=== PATIENT | female | born 1970 | race Caucasian/White ===

== ENCOUNTER 2020-08-12 15:33 | Outpatient (CLI) | payer MEDICARE, MEDICAID, SELFPAY ==
--- NOTE | ~2020-08-12 | XR_ITS ---
XR shoulder RT min 2V 08/12/2020 16:00 Indication: Right shoulder pain Procedure: 4 views right shoulder Comparison: No prior studies for comparison. Findings: There is mild osteoarthritis of the acromioclavicular joint. No fracture or traumatic malal ignment. Osteopenia. No significant soft tissue abnormality. No foreign bodies. Impression: 1: Mild osteoarthritis of the right acromioclavicular joint. Reviewed, dictated and finalized at location A. Impression: 1: Mild osteoarthritis of the right acromioclavicular joint.
[2020-08-12 15:51] LABS: Hematocrit 35.1 % (35.0-49.0); Hemoglobin 11.1 g/dL (12.0-15.0); Immature Platelet Fraction Pct 0.9 % (1.0-7.0); Mean Corpuscular HGB Conc 31.6 g/dL (32.0-36.0); Mean Corpuscular Hemoglobin 25.9 pg (27.0-31.0); Mean Platelet Volume 9.2 fl (9.2-11.8); Platelet Count Result 547 K/mm3 (150-420); Red Blood Count 4.28 M/mm3 (4.20-5.40); Red Cell Distribution Width 15.3 % (11.6-14.4); White Blood Count 9.1 K/mm3 (4.8-10.8)
[2020-08-12 16:57] LABS: Alanine Aminotransferase 17 U/L (14-59); Albumin Level 3.4 g/dL (3.4-5.0); Alkaline Phosphatase 118 U/L (46-116); Anion Gap 8 mmol/L (8-16); Aspartate Amino Transferase < 10 U/L (15-37); Bilirubin,Total 0.2 mg/dL (0.00-1.00); Blood Urea Nitrogen 11 mg/dL (7-18); Calcium 9.3 mg/dL (8.5-10.1); Carbon Dioxide 31 mmol/L (21-32); Chloride 102 mmol/L (98-108); Cholesterol 219 mg/dL (0-200); Estimated Glomerular Filt Rate > 60; Free T4 Free Thyroxine 0.86 ng/dL (0.76-1.46); Glucose 80 mg/dL (70-99); HDL Direct 27 mg/dL (40-60); LDL Cholesterol Calculated 137 mg/dL (<130); Osmolality Calculated 290 mOsm/kg (285-295); Potassium 4.2 mmol/L (3.5-5.1); Sodium 141 mmol/L (136-145); Total Protein 7.6 g/dL (6.4-8.2); Triglycerides 277 mg/dL (0-150)
== END 2020-08-12 15:34 | disposition home or self-care (01) ==
PROVIDERS: PCP Physician Assistant; Visit Provider Physician Assistant
DX: M25.511 Pain in right shoulder (principal); I10 Essential (primary) hypertension
CPT/HCPCS: 36415; 73030; 80053; 80061; 84439; 84443; 85027; 85055

== ENCOUNTER 2021-04-08 08:19 | Outpatient (CLI) | payer OTHER, SELFPAY ==
--- NOTE | ~2021-04-08 | MR_ITS ---
EXAMINATION: MR cervical spine wo con EXAM DATE: 04/08/2021 09:11 INDICATION: Cervical Radiculopathy neck pain, lt hand numbness x 2 years. TECHNIQUE: Multi-sequential, multiplanar MR images of the cervical spine were obtained without contra st. Axial T2, axial T2 MERGE sequence. Sagittal T1, T2, T2 fat saturation images also obtained. Th ere is no prior study for comparison. FINDINGS: There is moderate disc disease C5-6 and 6-7, mild to moderate at the 2 levels above. The s alf cord signal intensity and intrinsic morphology is normal. Cervicomedullary junction is normal i n appearance. There is moderate reversal of normal cervical lordosis which could be due degenerative, positional or spasm. The vertebral bodies are aligned in the AP dimension. There are no suspicious m arrow signal abnormalities. Paraspinal soft tissue is unremarkable. Level by level evaluation: C2-C3: Disc does not extend beyond the endplate margin. Uncovertebral joint arthropathy: None. Facet joint arthropathy: Mild to moderate bilateral. Neural foraminal stenosis: No stenosis. Central canal stenosis: No stenosis. C3-C4: There is a mild diffuse disc bulge. Uncovertebral joint arthropathy: Mild bilateral. Facet joint arthropathy: Mild to moderate bilateral. Neural foraminal stenosis: Mild right. Central canal stenosis: Mild. C4-C5: There is a mild to moderate diffuse disc bulge. Uncovertebral joint arthropathy: Mild to moderate bilateral. Facet joint arthropathy: Mild to moderate bilateral. Neural foraminal stenosis: Mild to moderate bilateral. Central canal stenosis: Mild to moderate, cervical cord being mildly flattened anteriorly but no cord signal change, no edema. Central canal measures 6-7 mm in mid sagittal AP diameter. C5-C6: There is a mild to moderate diffuse disc bulge. Uncovertebral joint arthropathy: Moderate bilateral. Facet joint arthropathy: Mild to moderate bilateral. Neural foraminal stenosis: Moderate bilateral. Central canal stenosis: Mild to moderate, cervical cord being mildly flattened anteriorly but no cord signal change, no edema. Central canal measures 6-7 mm in mid sagittal AP diameter. . C6-C7: There is a mild diffuse disc bulge. Uncovertebral joint arthropathy: Moderate to severe bilateral. Facet joint arthropathy: Mild to moderate bilateral. Neural foraminal stenosis: Moderate to severe bilateral. Central canal stenosis: Mild. C7-T1: Disc does not extend beyond the endplate margin. Uncovertebral joint arthropathy: None. Facet joint arthropathy: Mild to moderate bilateral. Neural foraminal stenosis: No stenosis. Central canal stenosis: No stenosis. IMPRESSION: 1. C6-7 moderate to severe bilateral neural foraminal stenosis. 2. Otherwise overall moderate cervical spondylosis. Reviewed, dictated and finalized at location B. 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
== END 2021-04-08 08:20 | disposition home or self-care (01) ==
LOC: CHSIMG 08:21
PROVIDERS: PCP Physician Assistant; Visit Provider Physician Assistant
DX: M54.12 Radiculopathy, cervical region (principal)
CPT/HCPCS: 72141

== ENCOUNTER 2022-07-10 17:02 | Emergency (ER) | payer MEDICARE, MEDICAID, SELFPAY ==
--- NOTE | ~2022-07-10 | XR_ITS ---
Portable chest x-ray Comparison: 12/11/2016 Clinical History: Chest pain Findings: Lungs are clear, without focal consolidation or pleural effusion. Cardiomediastinal silho uette is stable. Bones and soft tissues are unremarkable. Impression: Normal chest. Reviewed, dictated and finalized at [facility]. Impression: Normal chest.
--- NOTE | 2022-07-10 17:17 | ECG_ITS ---
Measurements Intervals [place] Rate: 97 P: 66 GA: 124 QRS: 15 QRSD: 110 T: 48 QT: 337 QTc: 429 Interpretive Statements SINUS RHYTHM INCOMPLETE RIGHT BUNDLE BRANCH BLOCK [90+ ms QRS DURATION, TERMINAL R IN V1/V2, 40+ ms S IN I/aVL/V4/V5/V6] BORDERLINE ECG NO PREVIOUS ECG AVAILABLE FOR COMPARISON Electronically Signed On 07-11-2022 7:47:16 CDT by Prem Jones M.D.
--- NOTE | 2022-07-10 17:17 | ED.GENADULT ---
HPI - General Adult General Chief complaint: Neck Pain/Injury Stated complaint: neck into arm pain Time Seen by Provider: 07/10/22 17:07 History of Present Illness HPI narrative: the patient is a 52-year-old woman with a history of 3 prior back surgeries, who has chronic neck pain. She had a spinal MRI done last year and she is scheduled to have surgery on the cervical spine in the next few months. She does take Tylenol with codeine 4., Flexeril, and naproxen and has taken his medications today due to pain in the left arm as well as the left lateral chest. No previous similar history of arm and chest pain laterally. Does usually have neck pain that is localized to the neck. No trauma or falls. See MRI report below. No tingling sensations in the left hand. Able to move her left arm board with some difficulty secondary to pain. The pain is described as burning and throbbing. She has taken TC#4, Naproxen and Flexeril without relief. Related Data Home Medications Medication Instructions Recorded Confirmed acetaminophen 300 mg-codeine 60 mg 1 tablet PO Q6-8H 07/10/22 07/10/22 tablet cyclobenzaprine 10 mg tablet 10 mg PO TID 07/10/22 07/10/22 fluoxetine 20 mg capsule 20 mg PO DAILY 07/10/22 07/10/22 lisinopril 5 mg tablet 5 mg PO DAILY 07/10/22 07/10/22 Allergies Allergy/AdvReac Type Severity Reaction Status Date / Time No Known Drug Allergies Allergy Mild Unverified 10/24/17 13:05 Review of Systems Review of Systems: All systems reviewed & are unremarkable except as noted in HPI and below Constitutional: Constitutional: Reports as per HPI, Reports no additional constitutional complaints, Denies chills, Denies excessive sweating, Denies fatigue, Denies fever(s), Denies headache(s) and Denies weakness Eyes: Eyes: Reports as per HPI, Reports no additional eye complaints, Denies change in vision and Denies photophobia ENT: Reports system reviewed and no additional complaints, except as documented, Reports as per HPI, Denies dysphagia, Denies vertigo, Denies dizziness, Denies headache(s), Denies lip swelling, Denies nasal congestion, Denies sore throat, Denies throat swelling and Denies tongue swelling Cardiovascular: Cardiovascular: Reports as per HPI, Reports no additional cardiovascular complaints, Reports chest pain (laterally at left chest), Denies syncope, Denies rapid heart rate and Denies dyspnea Respiratory: Respiratory: Reports as per HPI, Reports no additional respiratory complaints, Denies chest congestion, Denies cough, Denies dyspnea and Denies wheezing Gastrointestinal: Gastrointestinal: Reports as per HPI, Reports no additional gastrointestinal complaints, Denies abdominal pain, Denies constipation, Denies dysphagia, Denies diarrhea, Denies nausea and Denies vomiting Genitourinary: Genitourinary: Reports as per HPI, Denies hematuria, Denies urinary frequency, Denies dysuria, Denies urinary incontinence and Denies urinary urgency Musculoskeletal: Musculoskeletal: Reports no additional musculoskeletal complaints, Denies back pain, Denies myalgias, Denies arthralgias, Denies joint swelling and Denies numbness Integumentary/Breasts: Skin/Breast: Reports system reviewed and no additional complaints, except as docu, Denies pruritus, Denies erythema, Denies rash and Denies skin ulcer Neurologic: Reports system reviewed and no additional complaints, except as documented, Reports as per HPI, Denies confusion, Denies vertigo, Denies dizziness, Denies syncope, Denies headache(s), Denies focal weakness, Denies numbness and Denies weakness Psychiatric: Psychiatric: Reports as per HPI, Denies anxiety, Denies confusion, Denies depression, Denies homicidal ideation and Denies suicidal ideation Endocrine: Endocrine: Reports no additional endocrine complaints, Denies excessive sweating, Denies fatigue, Denies polydipsia and Denies polyuria Hematologic/Lymphatic: Hematologic/Lymphatic: Reports no additional hematologic/lymphatic compla
[2022-07-10 17:22] VITALS: BP 147/65; PULSE 99; RESP 17; TEMP 36.6; O2SAT 100
[2022-07-10] MEDS: HYDROcodone/acetaminophen (*CRX) 5-325 MG TABLET 1 TAB PO ×2 (17:32→18:25)
[2022-07-10 17:33] LABS: Basophils Absolute Auto 0.06 K/mm3 (0.00-0.10); Basophils Percent Auto 0.6 % (0.0-1.0); Eosinophils Absolute Auto 0.26 K/mm3 (0.02-0.50); Eosinophils Percent Auto 2.4 % (1.0-6.0); Hematocrit 38.1 % (35.0-49.0); Hemoglobin 11.8 g/dL (12.0-15.0); Immature Granulocyte Absolute 0.03 K/mm3 (0.00-0.00); Immature Granulocyte Percent A 0.3 % (0.0-0.0); Immature Platelet Fraction Pct 2.3 % (1.0-7.0); Lymphocytes Absolute Auto 3.64 K/mm3 (1.10-4.50); Lymphocytes Percent Auto 33.7 % (18.0-42.0); Mean Corpuscular Hemoglobin 26.2 pg (27.0-31.0); Mean Corpuscular Volume 84.5 fL (78.0-102.0); Mean Platelet Volume 9.7 fl (9.2-11.8); Monocytes Absolute Auto 0.96 K/mm3 (0.10-0.90); Monocytes Percent Auto 8.9 % (2.0-11.0); Neutrophils Absolute Auto 5.8 K/mm3 (1.7-7.2); Neutrophils Percent Auto 54.1 % (50.0-70.0); Platelet Count Result 588 K/mm3 (150-420); Red Blood Count 4.51 M/mm3 (4.20-5.40); Red Cell Distribution Width 15.6 % (11.6-14.4); White Blood Count 10.8 K/mm3 (4.8-10.8)
[2022-07-10] MEDS: ORPHENADRINE CITRATE 30 MG/ML 2 ML VIAL 60 MG IM (17:33)
[2022-07-10] MEDS: KETOROLAC (*BKC) 60 MG/2 ML VIAL IM (17:33)
[2022-07-10 17:48] LABS: Alanine Aminotransferase 27 U/L (14-59); Albumin Level 3.2 g/dL (3.4-5.0); Alkaline Phosphatase 125 U/L (46-116); Anion Gap 9 mmol/L (8-16); Aspartate Amino Transferase 15 U/L (15-37); Bilirubin,Total 0.2 mg/dL (0.00-1.00); Blood Urea Nitrogen 12 mg/dL (7-18); Calcium 9.4 mg/dL (8.5-10.1); Carbon Dioxide 30 mmol/L (21-32); Chloride 100 mmol/L (98-108); Estimated Glomerular Filt Rate > 60; Glucose 103 mg/dL (70-99); Osmolality Calculated 287 mOsm/kg (285-295); Sodium 139 mmol/L (136-145); Total Protein 8.5 g/dL (6.4-8.2); Troponin I 4.1 ng/L (0.00-60.4)
[2022-07-10 18:50] VITALS: BP 139/66; PULSE 80; RESP 20; O2SAT 98
[2022-07-10 19:14] VITALS: BP 138/80; PULSE 90; RESP 20; TEMP 36.6; O2SAT 96
== END 2022-07-10 19:15 | disposition home or self-care (01) ==
PROVIDERS: Emergency Provider Emergency Medicine; PCP Physician Assistant
DX: M54.12 Radiculopathy, cervical region (principal)
CPT/HCPCS: 36415; 71045; 80053; 84484; 85025; 85055; 93005; 96372; 99284; A9270; J1885; J2360

== ENCOUNTER 2022-07-15 09:58 | Emergency (ER) | payer MEDICARE, MEDICAID, SELFPAY ==
[2022-07-15 09:58] VITALS: BP 135/69; PULSE 100; RESP 18; TEMP 36.8; O2SAT 100
--- NOTE | 2022-07-15 10:09 | ED.EPISTAXIS ---
HPI - Epistaxis General Chief complaint: Epistaxis Stated complaint: nosebleeds; left arm and shoulder pain Time Seen by Provider: 07/15/22 10:07 Source: patient Mode of arrival: ambulatory Limitations: no limitations History of Present Illness HPI Narrative: 52-year-old female with a history of cervical spondylosis, C6/C7 bilateral neural foraminal stenosis with left arm pain presents to the ER with -- ongoing left arm pain. She had an MRI which revealed moderate cervical spondylosis with severe bilateral narrowing of the foraminal stenosis at C6/7. The patient is awaiting surgery. She is currently following up with Pain Management to prescribed gabapentin. -- epistaxis- She had multiple episodes of right nostril bleeding. At one point while she was sleeping, the blood had accumulated in her throat and she was gurgling.The patient does not have any prior episodes of nosebleeds. The patient is not on any anticoagulation. no sinus complaints. MD complaint: epistaxis Location: right nostril Onset (ago): day(s) ( Started yesterday) Duration: intermittent Related Data Home Medications Medication Instructions Recorded Confirmed acetaminophen 300 mg-codeine 60 mg 1 tablet PO Q6-8H 07/10/22 07/15/22 tablet cyclobenzaprine 10 mg tablet 10 mg PO TID 07/10/22 07/15/22 fluoxetine 20 mg capsule 20 mg PO DAILY 07/10/22 07/15/22 lisinopril 5 mg tablet 5 mg PO DAILY 07/10/22 07/15/22 gabapentin 300 mg capsule 300 mg PO QID 07/15/22 07/15/22 Allergies Allergy/AdvReac Type Severity Reaction Status Date / Time No Known Drug Allergies Allergy Mild Hives Verified 07/15/22 10:09 Review of Systems Review of Systems: All systems reviewed & are unremarkable except as noted in HPI and below Constitutional: Constitutional: Reports as per HPI and Reports no additional constitutional complaints Eyes: Eyes: Reports as per HPI and Reports no additional eye complaints ENT: Reports system reviewed and no additional complaints, except as documented and Reports epistaxis Cardiovascular: Cardiovascular: Reports as per HPI and Reports no additional cardiovascular complaints Respiratory: Respiratory: Reports as per HPI and Reports no additional respiratory complaints Gastrointestinal: Gastrointestinal: Reports as per HPI and Reports no additional gastrointestinal complaints Genitourinary: Genitourinary: Reports no additional female genitourinary complaints and Reports as per HPI Musculoskeletal: Musculoskeletal: Reports no additional musculoskeletal complaints and Reports as per HPI Comments: left arm pain extending from the shoulder to the left elbow. Integumentary/Breasts: Skin/Breast: Reports system reviewed and no additional complaints, except as docu and Reports as per HPI Neurologic: Reports system reviewed and no additional complaints, except as documented and Reports as per HPI Psychiatric: Psychiatric: Reports no additional psychiatric complaints and Reports as per HPI Endocrine: Endocrine: Reports no additional endocrine complaints and Reports as per HPI Hematologic/Lymphatic: Hematologic/Lymphatic: Reports no additional hematologic/lymphatic complaints and Reports as per HPI Allergic/Immunologic: Allergic/Immunologic: Reports no additional allergic/immunologic complaints and Reports as per HPI PMFSH Past Medical History Medical History (Updated 07/15/22 @ 11:04 by Tyrone Malin MD) Epistaxis Hypertension Social History Social History (Updated 07/15/22 @ 10:34 by Tyrone Malin MD) Social History: smoker Exam Const: General: healthy appearing and no acute distress Nutritional Appearance: well nourished Orientation/consciousness: patient oriented x3 Limitations: no limitations HENMT: Head: normal to inspection Ears: external ears normal Face/Nose/Sinus: Normal external nose present and Epistaxis present ( Dried blood in the right nostril.) on the right Face and sinus: normal facial exam Mo
[2022-07-15 10:45] LABS: Basophils Absolute Auto 0.07 K/mm3 (0.00-0.10); Basophils Percent Auto 0.7 % (0.0-1.0); Eosinophils Absolute Auto 0.23 K/mm3 (0.02-0.50); Eosinophils Percent Auto 2.4 % (1.0-6.0); Hematocrit 36.6 % (35.0-49.0); Hemoglobin 11.4 g/dL (12.0-15.0); Immature Granulocyte Absolute 0.03 K/mm3 (0.00-0.00); Immature Granulocyte Percent A 0.3 % (0.0-0.0); Immature Platelet Fraction Pct 2.1 % (1.0-7.0); Lymphocytes Absolute Auto 2.84 K/mm3 (1.10-4.50); Lymphocytes Percent Auto 29.4 % (18.0-42.0); Mean Corpuscular HGB Conc 31.1 g/dL (32.0-36.0); Mean Corpuscular Hemoglobin 26.4 pg (27.0-31.0); Mean Corpuscular Volume 84.7 fL (78.0-102.0); Mean Platelet Volume 9.7 fl (9.2-11.8); Monocytes Percent Auto 8.3 % (2.0-11.0); Neutrophils Absolute Auto 5.7 K/mm3 (1.7-7.2); Neutrophils Percent Auto 58.9 % (50.0-70.0); Platelet Count Result 591 K/mm3 (150-420); Red Blood Count 4.32 M/mm3 (4.20-5.40); Red Cell Distribution Width 15.4 % (11.6-14.4); White Blood Count 9.7 K/mm3 (4.8-10.8)
[2022-07-15 10:57] LABS: Alanine Aminotransferase 22 U/L (14-59); Alkaline Phosphatase 116 U/L (46-116); Anion Gap 7 mmol/L (8-16); Aspartate Amino Transferase 13 U/L (15-37); Bilirubin,Total 0.2 mg/dL (0.00-1.00); Blood Urea Nitrogen 13 mg/dL (7-18); Calcium 9.1 mg/dL (8.5-10.1); Carbon Dioxide 29 mmol/L (21-32); Chloride 102 mmol/L (98-108); Estimated Glomerular Filt Rate > 60; Glucose 122 mg/dL (70-99); Osmolality Calculated 287 mOsm/kg (285-295); Partial Thromboplastin Time 33.2 SEC (23.90-30.70); Potassium 4.2 mmol/L (3.5-5.1); Prothrombin Time 11.4 Seconds (9.50-12.10); Sodium 138 mmol/L (136-145); Total Protein 8.1 g/dL (6.4-8.2)
[2022-07-15 11:09] VITALS: BP 132/87; PULSE 97; RESP 18; TEMP 36.2; O2SAT 99
== END 2022-07-15 11:14 | disposition home or self-care (01) ==
PROVIDERS: Emergency Provider Internal Medicine Critical Care Medicine; PCP Physician Assistant
DX: R04.0 Epistaxis (principal); M54.12 Radiculopathy, cervical region; I10 Essential (primary) hypertension
CPT/HCPCS: 36415; 80053; 85025; 85055; 85610; 85730; 99283

== ENCOUNTER 2023-11-19 15:41 | Outpatient (CLI) | payer MEDICARE, MEDICAID, SELFPAY ==
[2023-11-19 16:07] LABS: Basophils Absolute Auto 0.06 K/mm3 (0.00-0.10); Basophils Percent Auto 0.6 % (0.0-1.0); Eosinophils Absolute Auto 0.17 K/mm3 (0.02-0.50); Eosinophils Percent Auto 1.7 % (1.0-6.0); Hematocrit 42.9 % (35.0-49.0); Immature Granulocyte Absolute 0.05 K/mm3 (0.00-0.00); Immature Granulocyte Percent A 0.5 % (0.0-0.0); Immature Platelet Fraction Pct 2.6 % (1.0-7.0); Lymphocytes Absolute Auto 3.28 K/mm3 (1.10-4.50); Lymphocytes Percent Auto 32.2 % (18.0-42.0); Mean Corpuscular HGB Conc 32.6 g/dL (32-36); Mean Corpuscular Hemoglobin 27.4 pg (27.0-31.0); Monocytes Absolute Auto 0.51 K/mm3 (0.10-0.90); Neutrophils Absolute Auto 6.12 K/mm3 (1.70-7.20); Platelet Count Result 543 K/mm3 (150-420); Red Blood Count 5.11 M/mm3 (4.20-5.40); Red Cell Distribution Width 20.1 % (11.6-14.4); White Blood Count 10.2 K/mm3 (4.8-10.8)
[2023-11-19 16:32] LABS: Alanine Aminotransferase 82 U/L (14-59); Albumin Level 3.9 g/dL (3.4-5.0); Alkaline Phosphatase 141 U/L (46-116); Anion Gap 11 mmol/L (4-12); Aspartate Amino Transferase 38 U/L (15-37); Bilirubin,Total 0.4 mg/dL (0.00-1.00); Blood Urea Nitrogen 15 mg/dL (7-18); CRP 2.8 mg/dL (0.0-0.9); Calcium 9.7 mg/dL (8.5-10.1); Carbon Dioxide 29 mmol/L (21-32); Chloride 98 mmol/L (98-108); Estimated Glomerular Filt Rate > 60; Glucose 102 mg/dL (70-99); Osmolality Calculated 286 mOsm/kg (285-295); Potassium 4.6 mmol/L (3.5-5.1); Sodium 138 mmol/L (136-145)
== END 2023-11-19 15:42 | disposition home or self-care (01) ==
DX: M05.79 Rheumatoid arthritis with rheumatoid factor of multiple sites without organ or systems involvement (principal); G47.00 Insomnia, unspecified
CPT/HCPCS: 36415; 80053; 85025; 85055; 86140

== ENCOUNTER 2023-12-14 16:05 | Outpatient (CLI) | payer MEDICARE, SELFPAY ==
[2023-12-24 16:23] LABS: TPMT Activity 18
== END 2023-12-14 16:06 | disposition home or self-care (01) ==
LOC: CHSLAB 16:09
PROVIDERS: PCP Physician Assistant
DX: L40.50 Arthropathic psoriasis, unspecified (principal); M45.0 Ankylosing spondylitis of multiple sites in spine; M05.79 Rheumatoid arthritis with rheumatoid factor of multiple sites without organ or systems involvement
CPT/HCPCS: 36415; 82657

== ENCOUNTER 2024-03-23 16:26 | Outpatient (CLI) | payer MEDICARE, SELFPAY ==
[2024-03-23 17:29] LABS: Alanine Aminotransferase 39 U/L (14-59); Albumin Level 4.2 g/dL (3.4-5.0); Alkaline Phosphatase 84 U/L (46-116); Anion Gap 8 mmol/L (4-12); Aspartate Amino Transferase 17 U/L (15-37); Bilirubin,Total 0.4 mg/dL (0.00-1.00); Blood Urea Nitrogen 18 mg/dL (7-18); Calcium 9.9 mg/dL (8.5-10.1); Carbon Dioxide 30 mmol/L (21-32); Chloride 100 mmol/L (98-108); Estimated Glomerular Filt Rate > 60; Glucose 91 mg/dL (70-99); Osmolality Calculated 287 mOsm/kg (285-295); Potassium 5.2 mmol/L (3.5-5.1); Sodium 138 mmol/L (136-145); Total Protein 7.4 g/dL (6.4-8.2)
== END 2024-03-23 16:27 | disposition home or self-care (01) ==
PROVIDERS: PCP Physician Assistant; Visit Provider Physician Assistant
DX: M32.9 Systemic lupus erythematosus, unspecified (principal); M05.79 Rheumatoid arthritis with rheumatoid factor of multiple sites without organ or systems involvement
CPT/HCPCS: 36415; 80053

== ENCOUNTER 2024-04-20 09:38 | Emergency (ER) | payer MEDICARE, MEDICAID, SELFPAY ==
[2024-04-20] VITALS (22 sets, daily range): BP systolic 115–145; BP diastolic 47–74; PULSE 66–80; RESP 16–20; TEMP 36.9–37; O2SAT 91–98
--- NOTE | ~2024-04-20 | XR_ITS ---
EXAMINATION: XR chest 1V portable DATE: 04/20/2024 09:54 INDICATION: Shortness of breath. Burning sensation at the left chest. TECHNIQUE: frontal view of the chest was obtained. COMPARISON: Chest radiograph dated 07/10/2022 FINDINGS: The lungs remain clear with no focal airspace opacities, pulmonary edema, pleural effusion or pneumot horax. The cardiomediastinal silhouette is normal. Visualized bones and soft tissues are unremarkable . IMPRESSION: 1. No acute cardiopulmonary disease. Reviewed, dictated and finalized at location B. R [employer]
[2024-04-20 10:01] LABS: Basophils Absolute Auto 0.09 K/mm3 (0.00-0.10); Eosinophils Percent Auto 2.3 % (1.0-6.0); Hematocrit 39.1 % (35.0-49.0); Hemoglobin 12.4 g/dL (12.0-15.0); Immature Granulocyte Absolute 0.01 K/mm3 (0.00-0.00); Immature Granulocyte Percent A 0.1 % (0.0-0.0); Lymphocytes Absolute Auto 4.61 K/mm3 (1.10-4.50); Lymphocytes Percent Auto 52.8 % (18.0-42.0); Mean Corpuscular HGB Conc 31.7 g/dL (32-36); Mean Corpuscular Hemoglobin 29.2 pg (27.0-31.0); Mean Corpuscular Volume 92.2 fL (78.0-102.0); Mean Platelet Volume 10.2 fl (9.2-11.8); Monocytes Absolute Auto 0.67 K/mm3 (0.10-0.90); Monocytes Percent Auto 7.7 % (2.0-11.0); Neutrophils Absolute Auto 3.15 K/mm3 (1.70-7.20); Neutrophils Percent Auto 36.1 % (50.0-70.0); Platelet Count Result 376 K/mm3 (150-420); Red Blood Count 4.24 M/mm3 (4.20-5.40); Red Cell Distribution Width 15.2 % (11.6-14.4); White Blood Count 8.7 K/mm3 (4.8-10.8)
--- OUTSIDE RECORDS SUMMARY | 2024-04-20 10:10 | XMS_ITS | CONTINUITY OF CARE DOCUMENT ---
Author Name brandie diego Address Unknown Organization [facility] Address [address] [place] [address] Phone [phone] Care Team Providers Care Mergers And Acquisitions Associate Name Role Phone brandie diego Unavailable Unavailable
--- OUTSIDE RECORDS SUMMARY | 2024-04-20 10:10 | XMS_ITS | Clinical Summary ---
Author Organization [facility] Administrative Offices Address [address] [place] [id number] Care Team Providers Care Accreditation Coordinator Name Role Phone Unavailable Primary Care Provider Unavailabl e Family History Medical History Relation Name Comments Blood Clots Father High Cholesterol Father Hypertension Father Aneurysm Maternal Aunt Hypertension Maternal Aunt Hypertension Maternal Grandfather Cancer Maternal Grandmother Diabetes Maternal Grandmother Heart Disease Maternal Grandmother Hypertension Maternal Grandmother Hypertension Maternal Uncle High Cholesterol Mother Hypertension Mother Cancer Paternal Grandmother Heart Disease Paternal Grandmother Hypertension Paternal Grandmother Relation Name Status Comments Father Maternal Aunt Alive Maternal Grandfather Maternal Grandmother Maternal Uncle Alive Mother Paternal Grandmother Social History Tobacco Use Types Packs/Day Years Used Date Smoking Tobacco: Former Cigarettes Alcohol Use Standard Drinks/Week Comments Never 0 (1 standard drink = 0.6 oz pur e alcohol) Comments Unknown Sex and Gender Information Value Date Recorded Sex Assigned at Not on file Legal Sex Female 9:37 PM CDT Gender Identity Not on file Sexual Orientation Not on file Occupation Industry Job Start Date Job End Date disabled Not on file Not on file Not on file Plan of Treatment Health Maintenance Due Date Last Done Comments DTAP/TDAP/TD VACCINES (1 - Tdap) 1988 HEPATITIS B VACCINES (1 of 3 - 19+ 3-dose series) 05/21 CERVICAL CANCER SCREENING 06/17/1999 BREAST CANCER SCREENING 2009 COLORECTAL SCREENING 2014 Colorectal Cancer Screening 2014 FIT-DNA Q 3 years 2014 FIT/FOBT Q 1 year 2014 Flex Sig/CT Colonography Q 5 years 2014 ZOSTER VACCINE (1 of 2) 06/17/2019 INFLUENZA VACCINE (#1) 2023 Insurance MEDICARE PART A AND B [place]ICAID [place]
--- OUTSIDE RECORDS SUMMARY | 2024-04-20 10:10 | XMS_ITS | Clinical Summary ---
Author Organization [facility] Address [address] [place] [address] Care Team Providers Care Negative Stripper Name Role Phone Jose Brayn Primary Care Provider [phone] Ciaran Mcallister MD Unavailable [phone] Allergies Active Allergy Reactions Criticality Noted Date Comments Morphine Agitation Low Medications gabapentin (NEURONTIN) 300 mg capsule Take 4 capsules (1,200 mg total) by mouth nightly Active cyclobenzaprin e (FLEXERIL) 10 mg tablet Take 1 tablet (10 mg total) by mouth nightly 05/12/19 20 Active lisinopriL (PRINIVIL,ZEST RIL) 5 mg tablet Take 1 tablet (5 mg total) by mouth daily 10/10/19 20 Active FLUoxetine (PROzac) 20 mg capsule Take 2 capsules (40 mg total) by mouth daily Active tamsulosin (FLOMAX) 0.4 mg extended release capsule Take 1 capsule (0.4 mg total) by mouth daily Active folic acid (FOLVITE) 1 mg tablet Take 1 tablet (1 mg total) by mouth daily Active pantoprazole DR (PROTONIX) 40 mg EC tablet Take 1 tablet (40 mg total) by mouth daily Active docusate sodium (COLACE) 250 mg capsuleIndicat ions:constipat ion Take 1 capsule (250 mg total) by mouth 2 (two) times a day 60 capsule 01/21/20 24 Active Additional Information Patient not taking.Reported on 04/03/2024 nicotine (NICODERM CQ) [address] 1 patch on the skin daily 10 patch 01/22/20 Active Additional Information Patient not taking.Reported on 04/03/2024 oxyCODONE-acet aminophen (PERCOCET) 5-325 mg per tabletIndicati ons:Pain Take 1 tablet by mouth every 4 (four) hours as needed for pain 12 tablet 01/21/20 24 Active Additional Information Patient not taking.Reported on 04/03/2024 GEETA Noonan, Pen 40 mg/0.4 mL pen injector kit Inject 0.4 mL (40 mg total) under the skin every 14 (fourteen) days 01/19/20 24 Active traMADoL (ULTRAM) 50 mg tablet Take 1 tablet (50 mg total) by mouth 3 (three) times a day as needed 03/21/20 24 Active diazePAM (VALIUM) 2 mg tablet Take 1 tablet (2 mg total) by mouth 3 (three) times a day as needed Active busPIRone (BUSPAR) 15 mg tablet Take 1 tablet (15 mg total) by mouth 3 (three) times a day 02/16/20 24 Active meloxicam (MOBIC) 7.5 mg tablet take 1 tablet (7.5 mg) by oral route once daily for 30 days 04/06/19 25 Active sulfaSALAzine EN (AZULFIDINE EN) 500 mg EC tablet Take 1 tablet (500 mg total) by mouth 2 (two) times a day 04/05/19 25 Active naloxone (NARCAN) 4 mg/actuation spray,non-aero dexter Administer 1 spray (4 mg total) into affected nostril(s) as needed 07/06/19 24 Active predniSONE (DELTASONE) 5 mg tablet TAKE BETWEEN 1 TO 3 TABLET BY MOUTH ONCE DAILY FOR IMMEDIATE ARTHRITIS CONROL. USE LOWEST DOSE NEEDED AND STOP WHEN BETTER 03/13/20 24 Active methotrexate 2.5 mg tablet Take 1 tablet (2.5 mg total) by mouth every 7 days 025 Discontinued Active Problems Patient Care Coordination No te Formatting of this note migh t be different from the original. Referring provider: Dr. Ciaran Mcallister Ms. Thuy Cooper is a 53-year-old with esophageal diverticulum. Patient presented with a 1 year history of worsening dysphagia followed by vomiting. On 02/24/2024 the patient underwent an EGD which showed the GE junction was located at 40 cm with no evidence of reflux esophagitis or hiatal hernia or stenosis at the GE junction. While proceeding down the esophagus, on the left, a large mid esophageal diverticulum was observed at 30 cm. There was antral gastritis. This was biopsied. Final pathology showed gastric mucosa with mild chronic inflammation. On 03/30/2024 the patient underwent an esophagram that showed Diverticulum arising off the left lateral aspect of the mid to distal esophagus measuring up to 2.1 cm. No definite evidence of esophageal stricture or mass. Scattered tertiary contractions noted, which is most significant involving the mid to distal esophagus, which raises the concern for esophageal spasm versus mild early presbyesophagus. Xsnj-dh-equsbfby spontaneous gastroesophageal reflux. Small sliding-type hiatal hernia. She has a history of rheumatoid arthritis, psoriatic arthritis and ankylosing spondylitis. She is on methotrexate and Humira. She also reports taking 5 mg of prednisone every other day for pain. Her prior abdominal surgeries include a hysterectomy. She is a former smoker. Patient presents today for further surgical evaluation. Problem Noted Date Diagnosed Date Chronic cough 04/03/2024 Chronic depression 04/03/2024 Hyperglycemia 04/03/2024 Mixed hyperlipidemia 04/03/2024 Pneumonia 04/03/2024 Strain of trapezius muscle 04/03/2024 Esophageal diverticulum 04/03/2024 Other acute pancreatitis, unspecified complicati on status 01/18/2024 Rheumatoid arthritis involvi ng both ankles with positive rheumatoid factor 08/04/2023 UTI (urinary tract infection) 08/01/2023 Syncope 07/30/2023 Joint stiffness 07/20/2023 Cervical radiculopathy 08/03/2022 Cervical spinal stenosis 08/03/2022 Lymphadenopathy 07/24/2021 Gait difficulty 05/16/2019 Low back pain, non-specific 02/21/2019 Essential hypertension 04/15/2015 Overview (06/26/2016): Hypertension Bipolar affective disorder 01/16/2015 Overview (06/26/2016): Bipolar disorder Encounters Date Type Department Care Team Description 04/11/2024 Telephone [facility] [address] [place] [address] [address] Jaqueline Jorgensen RN 04/04/2024 Orders Only [facility] Surgery [facility] Floor [address] [place] [id number] Raghav Pugh NP Esophageal diverticulum (Primary Dx) 04/03/2024 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 [facility] Surgery [address] [facility] [place] [address] David Miller MD Esophageal diverticulum 03/30/2024 8:00 AM [employer] - 03/30/2024 11:59 PM SUPERVISOR [employer] Hospital Encounter [facility] [address] [place] [address] Rad, Amh Fluoro Esophageal diverticulum Discharge Disposition: Discharge to home or self care 03/27/2024 Orders Only [facility] Surgery [address] [place] [address] [address] [place] [id number] Yumiko Donaldson NP Esophageal diverticulum (Primary Dx) 01/25/2024 Telephone [facility] at [facility] [id number] [place] [address] [address] [id number] Ronald Bonilla MD 01/18/2024 6:14 AM CDT - 01/21/2024 1:16 PM CDT Hospital Encounter [address] [address] Harmeet Merritt MD Onaghise, Jude, MD Perez Porcel, Jose Daniel, MD Other acute pancreatitis, unspecified complication status [K85.80] (Primary Dx); Rheumatoid arthritis involving hand, unspecified laterality, unspecified whether rheumatoid factor present (HCC) Discharge Disposition: Discharge to home or self care from Last 3 Months Immunizations Name Administration Dates Next Due Influenza, Quadrivalent, Split, Intramuscular Influenza, Unspecified 12/20/2018 Tdap 03/31/2013 Surgical History Surgery Date Site/Laterality Comments TONSILLECTOMY HYSTERECTOMY LYMPH NODE BIOPSY Left LATERAL FUSION LUMBAR SPINE 3 surgeries Medical History Medical History Date Comments Hx Other Medical Back Surgery; C omments: TDB 01/16/2015 - Asthma Asthma; Comments : TDB 01/16/2015 - Hypertension Hypertension Chronic obstructive pulmonar y disease (HCC) COPD Hx Other Medical Bipolar; Commen ts: TDB 01/16/2015 - Hx Other Medical dengenarated di sk disease; Comments: TDB 01/16/2015 - Hx Other Medical Xanax abuse; Co mments: CSA 01/16/2015 - Hx Other Medical Sucidal attempt s; Comments: CSA 01/16/2015 - Anxiety Chest pain Cervical disc disease Depression Diverticulum of esophagus, acquired Family History Medical History Relation Name Comments Coronary artery disease Father Angélica nary artery disease; Diabetes Father Diabetes mellit us; Hypertension Father Hypertension; Schizophrenia Father Schizophrenia; Cancer Maternal Grandmother Diabetes Maternal Grandmother Heart disease Maternal Grandmother Hypertension Maternal Grandmother Stroke Maternal Grandmother Asthma Mother Asthma; COPD Mother COPD; Hypertension Mother Hypertension; Diabetes Paternal Grandfather Relation Name Status Comments Father Maternal Grandmother Mother Paternal Grandfather Social History Tobacco Use Types Packs/Day Years Used Date Smoking Tobacco: Former Cigarettes 1 39.3 1 985 - 06/28/2023 Smokeless Tobacco: Never Tobacco Cessation:Counseling Given: Not Answered Alcohol Use Standard Drinks/Week Comments Not Currently 0 (1 standard drink = 0.6 oz pur e alcohol) [facility] [employer] Answer Date Recorded In the past 12 months has [employer] electric, gas, oil, or water [email or web address] threatened to shut off services in your home? No 01/18/2024 Social Connection and Isolat ion Panel [NHANES] Answer Date Recorded In a typical week, how many times do you talk on the phone with family, friends, or neighbors? More than three times a week 01/18/2024 How often do you get togethe r with friends or relatives? More than three times a week 01/18/2024 How often do you attend chur ch or baptist services? Never 01/18/2024 Do you belong to any clubs o r organizations such as restorationist groups, unions, fraternal or athletic groups, or school groups? No 01/18/2024 How often do you attend meet ings of the clubs or organizations you belong to? Never 01/18/2024 Are you , , di vorced, , never , or living with a partner? 01/18/2024 AUDIT-C Answer Date Recorded Q1: How often do you have a drink containing alc ohol? Monthly or less 04/03/2024 Average Number of Drinks Not on file 025 Frequency of Binge Drinking Not on file 03/22 Overall Financial Resource Strain (CARDIA) Answe r Date Recorded How hard is it for you to pa y for the very basics like food, housing, medical care, and heating? Not hard at all 01/18/2024 Hunger Vital Sign Answer Date Recorded Within the past 12 months, y ou worried that your food would run out before you got the money to buy more. Never true 01/18/20 24 Within the past 12 months, t he food you bought just didn't last and you didn't have money to get more. Never true 01/18/2024 PRAPARE - Transportation Answer Date Re corded In the past 12 months, has l ack of transportation kept you from medical appointments or from getting medications? No 12/21 In the past 12 months, has l ack of transportation kept you from meetings, work, or from getting things needed for daily living? No 01/18/2024 Housing Stability Vital Sign Answer Tyrell e Recorded In the last 12 months, was t here a time when you were not able to pay the mortgage or rent on time? No 01/18/2024 In the past 12 months, how m any times have you moved where you were living? 1 01/18/2024 At any time in the past 12 m [facility], were you homeless or living in a jail (including now)? No 01/18/2024 Personal Safety Answer Date Recorded Have you ever been in or are you currently in a harmful physical or emotional relationship or is someone making you feel afraid or unsafe? 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[employer] Gender Identity Not on file Sexual Orientation Not on file Occupation Industry Job Start Date Job End Date disability Not on file Not on file Not on file Obstetrics History Last Filed Vital Signs Vital Sign Reading Time Taken Comments Blood Pressure 151/85 04/03/2024 8:40 AM [employer] Pulse 84 04/03/2024 8:40 AM [employer] Temperature 36.4 ??C (97.6 ??F) 04/03/2024 8:40 AM CS T Respiratory Rate 16 04/03/2024 8:40 AM [employer] Oxygen Saturation 96% 04/03/2024 8:40 AM [employer] Inhaled Oxygen Concentration - - Weight 87.2 kg (192 lb 3.2 oz) 04/03/2024 8:40 A M [employer] Height 163.1 cm (5' 4.21 ) 04/03/2024 8:40 AM CS T Body Mass Index 32.77 04/03/2024 8:40 AM [employer] Plan of Treatment Health Maintenance Due Date Last Done Comments Colon Cancer Screening-Colonoscopy 1969 Depression Screening 1969 Hepatitis B Screening 06/17/1987 Regular Well Visit/Exam 18-64 06/17/1987 Lung Cancer Screening 06/17/2019 Zoster Vaccine (1 of 2) 06/17/2019 DTaP/Tdap/Td Vaccine (2 - Td or Tdap) 03/31/2023 03/31/2013 Influenza Vaccine (#1) 2023 12/20/2018, 2015 Breast Cancer Screening-Mammogram 02/14/2025 02/15/2024, 02/15/2024, 07/26/2023, Additional history exists Hepatitis C Screening Completed 01/20/2024 Pneumococcal vaccine <65 Aged Out No longer eligible based on patient's age to complete this topic Procedures Procedure Name Priority Date/Time Associated Diagnosis Comments FL ESOPHAGRAM, DOUBLE CONTRAST Schedule Routine, Read Routine (OP Routine) 03/30/2024 8:30 AM SUPER[employer] Esophageal diverticulum HEPATIC FUNCTION PANEL Routine 01/21/2024 2:18 AM CDT HEPATITIS PANEL, ACUTE Routine 01/20/2024 12:16 PM CDT US RUQ ED Urgent/IP Urgent 01/20/2024 10:42 AM CDT EGFR Routine 01/20/2024 2:03 AM CDT PHOSPHORUS Routine 01/20/2024 2:03 AM CDT BILIRUBIN, DIRECT Routine 01/20/2024 2:0 3 AM CDT COMPREHENSIVE METABOLIC PANEL Routine 01/20/2024 2:03 AM CDT CBC WITHOUT DIFFERENTIAL Routine 01/20/2024 2:03 AM CDT LIPASE Routine 01/20/2024 2:03 AM CDT LIPASE Routine 01/19/2024 11:29 AM CDT from Last 3 Months Results * FL Esophagram, Double Contrast (03/30/2024 8:30 AM [employer]) Anatomical Region Laterality Modality Body N/A Radio Fluoroscop y 03/30/2024 10:1 2 AM [employer] Narrative 03/30/2024 10:26 AM SUPER[employer] EXAM DESCRIPTION: ?? FL ESOPHAGRAM BARIUM SWALLOW TO STOMACH, DOUBLE CONTRAST REASON FOR STUDY: ?? Esophageal diverticulum ?? Esophageal diverticulum ? Egd 1 month at [facility] ??Perforation?1.4 min ft ??276.5 mgy ?? RADIATION DOSE: Dose: ??5157.33 ?? uGym2 Dose Area Product (DAP) TECHNIQUE: Under fluoroscopic guidance, patient ingested effervescent granules followed by thick and thin barium. COMPARISON: None FINDINGS: ESOPHAGEAL MOTILITY: ?? There are scattered tertiary contractions noted, which is most significant involving the mid to distal esophagus, and findings raise the concern for esophageal spasm versus mild early presbyesophagus. ESOPHAGEAL MUCOSA: ?? There is a diverticulum noted arising off the left aspect of the mid to distal esophagus measuring 2.1 by 1.5 cm with the mouth measuring 1.4 cm. GASTRO-ESOPHAGEAL JUNCTION: ?? There is small sliding-type hiatal hernia. ?? There is pgfa-hm-jmcjomfv spontaneous gastroesophageal reflux observed during the study. NON-GI TRACT STRUCTURES: ?? No significant finding. OTHER: ?? No other significant finding. IMPRESSION: ?? 1. ?? Diverticulum arising off the left lateral aspect of the mid to distal esophagus measuring up to 2.1 cm. 2. ?? No definite evidence of esophageal stricture or mass. 3. ?? Scattered tertiary contractions noted, which is most significant involving the mid to distal esophagus, which raises the concern for esophageal spasm versus mild early presbyesophagus. 4. ?? Gbab-ao-kggzgiui spontaneous gastroesophageal reflux. 5. ?? Small sliding-type hiatal hernia. THIS IS AN ELECTRONICALLY VERIFIED FINAL REPORT 03/30/2024 10:26 AM - Electronically signed by ??Zunilda De Los Santos D.O. PS: PS D: ??03/30/2024 10:26 AM T: ??03/30/2024 10:26 AM Report ID: [id number] Reading Location: ??[id number] Procedure Note Zunilda De Los Santos, DO - 03/30/2024 EXAM DESCRIPTION: FL ESOPHAGRAM BARIUM SWALLOW TO STOMACH, DOUBLECONTRAST REASON FOR STUDY: Esophageal diverticulum Esophageal diverticulum Egd 1 month at [facility] Perforation?1.4min ft 276.5 mgy RADIATION DOSE: Dose: 5157.33 uGym2 Dose Area Product (DAP) TECHNIQUE: Under fluoroscopic guidance, patient ingested effervescentgranules followed by thick and thin barium. COMPARISON: None FINDINGS: ESOPHAGEAL MOTILITY: There are scattered tertiary contractions noted,which is most significant involving the mid to distal esophagus, and findingsraise the concern for esophageal spasm versus mild early presbyesophagus. ESOPHAGEAL MUCOSA: There is a diverticulum noted arising off the leftaspect of the mid to distal esophagus measuring 2.1 by 1.5 cm with the mouth measuring 1.4 cm. GASTRO-ESOPHAGEAL JUNCTION: There is small sliding-type hiatal hernia. There is memh-aa-mgrtubue spontaneous gastroesophageal reflux observedduring the study. NON-GI TRACT STRUCTURES: No significant finding. OTHER: No other significant finding. IMPRESSION: 1. Diverticulum arising off the left lateral aspect of the mid to distal esophagus measuring up to 2.1 cm. 2. No definite evidence of esophageal stricture or mass. 3. Scattered tertiary contractions noted, which is most significant involving the mid to distal esophagus, which raises the concern foresophageal spasm versus mild early presbyesophagus. 4. Xqzl-oc-ihalbclj spontaneous gastroesophageal reflux. 5. Small sliding-type hiatal hernia. THIS IS AN ELECTRONICALLY VERIFIED FINAL REPORT 03/30/2024 10:26 AM - Electronically signed by Zunilda De Los Santos D.O. 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 R esults may be affected. Protein, pl 6.4(L) 6.5 - 8.5 g/dL [facility] Albumin 3.3(L) 3.5 - 5.0 g/dL [facility] Alk phos 182(H) 40 - 130 Units/L [facility] ALT 123(H) 7 - 45 Units/L [facility] AST 130(H) 10 - 45 Units/L [facility] Blood 01/21/2024 2:18 AM CDT 01/21/2024 2:32 AM CDT Marko Luo MD LAB BLOOD ORDERABLES Final Resu lt [facility] [address] Department [place] [address] * Hepatitis panel, acute Blood (01/20/2024 12:16 PM CDT) Pathologist [facility] Hep A IgM Nonreactive Nonreactive Comment: Interpretive Data: If Hep A IgM Ab is reported as Equivocal, a new sample should be drawn in two weeks for testing. Current interpretive data was last revised on 19. Hep B core IgM Nonreactive Nonreactive [facility] Comment: Interpretive Data If HepB Core IgM Ab is reported as Equivocal, a new sample should be drawn in two weeks for testing. Current interpretive data was last revised on 19. Hep C Ab Nonreactive Nonreactive [facility] Comment: Interpretive Data Nonreactive: Antibodies to HCV not detected. Does NOT exclude the possibility of recent exposure to HCV. Equivocal: Equivocal for HCV antibodies. Supplemental molecular testing will be automatically performed to determine infection status in accordance with current CDC screening recommendations. ?? Reactive: Positive for HCV antibodies. ??This may represent current or past HCV infection. Supplemental molecular testing will be automatically performed to determine ??current infection status in accordance with current CDC screening recommendations. Interpretive data was last revised on 2019. HepBsAg Nonreactive Nonreactive [facility] Blood 01/20/2024 12:1 6 PM CDT 01/20/2024 12:23 PM CDT us Joanna DOTSON LAB MICROBIOLOGY - GENERA L ORDERABLES Final Result [facility] [address] Department [place] [address] * US RUQ (01/20/2024 10:42 AM CDT) Anatomical Region Laterality Modality Abdomen N/A Ultrasound 01/20/2024 3:58 PM CDT Impressions 01/20/2024 3:58 PM CDT Increased echogenicity of the liver parenchyma, most consistent with hepatic steatosis. Electronically signed by: Viv Winston M.D. Narrative 01/20/2024 3:58 PM CDT EXAMINATION: US RUQ HISTORY: The patient is a 53-year-old female who presents with upper abdominal pain. TECHNIQUE: Transverse and sagittal images were obtained with grayscale imaging, color Doppler imaging and spectral waveform analysis. FINDINGS: The gallbladder is normal in appearance with no calculi within it. No gallbladder wall thickening seen nor is any pericholecystic fluid noted. ??Biliary tree is not dilated with the common duct measuring 4 mm in diameter. The liver measures 14.9 cm in sagittal length. ??Echotexture is diffusely increased. ??No focal liver lesion is seen. ??Portal vein patent with normal hepatopedal flow within it. Pancreas normal in size and echotexture. ??The right kidney measures 11.6 x 4.8 cm in size and has a normal sonographic appearance. The abdominal aorta and inferior vena cava are normal in appearance. No ascites seen. Procedure Note Viv Winston MD - 01/20/2024 EXAMINATION: US RUQ HISTORY: The patient is a 53-year-old female who presents with upper abdominal pain. TECHNIQUE: Transverse and sagittal images were obtained with grayscale imaging, color Doppler imaging and spectral waveform analysis. FINDINGS: The gallbladder is normal in appearance with no calculi within it. No gallbladder wall thickening seen nor is any pericholecystic fluid noted. Biliary tree is not dilated with the common duct measuring 4 mm in diameter. The liver measures 14.9 cm in sagittal length. Echotexture is diffusely increased. No focal liver lesion is seen. Portal vein patent with normal hepatopedal flow within it. Pancreas normal in size and echotexture. The right kidney measures 11.6 x 4.8 cm in size and has a normal sonographic appearance. The abdominal aorta and inferior vena cava are normal in appearance. No ascites seen. IMPRESSION: Increased echogenicity of the liver parenchyma, most consistent with hepatic steatosis. Electronically signed by: Viv Winston M.D. Marko Luo MD IMG US PROCEDURES Final Result * eGFR (01/20/2024 2:03 AM CDT) eGFR >90 >=60 mL/min/1. 73 m2 Comment: Interpretive Data Reference Interval Normal ?>/= 90 mL/min/1.73m2 Mildly decreased* ? 60 - 89 mL/min/1.73m2 Mildly to moderately decreased ?45 - 59 mL/min/1.73m2 Moderately to severely decreased ??30 - 44 mL/min/1.73m2 Severely decreased ?15 - 29 mL/min/1.73m2 Kidney Failure ?< 15 ??mL/min/1.73m2 *Relative to young adult level Estimated glomerular filtration rate is determined by the 2020 CKD-EPI equation recommended by the National Kid[employer] Foundation (A Unifying Approach to GFR Estimation: Recommendations of the NKF-ASK Task Force on Reassessing the Inclusion of Race in Diagnosing Kidney Disease, JASN 2020). The CKD-EPI equation should not be used for patients with unstable renal function and has not been validated in children and those over 70. Current interpretive data was last reviewed 2021. Blood 01/20/2024 2:03 AM CDT 01/20/2024 2:50 AM CDT us Marko Luo MD LAB BLOOD ORDERABLES Final Resu lt [facility] [address] Department [place] [address] * (ABNORMAL) CBC without differential (01/20/2024 2:03 AM CDT) WBC 8.7 3.8 - 9.9 K/cumm Hgb 9.8(L) 11.9 - 15.5 g/dL [facility] Hct 31.5(L) 35.6 - 45.5 % [facility] Plt 307 150 - 400 K/cumm [facility] MPV 11.0 9.1 - 12.3 fL [facility] RBC 3.37(L) 3.90 - 5.20 M/cumm [facility] MCV 93.5 81.3 - 96.4 fL [facility] MCH 29.1 27.1 - 33.3 pg [facility] MCHC 31.1(L) 32.3 - 35.7 g/dL [facility] RDW CV 16.6(H) 11.1 - 14.9 % [facility] RDW SD 56.6(H) 35.7 - 48.1 fL [facility] NRBC abs 0.00 0.00 - 0.01 K/cumm [facility] Blood 01/20/2024 2:03 AM CDT 01/20/2024 2:49 AM CDT us Marko Luo MD LAB BLOOD ORDERABLES Final Resu lt [facility] [address] Department [place] [address] * Phosphorus (01/20/2024 2:03 AM CDT) Phosphorus, pl 3.2 2.3 - 4.5 mg/dL Blood 01/20/2024 2:03 AM CDT 01/20/2024 2:50 AM CDT us Marko Luo MD LAB BLOOD ORDERABLES Final Resu lt Performing Organization Address [facility] de Phone Number [facility] [address] Department [place] [address] * (ABNORMAL) Lipase (01/20/2024 2:03 AM CDT) Lipase 233(H) 10 - 99 Units/L Blood 01/20/2024 2:03 AM CDT 01/20/2024 2:50 AM CDT us Marko Luo MD LAB BLOOD ORDERABLES Final Resu lt Performing Organization Address [facility] [facility] Co de Phone Number [facility] [address] Department [place] [address] * (ABNORMAL) Bilirubin, direct (01/20/2024 2:03 AM CDT) Bilirubin, direct 0.5(H) 0.1 - 0.3 mg/dL Blood 01/20/2024 2:03 AM CDT 01/20/2024 2:50 AM CDT us Marko Luo MD LAB BLOOD ORDERABLES Final Resu lt Performing Organization Address [facility] Co de Phone Number [facility] [address] Department [place] [address] * (ABNORMAL) Comprehensive metabolic panel (01/20/2024 2:03 AM CDT) Sodium 139 135 - 145 mmol/L Potassium, pl 3.5 3.3 - 4.9 mmol/L [facility] Chloride 105 97 - 110 mmol/L [facility] CO2 24 22 - 32 mmol/L [facility] Anion gap 10 2 - 15 mmol/L [facility] BUN 4(L) 6 - 25 mg/dL [facility] Creatinine 0.55(L) 0.60 - 1.10 mg/dL [facility] Glucose 89 70 - 199 mg/dL [facility] Comment: Interpretive Data Fasting glucose >/= 126 mg/dl is diagnostic for diabetes. ?? Fasting is defined as no caloric intake for at least 8 hours. Fasting glucose between 100 mg/dl to 125 mg/dl is diagnostic of prediabetes. In a patient with classic symptoms of hyperglycemia or hyperglycemic crisis, a random glucose >/= 200 mg/dl is diagnostic for diabetes. In the absence of unequivocal hyperglycemia, results should be confirmed by repeat testing. The classification and Diagnosis of Diabetes Diabetes Care 2021; 46: S19-S40. Current interpretive data was last revised 2022. Calcium 8.9 8.5 - 10.3 mg/dL [facility] Bilirubin, total 1.0 0.1 - 1.2 mg/dL [facility] Protein, pl 6.2(L) 6.5 - 8.5 g/dL [facility] Albumin 3.5 3.5 - 5.0 g/dL [facility] Alk phos 117 40 - 130 Units/L [facility] ALT 55(H) 7 - 45 Units/L [facility] AST 31 10 - 45 Units/L [facility] Blood 01/20/2024 2:03 AM CDT 01/20/2024 2:50 AM CDT us Marko Luo MD LAB BLOOD ORDERABLES Final Resu lt [facility] [address] Department [place] [address] * (ABNORMAL) Lipase (01/19/2024 11:29 AM CDT) Lipase 445(H) 10 - 99 Units/L Blood 01/19/2024 11:2 9 AM CDT 01/19/2024 12:12 PM CDT Marko Luo MD LAB [place]LOOD [place] [address] [address] Department [place] [address] from Last 3 [place] [address] [facility] MEDICARE IDPA MEDICARE [facility] Advance Directives For more information, please contact: [phone] * Full Code (Latest Code Status on File) Date Activated Date Inactivated Comments 01/18/2024 1:42 PM 01/21/2024 5:17 PM Care Teams Negative Stripper Relationship Specialty Start Date End Date Jose Bryan PA [address] [place] [address] PCP - General Family Practice 10/13/18 Ciaran Mcallister MD [address] [place] [address] General Surgery 04/03/24
--- OUTSIDE RECORDS SUMMARY | 2024-04-20 10:10 | XMS_ITS | Referral Summary ---
Author Organization [facility] Address [address] [place] [address] Care Team Providers Care Cut Plug Packer Name Role Phone Unavailable Primary Care Provider Unavailabl e Source Comments [facility],non-owned Affiliates and Associated Physician Practices is amultiple site organization consisting of ambulatory clinics and hospital sitesin [place], [place], [place] and [place]. This disclosure is being madepursuant to the Care Everywhere program and may not contain all information available regarding this patient. Last updated 17.[facility] Active Problems Problem Noted Date Diagnosed Date Syncope, unspecified syncope type 07/30/2023 Social History Tobacco Use Types Packs/Day Years Used Date Smoking Tobacco: Never Assessed Sex and Gender Information Value Date Recorded Sex Assigned at Not on file Gender Identity Not on file Sexual Orientation Not on file Plan of Treatment Not on file
--- OUTSIDE RECORDS SUMMARY | 2024-04-20 10:10 | XMS_ITS | Clinical Summary ---
Author Organization [facility] Address [address] [place] [address] [place] [address] Care Team Providers Care Document Imaging Manager Name Role Phone Jose Bryan Primary Care Provider [phone] Allergies Active Allergy Reactions Criticality Noted Date Comments Morphine Anxiety,Other (see comment) Low 07/09/19 22 AMPS HER UP Medications cyclobenzaprine 10 MG tablet Take 1 tablet (10 mg total) by mouth nightly. 0 11/07/2018 Active FLUoxetine (PROZAC) 40 MG capsule Take 1 capsule (40 mg total) by mouth daily. 07/26/2023 Active lisinopril (PRINIVIL) 5 MG tablet Take 1 tablet (5 mg total) by mouth daily. 07/14/2023 Active gabapentin (NEURONTIN) 600 MG tablet Take 1 tablet (600 mg total) by mouth 3 (three) times daily. 07/13/2023 Active diclofenac EC (VOLTAREN) 75 MG tablet Take 1 tablet (75 mg total) by mouth 2 (two) times daily. 09/09/2023 Active pantoprazole EC (PROTONIX) 40 MG tablet Take 1 tablet (40 mg total) by mouth daily. 09/09/2023 Active nitrofurantoin (MACRODANTIN) 100 MG capsule Take 1 capsule (100 mg total) by mouth nightly at bedtime. 09/07/2023 Active folic acid (FOLVITE) 1 MG tablet Take 1 tablet (1 mg total) by mouth daily. 09/09/2023 Active traMADol (ULTRAM) 50 MG tablet TAKE 1 TABLET BY MOUTH THREE TIMES A DAY FOR PAIN CONTROL 09/09/2023 Active azaTHIOprine (IMURAN) 50 MG tablet Take 1 tablet (50 mg total) by mouth 2 (two) times daily. Active Active Problems Problem Noted Date Diagnosed Date UTI (urinary tract infection) 08/01/2023 Back pain 07/30/2023 Immunizations Name Administration Dates Next Due Influenza (Generic) 12/20/2018 Influenza Adult (Generic) 02/27/2016 Tdap (Generic) 03/31/2013 Social History Tobacco Use Types Packs/Day Years Used Date Smoking Tobacco: Former Cigarettes Smokeless Tobacco: Never Tobacco Cessation:Counseling Given: Not Answered Alcohol Use Standard Drinks/Week Comments No 0 (1 standard drink = 0.6 oz pur e alcohol) [facility] Utilities Answer Date Recorded In the past 12 months has e [employer], gas, oil, or water [employer] threatened to shut off services in your home? No 07/30/2023 Humiliation, Afraid, Rape, and Kick questionnair e Answer Date Recorded Within the last year, have y ou been afraid of your partner or ex-partner? No 07/30/2023 Within the last year, have y ou been humiliated or emotionally abused in other ways by your partner or ex-partner? No Within the last year, have y ou been kicked, hit, slapped, or otherwise physically hurt by your partner or ex-partner? No 07/30/2023 Within the last year, have y ou been raped or forced to have any kind of sexual activity by your partner or ex-partner? No 07/30/2023 AUDIT-C Answer Date Recorded Frequency of Alcohol Consumption Never 11/22/2018 Average Number of Drinks Not on file 019 Frequency of Binge Drinking Not on file 05/2018 Overall Financial Resource Strain (CARDIA) Answe r Date Recorded How hard is it for you to pa y for the very basics like food, housing, medical care, and heating? Not very hard 07/30/2023 Hunger Vital Sign Answer Date Recorded Within the past 12 months, y ou worried that your food would run out before you got the money to buy more. Never true 07/30/19 24 Within the past 12 months, t he food you bought just didn't last and you didn't have money to get more. Never true 07/30/2023 PRAPARE - Transportation Answer Date Re corded In the past 12 months, has l ack of transportation kept you from medical appointments or from getting medications? No 07/20 In the past 12 months, has l ack of transportation kept you from meetings, work, or from getting things needed for daily living? No 07/30/2023 Housing Stability Vital Sign Answer Tyrell e Recorded In the last 12 months, was t here a time when you were not able to pay the mortgage or rent on time? No 07/30/2023 In the past 12 months, how m any times have you moved where you were living? 1 07/30/2023 At any time in the past 12 m [facility], were you homeless or living in a chcf (including now)? No 07/30/2023 Comments No Sex and Gender Information Value Date Recorded Sex Assigned at Not on file Legal Sex Female 4:49 PM CDT Gender Identity Not on file Sexual Orientation Not on file Last Filed Vital Signs Vital Sign Reading Time Taken Comments Blood Pressure 128/57 01/18/2024 4:59 AM CDT Pulse 101 01/18/2024 4:59 AM CDT Temperature 36.8 ??C (98.3 ??F) 01/18/2024 4:59 AM CD T Respiratory Rate 16 01/18/2024 4:59 AM CDT Oxygen Saturation 97% 01/18/2024 4:59 AM CDT Inhaled Oxygen Concentration - - Weight 86.2 kg (190 lb) 01/18/2024 12:41 AM CDT Height 162.6 cm (5' 4 ) 01/18/2024 12:41 AM CDT Body Mass Index 32.61 01/18/2024 12:41 AM CDT Plan of Treatment Health Maintenance Due Date Last Done Comments Colorectal Cancer Screening Colonoscopy (10 Years) 1969 Annual Physical 1972 COVID-19 Vaccine (#1) 1974 Pneumococcal Vaccine: Pediatrics (0 to 5 Years) and At-Risk Patients (6 to 64 Years) (1 of 2 - PCV) 06/17/1975 Hepatitis C 06/17/1987 Hepatitis B Vaccines (1 of 3 - 19+ 3-dose series) 1988 Zoster Vaccines (1 of 2) 1988 DTaP, Tdap and Td Vaccines ( 2 - Td or Tdap) 03/31/2023 03/31/2013 Influenza Adult (#1) 2023 12/20/2018, 02/27/2016 Mammogram Screening 07/25/2025 07/26/2023, 07/26/2023 Meningococcal B Vaccine Aged Out No l onger eligible based on patient's age to complete this topic Meningococcal Vaccine Aged Out No sabrina ron eligible based on patient's age to complete this topic RSV Immunizations Under 20 Months Aged Out No longer eligible b ased on patient's age to complete this topic Insurance MEDICARE MEDICAID Advance Directives * Full Code (Latest Code Status on File) Date Activated Date Inactivated Comments 07/30/2023 6:07 PM 08/02/2023 3:11 PM Care Teams Document Imaging Manager Relationship Specialty Start Date End Date Jose Bryan PA [address] [place] [address] PCP - General PHYSICIAN TRAIN MASTER 11/22/18
--- OUTSIDE RECORDS SUMMARY | 2024-04-20 10:10 | XMS_ITS | Continuity of Care Document ---
Author Organization [facility] Address [address] [place] [address] Phone Care Team Providers Care Pharmacy Clinical Specialist Name Role Phone Slim Grier MD Unavailable Unavailable Allergies, Adverse Reactions, Alerts Substance Reaction Status Criticality No Known Allergies Active No Inform ation Medications Medication Instructions Dosage Effective Dates (start - stop) Status Comments Flovent HFA 110 mcg/actuation aerosol inhaler inhale 2 puff (220MCG) by inhalation route 2 times every day 220 MCG - Active ProAir HFA 90 mcg/actuation Aerosol Inhaler inhale 2 puff by inhalation route every 4 - 6 hours as needed - Active losartan 100 mg tablet take 1 tablet (100MG) by oral route every day 100 MG - Active Lipitor 20 mg tablet take 1 Tablet (20MG) by oral route every day 20 MG - Active Celexa 40 mg tablet take 1 tablet (40MG) by oral route every day 40 MG - Active Valium 10 mg tablet take 1 tablet (10MG) by oral route 2 times every day 10 MG - Active avoid driving or operate machines Procedures Procedure Date OFFICE/OUTPATIENT VISIT, EST OFFICE/OUTPATIENT VISIT, EST OFFICE/OUTPATIENT VISIT, EST OFFICE/OUTPATIENT VISIT, EST OFFICE/OUTPATIENT VISIT, EST OFFICE/OUTPATIENT VISIT, NEW Advance Directives Directive Yes / No Effective Date File Name No Information Encounters Encounter Description Practice Location Reason(s) For Visit Diagnoses Date Provider Providers Copied on Encounter [facility], [address], [place], [id number], tel:[phone] [facility] No Information 4 Marvel Soler [address], [address], [place], [place], [address] , [place]. tel:[phone] Referring Provider: Mateo Desai [address], [place], [place], [id number]. tel:[phone] OFFICE/OUTPA TIENT VISIT, [facility], [address], [place], [place], [id number], [place] tel:[phone] [facility] HTN (chief complaint) HLP (chief complaint) COPD (chief complaint) Dietary surveillance and counselingHypertens ion, UnspecifiedHypothyr oidismOther and unspecified hyperlipidemiaCOPD 4 Marvel Soler [address], [address], [place], [place], [id number] , [place]. tel:[phone] Referring Provider: Mateo Desai [address], [place], [place], [id number]. tel:[phone] OFFICE/OUTPA TIENT VISIT, [facility], [address], [place], [place], [id number], [place] tel:[phone] [facility] COPD (chief complaint) anxiety (chief complaint) HLP (chief complaint) Dietary surveillance and counselingLEUKOCYTO SIS NOSCOPDOther and unspecified hyperlipidemiaHypot hyroidism 4 Marvel Gal[address], [place], [place], [address] , [place]. tel:[phone] Referring Provider: Mateo Desai [address], [place], [place], [id number]. tel:[phone] OFFICE/OUTPA TIENT VISIT, [facility], [address], [place], [place], [address], [place] tel:[phone] [facility] anxiety (chief complaint) back pain (chief complaint) COPD (chief complaint) Dietary surveillance and counselingOther and unspecified hyperlipidemiaCOPDL umbago 4 Grier Slim. [address], [address], [place], [place], [address] , [place]. tel:[phone] Referring Provider: Mateo Desai [address], [place], [place], [id number]. tel:[phone] OFFICE/OUTPA TIENT VISIT, [facility], [address], [place], [place], [address], [place] tel:[phone] [facility] HLP (chief complaint) metabolic (chief complaint) leukocytos is (chief complaint) hypothyroi dism (chief complaint) anxiety (chief complaint) bronchitis (chief complaint) Dietary surveillance and counselingOther and unspecified hyperlipidemiaMetab olic SyndromeLEUKOCYTOSI S NOSHypothyroidism Apr-2 4 4 aMrvel Smalls. [address], [address], [place], [place], [address] , [place]. tel:[phone] Referring Provider: Mateo Desai [address], [place], [place], [id number]. tel:[phone] OFFICE/OUTPA TIENT VISIT, [facility], [address], [place], [place], [address], [place] tel:[phone] [facility] HTN (chief complaint) anxiety (chief complaint) back pain (chief complaint) cough (chief complaint) Dietary surveillance and counselingHypertens ion, UnspecifiedLumbagoB ronchitis, Acute Apr-0 3201 4 Marvel Smalls. [address], [address], [place], [place], [address] , [place]. tel:[phone] Referring Provider: Mateo Desai [address], [place], [place], [address]. tel:[phone] OFFICE/OUTPA TIENT VISIT, [facility], [address], [place], [place], [address], [place] tel:[phone] [facility] Dietary surveillance and counselingLumbagoHy pertension, UnspecifiedHypergly cemia Mar-0 6201 4 Marvel Smalls. [address], [address], [place], [place], [address] , . tel:[phone] Family History Family Member Type Diagnosis Age At Onset Father Problem (finding) Coronary artery disease Mother Problem (finding) Hypertension Mother Problem (finding) Diabetes mellitus Mother Problem (finding) Asthma Mother Problem (finding) Anxiety Mother Problem (finding) Depression Father Problem (finding) schizophrenia Father Problem (finding) Anxiety Payers Payer name Insurance type Covered alliance party ID Authoriza tion(s) No Information Social History Type Description Quantity Date Captured Comments Sex Female Smoking Status No Information Chief Complaint And Reason For Visit No Information Plan Of Treatment Date Type Action Status Goal Mammogram. Due on 4 due Goal Tobacco cessation counseling completed Goal Tobacco cessation counseling completed Goal Tobacco cessation counseling completed Goal Tobacco cessation counseling completed Goal Tobacco cessation counseling completed Goal Tobacco cessation counseling completed Referral Ordered: Pulmonary Diseases ordered Referral Ordered: Otolaryngology ordered Referral Ordered: Referral: Pulmonary Diseases. ordered Referral Ordered: Referral: Otolaryngology. ordered Referral Ordered: CHEST X-RAY PA/LAT TWO-VIEWS ordered Referral Ordered: Pain Management (related to Lumbago) ordered Referral Ordered: Referral: Pain Management. Evaluate and treat. ordered Referral Ordered: MAMMOGRAM, SCREENING ordered History Of Present Illness Encounter Date Complaint History Of Prese nt Illness No Information Instructions Date Instruction Additional Infor latesha Decrease caloric intake Related to Dietary surveillance counseling Dietary counseling Related to Di etary surveillance counseling Decrease caloric intake Related to Dietary surveillance counseling Dietary counseling Related to Di etary surveillance counseling Dietary counseling Related to Di etary surveillance counseling Decrease caloric intake Related to Dietary surveillance counseling Dietary counseling Related to Di etary surveillance counseling Decrease caloric intake Related to Dietary surveillance counseling Dietary counseling Related to Di etary surveillance counseling Decrease caloric intake Related to Dietary surveillance counseling Decrease caloric intake Related to Dietary surveillance counseling Dietary counseling Related to Di etary surveillance counseling Assessments Type Assessment Date No Information
--- OUTSIDE RECORDS SUMMARY | 2024-04-20 10:10 | XMS_ITS | Patient Health Summary ---
Author Organization [facility] Address [address] [place] [address] Care Team Providers Care Fruit Grader Name Role Phone Unavailable Primary Care Provider Unavailabl e Note from [facility],non-owned Affiliates and Associated Physician Practices is amultiple site organization consisting of ambulatory clinics and hospital sitesin [place], [place], [place] and [place]. This disclosure is being madepursuant to the Care Everywhere program and may not contain all information available regarding this patient. Last updated 17.[facility] Active Problems Problem Noted Date Diagnosed Date Syncope, unspecified syncope type 07/30/2023 Social History Tobacco Use Types Packs/Day Years Used Date Smoking Tobacco: Never Assessed Sex and Gender Information Value Date Recorded Sex Assigned at Not on file Gender Identity Not on file Sexual Orientation Not on file
--- OUTSIDE RECORDS SUMMARY | 2024-04-20 10:10 | XMS_ITS | Referral Summary ---
Author Organization [facility] al Address [address] [place] [address] Care Team Providers Care Cadmium Burner Name Role Phone Jose Bryan Primary Care Provider [phone] Ciaran Mcallister MD Unavailable [phone] Encounters Date Type Department Care Team Description 04/11/2024 Telephone [facility] [address] [address] Jaqueline Jorgensen RN 04/04/2024 Orders Only [facility] Surgery [address] [place] [phone] Raghav Pugh NP Esophageal diverticulum (Primary Dx) 04/03/2024 8:30 AM ER MANAGER Office Visit [facility] [address] [place] [phone] David Miller MD Esophageal diverticulum 03/30/2024 8:00 AM ER MANAGER - 03/30/2024 11:59 PM ER MANAGER Hospital Encounter [facility] [address] [place] [address] Jensen Kong Fluoro Esophageal diverticulum Discharge Disposition: Discharge to home or self care 03/27/2024 Orders Only [facility] Surgery [address] [place] [address] Floor [address] [place] [address] Yumiko Donaldson NP Esophageal diverticulum (Primary Dx) 01/25/2024 Telephone [facility] [place] [facility] [id number] [place] [address] [address] [place] [phone] Ronald Bonilla MD 01/18/2024 6:14 AM CDT - 01/21/2024 1:16 PM CDT Hospital Encounter [facility] [id number] [place] [address] Harmeet Merritt MD Onaghise, Jude, MD Perez Porcel, Jose Daniel, MD Other acute pancreatitis, unspecified complication status [K85.80] (Primary Dx); Rheumatoid arthritis involving hand, unspecified laterality, unspecified whether rheumatoid factor present (HCC) Discharge Disposition: Discharge to home or self care from Last 3 Months Allergies Active Allergy Reactions Criticality Noted Date Comments Morphine Agitation Low Medications gabapentin (NEURONTIN) 300 mg capsule Take 4 capsules (1,200 mg total) by mouth nightly Active cyclobenzaprin e (FLEXERIL) 10 mg tablet Take 1 tablet (10 mg total) by mouth nightly 05/12/19 Active lisinopriL (PRINIVIL,ZEST RIL) 5 mg tablet Take 1 tablet (5 mg total) by mouth daily 10/10/19 Active FLUoxetine (PROzac) 20 mg capsule Take [...] (two) times a day 60 capsule 01/21/20 Active Additional Information Patient not taking.Reported on [...] for esophageal spasm versus mild early presbyesophagus. Mquw-bu-dbmotsqy spontaneous gastroesophageal reflux. Small sliding-type hiatal hernia. [...] affective disorder 01/16/2015 Overview (06/26/2016): Bipolar disorder Immunizations Name Administration Dates Next Due Influenza, Quadrivalent, Split, Intramuscular Influenza, Unspecified 12/20/2018 Tdap 03/31/2013 Social History Tobacco Use Types Packs/Day Years Used Date Smoking Tobacco: Former Cigarettes 1 39.3 1 985 - 06/28/2023 Smokeless Tobacco: Never Tobacco Cessation:Counseling Given: Not Answered Alcohol Use Standard Drinks/Week Comments Not Currently 0 (1 standard drink = 0.6 oz pur e alcohol) [facility] Utilities Answer Date Recorded In the past 12 months has th e electric, gas, oil, or water company threatened to shut off services in your [...] often do you attend chur ch or temple services? Never 01/18/2024 Do you belong to any clubs o r organizations such as faith groups, unions, fraternal or athletic groups, or [...] time in the past 12 m [facility], were you homeless or living in a chcf (including now)? No 01/18/2024 Personal Safety Answer Date Recorded Have you ever been in or are you currently in a harmful physical or emotional relationship or is someone making you feel afraid or unsafe? Denies 01/18/2024 Comments No Sex and Gender Information Value Date Recorded Sex Assigned at Not on file Legal Sex Female 9:45 AM ER MANAGER Gender Identity Not on file Sexual Orientation Not on file Occupation Industry Job Start Date Job End Date disability Not on file Not on file Not on file Last Filed Vital Signs Vital Sign Reading Time Taken Comments Blood Pressure 151/85 04/03/2024 8:40 AM ER MANAGER Pulse 84 04/03/2024 8:40 AM ER MANAGER Temperature 36.4 ??C (97.6 ??F) 04/03/2024 8:40 AM CS T Respiratory Rate 16 04/03/2024 8:40 AM ER MANAGER Oxygen Saturation 96% 04/03/2024 8:40 AM ER MANAGER Inhaled Oxygen Concentration - - Weight 87.2 kg (192 lb 3.2 oz) 04/03/2024 8:40 A M ER MANAGER Height 163.1 cm (5' 4.21 ) 04/03/2024 8:40 AM CS T Body Mass Index 32.77 04/03/2024 8:40 AM ER MANAGER Plan of Treatment Not on file Procedures Procedure Name Priority Date/Time Associated Diagnosis Comments FL ESOPHAGRAM, DOUBLE CONTRAST Schedule Routine, Read Routine (OP Routine) 03/30/2024 8:30 AM ER MANAGER Esophageal diverticulum HEPATIC FUNCTION PANEL Routine 01/21/2024 [...] FL Esophagram, Double Contrast (03/30/2024 8:30 AM ER MANAGER) Anatomical Region Laterality Modality Body N/A Radio Fluoroscop y 03/30/2024 10:1 2 AM ER MANAGER Narrative 03/30/2024 10:26 AM ER MANAGER EXAM DESCRIPTION: ?? FL ESOPHAGRAM BARIUM SWALLOW TO STOMACH, DOUBLE CONTRAST REASON FOR STUDY: ?? Esophageal diverticulum ?? Esophageal diverticulum ? Egd 1 month at [facility] ??Perforation?1.4 min ft ??276.5 mgy ?? [...] small sliding-type hiatal hernia. ?? There is kjyc-zp-fdlfidgg spontaneous gastroesophageal reflux observed during the study. [...] spasm versus mild early presbyesophagus. 4. ?? Jjxj-oy-enzsqzjc spontaneous gastroesophageal reflux. 5. ?? Small sliding-type hiatal hernia. THIS IS AN ELECTRONICALLY VERIFIED FINAL REPORT 03/30/2024 10:26 AM - Electronically signed by ??Zunilda De Los Santos D.O. PS: PS D: ??03/30/2024 10:26 AM T: ??03/30/2024 10:26 AM Report ID: [id number] Reading Location: ??[id number] Procedure Note Zunilda De Los Santos, DO - 03/30/2024 EXAM DESCRIPTION: FL ESOPHAGRAM BARIUM SWALLOW TO STOMACH, DOUBLECONTRAST REASON FOR STUDY: Esophageal diverticulum Esophageal diverticulum Egd 1 month at [facility] Perforation?1.4min ft 276.5 mgy RADIATION DOSE: [...] is small sliding-type hiatal hernia. There is fead-iy-djkahbio spontaneous gastroesophageal reflux observedduring the study. NON-GI [...] foresophageal spasm versus mild early presbyesophagus. 4. Nalw-sq-rhoorqxh spontaneous gastroesophageal reflux. 5. Small sliding-type hiatal hernia. THIS IS AN ELECTRONICALLY VERIFIED FINAL REPORT 03/30/2024 10:26 AM - Electronically signed by Zunilda De Los Santos D.O. PS: PS Report ID: [id number] Reading Location: [place] [address] Yumiko Donaldson TAPER/FINISHER IMG FLUOROSCOPY PROCEDURES Sabra l Result * [...] LAB BLOOD ORDERABLES Final Resu lt [facility] [address] Department [place] [address] * Hepatitis panel, acute Blood (01/20/2024 12:16 PM CDT) Hep A IgM Nonreactive Nonreactive Comment: Interpretive Data: If Hep A IgM Ab is reported as Equivocal, a new sample should be drawn in two weeks for testing. Current interpretive data was last revised on 19. Hep B core IgM Nonreactive Nonreactive CERNER CH Comment: Interpretive Data If HepB Core IgM Ab is reported as Equivocal, a new sample should be drawn in two weeks for testing. Current interpretive data was last revised on 19. Hep C Ab Nonreactive Nonreactive POR[facility] Comment: Interpretive Data Nonreactive: Antibodies to HCV [...] revised on 2019. HepBsAg Nonreactive Nonreactive [facility] Blood 01/20/2024 12:1 6 PM CDT 01/20/2024 12:23 PM CDT us Joanna DOTSON [facility]CRO[facility]OLOGY [facility] L ORDERABLES Final Result [facility] [id number] [address] Department [place] [address] * US RUQ (01/20/2024 10:42 AM CDT) [...] steatosis. Electronically signed by: Viv Winston M.D. us Marko Luo MD IMG US PROCEDURES Final [...] of Race in Diagnosing Kidney Disease, JASN 202). The CKD-EPI equation should not be used for patients with unstable renal function and has not been validated in children and those over 70. Current interpretive data was last reviewed 2021. Blood 01/20/2024 2:03 AM CDT 01/20/2024 2:50 AM CDT us Marko Luo MD LAB BLOOD ORDERABLES Final Resu lt [facility] [address] [address] Department [place] [address] * (ABNORMAL) CBC without differential (01/20/2024 2:03 AM CDT) WBC 8.7 3.8 - 9.9 K/cumm Hgb 9.8(L) 11.9 - 15.5 g/dL CERNER Hct 31.5(L) 35.6 - 45.5 % [facility] Plt 307 150 - 400 K/cumm [facility] MPV 11.0 9.1 - 12.3 fL [facility] RBC 3.37(L) 3.90 - 5.20 M/cumm [facility] MCV 93.5 81.3 - 96.4 fL [facility] MCH 29.1 27.1 - 33.3 pg [facility]ER MCHC 31.1(L) 32.3 - 35.7 g/dL [facility] RDW CV 16.6(H) 11.1 - 14.9 % [facility] RDW SD 56.6(H) 35.7 - 48.1 fL [facility] NRBC abs 0.00 0.00 - 0.01 K/cumm C[facility]ER Blood 01/20/2024 2:03 AM CDT 01/20/2024 2:49 AM CDT us Marko Luo MD LAB BLOOD ORDERABLES Final Resu lt Performing Organization Address [facility] Co de Phone Number P[facility] [address] [address] Department [employer] [place] [address] * Phosphorus (01/20/2024 2:03 AM CDT) Phosphorus, pl 3.2 2.3 - 4.5 mg/dL Blood 01/20/2024 2:03 AM CDT 01/20/2024 2:50 AM CDT us Marko Luo MD LAB BLOOD ORDERABLES Final Resu lt Performing Organization Address [facility] de Phone Number P[facility] [address] [address] Department [employer] [place] [address] * (ABNORMAL) Lipase (01/20/2024 2:03 AM CDT) Lipase 233(H) 10 - 99 Units/L Blood 01/20/2024 2:03 AM CDT 01/20/2024 2:50 AM CDT us Marko Luo MD LAB BLOOD ORDERABLES Final Resu lt Performing Organization Address [facility] Co de Phone Number PORSHA [place] [address] [address] Department [place] [address] * (ABNORMAL) Bilirubin, direct (01/20/2024 2:03 AM CDT) Bilirubin, direct 0.5(H) 0.1 - 0.3 mg/dL Blood 01/20/2024 2:03 AM CDT 01/20/2024 2:50 AM CDT us Marko Luo MD LAB BLOOD ORDERABLES Final Resu lt Performing Organization Address [facility] Co de Phone Number [facility] [address] [address] Department [place] [address] * (ABNORMAL) Comprehensive metabolic panel (01/20/2024 2:03 [...] classification and Diagnosis of Diabetes Diabetes Care 202; 46: S19-S40. Current interpretive data was last [...] ORDERABLES Final Resu lt Performing Organization Address [facility]/ZIP Co de Phone Number POR[facility] [address] [address] Department [place] [address] * (ABNORMAL) Lipase (01/19/2024 11:29 AM CDT) Lipase 445(H) 10 - 99 Units/L Blood 01/19/2024 11:2 9 AM CDT 01/19/2024 12:12 PM CDT Marko Luo MD LAB [place]LOOD [place] [address] [address] Department [place] [address] from Last 3 Months Insurance MEDICARE [facility] MEDICARE IDPA MEDICARE IDPA Advance Directives For more information, please contact: [phone] * Full Code (Latest Code Status on File) Date Activated Date Inactivated Comments 01/18/2024 1:42 PM 01/21/2024 5:17 PM Care Teams Cadmium Burner Relationship Specialty Start Date End Date Jose Bryan PA [address] [place] [address] PCP - General Family Practice 10/13/18 Ciaran Mcallister MD [address] [place] [address] General Surgery 04/03/24
--- OUTSIDE RECORDS SUMMARY | 2024-04-20 10:10 | XMS_ITS | Encounter Summary ---
Author Organization [facility] Address Critical access hospital[address] [facility] [place] [address] [place] [address] Care Team Providers Care Commercial Drafter Name Role Phone Jose Bryan Primary Care Provider [phone] Encounter Details Date Type Department Care Team (Late st Contact Info) Description 08/27/2018 Abstract [facility] CONVERSION [address] [place] [address] , Generic Conversion, Social History Tobacco Use Types Packs/Day Years Used Date Smoking Tobacco: Never Assessed Comments Unknown Sex and Gender Information Value Date Recorded Sex Assigned at Not on file Legal Sex Female 4:49 PM CDT Gender Identity Not on file Sexual Orientation Not on file documented as of this encounter Plan of Treatment Not on file documented as of this encounter Visit Diagnoses Not on filedocumented in this encounter Care Teams Commercial Drafter Relationship Specialty Start Date End Date Jose Bryan PA [address] [place] [address] PCP - General PHYSICIAN WELT INSOLE CHANNELER 11/22/18 documented as of this encounter
--- OUTSIDE RECORDS SUMMARY | 2024-04-20 10:10 | XMS_ITS | Clinical Summary ---
Author Organization [facility] Address [address] [place] [address] Phone Care Team Providers Care Red Leader Name Role Phone Jose Bryan Primary Care Provider [phone] Ron Batista MD Unavailable Jomar Kiran MD Unavailable [phone] Macy Alarcon APRN, SOLAR PROJECT ENGINEER Unavailable Allergies Active Allergy Reactions Criticality Noted Date Comments Morphine Other (see Comments) 07/08/2021 AMPS HER UP Medications FLUoxetine (PROzac) 20 MG Capsule Take 40 mg by mouth daily. Active gabapentin (NEURONTIN) 300 MG Capsule Take 600 mg by mouth 3 times daily. Active cyclobenzaprine (FLEXERIL) 10 MG Tablet Take 10 mg by mouth 3 times daily as needed. Active LISINOPRIL PO Take 5 mg by mouth every morning. Active naloxone HCl (Narcan) 4 MG/0.1ML Liquid 1 [place] by Nasal route as needed for Opioid Reversal. Administer in one nostril for symptoms of overdose (severe sleepiness, breathing problems, not responsive). Call 911. May repeat 1 spray in alternate nostril in 2-3 minutes if needed. 2 Each Active Additional Information Patient not taking.Reported on 02/23/2024 HYDROcodone-minnie taminophen (NORCO) 5-325 MG TabletIndicatio ns:Lymphadenopa thy Take 1-2 Tablets by mouth every 4 hours as needed for Moderate or more severe pain. 20 Tablet 4 Active Additional Information Patient not taking.Reported on 08/04/2023 traZODone (DESYREL) 50 MG Tablet Take 50 mg by mouth 2 times daily. 4 Active amitriptyline (ELAVIL) 25 MG Tablet Take 25 mg by mouth daily. Active tamsulosin (FLOMAX) 0.4 MG Capsule Take 1 Capsule by mouth daily. 30 Capsule 5 4 Active Additional Information Patient not taking.Reported on 03/07/2024 predniSONE (DELTASONE) 5 MG Tablet Take 1 Tablet by mouth every other day. 30 Tablet 4 Active Humira, 2 Pen, 40 MG/0.4ML Auto-injector Kit 4 Active Benzonatate 200 MG Capsule take 1 capsule by mouth three times daily as needed 4 Active busPIRone (BUSPAR) 15 MG Tablet take one tablet by mouth three times a day as needed 4 Active diazePAM (VALIUM) 2 MG Tablet take 1 tablet by mouth three times daily as needed 4 Active diclofenac (VOLTAREN) 75 MG Tablet Delayed Response take 1 tablet (75 mg) by oral route 2 times per day Active Docusate Sodium (DSS) 250 MG Capsule Take 250 mg by mouth. 4 Active pantoprazole (PROTONIX) 40 MG Tablet Delayed Response Take 40 mg by mouth daily. 4 Active traMADol (ULTRAM) 50 MG Tablet TAKE 1 TABLET BY MOUTH THREE TIMES A DAY FOR PAIN CONTROL 4 Active methotrexate 2.5 MG Tablet 10 tablets once weekly 4 Active folic acid (FOLVITE) 1 MG Tablet Take 1 mg by mouth. 4 Active Active Problems Problem Noted Date Diagnosed Date Rheumatoid arthritis involvi ng both ankles with positive rheumatoid factor 08/04/2023 Joint stiffness 07/20/2023 Lymphadenopathy 07/24/2021 Encounters Date Type Department Care Team Description 04/05/2024 Telephone [facility] - Gastroenterology [facility] [address] [place] [address] Esvin, Ciaran Sher MD Appointment 03/07/2024 3:00 PM HEALTH AND SAFETY ADVISOR Office Visit [facility] - Cancer Center Oncology Services [address] [place] [address] Jomar Kiran MD Rheumatoid arthritis involving both ankles with positive rheumatoid factor (HCC) (Primary Dx) Discharge Disposition: Discharged to home or Selfcare 03/07/2024 Travel 03/02/2024 Telephone [facility] Gastroenterology [facility] [address] [place] [address] Ciaran Mcallister MD Referral 02/28/2024 Results Follow-Up [facility] Gastroenterology - [place] [address] [place] [address] Andreina Castano RN 02/25/2024 8:41 AM HEALTH AND SAFETY ADVISOR - 02/25/2024 11:59 PM HEALTH AND SAFETY ADVISOR Hospital Encounter [facility] [address] [place] [address] Jomar Kiran MD Discharge Disposition: Discharged to home or Selfcare 02/25/2024 Telephone [facility] Gastroenterology [facility] [address] [place] [address] Ciaran Mcallister MD 02/24/2024 8:42 AM HEALTH AND SAFETY ADVISOR Anesthesia Event [facility] Gi Lab Periop [address] [place] [address] Cornelio Zuleta APRN, RENTAL SALES ASSOCIATE 02/24/2024 8:30 AM HEALTH AND SAFETY ADVISOR - 02/24/2024 9:00 AM HEALTH AND SAFETY ADVISOR Surgery [facility] Gi Lab Periop [address] [place] [address] Ciaran Mcallister MD EGD- MID ESOPHAGEAL ZENKER'S AT 30 CM, ANTRAL BIOPSY RULE OUT H. PYLORI 02/24/2024 7:50 AM HEALTH AND SAFETY ADVISOR Ancillary Procedure [facility] Gi Lab Main [address] [place] [address] Ciaran Mcallister MD 02/24/2024 7:43 AM HEALTH AND SAFETY ADVISOR - 02/24/2024 10:07 AM HEALTH AND SAFETY ADVISOR Hospital En[facility] GI Lab Preop/Pacu II [address] [place] [address] Ciaran Mcallister MD Discharge Disposition: Discharged to home or Selfcare 02/23/2024 10:30 AM HEALTH AND SAFETY ADVISOR [facility] [address] [place] [address] Macy Alarcon APRN, ANABEL Dysphagia, unspecified type (Primary Dx); Constipation, unspecified constipation type; Gastroesophageal reflux disease, unspecified whether esophagitis present; History of pancreatitis; Elevated liver enzymes; Hepatic steatosis Discharge Disposition: Discharged to home or Selfcare 02/23/2024 Travel 02/15/2024 2:47 PM HEALTH AND SAFETY ADVISOR - 02/15/2024 11:59 PM HEALTH AND SAFETY ADVISOR Hospital Encounter [facility] Ultrasound [address] [place] [address] Jomar Kiran MD Discharge Disposition: Discharged to home or Selfcare 02/15/2024 1:41 PM HEALTH AND SAFETY ADVISOR - 02/15/2024 2:46 PM HEALTH AND SAFETY ADVISOR Hospital Encounter [facility] Mammography [address] [place] [address] Jomar Kiran MD Discharge Disposition: Discharged to home or Selfcare 02/15/2024 Travel from Last 3 Months Family History Medical History Relation Name Comments Anxiety disorder Daughter 1 Thyroid Disease Daughter 2 Heart Surgery Father Stents placed Schizophrenia Father Skin Cancer Half-Sister No Known Problems Maternal Grandfather Cancer Maternal Grandmother Thoat Heart Surgery Maternal Grandmother 14 Chronic Obstructive Pulmonary Disease Mother Congestive Heart Failure Mother Emphysema Mother Alzheimer's Disease Paternal Grandfather Alzheimer's Disease Paternal Grandmother Breast Cancer Paternal Grandmother Cancer Paternal Grandmother breast Asthma Son 1 [place] Heart Disease Son 2 Aniceto MVP No Known Problems Son 3 Relation Name Status Comments Daughter 1 Alive Daughter 2 Alive Father Alive Half-Sister Alive Maternal Grandfather Maternal Grandmother Mother Alive Paternal Grandfather Paternal Grandmother Son 1 [place] Alive Son 2 Aniceto Alive Son 3 Alive Social History Tobacco Use Types Packs/Day Years Used Date Smoking Tobacco: Former Cigarettes 0.3 41.1 S tarted: 1984 Smokeless Tobacco: Never Tobacco Cessation:Counseling Given: Not Answered Alcohol Use Standard Drinks/Week Comments Not Currently 0 (1 standard drink = 0.6 oz pur e alcohol) rarely Sexually Active Control Partners Comments Not Currently Male Comments No Sex and Gender Information Value Date Recorded Sex Assigned at Not on file Legal Sex Female 7:49 PM CDT Gender Identity Not on file Sexual Orientation Not on file Last Filed Vital Signs Vital Sign Reading Time Taken Comments Blood Pressure 143/81 03/07/2024 3:06 PM HEALTH AND SAFETY ADVISOR Pulse 80 03/07/2024 3:06 PM HEALTH AND SAFETY ADVISOR Temperature 36.6 ??C (97.9 ??F) 03/07/2024 3:06 PM CS T Respiratory Rate 18 03/07/2024 3:06 PM HEALTH AND SAFETY ADVISOR Oxygen Saturation 97% 03/07/2024 3:06 PM HEALTH AND SAFETY ADVISOR Inhaled Oxygen Concentration - - Weight 87.6 kg (193 lb 3.2 oz) 03/07/2024 3:06 P M HEALTH AND SAFETY ADVISOR Height 160 cm (5' 3 ) 03/07/2024 3:06 PM HEALTH AND SAFETY ADVISOR Body Mass Index 34.22 03/07/2024 3:06 PM HEALTH AND SAFETY ADVISOR Plan of Treatment Health Maintenance Due Date Last Done Comments Hepatitis C Virus (HCV) Screening 1969 SARS-COV-2 Immunization (#1) 1974 Hepatitis B Immunization (1 of 3 - 19+ 3-dose series) 1988 Zoster Immunization (1 of 2) 1988 Cologuard 06/17/2019 Immunochemical Fecal Occult Blood 06/17/2019 Influenza Immunization (#1) 2023 10/0 03/2018, 02/27/2016 Mammogram 02/14/2026 02/15/2024, 07/26/2023 Colonoscopy 07/31/2026 07/31/2021, 07/31/2021 Colorectal Cancer Screening 07/31/2026 Respiratory Syncytial Virus (RSV) Immunization (Adult) (1 - 1-dose 75+ series) 2044 07/31/2021 DTaP/Tdap/Td Immunization Discontinued 03/31/2013 TdaP Immunization Completed 03/31/2013 Pneumococcal Immunization (5 0+ years) Completed 02/16/2024 Pneumococcal Immunization Combined Discontinued 02/16/2024 Meningococcal Immunization (ACWY) Aged Out No longer eligible based on patient's age to complete this topic Rotavirus Immunization Aged Out No lo nger eligible based on patient's age to complete this topic Procedures Procedure Name Priority Date/Time Associated Diagnosis Comments CT CHEST ABDOMEN AND PELVIS W CONTRAST Routine 02/25/2024 9:05 AM HEALTH AND SAFETY ADVISOR Rheumatoid arthritis involving both ankles with positive rheumatoid factor (HCC) Lymphadenopathy POCT CREATININE Routine 02/25/2024 8:56 AM HEALTH AND SAFETY ADVISOR MANUAL DIFFERENTIAL Routine 02/24/2024 9 :52 AM HEALTH AND SAFETY ADVISOR Seropositive rheumatoid arthritis of multiple sites (HCC) Need for prophylactic chemotherapy Ankylosing spondylitis of multiple sites in spine (HCC) CBC WITH AUTO DIFFERENTIAL Today 02/24/2024 9:52 AM HEALTH AND SAFETY ADVISOR Seropositive rheumatoid arthritis of multiple sites (HCC) Need for prophylactic chemotherapy Ankylosing spondylitis of multiple sites in spine (HCC) [id number] DEHYDROGENASE ENZYME ACTIVITY, BLOOD, CADENA G6PD1 Today 02/24/2024 9:52 AM HEALTH AND SAFETY ADVISOR Seropositive rheumatoid arthritis of multiple sites (HCC) Need for prophylactic chemotherapy Ankylosing spondylitis of multiple sites in spine (HCC) COMPLETE BLOOD COUNT (CBC) WITH DIFF Today 02/24/2024 9:52 AM HEALTH AND SAFETY ADVISOR Seropositive rheumatoid arthritis of multiple sites (HCC) Need for prophylactic chemotherapy Ankylosing spondylitis of multiple sites in spine (HCC) C-REACTIVE PROTEIN (CRP) QUANT Today 02/24/2024 9:52 AM HEALTH AND SAFETY ADVISOR Seropositive rheumatoid arthritis of multiple sites (HCC) Need for prophylactic chemotherapy Ankylosing spondylitis of multiple sites in spine (HCC) CMP (COMPREHENSIVE METABOLIC PANEL) Today 02/24/2024 9:52 AM HEALTH AND SAFETY ADVISOR Seropositive rheumatoid arthritis of multiple sites (HCC) Need for prophylactic chemotherapy Ankylosing spondylitis of multiple sites in spine (HCC) PATHOLOGY SURGICAL Routine 02/24/2024 8: 52 AM HEALTH AND SAFETY ADVISOR EGD 02/24/2024 8:46 AM HEALTH AND SAFETY ADVISOR EGD- MID ESOPHAGEAL ZENKER'S AT 30 CM, ANTRAL BIOPSY RULE OUT H. PYLORI Special Needs Dx dysphagia 02/22 [facility] GI LAB IMAGING - EGD Routine 02/24/2024 7:46 AM HEALTH AND SAFETY ADVISOR [facility] US BREAST LIMITED [place]FIELD Routine 02/15/2024 3:16 PM HEALTH AND SAFETY ADVISOR Abnormal mammogram [facility] DIAG BILATERAL DIGITAL W CAD W SANDRA Routine 02/15/2024 2:53 PM HEALTH AND SAFETY ADVISOR Abnormal mammogram from Last 3 Months Results * CT CHEST ABDOMEN AND PELVIS W CONTRAST (02/25/2024 9:05 AM HEALTH AND SAFETY ADVISOR) Anatomical Region Laterality Modality Chest, Abdomen, Pelvis N/A Computed Tomography 02/28/2024 9:09 AM HEALTH AND SAFETY ADVISOR Impressions 02/28/2024 9:11 AM HEALTH AND SAFETY ADVISOR IMPRESSION: Interval decrease in size of lymph nodes within the chest, abdomen and pelvis as discussed. Subtle haziness of the fat about the tail of the pancreas. Correlate clinically and with laboratory values with regards to pancreatitis. ??Any further imaging at this time can be obtained as warranted based on clinical presentation and laboratory values. ??A follow-up CT abdomen and pelvis with contrast in 3 months is recommended. Hepatomegaly and hepatic steatosis. Additional findings as above. Narrative 02/28/2024 9:11 AM HEALTH AND SAFETY ADVISOR EXAM DESCRIPTION: CT CHEST ABDOMEN AND PELVIS W CONTRAST REASON FOR STUDY: F/u lymphadenopathy since 05/2021. Hx of HTN, 08/10 lymphnode biopsy. ?? TECHNIQUE: CT scan of the chest, abdomen, and pelvis performed with intravenous and ??without ??oral contrast using helical scanning technique with dynamic intravenous contrast injection. Reconstructed coronal and sagittal MPR images reviewed. All images stored on PACS. Automated exposure control was used as a dose optimization technique for this examination. CONTRAST TYPE/DOSE: 100mL of IOPAMIDOL 76 % IV SOLN ??injected via ?? Intravenous COMPARISON: 07/10/2023, 06/18/2021 and 05/05/2021 FINDINGS: CHEST LUNGS: ?? No pneumonic consolidation within either lung. ??There are a few scattered thin walled cysts demonstrated within both lungs, not significantly changed compared to the prior examination. ??Largest individual cyst measures approximately 1.7 cm in the left lower lobe on image 92. ??There are a few granulomatous calcifications. ??No suspicious pulmonary nodule within either lung. PLEURA: ?? No effusion. No pneumothorax. MEDIASTINUM/SANDRA: ?? The visualized thyroid gland is unremarkable. ?? There are a few scattered supraclavicular nodes, diminished in size compared to previous examination. ??For instance, on the right on image number 6 measuring 6 mm in short axis dimension, previously 1 cm. ??Node in the right paratracheal space on image 32 measures 7 mm in transverse dimension, previously 10 mm. ??Subcentimeter short axis hilar nodes are slightly decreased in size compared to the prior examination. ??Distal paraesophageal nodes are again noted. ??Node posterior to the esophagus on image 94 measures 6 mm short axis, grossly stable. HEART: ?? The heart is normal in size, without pericardial effusion. ?? Small pericardiophrenic node on image 82 is stable. VASCULATURE CHEST: ?? The thoracic aorta is atherosclerotic without aneurysm or dissection. ??Main pulmonary trunk normal in caliber. ?? Mild coronary artery calcifications. AXILLA: ?? There are scattered bilateral axillary lymph nodes which are decreased in size compared to the prior examination. ??For instance node in the left axilla laterally on image 19 measures 6 mm short axis, previously 12 mm. ??Node along the lateral margin of the pectoralis musculature on image 18 measures 9 mm short axis, previously 15 mm. ??Right axillary node on image number 20 measures 1 cm short axis, previously 1.7 cm CHEST WALL: ?? No masses. ??No subcutaneous air. HARDWARE/LINES/TUBES: ?? None. MUSCULOSKELETAL CHEST: ?? Cervical and thoracic spondylosis. ??No acute osseous abnormality. ABDOMEN/PELVIS LIVER: ?? The liver is mildly enlarged. ??There is diffuse hepatic steatosis. ??No suspicious hepatic mass. GALLBLADDER: ?? No stones identified. No wall thickening or inflammatory changes. BILE DUCTS: ?? No intrahepatic or extrahepatic ductal dilatation. SPLEEN: ?? Normal size. ??No focal lesions. PANCREAS: ?? There is very subtle haziness of the fat about the tail of the pancreas. ??Correlate clinically and with laboratory values with regards to pancreatitis. ??This finding is new compared to the prior examination. ??No appreciable pancreatic ductal dilatation or suspicious pancreatic mass. ADRENALS: ?? Stable, unremarkable. KIDNEYS/URINARY TRACT: ?? Kidneys enhance symmetrically. ??No suspicious cystic or solid mass. ??No hydronephrosis or hydroureter. ?The urinary bladder is unremarkable for the degree of decompression GI: ?? The stomach is decompressed. ??Bowel loops are normal in caliber. ??Hyperdense material within the lumen of the small bowel likely represents ingested food or medication. ??The appendix is normal. ??There is diverticulosis of the colon. ??Mild increased stool burden within the colon. ??No diverticulitis. PERITONEUM: ?? There is no free intraperitoneal air. ??There is no significant free fluid. ??No mesenteric lymphadenopathy. RETROPERITONEUM: ?? No retroperitoneal mass or adenopathy. ??Scattered nonenlarged retroperitoneal nodes are similar REPRODUCTIVE: ?? The uterus is surgically absent. ??The left ovary is grossly stable in appearance. ??Right ovary not well delineated on this examination. VASCULATURE ABDOMEN: ?? Abdominal aorta is atherosclerotic, with mild mural thrombus. ??No aneurysm. MUSCULOSKELETAL ABDOMEN PELVIS: ?? There is lumbar spondylosis. ?? Intervertebral body fusion hardware spanning L5-S1, stable. ?? Transitional anatomy at the lumbosacral junction. OTHER: ?? Interval decrease in size of inguinal lymphadenopathy node in the right inguinal region on image 261 measures 11 mm short axis, previously 20 mm. ??Lymph node on the left on image who 57 just medial to the vein measures 6 mm in short axis dimension, previously 14 mm THIS IS AN ELECTRONICALLY VERIFIED FINAL REPORT 02/28/2024 9:09 AM - Electronically signed by ??Jo Flannery M.D. TW: PABLO D: ??02/28/2024 9:09 AM T: ??02/28/2024 9:09 AM Report ID: [id number] Reading Location: ??[id number] Procedure Note Jo Flannery MD - 02/28/2024 EXAM DESCRIPTION: CT CHEST ABDOMEN AND PELVIS W CONTRAST REASON FOR STUDY: F/u lymphadenopathy since 05/2021. Hx of HTN, 08/10 lymphnode biopsy. TECHNIQUE: CT scan of the chest, abdomen, and pelvis performed with intravenous and without oral contrast using helical scanning technique with dynamic intravenous contrast injection. Reconstructed coronal and sagittal MPR images reviewed. All images stored on PACS. Automated exposure control was used as a dose optimization technique for this examination. CONTRAST TYPE/DOSE: 100mL of IOPAMIDOL 76 % IV SOLN injected via Intravenous COMPARISON: 07/10/2023, 06/18/2021 and 05/05/2021 FINDINGS: CHEST LUNGS: No pneumonic consolidation within either lung. There are a few scattered thin walled cysts demonstrated within both lungs, not significantly changed compared to the prior examination. Largest individual cyst measures approximately 1.7 cm in the left lower lobe on image 92. There are a few granulomatous calcifications. No suspicious pulmonary nodule within either lung. PLEURA: No effusion. No pneumothorax. MEDIASTINUM/SANDRA: The visualized thyroid gland is unremarkable. There are a few scattered supraclavicular nodes, diminished in size compared to previous examination. For instance, on the right on image number 6 measuring 6 mm in short axis dimension, previously 1 cm. Node in the right paratracheal space on image 32 measures 7 mm in transverse dimension, previously 10 mm. Subcentimeter short axis hilar nodes are slightly decreased in size compared to the prior examination. Distal paraesophageal nodes are again noted. Node posterior to the esophagus on image 94 measures 6 mm short axis, grossly stable. HEART: The heart is normal in size, without pericardial effusion. Small pericardiophrenic node on image 82 is stable. VASCULATURE CHEST: The thoracic aorta is atherosclerotic without aneurysm or dissection. Main pulmonary trunk normal in caliber. Mild coronary artery calcifications. AXILLA: There are scattered bilateral axillary lymph nodes which are decreased in size compared to the prior examination. For instance node in the left axilla laterally on image 19 measures 6 mm short axis, previously 12 mm. Node along the lateral margin of the pectoralis musculature on image 18 measures 9 mm short axis, previously 15 mm. Right axillary node on image number 20 measures 1 cm short axis, previously 1.7 cm CHEST WALL: No masses. No subcutaneous air. HARDWARE/LINES/TUBES: None. MUSCULOSKELETAL CHEST: Cervical and thoracic spondylosis. No acute osseous abnormality. ABDOMEN/PELVIS LIVER: The liver is mildly enlarged. There is diffuse hepatic steatosis. No suspicious hepatic mass. GALLBLADDER: No stones identified. No wall thickening or inflammatory changes. BILE DUCTS: No intrahepatic or extrahepatic ductal dilatation. SPLEEN: Normal size. No focal lesions. PANCREAS: There is very subtle haziness of the fat about the tail of the pancreas. Correlate clinically and with laboratory values with regards to pancreatitis. This finding is new compared to the prior examination. No appreciable pancreatic ductal dilatation or suspicious pancreatic mass. ADRENALS: Stable, unremarkable. KIDNEYS/URINARY TRACT: Kidneys enhance symmetrically. No suspicious cystic or solid mass. No hydronephrosis or hydroureter. The urinary bladder is unremarkable for the degree of decompression GI: The stomach is decompressed. Bowel loops are normal in caliber. Hyperdense material within the lumen of the small bowel likely represents ingested food or medication. The appendix is normal. There is diverticulosis of the colon. Mild increased stool burden within the colon. No diverticulitis. PERITONEUM: There is no free intraperitoneal air. There is no significant free fluid. No mesenteric lymphadenopathy. RETROPERITONEUM: No retroperitoneal mass or adenopathy. Scattered nonenlarged retroperitoneal nodes are similar REPRODUCTIVE: The uterus is surgically absent. The left ovary is grossly stable in appearance. Right ovary not well delineated on this examination. VASCULATURE ABDOMEN: Abdominal aorta is atherosclerotic, with mild mural thrombus. No aneurysm. MUSCULOSKELETAL ABDOMEN PELVIS: There is lumbar spondylosis. Intervertebral body fusion hardware spanning L5-S1, stable. Transitional anatomy at the lumbosacral junction. OTHER: Interval decrease in size of inguinal lymphadenopathy node in the right inguinal region on image 261 measures 11 mm short axis, previously 20 mm. Lymph node on the left on image who 57 just medial to the vein measures 6 mm in short axis dimension, previously 14 mm THIS IS AN ELECTRONICALLY VERIFIED FINAL REPORT 02/28/2024 9:09 AM - Electronically signed by Jo Flannery M.D. TW: PABLO Report ID: [id number] Reading Location: [id number] IMPRESSION: Interval decrease in size of lymph nodes within the chest, abdomen and pelvis as discussed. Subtle haziness of the fat about the tail of the pancreas. Correlate clinically and with laboratory values with regards to pancreatitis. Any further imaging at this time can be obtained as warranted based on clinical presentation and laboratory values. A follow-up CT abdomen and pelvis with contrast in 3 months is recommended. Hepatomegaly and hepatic steatosis. Additional findings as above. us Jomar Kiran MD IMG CT ORDERABLES Final Result * POCT Creatinine (02/25/2024 8:56 AM HEALTH AND SAFETY ADVISOR) CREATININE - POCT 0.7 0.6 - 1.3 mg/dL 02/25/2024 8:57 AM HEALTH AND SAFETY ADVISOR [facility] Blood 02/25/2024 8:56 AM HEALTH AND SAFETY ADVISOR 02/25/2024 8:57 AM HEALTH AND SAFETY ADVISOR None Provider POINT OF CARE TESTING Final Resu lt [facility] [address] [place] [address] * [id number] DEHYDROGENASE ENZYME ACTIVITY, BLOOD, [place] G6PD1 (02/24/2024 9:52 AM HEALTH AND SAFETY ADVISOR) Pathologist [facility] G6PD1 ENZYME ACTIVITY, B 11.8 8.0 - 11.9 U/g Hb 02/25/2024 12:22 PM HEALTH AND SAFETY ADVISOR [facility] [employer] Comment: The G6PD activity level is expected to be decreased in the setting of G6PD deficiency. However, G6PD enzyme activity levels can be increased in the setting of reticulocytosis or markedly elevated WBCs. Clinical correlation is required to establish if there is a possibility of a masked G6PD deficiency, particularly in the setting of , chronic, or episodic jaundice/anemia. In addition, enzyme testing is not reliable in the setting of recent red cell transfusion. If desired, genotyping is available G6PDZ/ G6PD Full Gene Sequencing, V. ADDITIONAL INFORMATION This test was developed and its performance characteristics determined by [facility] in a manner consistent with CLIA requirements. This test has not been cleared or approved by the U.S. Food and Drug Administration. Test Performed by: [facility] - [address] [address] [employer] Chief: Jodi Patricio Ph.D.; CLIA# [id number] Blood Venipuncture / Unknown 02/24/2024 9:52 AM HEALTH AND SAFETY ADVISOR 02/24/2024 10:20 AM HEALTH AND SAFETY ADVISOR us Mila Hassan PILLOW AGENT, SOLAR PROJECT ENGINEER LAB SEND OUTS Sabra l Result [facility] * (ABNORMAL) MANUAL DIFFERENTIAL (02/24/2024 9:52 AM HEALTH AND SAFETY ADVISOR) NEUTROPHILS % 27.0(L) 47.0 - 73.0 % 02/24/2024 11:03 AM [facility] LYMPHOCYTES % 63.0(H) 18.0 - 42.0 % 02/24/2024 11:03 AM [facility] MONOCYTES % 8.0 4.0 - 12.0 % 02/24/2024 11:03 AM [facility] EOSINOPHILS % 1.0 0.0 - 5.0 % 02/24/2024 11:03 AM [facility] BASOPHILS % 1.0 0.0 - 1.0 % 02/24/2024 11:03 AM [facility] NEUTROPHILS ABSOLUTE 3.12 1.60 - 7.70 10(3)/mcL 02/24/2024 11:03 AM [facility] LYMPHOCYTES ABSOLUTE 7.28(H) 1.30 - 3.20 10(3)/[facility] 02/24/2024 11:03 AM [facility] MONOCYTES ABSOLUTE 0.92 0.20 - 1.00 10(3)/[facility] 02/24/2024 11:03 AM [facility] EOSINOPHILS ABSOLUTE 0.12 0.00 - 0.40 10(3)/[facility] 02/24/2024 11:03 AM [facility] BASOPHILS ABSOLUTE 0.12(H) 0.00 - 0.10 10(3)/[facility] 02/24/2024 11:03 AM [facility] RBC MORPHOLOGY CONSISTENT WITH INDICES Yes 02/24/2024 11:03 AM [facility] REACTIVE LYMPHOCYTES 6 02/24/2024 11:03 AM [facility] WBC MORPH STATUS Normal 02/24/20 11:03 AM [facility] PLATELET STATUS Normal 11:03 AM [facility] Blood Venipuncture / Unknown 02/24/2024 9:52 AM HEALTH AND SAFETY ADVISOR 02/24/2024 10:20 AM HEALTH AND SAFETY ADVISOR us Mila Hassan PILLOW AGENT, SOLAR PROJECT ENGINEER HEMATOLOGY ORDERABLE S Final Result [facility] [address] [place] [address] * CBC WITH AUTO DIFFERENTIAL (02/24/2024 9:52 AM HEALTH AND SAFETY ADVISOR) WBC 11.56 4.00 - 12.00 10(3)/mcL 02/24/2024 11:03 AM [facility] RBC 4.63 3.80 - 5.30 10(6)/mcL 02/24/2024 11:03 AM [facility] HEMOGLOBIN (HGB) 13.6 12.0 - 15.8 g/dL 02/24/2024 11:03 AM [facility] HEMATOCRIT (HCT) 42.8 36.0 - 47.0 % 02/24/2024 11:03 AM [facility] MCV 92.4 82.0 - 96.0 fL 02/24/2024 11:03 AM [facility] MCH 29.4 26.0 - 34.0 pg 02/24/2024 11:03 AM [facility] MCHC 31.8 31.0 - 36.0 g/dL 02/24/2024 11:03 AM [facility] PLATELET COUNT 340 140 - 440 10(3)/mcL 02/24/2024 11:03 AM [facility] RDW 14.7 11.8 - 15.5 % 02/24/2024 11:03 AM [facility] MPV 11.0 9.7 - 12.4 fL 02/24/2024 11:03 AM [facility] NRBC PER 100 WBC 0 02/24/2024 11:03 AM [facility] RESULTS ARE CONSISTENT WITH PERIPHERAL SMEAR REVIEW Yes 02/24/2024 11:03 AM [facility] Blood Venipuncture / Unknown 02/24/2024 9:52 AM HEALTH AND SAFETY ADVISOR 02/24/2024 10:20 AM HEALTH AND SAFETY ADVISOR us Mila Hassan PILLOW AGENT, SOLAR PROJECT ENGINEER HEMATOLOGY ORDERABLE S Final Result [facility] [address] [place] [address] * (ABNORMAL) CMP (COMPREHENSIVE METABOLIC PANEL) (02/24/2024 9:52 AM HEALTH AND SAFETY ADVISOR) SODIUM 140 136 - 145 mmol/L 02/24/2024 10:47 AM [facility] POTASSIUM 4.3 3.5 - 5.1 mmol/L 02/24/2024 10:47 AM [facility] CHLORIDE 104 98 - 107 mmol/L 02/24/2024 10:47 AM [facility] CO2, VENOUS 26 22 - 30 mmol/L 02/24/2024 10:47 AM [facility] ANION GAP 14.3 <18.0 mmol/L 02/24/2024 10:47 AM [facility] GLUCOSE 119(H) 70 - 99 mg/dL 02/24/2024 10:47 AM [facility] BUN 16 10 - 20 mg/dL 02/24/2024 10:47 AM [facility] CREATININE, BLOOD 0.68 0.60 - 1.00 mg/dL 02/24/2024 10:47 AM [facility] BUN/CREATININE RATIO 24(H) 12 - 20 ratio 02/24/2024 10:47 AM [facility] TOTAL PROTEIN 7.2 6.3 - 8.2 g/dL 02/24/2024 10:47 AM [facility] ALBUMIN 4.4 3.5 - 5.0 g/dL 02/24/2024 10:47 AM [facility] A/G RATIO 1.6 1.0 - 2.2 02/24/2024 10:47 AM [facility] CALCIUM 9.5 8.7 - 10.5 mg/dL 02/24/2024 10:47 AM [facility] T BILI 0.6 0.2 - 1.2 mg/dL 02/24/2024 10:47 AM [facility] SGOT (AST) 49(H) 5 - 34 U/L 02/24/2024 10:47 AM [facility] SGPT (ALT) 97(H) 0 - 55 U/L 02/24/2024 10:47 AM [facility] ALKALINE PHOSPHATASE 91 40 - 150 U/L 02/24/2024 10:47 AM [facility] IS THE PATIENT REQUIRED TO BE FASTING? No 02/24/2024 10:47 AM [facility] GFR, ESTIMATED >60 >=60 02/24/2024 10:47 AM [facility] Comment: Creatinine Clearance is the preferred criteria for selecting drug dose adjustments in renally impaired patients. ??The GFR is provided as additional pertinent clinical information. GFR is reported in mL/min/1.73 sq m. Calculation based on the Chronic Kidney Disease Epidemiology Collaboration (CKD- EPI) equation refit without adjustment for race. GFR, EST. >60 >=60 024 10:47 AM [facility] GFR, EST. NONAFRICAN >60 >=60 02/24/2024 10:47 AM [facility] Blood Venipuncture / Unknown 02/24/2024 9:52 AM HEALTH AND SAFETY ADVISOR 02/24/2024 10:19 AM HEALTH AND SAFETY ADVISOR us Mila Hassan APRN, SOLAR PROJECT ENGINEER CHEMISTRY ORDERABLES Final Result Performing Organization Address City/[facility] Co de Phone Number [facility] [address] [place] [address] * C-REACTIVE PROTEIN (CRP) QUANT (02/24/2024 9:52 AM HEALTH AND SAFETY ADVISOR) C-REACTIVE PROTEIN 0.42 <0.50 mg/dL 02/24/2024 10:47 AM HEALTH AND SAFETY ADVISOR [facility] Blood Venipuncture / Unknown 02/24/2024 9:52 AM HEALTH AND SAFETY ADVISOR 02/24/2024 10:19 AM HEALTH AND SAFETY ADVISOR us Mila Hassan APRN, SOLAR PROJECT ENGINEER CHEMISTRY ORDERABLES Final Result Performing Organization Address [facility] de Phone Number [facility] [address] [place] [address] * Pathology Surgical (02/24/2024 8:52 AM HEALTH AND SAFETY ADVISOR) Case Report Surgical Pathology Report ? Case: [id number] ? Authorizing Provider: ??Ciaran Mcallister MD ?? Collected: ? 02/24/2024 08:52 AM ? Ordering Location: ? [facility] ? Received: ?02/24/2024 10:39 AM ? [facility] ? Lab Main ? Pathologist: ? Pedro Harris MD PhD ? Specimen: ?Stomach, ANTRAL BIOPSY RULE OUT H. PYLORI ? 02/25/2024 12:54 PM [facility] FINAL DIAGNOSIS Gastric antrum, biopsy: - Gastric mucosa with mild chronic inflammation - Negative for acute inflammation or H. pylori by IHC stain 02/25/2024 12:54 PM [facility] Pre-Operative Diagnosis DYSPHAGIA 02/25/2024 12:54 PM [facility] Gross Description A. ANTRAL BIOPSY RULE OUT H. PYLORI The specimen presents in a single formalin container for gross and microscopic exam. The container is labeled with the patient's name, Thuy Cooper, and designated antral biopsy to rule out H. Pylori . The specimen consists of a single light cortez strip of tissue measuring 0.4 cm in greatest dimension. All submitted in cassette A1. KS/dv Total Time of Fixation: 12 hours, 54 minutes. 02/25/2024 12:54 PM [facility] Tissue STOMACH STRUCTURE / Unknown 02/24/2024 8:52 AM HEALTH AND SAFETY ADVISOR 02/24/2024 10:39 AM HEALTH AND SAFETY ADVISOR Ciaran Mcallister MD PATHOLOGY/CYTOLOGY ORDERA BLES Final Result [facility] [address] [facility] [place] [address] * GI LAB IMAGING - EGD (02/24/2024 7:46 AM HEALTH AND SAFETY ADVISOR) Ciaran Mcallister MD IMG DIAGNOSTIC ORDERABLES Final Result * MARAH US BREAST LIMITED GARFIELD (02/15/2024 3:16 PM HEALTH AND SAFETY ADVISOR) Anatomical Region Laterality Modality breast Bilateral Ultrasound 02/15/2024 2:24 PM HEALTH AND SAFETY ADVISOR Narrative 02/15/2024 4:13 PM HEALTH AND SAFETY ADVISOR - MARAH DIAG BILATERAL DIGITAL W CAD W SANDRA - MARAH US BREAST LIMITED GARFIELD BILATERAL DIGITAL DIAGNOSTIC MAMMOGRAM 3D/2D WITH CAD WITH MEDIOLATERAL OBLIQUE CRANIOCAUDAL AND TARGETED BILATERAL ULTRASOUND: 02/15/2024 The study was acquired using digital technology and interpreted from soft copy. Current study was also evaluated with ICAD version 7.2. 2D digital mammographic views, as well as 3D digital tomosynthesis were performed in the CC and MLO projections. ?? CLINICAL: Patient returns for a 6 month follow-up both breasts. Patient has no new complaints. She states her bilateral axillary tenderness has improved since she is on medicine for rheumatoid and psoriatic arthritis. No personal history of cancer. Paternal grandmother had breast cancer. ?? COMPARISONS: Comparison is made to exams dated: ??[facility]2023 [facility] ?? BREAST TISSUE:There are scattered areas of fibroglandular density. ?? FINDINGS: Bilateral diagnostic mammogram Previously identified bilateral lesions are vaguely identifiable on MLO projections. ??No new significant masses or calcifications are seen in either breast on the mammogram. targeted bilateral breast ultrasound Targeted right breast ultrasound was performed in the region of interest. ??At the 1 o'clock position 3 cm from the nipple is an oval hypoechoic lesion measuring 8 mm x 4 mm x ?? 7mm. ??this is parallel with the skin. ??There is posterior acoustical enhancement. ??This likely represents a complicated cyst and is probably benign. ??It is not significantly changed from the previous study. Targeted left breast ultrasound was performed in the region of interest. at the 6 o'clock position 4 cm from the nipple there is an oval hypoechoic lesion measuring 6 mm x 4 mm x 8 mm. ??There is posterior acoustical enhancement. ??There is no evidence of color flow. ??This may represent a complex cyst. ??It is slightly larger than on the previous study and is probably benign. There is interval decrease in size of the cortex of bilateral axillary lymph nodes. ??This correlates with the history of treatment of collagen vascular disease. IMPRESSION: OVERALL STUDY BIRADS: CATEGORY 3: PROBABLY BENIGN Bilateral lesions are probably benign. ?? A follow-up mammogram and an ultrasound in 6 months is recommended to demonstrate stability. ?? The results and recommendations were discussed with the patient. Electronically signed by: Lindsey Dick M.D. ? ab/:02/15/2024 15:20:23 ?? Associate Professor Of Automation(s): Brandi ??RT Claudia(R)(M), [facility]; Coty ??Matilde [facility] letter sent: Birad 3 Followup ?? Reading location: [facility] OVERALL STUDY BIRADS: Category 3: Probably Benign Procedure Note Lindsey Dick MD - 02/15/2024 - MARAH DIAG BILATERAL DIGITAL W CAD W SANDRA - MARAH US BREAST LIMITED GARFIELD BILATERAL DIGITAL DIAGNOSTIC MAMMOGRAM 3D/2D WITH CAD WITH MEDIOLATERAL OBLIQUE CRANIOCAUDAL AND TARGETED BILATERAL ULTRASOUND: 02/15/2024 The study was acquired using digital technology and interpreted from soft copy. Current study was also evaluated with ICAD version 7.2. 2D digital mammographic views, as well as 3D digital tomosynthesis were performed in the CC and MLO projections. CLINICAL: Patient returns for a 6 month follow-up both breasts. Patient has no new complaints. She states her bilateral axillary tenderness has improved since she is on medicine for rheumatoid and psoriatic arthritis. No personal history of cancer. Paternal grandmother had breast cancer. COMPARISONS: Comparison is made to exams dated: 07/26/2023 and 07/26/2023 [facility]. BREAST TISSUE:There are scattered areas of fibroglandular density. FINDINGS: Bilateral diagnostic mammogram Previously identified bilateral lesions are vaguely identifiable on MLO projections. No new significant masses or calcifications are seen in either breast on the mammogram. targeted bilateral breast ultrasound Targeted right breast ultrasound was performed in the region of interest. At the 1 o'clock position 3 cm from the nipple is an oval hypoechoic lesion measuring 8 mm x 4 mm x 7mm. this is parallel with the skin. There is posterior acoustical enhancement. This likely represents a complicated cyst and is probably benign. It is not significantly changed from the previous study. Targeted left breast ultrasound was performed in the region of interest. at the 6 o'clock position 4 cm from the nipple there is an oval hypoechoic lesion measuring 6 mm x 4 mm x 8 mm. There is posterior acoustical enhancement. There is no evidence of color flow. This may represent a complex cyst. It is slightly larger than on the previous study and is probably benign. There is interval decrease in size of the cortex of bilateral axillary lymph nodes. This correlates with the history of treatment of collagen vascular disease. IMPRESSION: OVERALL STUDY BIRADS: CATEGORY 3: PROBABLY BENIGN Bilateral lesions are probably benign. A follow-up mammogram and an ultrasound in 6 months is recommended to demonstrate stability. The results and recommendations were discussed with the patient. Electronically signed by: Lindsey Dick M.D. ab/:02/15/2024 15:20:23 Associate Professor Of Automation(s): RT Judy(R)(M), [facility]; Coty Clayton, [facility] letter sent: Birad 3 Followup Reading location: [facility] STUDY BIRADS: Category 3: Probably Benign us Jomar Linda Kiran MD IMG MAMMO ORDERABLES Fin al Result * MARAH DIAG BILATERAL DIGITAL W CAD W SANDRA (02/15/2024 2:53 PM HEALTH AND SAFETY ADVISOR) Anatomical Region Laterality Modality breast Bilateral Mammography 02/15/2024 2:24 PM HEALTH AND SAFETY ADVISOR Narrative 02/15/2024 4:13 PM HEALTH AND SAFETY ADVISOR - MARAH DIAG BILATERAL DIGITAL W CAD W SANDRA - MARAH US BREAST LIMITED GARFIELD BILATERAL DIGITAL DIAGNOSTIC MAMMOGRAM 3D/2D WITH CAD WITH MEDIOLATERAL OBLIQUE CRANIOCAUDAL AND TARGETED BILATERAL ULTRASOUND: 02/15/2024 The study was acquired using digital technology and interpreted from soft copy. Current study was also evaluated with ICAD version 7.2. 2D digital mammographic views, as well as 3D digital tomosynthesis were performed in the CC and MLO projections. ?? CLINICAL: Patient returns for a 6 month follow-up both breasts. Patient has no new complaints. She states her bilateral axillary tenderness has improved since she is on medicine for rheumatoid and psoriatic arthritis. No personal history of cancer. Paternal grandmother had breast cancer. ?? COMPARISONS: Comparison is made to exams dated: ??07/26/2023 and 07/26/2023 [facility]. ?? BREAST TISSUE:There are scattered areas of fibroglandular density. ?? FINDINGS: Bilateral diagnostic mammogram Previously identified bilateral lesions are vaguely identifiable on MLO projections. ??No new significant masses or calcifications are seen in either breast on the mammogram. targeted bilateral breast ultrasound Targeted right breast ultrasound was performed in the region of interest. ??At the 1 o'clock position 3 cm from the nipple is an oval hypoechoic lesion measuring 8 mm x 4 mm x ?? 7mm. ??this is parallel with the skin. ??There is posterior acoustical enhancement. ??This likely represents a complicated cyst and is probably benign. ??It is not significantly changed from the previous study. Targeted left breast ultrasound was performed in the region of interest. at the 6 o'clock position 4 cm from the nipple there is an oval hypoechoic lesion measuring 6 mm x 4 mm x 8 mm. ??There is posterior acoustical enhancement. ??There is no evidence of color flow. ??This may represent a complex cyst. ??It is slightly larger than on the previous study and is probably benign. There is interval decrease in size of the cortex of bilateral axillary lymph nodes. ??This correlates with the history of treatment of collagen vascular disease. IMPRESSION: OVERALL STUDY BIRADS: CATEGORY 3: PROBABLY BENIGN Bilateral lesions are probably benign. ?? A follow-up mammogram and an ultrasound in 6 months is recommended to demonstrate stability. ?? The results and recommendations were discussed with the patient. Electronically signed by: Lindsey Dick M.D. ? ab/:02/15/2024 15:20:23 ?? Associate Professor Of Automation(s): Brandi ??RT Claudia(R)(M), [facility]; Coty ??Matilde, [facility] letter sent: Birad 3 Followup ?? Reading location: [facility] STUDY BIRADS: Category 3: Probably Benign Procedure Note Lindsey Dick MD - 02/15/2024 - MARAH DIAG BILATERAL DIGITAL W CAD W SANDRA - MARAH US BREAST LIMITED GARFIELD BILATERAL DIGITAL DIAGNOSTIC MAMMOGRAM 3D/2D WITH CAD WITH MEDIOLATERAL OBLIQUE CRANIOCAUDAL AND TARGETED BILATERAL ULTRASOUND: 02/15/2024 The study was acquired using digital technology and interpreted from soft copy. Current study was also evaluated with Vivaty version 7.2. 2D digital mammographic views, as well as 3D digital tomosynthesis were performed in the CC and MLO projections. CLINICAL: Patient returns for a 6 month follow-up both breasts. Patient has no new complaints. She states her bilateral axillary tenderness has improved since she is on medicine for rheumatoid and psoriatic arthritis. No personal history of cancer. Paternal grandmother had breast cancer. COMPARISONS: Comparison is made to exams dated: 07/26/2023 and 07/26/2023 [facility]. BREAST TISSUE:There are scattered areas of fibroglandular density. FINDINGS: Bilateral diagnostic mammogram Previously identified bilateral lesions are vaguely identifiable on MLO projections. No new significant masses or calcifications are seen in either breast on the mammogram. targeted bilateral breast ultrasound Targeted right breast ultrasound was performed in the region of interest. At the 1 o'clock position 3 cm from the nipple is an oval hypoechoic lesion measuring 8 mm x 4 mm x 7mm. this is parallel with the skin. There is posterior acoustical enhancement. This likely represents a complicated cyst and is probably benign. It is not significantly changed from the previous study. Targeted left breast ultrasound was performed in the region of interest. at the 6 o'clock position 4 cm from the nipple there is an oval hypoechoic lesion measuring 6 mm x 4 mm x 8 mm. There is posterior acoustical enhancement. There is no evidence of color flow. This may represent a complex cyst. It is slightly larger than on the previous study and is probably benign. There is interval decrease in size of the cortex of bilateral axillary lymph nodes. This correlates with the history of treatment of collagen vascular disease. IMPRESSION: OVERALL STUDY BIRADS: CATEGORY 3: PROBABLY BENIGN Bilateral lesions are probably benign. A follow-up mammogram and an ultrasound in 6 months is recommended to demonstrate stability. The results and recommendations were discussed with the patient. Electronically signed by: Lindsey Dick M.D. ab/:02/15/2024 15:20:23 Associate Professor Of Automation(s): Brandi Taylor, (R)(M), [facility]; Coty Clayton, [facility] letter sent: Jace 3 Followup Reading location: [facility] OVERALL STUDY BIRADS: Category 3: Probably Benign [facility] Linda Kiran MD IMG MAMMO ORDERABLES Fin al Result from Last [address] [place] [address] MEDICAID [place] MEDICARE Care Teams Red Leader Relationship Specialty Start Date End Date Jose Bryan, PAC [address] [place] [address] PCP - General Physician Sulfuric Acid Plant Operator 09/27/19 Ron Batista MD [address] [address] Consulting Physician Urology 08/19/23 Jomar Kiran MD [address] [place] [address] Consulting Physician Medical Oncology 07/20/23 Macy Alarcon APRN, SOLAR PROJECT ENGINEER [address] [place] [address] Nurse Practitioner Advanced Practice Nurse 02/23/24
--- OUTSIDE RECORDS SUMMARY | 2024-04-20 10:10 | XMS_ITS | Data Portability ---
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 Bilingual Name Role Phone LATOYA BRYAN Primary Care Provider Assessment Encounter Date Assessment Date Assessment LastModified by Organization Details LastModified Time 07/13/2023 07/13/2023 gait instability jnanney Not available 07/13/2023 14:09:50 Plan of Treatment Reminders Order Date Submit Date Provider Last Modified By Organization Details Last Modified Time Details Appointments ANY 15 2024 10:00A Galen Bryan PA-C Not available Not available Not available Lab urina lysis , dipst ick 2023 024 GRACE In-Office Order, Internal Use Only DO Not Attach Compendium DO Not Attach Compendium, Do Not Delete/merge, [id number] 07/13/2023 11:41:49 drug scree n, urine 2023 024 GRACE In-Office Order, Internal Use Only DO Not Attach Compendium DO Not Attach Compendium, Do Not Delete/merge, [id number] 02/16/2024 11:22:48 Referral urolo gist refer ral 2023 024 GRACE [facility], [address] [facility], [address], [place], [address], 08/19/2023 16:28:[address] refer ral [address] [facility], [address], [place], [address], 08/10/2023 09:54:38 urolo gist refer ral 2023 024 GRACE Correa MD, [address] [facility] , [address], [place], [address], 09/07/2023 10:00:39 gastr filiberto olveraneeraj ist refer [facility] 2023 024 GRACE [facility] [place], [address] [facility], [address], [place], [address], 02/23/2024 12:34:44 Procedures None recor ded. Surgeries None recor ded. Imaging None recor ded. Medication Orders trazo done 50 mg table t 2023 024 kclarkma [facility], [address], [place], [id number], 02/02/2024 10:05:33 amitr iptyl ine 25 mg table t 2023 024 [id number], [address], [place], [id number], 02/02/2024 10:05:04 fluox etine 40 mg capsu le 2023 024 [facility][id number], [address], [place], [id number], 07/26/2023 15:10:56 clind amyci n HCl 300 mg capsu le 2023 024 kclarkma [facility], [address] [facility], [place], [place], [id number], 02/02/2024 10:05:23 trazo done 100 mg table t 2023 024 kclarkma [facility], [address] [place], [place], [id number], 02/02/2024 10:05:16 buspi christen 10 mg table t [address]23 [facility], [address] [place] [address], [id number], 04/18/2024 16:16:12 benzo natat e 200 mg capsu le [address] [facility], [address] [place] [address], [id number], 02/16/2024 12:28:39 diaze joselo 2 mg table t [address]23 [facility], [address] [place] [address], [id number], 02/16/2024 12:28:39 buspi christen 15 mg table t [address] [facility] [address], [address], 02/16/2024 12:28:36 Patient TargetsNo targets recorded. Patient Instructions Encounter Date Encounter Id Patient Instructions Last Modified By Organization Details Last Modified Time 07/13/2023 [id number] bladder training : care instructions jnanney Not available 07/13/2023 11:21:36 kegel exercises: care instructions jnanney Not available 07/13/2023 11:21:36 Stress Incontinence: Care Instructions jnanney Not available 07/13/2023 11:21:36 07/26/2023 [id number] anxiety disorder : care instructions jnanney Not available 07/26/2023 15:10:35 Stress Incontinence: Care Instructions jnanney Not available 07/26/2023 15:10:35 08/24/2023 [id number] abscessed tooth: care instructions jnanney Not available 08/24/2023 10:40:01 A healthy lifestyle: care instructions jnanney Not available 08/24/2023 10:42:23 Stress Incontinence: Care Instructions jnanney Not available 08/24/2023 10:42:23 02/02/2024 [id number] A healthy lifestyle: care instructions jnanney Not available 02/02/2024 10:26:33 pancreatitis: care instructions jnanney Not available 02/02/2024 10:24:38 Rheumatoid Arthritis (RA): Care Instructions jnanney Not available 02/02/2024 10:24:38 02/16/2024 [id number] A healthy lifestyle: care instructions jnanney Not available 02/16/2024 11:11:25 Reason for Referral Referring Physician: Latoya borges [facility], Encounter Date: 07/13/2023 Urologist Referral for Femal e stress incontinence Referring Physician: Latoya Bryan [facility], Encounter Date: 07/13/2023 Urologist Referral for Urina ry incontinence Referring Physician: Latoya Bryan [facility], Encounter Date: 08/24/2023 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 pancreatitis Referring Physician: Latoya Bryan [facility], Encounter Date: 02/02/2024 Results Created Date Observation Date Name Description Value Unit Range Abnormal Flag Note LastModifiedBy Organization Detail LastModifiedTime 07/13/19 24 07/13/2023 urina lysis , dipst ick Leukocytes Negati ve Not Available In-Office Order Internal Use Only DO Not Attach Compendium DO Not Attach Compendium, Do Not Delete/merge, [id number] 07/13/2023 11:19:32 07/13/19 24 07/13/2023 urina lysis , dipst ick Nitrite negati ve Not Available In-Office Order Internal Use Only DO Not Attach Compendium DO Not Attach Compendium, Do Not Delete/merge, [id number] 07/13/2023 11:19:32 07/13/19 24 07/13/2023 urina lysis , dipst ick Urobilinogen .2 Not Available In-Of fice Order Internal Use Only DO Not Attach Compendium DO Not Attach Compendium, Do Not Delete/merge, [id number] 07/13/2023 11:19:32 07/13/19 24 07/13/2023 urina lysis , dipst ick Protein Negati ve Not Available In-Office Order Internal Use Only DO Not Attach Compendium DO Not Attach Compendium, Do Not Delete/merge, 07/13/2023 11:19:32 07/13/19 24 07/13/2023 urina lysis , dipst ick pH 6.0 Not Available In-Office Order Internal Use Only DO Not Attach Compendium DO Not Attach Compendium, Do Not Delete/merge, 07/13/2023 11:19:32 07/13/19 24 07/13/2023 urina lysis , dipst ick Blood Negati ve Not Available In-Office Order Internal Use Only DO Not Attach Compendium DO Not Attach Compendium, Do Not Delete/merge, 07/13/2023 11:19:32 07/13/19 24 07/13/2023 urina lysis , dipst ick Specific [place] 1.015 Not Available In-Off ice Order Internal Use Only DO Not Attach Compendium DO Not Attach Compendium, Do Not Delete/merge, 07/13/2023 11:19:32 07/13/19 24 07/13/2023 urina lysis , dipst ick Ketone Negati ve Not Available In-Office Order Internal Use Only DO Not Attach Compendium DO Not Attach Compendium, Do Not Delete/merge, 07/13/2023 11:19:32 07/13/19 24 07/13/2023 urina lysis , dipst ick Bilirubin Negati ve Not Available In-Office Order Internal Use Only DO Not Attach Compendium DO Not Attach Compendium, Do Not Delete/merge, 07/13/2023 11:19:32 07/13/19 24 07/13/2023 urina lysis , dipst ick Glucose Negati ve Not Available In-Office Order Internal Use Only DO Not Attach Compendium DO Not Attach Compendium, Do Not Delete/merge, 07/13/2023 11:19:32 07/13/19 24 07/13/2023 urina lysis , dipst ick Appearance Clear Not Available In-Offi ce Order Internal Use Only DO Not Attach Compendium DO Not Attach Compendium, Do Not Delete/merge, 07/13/2023 11:19:32 07/13/19 24 07/13/2023 urina lysis , dipst ick Color Yellow Not Available In-Office Order Internal Use Only DO Not Attach Compendium DO Not Attach Compendium, Do Not Delete/merge, [id number] 07/13/2023 11:19:32 02/16/20 24 02/16/2024 drug scree n, urine Methamphetam ine Negati ve Not Available In-Office Order Internal Use Only DO Not Attach Compendium DO Not Attach Compendium, Do Not Delete/merge, [id number] 02/16/2024 11:16:11 02/16/20 24 02/16/2024 drug scree n, urine THC Negati ve Not Available In-Office Order Internal Use Only DO Not Attach Compendium DO Not Attach Compendium, Do Not Delete/merge, [id number] 02/16/2024 11:16:11 02/16/20 24 02/16/2024 drug scree n, urine Cocaine (Min[place]) Negati ve Not Available In-Office Order Internal Use Only DO Not Attach Compendium DO Not Attach Compendium, Do Not Delete/merge, [id number] 02/16/2024 11:16:11 02/16/20 24 02/16/2024 drug scree n, urine Benzodiazepi ne (Bzo) Negati ve Not Available In-Office Order Internal Use Only DO Not Attach Compendium DO Not Attach Compendium, Do Not Delete/merge, [id number] 02/16/2024 11:16:11 02/16/20 24 02/16/2024 drug scree n, urine Methadone (Mtd) Negati ve Not Available In-Office Order Internal Use Only DO Not Attach Compendium DO Not Attach Compendium, Do Not Delete/merge, [id number] 02/16/2024 11:16:11 02/16/20 24 02/16/2024 drug scree n, urine Buprenorphin e (Bup) Negati ve Not Available In-Office Order Internal Use Only DO Not Attach Compendium DO Not Attach Compendium, Do Not Delete/merge, [id number] 02/16/2024 11:16:11 02/16/20 24 02/16/2024 drug scree n, urine Oxycodone (Oxy) Negati ve Not Available In-Office Order Internal Use Only DO Not Attach Compendium DO Not Attach Compendium, Do Not Delete/merge, [id number] 02/16/2024 11:16:11 02/16/20 24 02/16/2024 drug scree n, urine Barbiturates (Bar) Negati ve Not Available In-Office Order Internal Use Only DO Not Attach Compendium DO Not Attach Compendium, Do Not Delete/merge, 02/16/2024 11:16:11 02/16/20 24 02/16/2024 drug scree n, urine MDMA (Ecstacy) Negati ve Not Available In-Office Order Internal Use Only DO Not Attach Compendium DO Not Attach Compendium, Do Not Delete/merge, 02/16/2024 11:16:11 02/16/2002/16/2024 drug scree n, urine Amphetamines (Amp) Negati ve Not Available In-Office Order Internal Use Only DO Not Attach Compendium DO Not Attach Compendium, Do Not Delete/merge, 02/16/2024 11:16:11 02/16/20 24 02/16/2024 drug scree n, urine Opiates (opi) Negati ve Not Available In-Office Order Internal Use Only DO Not Attach Compendium DO Not Attach Compendium, Do Not Delete/merge, 02/16/2024 11:16:11 02/16/20 24 02/16/2024 drug scree n, urine Phencyclidin e (Pcp) Negati ve Not Available In-Office Order Internal Use Only DO Not Attach Compendium DO Not Attach Compendium, Do Not Delete/merge, 02/16/2024 11:16:11 02/16/2002/16/2024 drug scree n, urine Tricyclic Antidepressa nts Invali d Not Available In-Office Order Internal Use Only DO Not Attach Compendium DO Not Attach Compendium, Do Not Delete/merge, 02/16/2024 11:16:11 02/16/20 24 02/16/2024 drug scree n, urine Fentanyl Negati ve Not Available In-Office Order Internal Use Only DO Not Attach Compendium DO Not Attach Compendium, Do Not Delete/merge, [id number] 02/16/2024 11:16:11 07/13/19 24 07/10/2023 CT, angio gram, chest + abdom en + pelvi s, w/ contr ast No observ ation record ed. kclarkma Not Available 2023 11:55:42 04/20/19 25 04/20/2024 imagi ng/di agnos tic resul t No observ ation record ed. [facility] [address] [place], [address], 04/20/2024 11:08:00 Result Notes None recorded. Problems Name Problem SNOMED Code Status Onset Date Resolution Date Notes Provider Name and Address Organization Details Recorded Time Pneumonia 533023662 Active Not Available [facility] 2 07:33:31 Essential hypertension 94044803 Active Not Available [facility] 2 07:33:31 Hyperglycemia 42219397 Active Not Available [facility] 2 07:33:31 Mixed hyperlipidemi a 096010418 Active Not Available [facility] 2 07:33:31 Chronic depression 627537252 Active Not Available [facility] 2 07:33:31 Strain of trapezius muscle 470179122 Active Not Available [facility] 2 07:33:31 Chronic cough 42278595 Active Not Available [facility] 2 07:33:31 Problem Notes None recorded. Procedures Surgical History Date Name Laterality Status Provider Name and Address Organization Details Recorded Time 03/22/19 15 Date of Last Mammogram completed Lakeshia Ramirez [facility] 05/13/2020 15:46:28 03/22/19 15 Total hysterectomy completed ASPEN Wallis [facility] 05/13/2020 15:50:46 Tonsillectomy completed Lakeshia Ramirez [facility] 02/18/2021 18:36:00 Imaging Results Imaging Date Name Status [facility]Modified [facility] Details LastModified Time 07/10/2023 CT, angiogram, chest + abdomen + pelvis, w/ contrast completed [facility] Information not available 07/13/2023 11:55:42 04/20/2024 imaging/diagn ostic result active [facility] [address] [place], [address], 04/20/2024 11:08:00 Procedure Notes None recorded. Medical Equipment None Reported. Allergies No known drug allergies Medications Name Sig Start Date Stop Date Status Note LastModified by Organization Details LastModified Time fluoxetin e 40 mg capsule Take one capsule by mouth every day active Not Available Not Available No t Available cyclobenz aprine 10 mg tablet TAKE 1 TABLET BY MOUTH THREE TIMES A DAY active Not Available Not Available No t Available amoxicill in 500 mg capsule active Not Available Not Available Not Available fluconazo le 100 mg tablet 02/13 completed Not Available Not Available Not Available buspirone 5 mg tablet TAKE 1 TABLET BY MOUTH TWO TIMES A DAY 07/12 completed Not Available Not Available Not Available bupropion HCl SR 150 mg tablet,12 hr sustained -release TAKE 1 TABLET BY MOUTH TWICE A DAY 05/27 completed Never started Not Available Not Available Not Available nystatin 100,000 unit/mL oral suspensio n 02/13 completed Not Available Not Available Not Available gabapenti n 600 mg tablet TAKE ONE TABLET BY MOUTH THREE TIMES A DAY 02/28 completed Not Available Not Available Not Available clindamyc in HCl 300 mg capsule Take 1 capsule every 6 hours by oral route for 10 days. 02/01 completed Not Available Not Available Not Available trazodone 50 mg tablet TAKE ONE TABLET BY MOUTH TWICE A DAY NEEDED 02/01 completed Not Available Not Available Not Available azithromy mark 250 mg tablet 02/13 completed Not Available Not Available Not Available benzonata te 200 mg capsule Take 1 capsule 3 times a day by oral route as needed for 30 days. 2023 active Not Available Not Available Not Avai lable hydrocodo ne 5 mg-acetam inophen 325 mg tablet TAKE 1 TO 2 TABLETS BY MOUTH EVERY 4 HOURS NEEDED FOR MODERATE TO SEVERE PAIN 07/25 completed Not Available Not Available Not Available fluconazo le 200 mg tablet Take 1 tablet by oral route as directed . 07/09 completed Not Available Not Available Not Available ondansetr on HCl 4 mg tablet TAKE 1 TABLET BY MOUTH TWO TIMES A DAY NEEDED 03/10 completed Not Available Not Available Not Available prednison e 20 mg tablet active Not Available Not Available Not Available gabapenti n 400 mg capsule TAKE 1 CAPSULE( S) 4 TIMES A DAY BY ORAL ROUTE FOR 30 DAYS. 05/27 completed Not really taking right now Not Available Not Available Not Available prednison e 5 mg tablet TAKE BETWEEN 1 TO 3 TABLET BY MOUTH ONCE DAILY FOR IMMEDIAT E ARTHRITI S CONROL. USE LOWEST DOSE NEEDED AND STOP WHEN BETTER active Not Available Not Available No t Available sulfasala zine 500 mg tablet,de layed release TAKE 1 TABLET BY MOUTH TWO TIMES A DAY active Not Available Not Available No t Available leflunomi de 10 mg tablet TAKE 1 TABLET BY MOUTH DAILY 02/15 completed Not Available Not Available Not Available metronida zole 500 mg tablet 12/11 completed Not Available Not Available Not Available hydroxyzi ne HCl 50 mg tablet TAKE 1 TABLET(S ) BY ORAL ROUTE AT BEDTIME FOR 30 DAYS. 12/11 completed Not really taking right now Not Available Not Available Not Available azathiopr ine 50 mg tablet 02/01 completed Not Available Not Available Not Available acetamino phen 300 mg-codein e 30 mg tablet 02/13 completed Not Available Not Available Not Available sulfameth oxazole 800 mg-trimet hoprim 160 mg tablet Take 1 tablet every 12 hours by oral route for 10 days. 02/18 completed Not Available Not Available Not Available hydrocodo ne 10 mg-acetam inophen 325 mg tablet TAKE 1 tablet orally every 12 hours As Needed for severe pain (scale score 7-10) 10/22 completed Not Available Not Available Not Available tramadol 50 mg tablet take 1 tablet with Tylenol BY MOUTH THREE TIMES A DAY pain control (use only Tylenol for mild pain) active Not Available Not Available No t Available triamtere ne 37.5 mg-hydroc hlorothia zide 25 mg capsule 1 po qd 02/13 completed Not Available Not Available Not Available fenofibra te micronize d 134 mg capsule TAKE ONE CAPSULE BY MOUTH EVERY DAY 07/09 completed Not Available Not Available Not Available ketorolac 10 mg tablet 02/13 completed Not Available Not Available Not Available meloxicam 7.5 mg tablet take 1 tablet (7.5 mg) by oral route once daily for 30 days active Not Available Not Available No t Available oxycodone -acetamin ophen 5 mg-325 mg tablet 02/01 completed Not Available Not Available Not Available alprazola m 0.5 mg tablet TAKE ONE TABLET BY MOUTH THREE TIMES A DAY 02/13 completed Not Available Not Available Not Available Guaiatuss in AC 10 mg-100 mg/5 mL oral liquid Take 10 mL every 4 hours by oral route as needed for 10 days. 08/13 completed Not Available Not Available Not Available alprazola m 0.25 mg tablet 1 po TID 08/13 completed Not Available Not Available Not Available amitripty line 25 mg tablet TAKE 1 TABLET BY MOUTH DAILY 02/01 completed Not Available Not Available Not Available lorazepam 0.5 mg tablet 03/13 completed Not Available Not Available Not Available methotrex ate sodium 2.5 mg tablet TAKE 8 TABLETS BY MOUTH ONCE WEEKLY active Not Available Not Available No t Available tamsulosi n 0.4 mg capsule TAKE 1 CAPSULE BY MOUTH DAILY 02/01 completed Not Available Not Available Not Available trazodone 100 mg tablet Take 1 tablet twice a day by oral route as needed for 30 days. 02/01 completed Not Available Not Available Not Available dicyclomi ne 20 mg tablet 04/20 completed Not Available Not Available Not Available diazepam 2 mg tablet TAKE 1 TABLET BY MOUTH THREE TIMES DAILY NEEDED active Not Available Not Available No t Available baclofen 10 mg tablet active Not Available Not Available Not Available benzonata te 100 mg capsule TAKE 1 CAPSULE BY MOUTH THREE TIMES DAILY FOR UP TO 10 DAYS NEEDED FOR COUGH 07/25 completed Not Available Not Available Not Available pantopraz ole 40 mg tablet,de layed release take 1 tablet (40 mg) by oral route once daily to protect stomach lining active Not Available Not Available No t Available nitrofura ntoin macrocrys valeria 100 mg capsule TAKE 1 (one) capsule TWICE DAILY for 3 days then once nightly thereaft er] 02/01 completed Not Available Not Available Not Available buspirone 10 mg tablet Take 1 tablet twice a day by oral route for 30 days. active Not Available Not Available No t Available prednison e 50 mg tablet 05/13 completed Not Available Not Available Not Available lidocaine 5 % topical patch APPLY 1 PATCH BY TOPICAL ROUTE ONCE DAILY (MAY WEAR UP TO 12HOURS. ) 07/12 completed Not Available Not Available Not Available indometha mark 50 mg capsule TAKE 1 CAPSULE BY MOUTH THREE TIMES DAILY FOR UP TO 7 DAYS NEEDED FOR MODERATE TO SEVERE PAIN 07/12 completed Not Available Not Available Not Available diclofena c potassium 50 mg tablet 10/19 completed Not Available Not Available Not Available gabapenti n 300 mg capsule TAKE ONE CAPSULE BY MOUTH FOUR TIMES A DAY active Not Available Not Available No t Available triamtere ne 37.5 mg-hydroc hlorothia zide 25 mg tablet TAKE ONE TABLET BY MOUTH EVERY DAY*NARCISO ENT NEEDS APPOINTM ENT* 05/13 completed Not Available Not Available Not Available diclofena c sodium 75 mg tablet,de layed release take 1 tablet (75 mg) by oral route 2 times per day active Not Available Not Available No t Available folic acid 1 mg tablet take 1 tablet (1 mg) by oral route once daily active Not Available Not Available No t Available hydroxyzi ne HCl 25 mg tablet Take 1 tablet 3 times a day by oral route as needed for 30 days. 12/11 completed Not Available Not Available Not Available acetamino phen 300 mg-codein e 60 mg tablet TAKE 1 TABLET BY MOUTH EVERY SIX HOURS active Not Available Not Available No t Available lisinopri l 5 mg tablet TAKE 1 TABLET BY MOUTH DAILY active Not Available Not Available No t Available zolpidem 5 mg tablet TAKE ONE TABLET BY MOUTH NIGHTLY AT BEDTIME 07/09 completed Not Available Not Available Not Available furosemid e 20 mg tablet TAKE ONE TABLET BY MOUTH EVERY DAY*NARCISO ENT NEEDS APPOINTM ENT* 07/09 completed Not Available Not Available Not Available metoprolo l succinate ER 25 mg tablet,ex tended release 24 hr 07/09 completed Not Available Not Available Not Available levofloxa mark 500 mg tablet 12/11 completed Not Available Not Available Not Available levofloxa mark 750 mg tablet Take 1 tablet every day by oral route for 5 days. 07/09 completed Not Available Not Available Not Available methylpre dnisolone 4 mg tablets in a dose pack 07/25 completed Not Available Not Available Not Available losartan 50 mg-hydroc hlorothia zide 12.5 mg tablet active Not Available Not Available No t Available fluoxetin e 20 mg capsule TAKE 1 CAPSULE BY MOUTH EVERY DAY 01/02 completed Not Available Not Available Not Available fluticaso ne propionat e 50 mcg/actua tion nasal spray,maranda pension [place] 1 spray every day by intranas al route as directed for 30 days. 10/19 completed Not Available Not Available Not Available naproxen 500 mg tablet active Not Available Not Available Not Available diazepam 5 mg tablet 02/13 completed Not Available Not Available Not Available amoxicill in 875 mg-potass ium clavulana te 125 mg tablet TAKE 1 TABLET BY MOUTH TWICE DAILY FOR 10 DAYS 08/23 completed Not Available Not Available Not Available Ventolin HFA 90 mcg/actua tion aerosol inhaler active Not Available Not Available Not Available buspirone 15 mg tablet TAKE ONE TABLET BY MOUTH THREE TIMES A DAY NEEDED 2024 active Not Available Not Available Not Avai lable oxycodone 5 mg tablet TAKE 1 TABLET BY MOUTH EVERY 4 HOURS NEEDED FOR SEVERE PAIN. 12/11 completed Not Available Not Available Not Available azithromy mark 500 mg tablet Take 1 tablet every day by oral route for 3 days. 07/09 completed Not Available Not Available Not Available nitrofura ntoin monohydra te/macroc rystals 100 mg capsule 12/11 completed Not Available Not Available Not Available duloxetin e 30 mg capsule,d elayed release TAKE 1 CAPSULE BY MOUTH DAILY 07/12 completed Not Available Not Available Not Available zolpidem ER 6.25 mg tablet,ex tended release,m ultiphase take 1 tablet by mouth every night at bedtime 10/19 completed Not Available Not Available Not Available Symbicort 160 mcg-4.5 mcg/actua tion HFA aerosol inhaler 08/13 completed Not Available Not Available Not Available Nucynta ER 50 mg tablet,ex tended release Take 1 tablet every 12 hours by oral route for 30 days. 10/19 completed Not Available Not Available Not Available Linzess 145 mcg capsule TAKE 1 CAPSULE BY MOUTH EVERY DAY NEEDED FOR 30 DAYS 04/20 completed Not Available Not Available Not Available Anoro Ellipta 62.5 mcg-25 mcg/actua tion powder for inhalatio n 1 inhalati on daily 08/13 completed Not Available Not Available Not Available ProAir RespiClic k 90 mcg/actua tion breath activated 08/13 completed Not Available Not Available Not Available naloxone 4 mg/actuat ion nasal spray CALL 911. SPR CONTENTS OF ONE SPRAYER (0.1ML) INTO ONE NOSTRIL. REPEAT IN 2-3 MIN IF SYMPTOMS OF OPIOID EMERGENC Y PERSIST, ALTERNAT E NOSTRILS 08/23 completed Not Available Not Available Not Available Humira(CF ) Pen 40 mg/0.4 mL subcutane ous kit active Not Available Not Available Not Available Vitals Date Recorded Body height Provider Name an d Address Organization Details Last Updated DateTime 07/13/2023 162.56 cm Thania Leyva [facility] 07/13/19 10:51:30 Date Recorded Body mass index (BMI) Body weight Provider Name and Address Organization Details Last Updated DateTime 07/13/2023 34.5 kg/m2 07227.77 g Thania Leyva [facility] 07/13/2023 10:51:36 Date Recorded Heart rate Provider Name an d Address Organization Details Last Updated DateTime 07/13/2023 84 /min ASPEN Riley [facility] 07/13/19 10:56:23 Date Recorded Oxygen saturation Oxygen saturation in Arterial blood by Pulse oximetry Provider Name and Address Organization Details Last Updated DateTime 07/13/2023 99 % 99 % ASPEN Riley [facility] 07/13/2023 10:56:25 Date Recorded Body height Provider Name an d Address Organization Details Last Updated DateTime 07/26/2023 162.56 cm ASPEN Riley [facility] 07/26/19 14:49:01 Date Recorded Body mass index (BMI) Body weight Provider Name and Address Organization Details Last Updated DateTime 07/26/2023 33.1 kg/m2 37606.33 g Thania Leyva [place] Chiqui [facility] 07/26/2023 14:49:07 Date Recorded Oxygen saturation Oxygen saturation in Arterial blood by Pulse oximetry Provider Name and Address Organization Details Last Updated DateTime 07/26/2023 97 % 97 % ASPEN Riley [facility] 07/26/2023 14:52:14 Date Recorded Heart rate Provider Name an d Address Organization Details Last Updated DateTime 07/26/2023 89 /min Thania Leyva MA [facility] 07/26/19 14:52:16 Date Recorded Body height Provider Name an d Address Organization Details Last Updated DateTime 08/24/2023 162.56 cm Thania Leyva MA [facility] 08/24/19 10:20:46 Date Recorded Body mass index (BMI) Body weight Provider Name and Address Organization Details Last Updated DateTime 08/24/2023 33.5 kg/m2 14280.21 g Thania Leyva MA [facility] 08/24/2023 10:21:36 Date Recorded Heart rate Provider Name an d Address Organization Details Last Updated DateTime 08/24/2023 94 /min Thania Leyva MA [facility] 08/24/19 10:24:57 Date Recorded Oxygen saturation Oxygen saturation in Arterial blood by Pulse oximetry Provider Name and Address Organization Details Last Updated DateTime 08/24/2023 99 % 99 % Thania Leyva MA [facility] 08/24/2023 10:25:00 Date Recorded Body height Provider Name an d Address Organization Details Last Updated DateTime 02/02/2024 162.56 cm Thania Leyva MA [facility] 02/02/20 10:02:30 Date Recorded Body mass index (BMI) Body weight Provider Name and Address Organization Details Last Updated DateTime 02/02/2024 33.4 kg/m2 33322.72 g Thania Leyva MA [facility] 02/02/2024 10:02:36 Date Recorded Oxygen saturation Oxygen saturation in Arterial blood by Pulse oximetry Provider Name and Address Organization Details Last Updated DateTime 02/02/2024 98 % 98 % Thania Leyva MA [facility] 02/02/2024 10:06:41 Date Recorded Heart rate Provider Name an d Address Organization Details Last Updated DateTime 02/02/2024 83 /min Thania Leyva MA [facility] 02/02/20 10:06:44 Date Recorded Body height Provider Name an d Address Organization Details Last Updated DateTime 02/16/2024 162.56 cm Annalise Harrison [facility] 02/16/2024 10:33:44 Date Recorded Body mass index (BMI) Body weight Provider Name and Address Organization Details Last Updated DateTime 02/16/2024 32.2 kg/m2 61576.57 g Annalise Harrison [facility] 02/16/2024 10:33:55 Date Recorded Oxygen saturation Oxygen saturation in Arterial blood by Pulse oximetry Provider Name and Address Organization Details Last Updated DateTime 02/16/2024 96 % 96 % Annalise Harrison [facility] 02/16/2024 10:34:39 Date Recorded Heart rate Provider Name an d Address Organization Details Last Updated DateTime 02/16/2024 90 /min Annalise Harrison [facility] 02/16/2024 10:34:41 Date Recorded Systolic blood pressure Diastolic blood pressure Provider Name and Address Organization Details Last Updated DateTime 07/13/2023 134 mm[Hg] 86 mm[Hg] Thania Leyva MA [facility] 07/13/2023 10:56:28 Date Recorded Systolic blood pressure Diastolic blood pressure Provider Name and Address Organization Details Last Updated DateTime 07/26/2023 128 mm[Hg] 82 mm[Hg] Thania Leyva MA [facility] 07/26/2023 14:52:19 Date Recorded Systolic blood pressure Diastolic blood pressure Provider Name and Address Organization Details Last Updated DateTime 08/24/2023 110 mm[Hg] 60 mm[Hg] Thania Leyva MA [facility] 08/24/2023 10:26:01 Date Recorded Systolic blood pressure Diastolic blood pressure Provider Name and Address Organization Details Last Updated DateTime 02/02/2024 152 mm[Hg] 93 mm[Hg] Thania Leyva MA [facility] 02/02/2024 10:07:38 Date Recorded Systolic blood pressure Diastolic blood pressure Provider Name and Address Organization Details Last Updated DateTime 02/16/2024 148 mm[Hg] 90 mm[Hg] Annalise Harrison [facility] 02/16/2024 10:38:13 Social History Question Answer Notes LastModified by Organizat ion Details LastModified Time Tobacco Smoking Status Former Smoker Thania Leyva MA null [facility] 07/13/2023 10:54:09 What Is Your Level Of Alcohol Consumption? Occasional Information not available 02/14/2020 Are You Blind Or Do You Have Difficulty Seeing? No Information not available 07/23/2020 What Is Your Level Of Caffeine Consumption? Moderate Information not available 02/14/2020 How Much Tobacco Do You Chew? None Information not available 02/14/2020 In The 14 Days Before Symptom Onset, Have You Had Close Contact With A Laboratory-confi rmed COVID-19 While That Case Was Ill? No Information not available 05/13/2020 In The 14 Days Before Symptom Onset, Have You Had Close Contact With A Person Who Is Under Investigation For COVID-19 While That Person Was Ill? No Information not available 05/13/2020 Have You Been To An Area Known To Be High Risk For COVID-19? No Information not available 05/13/2020 Are You Deaf Or Do You Have Serious Difficulty Hearing? No Information not available 07/23/2020 What Type Of Diet Are You Following? REGULAR Information not available 02/14/2020 Do You Or Have You Ever Used E-cigarettes Or Vape? Never Used Electronic Cigarettes Information not available 02/14/2020 What Is Your Occupation? Disability Information not available 02/14/2020 Are There Any Guns Present In Your Home? No Information not available 07/23/2020 Marital Status Single Informati on not available 02/14/2020 What Was The Date Of Your Most Recent Tobacco Screening? 02/16/2024 Information not available 02/16/2024 What Is Your Relationship Status? Single Information not available 05/13/2020 Do You Use Your Seat Belt Or Car Seat Routinely? Yes Information not available 07/23/2020 Do You Have Smoke And Carbon Monoxide Detectors In Your Home? Yes Information not available 07/23/2020 Are You Passively Exposed To Smoke? Yes Information not available 07/23/2020 Do You Or Have You Ever Used Smokeless Tobacco? Never Used Smokeless Tobacco Information not available 02/14/2020 How Much Tobacco Do You Smoke? 0.5 PPD Information not available 05/06/2021 General Stress Level Low Information not available 02/14/2020 Do You Feel Stressed (tense, Restless, Nervous, Or Anxious, Or Unable To Sleep At Night)? [id number] Information not available 12/11/2021 Do You Use Any Illicit Or Recreational Drugs? Yes Dominik Gonzales Information not available 12/11/2021 Has Tobacco Cessation Counseling Been Provided? Yes [email or web address] Information not available 10/10/2018 On What Date Was Tobacco Cessation Counseling Provided? 02/16/2024 Information not available 02/16/2024 Do You Or Have You Ever Used Any Other Forms Of Tobacco Or Nicotine? No Information not available 05/13/2020 Sex: Unknown Functional Status Question Answer Note LastModified by Organization D etails LastModified Time Are you able to care for yourself? Yes Information n ot available 05/13/2020 Mental Status None recorded. Family History Nothing Reported. Medical History Condition Response Coronary Artery Disease N Other N Atrial Fibrillation N High Blood Pressure N Thyroid Problems N Kidney or Bladder Problems N GI Problems N Depression N COPD N Blood Clots N Eating Disorder N Skin Problems N Anemia N Heart Attack (TN) N Anxiety Disorder N Diabetes N Muscle, Joint, or Bone Problems N Seizures/Epilepsy N Acid Reflux (GERD) N Cancer N Stroke N Asthma N Allergies N ADHD N Substance Abuse N High Cholesterol N Hepatitis N Liver Disease N Schizophrenia N Headaches N Heart Failure N Osteoporosis N Gynecological History Statement/Question Response Date of Last Pap Smear Date of Last Mammogram 03/22/2014 Date of LMP Obstetrics History GPAL:G 0 P 0 0 0 0 Immunizations Vaccine Type Date Status Note Provider Nam e and Address Organization Details Recorded Time Tdap 4 completed Not Available [facility] 07/15/2022 12:15:59 Influenza, split virus, quadrivalent, preservative 6 completed Not Available [facility] 04/08/2019 02:48:36 Pneumococcal conjugate PCV20, polysaccharide EHO527 conjugate, adjuvant, PF 4 completed Thania Leyva MA null, [place] - [facility] 02/16/2024 11:23:37 Past Encounters Encounter ID Performer Location Encounter Start Date Encounter Closed Date Diagnosis/Indication Diagnosis SNOMED-CT Code Diagnosis ICD10 Code Diagnosis Note [id number] Latoya Bryan PA-C [facility] [address] [place] [address] 11/20/2015 11:53:46 11/20/2015 12:28:50 Pneumonia 838551094 J18.9 [id number] Latoya Bryan PA-C [facility] [address] [place] [address] 11/27/2015 11:33:52 11/27/2015 12:47:12 Essential hypertension 19068630 I10 Hyperglycemia 91427578 R 73.9 Mixed hyperlipidemia 267 601231 E78.2 Chronic depression 60939 0009 F34.1 [id number] Latoya Bryan PA-C [facility] [address] [place] [address] 12/09/2015 16:54:44 12/09/2015 17:38:48 Chronic depression 691381302 F34.1 Essential hypertension 32992214 I10 Strain of trapezius muscle 826677168 S46.812A Chronic cough 94336056 R 05 [id number] Latoya Bryan PA-C [facility] [address] [place] [address] 02/04/2016 11:23:43 02/04/2016 14:12:13 Community acquired pneumonia 509528026 J18.9 Lumbar radiculopathy 128 069685 M54.16 [id number] Latoya Bryan PA-C [facility] [address] [place] [address] 02/14/2016 10:54:36 02/14/2016 13:50:39 Upper respiratory infection 70142823 J06.9 Insomnia 186306896 G47.0 0 [id number] Latoya Bryan PA-C [facility] [address] [place] [address] 02/20/2016 10:26:16 02/20/2016 12:58:58 Community acquired pneumonia 187643470 J18.9 [id number] [facility] [address] [place] [address] 02/27/2016 10:35:04 02/27/2016 11:48:44 Administration of influenza vaccine 07755370 Z23 Pneumonitis 513216627 J1 8.9 [id number] Latoya Bryan PA-C [facility] [address] [place] [address] 03/13/2016 11:26:44 03/13/2016 12:22:10 Acute bronchitis 20550746 J20.0 Generalize d anxiety disorder 95951226 F41.1 Chronic depression 8 F34.1 [id number] Latoya Bryan PA-C [facility] [address] [place] [address] 08/13/2016 09:56:33 08/13/2016 11:27:51 Lumbosacral radiculopathy 8035115 M54.16 [id number] Latoya Bryan PA-C [facility] [address] [place] [address] 10/19/2016 17:31:02 10/19/2016 19:04:45 Lumbar radiculopathy 438137176 M54.16 Cervical radiculopathy 55305738 M54.12 [id number] Hortencia Macias MA [facility] [address] [place] [address] 10/10/2018 10:19:53 10/10/2018 11:28:45 Strain of trapezius muscle 318060362 S46.812A Essential hypertension 64008492 I10 Chronic depression 8 F34.1 Cervical radiculopathy 36039451 M54.12 [id number] Latoya Bryan PA-C [facility] [address] [place] [address] 10/18/2018 14:17:59 10/18/2018 16:10:47 Lumbar radiculopathy 161444760 M54.16 Chronic depression 8 F34.1 [id number] Latoya Bryan PA-C [facility] [address] [place] [address] 07/10/2019 12:00:32 07/12/2019 12:51:19 Lumbar radiculopathy 142023243 M54.16 Primary insomnia 6422588 F51.01 [id number] Latoya Bryan PA-C [facility] [address] [place] [address] 02/14/2020 09:38:35 02/14/2020 15:32:57 Primary insomnia 3142036 F51.01 Cervical radiculopathy 24472757 M54.12 [id number] Lakeshia Ramirez MA [facility] [address] [place] [address] 04/16/2020 11:04:06 04/16/2020 16:37:29 Long-term drug therapy 976019802 Z79.760 [id number] Latoya Bryan PA-C [facility] [address] [place] [address] 05/13/2020 12:06:35 05/17/2020 07:45:59 Cervical radiculopathy 95066232 M54.12 Lumbar radiculopathy 128 613054 M54.16 Essential hypertension 08273717 I10 [id number] Latoya Bryan PA-C [facility] [address] [place] [address] 07/23/2020 09:29:19 07/23/2020 17:59:45 Furuncle of neck 68950241 L02.12 [id number] Latoya Bryan PA-C [facility] [address] [place] [address] 08/01/2020 18:22:39 08/03/2020 11:58:36 Pain of right shoulder joint 0790243044 3773362 M25.511 Essential hypertension 66986099 I10 [id number] Latoya Bryan PA-C [facility] [address] [place] [address] 02/18/2021 18:29:17 02/18/2021 19:47:55 Long-term drug therapy 285193310 Z79.899 Chronic low back pain 27 7193272 M54.51 Cervical radiculopathy 69449054 M54.12 Essential hypertension 91377854 I10 Lumbar radiculopathy 128 626916 M54.16 Degenerati on of cervical intervertebral disc 33166586 M50.30 Tobacco de pendence syndrome 63216201 F17.349 [id number] Latoya Bryan PA-C [facility] [address] [place] [address] 05/06/2021 09:44:01 05/06/2021 17:20:55 Painless rectal bleeding 066252266 K62.5 History of colitis 00488 9006 Z87.19 Cervical radiculopathy 41785211 M54.12 [id number] Latoya Bryan PA-C [facility] [address] [place] [address] 05/09/2021 10:27:47 05/09/2021 11:41:32 Essential hypertension 26526999 I10 Mixed hyperlipidemia 267 205179 E78.2 Chronic id iopathic constipation 70519932 K59.04 [id number] Latoya Bryan PA-C [facility] [address] [place] [address] 05/27/2021 18:07:20 05/27/2021 19:05:58 Irritable bowel syndrome characterized by constipation 189676770 K58.1 Chronic depression 74604 0009 F34.1 Lumbar radiculopathy 128 338488 M54.16 Body mass index 25-29 - overweight 162776426 Z68.29 [id number] Latyoa Bryan PA-C [facility] [address] [place] [address] 06/24/2021 10:52:42 06/24/2021 11:58:07 Pelvic lymphadenopathy 290337013 R59.0 Lumbar radiculopathy 128 684974 M54.16 [id number] Latoya Bryan PA-C [facility] [address] [place] [address] 12/11/2021 16:27:58 12/11/2021 17:10:40 Overweight 271089048 E66.3 Chronic depression 00646 0009 F34.1 Screening mammography 24 447541 Z12.31 Cervical radiculopathy 43649795 M54.12 [id number] Latoya Bryan PA-C [facility] [address] [place] [address] 04/20/2022 16:50:55 04/22/2022 12:34:03 Cervical radiculopathy 05181348 M54.12 Overweight 724082946 E66 .3 [id number] [facility]OUT [facility] [address] [place] [address] 07/13/2022 15:34:14 07/16/2022 14:55:27 Cervical radiculopathy 01681009 M54.12 Overweight 601224874 E66 .3 [id number] Latoya Bryan PA-C [facility] [address] [place] [address] 10/22/2022 10:59:19 10/23/2022 12:30:17 Long-term drug therapy 034075548 Z79.899 Essential hypertension 88110158 I10 Cervical radiculopathy 65267325 M54.12 Overweight 181721707 E66 .3 [id number] Latoya Bryan PA-C [facility] [address] [place] [address] 11/20/2022 10:34:32 11/24/2022 10:30:47 Abdominal bloating 393777615 R14.0 Retroperit glez lymphadenopathy 138744919 R59.0 Cervical radiculopathy 67443301 M54.12 Overweight 191118685 E66 .3 [id number] Latoya Bryan PA-C [facility] [address] [place] [address] 03/10/2023 15:18:52 03/12/2023 14:43:10 Chronic depression 373397814 F34.1 Essential hypertension 76381911 I10 Mixed anxi ety and depressive disorder 928693047 F41.8 Overweight 666666761 E66 .3 [id number] Latoya Bryan PA-C [facility] [address] [place] [address] 03/12/2023 16:13:34 03/16/2023 12:20:44 Cervical radiculopathy 87839715 M54.12 [id number] Latoya Bryan PA-C [facility] [address] [place] [address] 07/13/2023 10:34:20 07/22/2023 10:31:34 Generalized enlarged lymph nodes 996533766 R59.1 Acute urin ankit tract infection 737127090 N10 Female str ess incontinence 85189947 N39.3 Mixed anxi ety and depressive disorder 895150657 F41.8 [id number] Latoya Bryan PA-C [facility] [address] [place] [address] 07/26/2023 14:44:30 07/28/2023 13:12:36 Axillary lymphadenopathy 837801269 R59.0 Urinary incontinence 165 072975 N39.41 Generalize d anxiety disorder 70810467 F41.1 Primary fi bromyalgia syndrome 37742283 M79.7 [id number] Latoya Bryan PA-C [facility] [address] [place] [address] 08/24/2023 10:16:48 08/25/2023 14:21:35 Dental abscess 513274603 K04.7 Urinary incontinence 165 037561 N39.41 Overweight 109049923 E66 .3 Mixed anxi ety and depressive disorder 040064735 F41.8 [id number] Latoya Bryan PA-C [facility] [address] [place] [address] 02/02/2024 09:49:26 02/11/2024 08:38:12 Acute pancreatitis 239984958 K85.80 Rheumatoid arthritis 698 28168 M05.09 Mixed anxi ety and depressive disorder 924412898 F41.8 Overweight 357663808 E66 .3 [id number] Thania Leyva MA [facility] [address] [place] [address] 02/16/2024 10:22:48 02/22/2024 13:56:48 Seropositive rheumatoid arthritis 422261799 M05.711 Mixed anxi ety and depressive disorder 389554618 F41.8 Overweight 454909869 E66 .3 Persistent cough 6746068 02 R05.3 Administra tion of pneumococcal vaccine 16572937 Z23 Long-term drug therapy 680763061 Z79.899 Health Concerns Section Related Observation LastModified by Organization Detai ls LastModified Time None Recorded Concern Status LastModified by Organization Details LastModified Time None Recorded Advance Directives Directive None Recorded Payers Encounter Date Sequence Insurance Name Policy Number Policy Mack Covered Member ID Mack Member ID Guarantor Name 07/13/2023 1 [place] Thuy A Cooper [id number] Thuy A Cooper 07/13/2023 2 [place] OR MEDIC[place] REPLACEMENT PRIMARY) Thuy A Cooper [id number] Thuy A Cooper 07/26/2023 1 [place] Thuy A Cooper [id number] Thuy A Cooper 07/26/2023 2 [place]PLACEMENT [place]) Thuy A Cooper [id number] Thuy A Cooper 08/24/2023 1 [place] Thuy A Cooper [id number] Thuy A Cooper 08/24/2023 2 [place]PLAC[place]) Thuy A Cooper [id number] Thuy A Cooper 02/02/2024 1 [place] Thuy A Cooper [id number] Thuy A Cooper 02/02/2024 2 [place]PLACEMENT [place]) Thuy A Cooper [id number] Thuy A Cooper 02/16/2024 1 [place] Thuy A Cooper [id number] Thuy A Cooper 02/16/2024 2 [place]PLACEMENT [place]) Thuy A Cooper [id number] Thuy A Cooper Notes Date Note Type Note Provider Name and Address Organization Details Recorded Time 07/13/2023 text/html has been sick an d immobile for a few weeks...went to ER..lymphadenopath y multiple sites...urine is abnormal...reports that her urine output has become almost none...notes a change in stool caliber... Latoya Bryan PA-C Attn: Accounting,[address] [facility], [place], [address], [place] - [facility] 07/13/2023 14:09:55 07/26/2023 text/html had panels by dr Sosa wilder has not had follow up yet...anxiety is up...quit cymbalta ...fibromyalgia... effexor no good...currently on prozac...describes incontinence...has urology on ... Latoya Bryan PA-C Attn: Accounting, [address] [facility], [place], [address], [facility] 07/26/2023 15:14:47 08/24/2023 text/html rt side of jaw i s swollen thinks it an abscess...urinary incontinence is a problem...has a uro..also lymph nodes are still painful...will be seeing rheum soon vs this and lymphadenopathy..r eports anxiety as well Latoya Bryan PA-C Attn: Accounting, [address] [facility], [place], [address], [facility] 08/24/2023 10:42:58 02/02/2024 text/html anxiety is bad..panic attacks uses the brown bag method...also needs referral for GI vs pancreatitis caused by azothioprine given by rheum... Latoya Bryan PA-C Attn: Accounting, [address] [facility], [place], [address], [facility] 02/02/2024 10:27:20 02/16/2024 text/html buspirone is not working for her...diazepam has worked for her and she is having issues with her rheum treatment and her anxiety is problematic ASPEN Riley, [facility] 02/16/2024 11:16:58 OBGyn Episode No OBEpisode recorded.
--- OUTSIDE RECORDS SUMMARY | 2024-04-20 10:10 | XMS_ITS | Clinical Summary ---
Author Organization [facility] Address [address] [place] [address] Care Team Providers Care Air Analyst Name Role Phone Unavailable Primary Care Provider Unavailabl e Source Comments [facility],non-owned Affiliates and Associated Physician Practices is amultiple site organization consisting of ambulatory clinics and hospital sitesin [place] and [place]. This disclosure is being madepursuant to the Care Everywhere program and may not contain all information available regarding this patient. Last updated 17.[facility] Active Problems Problem Noted Date Diagnosed Date Syncope, unspecified syncope type 07/30/2023 Social History Tobacco Use Types Packs/Day Years Used Date Smoking Tobacco: Never Assessed Sex and Gender Information Value Date Recorded Sex Assigned at Not on file Gender Identity Not on file Sexual Orientation Not on file Plan of Treatment Health Maintenance Due Date Last Done Comments COLOGUARD (AGES 45-75) - COL ON CA SCREENING 1969 COLON MONITORING 1969 COLONOSCOPY - COLON CA SCREENING 1969 CT COLONOGRAPHY - COLON CA SCREENING 1969 Colorectal Cancer Screening 1969 FIT - COLON CA SCREENING 1969 FLEX SIG - COLON CA SCREENING 1969 LIPID TESTING 1969 MAMMOGRAM 1969 MEDICARE AWV ? 12 MONTHS 1969 PAP SMEAR 1969 HIV SCREENING 1984 HEPATITIS C SCREENING 06/12/1987 DTAP/TDAP/TD VACCINES (1 - Tdap) 1988 HEPATITIS B VACCINE (1 of 3 - 19+ 3-dose series) 1988 PNEUMOCOCCAL VACCINE 50+ (1 of 1 - PCV) 06/17/2019 ZOSTER VACCINE (1 of 2) 06/17/2019 COVID-19 VACCINE ( - 2023-2 5 season) 2023 INFLUENZA VACCINE (#1) 2023 DEPRESSION SCREENING 03/22/2024 HIB VACCINE Aged Out No longer eligi ble based on patient's age to complete this topic HPV VACCINE Aged Out No longer eligi ble based on patient's age to complete this topic MENINGOCOCCAL (Group B) VACCINE Aged Out No longer eligible based on patient's age to complete this topic MENINGOCOCCAL VACCINE Aged Out No sabrina ron eligible based on patient's age to complete this topic PNEUMOCOCCAL VACCINE Aged Out No long er eligible based on patient's age to complete this topic
[2024-04-20] MEDS: KETOROLAC 30 MG/ML VIAL (*BKC) IV PUSH (10:11)
[2024-04-20] MEDS: SODIUM CHLORIDE 0.9% IV 1,000 ML 999 ML IV CONT (10:12)
[2024-04-20 10:17] LABS: Alanine Aminotransferase 26 U/L (14-59); Albumin Level 3.5 g/dL (3.4-5.0); Alkaline Phosphatase 72 U/L (46-116); Anion Gap 7 mmol/L (4-12); Aspartate Amino Transferase 10 U/L (15-37); Bilirubin,Total 0.2 mg/dL (0.00-1.00); Blood Urea Nitrogen 11 mg/dL (7-18); Calcium 8.7 mg/dL (8.5-10.1); Carbon Dioxide 28 mmol/L (21-32); Chloride 105 mmol/L (98-108); Estimated CRCL calculation 81 ml/min; Estimated Glomerular Filt Rate > 60; Glucose 94 mg/dL (70-99); Osmolality Calculated 289 mOsm/kg (285-295); Potassium 3.9 mmol/L (3.5-5.1); Sodium 140 mmol/L (136-145); Total Protein 6.4 g/dL (6.4-8.2)
[2024-04-20 10:38] LABS: SARS-CoV-2 RNA PCR Negative (Negative)
[2024-04-20 10:43] LABS: Influenza A QL RT-PCR Negative (Negative); Influenza B QL RT-PCR Negative (Negative); RSV RNA, RT-PCR Negative (Negative)
--- OUTSIDE RECORDS SUMMARY | 2024-04-20 11:00 | XMS_ITS | Patient Health Summary ---
Author Organization [facility] Address [address] [place] [address] Care Team Providers Care Automatic Drill Operator Name Role Phone Unavailable Primary Care Provider Unavailabl e Note from [facility],non-owned Affiliates and Associated Physician Practices is amultiple site organization consisting of ambulatory clinics and hospital sitesin [place], [place], [place] and [place]. This disclosure is being madepursuant to the Care Everywhere program and may not contain all information available regarding this patient. Last updated 17.[facility] Active Problems Problem Noted Date Diagnosed Date Syncope, unspecified syncope type 07/30/2023 Social History Tobacco Use Types Packs/Day Years Used Date Smoking Tobacco: Never Assessed Sex and Gender Information Value Date Recorded Sex Assigned at Not on file Gender Identity Not on file Sexual Orientation Not on file
--- OUTSIDE RECORDS SUMMARY | 2024-04-20 11:00 | XMS_ITS | Clinical Summary ---
Author Organization [facility] Address [address] [place] [address] Care Team Providers Care Lithographic Plate Maker Name Role Phone Unavailable Primary Care Provider Unavailabl e Source Comments [facility],non-owned Affiliates and Associated Physician Practices is amultiple site organization consisting of ambulatory clinics and hospital sitesin [place], [place], [place] and [place]. This disclosure is being madepursuant to the Care Everywhere program and may not contain all information available regarding this patient. Last updated 17.[facility] Valentin Uzhun Active Problems Problem Noted Date Diagnosed Date [...]
--- OUTSIDE RECORDS SUMMARY | 2024-04-20 11:00 | XMS_ITS | Referral Summary ---
Author Organization [facility] Address [address] [place] [address] Care Team Providers Care Lpn Name Role Phone Unavailable Primary Care Provider Unavailabl e Source Comments [facility],non-owned Affiliates and Associated Physician Practices is amultiple site organization consisting of ambulatory clinics and hospital sitesin [place], [place], [place] and [place]. This disclosure is being madepursuant to the Care Everywhere program and may not contain all information available regarding this patient. Last updated 17.[facility] Active Problems Problem Noted Date Diagnosed Date Syncope, unspecified syncope type 07/30/2023 Social History Tobacco Use Types Packs/Day Years Used Date Smoking Tobacco: Never Assessed Sex and Gender Information Value Date Recorded Sex Assigned at Not on file Gender Identity Not on file Sexual Orientation Not on file Plan of Treatment Not on file
--- OUTSIDE RECORDS SUMMARY | 2024-04-20 11:00 | XMS_ITS | Clinical Summary ---
Author Organization [facility] Address [address] [place] [address] [place] [address] Care Team Providers Care Resin Shaver Name Role Phone Jose Bryan Primary Care Provider [phone] Allergies Active Allergy Reactions Criticality Noted Date [...] = 0.6 oz pur e alcohol) [facility] Utilities Answer Date Recorded In the past 12 months has e [employer], gas, oil, or water [employer] threatened to shut off services in your [...] in the past 12 m [facility], were you homeless or living in a mcfp (including now)? No 07/30/2023 Comments No Sex [...] 6:07 PM 08/02/2023 3:11 PM Care Teams Resin Shaver Relationship Specialty Start Date End Date Jose Bryan PA [address] [place] [address] PCP - General PHYSICIAN AUTO BODY REPAIR TECHNICIAN 11/22/18
--- OUTSIDE RECORDS SUMMARY | 2024-04-20 11:00 | XMS_ITS | Encounter Summary ---
Author Organization [facility] Address [facility] [place] [address] [place] [address] Care Team Providers Care Planer Operator / Grader Name Role Phone Jose Bryan Primary Care Provider [phone] Encounter Details Date Type Department Care Team (Late st Contact Info) Description 08/27/2018 Abstract [facility] CONVERSION [address] [place] [address] , Generic Conversion, Social History Tobacco Use [...] on filedocumented in this encounter Care Teams Planer Operator / Grader Relationship Specialty Start Date End Date Jose Bryan PA [address] [place] [address] PCP - General PHYSICIAN RN TRAVEL 11/22/18 documented as of this encounter
--- OUTSIDE RECORDS SUMMARY | 2024-04-20 11:01 | XMS_ITS | Referral Summary ---
Author Organization [facility] Address [address] [place] [address] Care Team Providers Care Top Waddy Name Role Phone Jose Bryan Primary Care Provider [phone] Ciaran Mcallister MD Unavailable [phone] Encounters Date Type Department Care Team Description 04/11/2024 Telephone [facility] [address] [address] Jaqueline Jorgensen RN 04/04/[address] [facility] Surgery [address] [place] [phone] Raghav Pugh NP Esophageal diverticulum (Primary Dx) 04/03/2024 8:30 AM CITY PLANNER Office Visit [facility] Surgery [address] [place] [phone] David Miller MD Esophageal diverticulum 03/30/2024 8:00 AM CITY PLANNER - 03/30/2024 11:59 PM CITY PLANNER Hospital Encounter [facility] [address] [place] [address] Jensen Kong Fluoro Esophageal diverticulum Discharge Disposition: Discharge to home or self care 03/27/[address] [facility] Surgery [address] [place] [address] Floor [address] [place] [address] Yumiko Donaldson NP Esophageal diverticulum (Primary Dx) 01/25/2024 Telephone [facility] [address] [place] [address] [address] [place] [phone] Ronald Bonilla MD 01/18/2024 6:14 AM CDT - 01/21/2024 1:16 PM CDT Hospital Encounter [facility] [id number] [place] [address] Harmeet Merritt MD Onaghise, Jude, MD Perez [...] for esophageal spasm versus mild early presbyesophagus. Oged-gd-irmcsftj spontaneous gastroesophageal reflux. Small sliding-type hiatal hernia. [...] drink = 0.6 oz pur e alcohol) [facility] Utilities Answer Date Recorded In the past [...] often do you attend chur ch or evangelical services? Never 01/18/2024 Do you belong to any clubs o r organizations such as pentecostalism groups, unions, fraternal or athletic groups, or [...] any time in the past 12 m [facility], were you homeless or living in a custodial (including now)? No 01/18/2024 Personal Safety Answer Date Recorded Have you ever been in or are you currently in a harmful physical or emotional relationship or is someone making you feel afraid or unsafe? Denies 01/18/2024 Comments No Sex and Gender Information Value Date Recorded Sex Assigned at Not on file Legal Sex Female 9:45 AM CITY PLANNER Gender Identity Not on file Sexual Orientation Not on file Occupation Industry Job Start Date Job End Date disability Not on file Not on file Not on file Last Filed Vital Signs Vital Sign Reading Time Taken Comments Blood Pressure 151/85 04/03/2024 8:40 AM CITY PLANNER Pulse 84 04/03/2024 8:40 AM CITY PLANNER Temperature 36.4 ??C (97.6 ??F) 04/03/2024 8:40 AM CS T Respiratory Rate 16 04/03/2024 8:40 AM CITY PLANNER Oxygen Saturation 96% 04/03/2024 8:40 AM CITY PLANNER Inhaled Oxygen Concentration - - Weight 87.2 kg (192 lb 3.2 oz) 04/03/2024 8:40 A M CITY PLANNER Height 163.1 cm (5' 4.21 ) 04/03/2024 8:40 AM CS T Body Mass Index 32.77 04/03/2024 8:40 AM CITY PLANNER Plan of Treatment Not on file Procedures Procedure Name Priority Date/Time Associated Diagnosis Comments FL ESOPHAGRAM, DOUBLE CONTRAST Schedule Routine, Read Routine (OP Routine) 03/30/2024 8:30 AM CITY PLANNER Esophageal diverticulum HEPATIC FUNCTION PANEL Routine 01/21/2024 [...] FL Esophagram, Double Contrast (03/30/2024 8:30 AM CITY PLANNER) Anatomical Region Laterality Modality Body N/A Radio Fluoroscop y 03/30/2024 10:1 2 AM CITY PLANNER Narrative 03/30/2024 10:26 AM CITY PLANNER EXAM DESCRIPTION: ?? FL ESOPHAGRAM BARIUM SWALLOW TO STOMACH, DOUBLE CONTRAST REASON FOR STUDY: ?? Esophageal diverticulum ?? Esophageal diverticulum ? Egd [address] [facility] ??Perforation?1.4 min ft ??276.5 mgy ?? [...] small sliding-type hiatal hernia. ?? There is gjsg-zi-vtefdxav spontaneous gastroesophageal reflux observed during the study. [...] spasm versus mild early presbyesophagus. 4. ?? Rpfs-cm-kifttlqa spontaneous gastroesophageal reflux. 5. ?? Small sliding-type hiatal hernia. THIS IS AN ELECTRONICALLY VERIFIED FINAL REPORT 03/30/2024 10:26 AM - Electronically signed by ??Zunilda De Los Santos D.O. PS: PS D: ??03/30/2024 10:26 AM T: ??03/30/2024 10:26 AM Report ID: [id number] Reading Location: ??[id number] Procedure Note Zunilda De Los Santos, DO - 03/30/2024 EXAM DESCRIPTION: FL ESOPHAGRAM BARIUM SWALLOW TO STOMACH, DOUBLECONTRAST REASON FOR STUDY: Esophageal diverticulum Esophageal diverticulum Egd [address] [facility] Perforation?1.4min ft 276.5 mgy RADIATION DOSE: [...] is small sliding-type hiatal hernia. There is epsd-jm-qgaepqfi spontaneous gastroesophageal reflux observedduring the study. NON-GI [...] foresophageal spasm versus mild early presbyesophagus. 4. Pbtx-nx-qgdlkhqo spontaneous gastroesophageal reflux. 5. Small sliding-type hiatal hernia. THIS IS AN ELECTRONICALLY VERIFIED FINAL REPORT 03/30/2024 10:26 AM - Electronically signed by Zunilda De Los Santos D.O. PS: PS Report ID: [id number] Reading Location: [place] [address] Yumiko Donaldson PRESS SETTER IMG FLUOROSCOPY PROCEDURES Sabra l Result * [...] LAB BLOOD ORDERABLES Final Resu lt PORSHA [address] [address] Department [place] [address] * Hepatitis panel, acute Blood (01/20/2024 12:16 [...] CDT us Joanna DOTSON LAB MICROBIOLOGY - [facility] L ORDERABLES Final Result POR[facility] [address] [address] Department [place] [address] * US RUQ (01/20/2024 10:42 AM CDT) [...] MD LAB BLOOD ORDERABLES Final Resu lt [facility] [address] [address] Department [place] [address] * (ABNORMAL) CBC without differential (01/20/2024 2:03 AM CDT) WBC 8.7 3.8 - 9.9 K/cumm Hgb 9.8(L) 11.9 - 15.5 g/dL [facility] Hct 31.5(L) 35.6 - 45.5 % [facility] Plt 307 150 - 400 K/cumm [facility] MPV 11.0 9.1 - 12.3 fL [facility] RBC 3.37(L) 3.90 - 5.20 M/cumm [facility] MCV 93.5 81.3 - 96.4 fL [facility] MCH 29.1 27.1 - 33.3 pg [facility] MCHC 31.1(L) 32.3 - 35.7 g/dL [facility] RDW CV 16.6(H) 11.1 - 14.9 % [facility] RDW SD 56.6(H) 35.7 - 48.1 fL [facility] NRBC abs 0.00 0.00 - 0.01 K/cumm [facility] Blood 01/20/2024 2:03 AM CDT 01/20/2024 2:49 AM CDT us Marko Luo MD LAB BLOOD ORDERABLES Final Resu lt Performing Organization Address [facility] Co de Phone Number PORSHA GARSIA [address] [address]ra Department [employer] [place] [address] * Phosphorus (01/20/2024 2:03 AM CDT) Phosphorus, pl 3.2 2.3 - 4.5 mg/dL Blood 01/20/2024 2:03 AM CDT 01/20/2024 2:50 AM CDT us Marko Luo MD LAB BLOOD ORDERABLES Final Resu lt Performing Organization Address [facility] de Phone Number PORSHA GARSIA [address] Zohra Department [employer] [place] [address] * (ABNORMAL) Lipase (01/20/2024 2:03 AM CDT) Lipase 233(H) 10 - 99 Units/L Blood 01/20/2024 2:03 AM CDT 01/20/2024 2:50 AM CDT us Marko Luo MD LAB BLOOD ORDERABLES Final Resu lt Performing Organization Address [facility] Co de Phone Number PORSHA GARSIA [address] [address] Department of [employer] [place] [address] * (ABNORMAL) Bilirubin, direct (01/20/2024 2:03 AM CDT) Bilirubin, direct 0.5(H) 0.1 - 0.3 mg/dL Blood 01/20/2024 2:03 AM CDT 01/20/2024 2:50 AM CDT us Marko Luo MD LAB BLOOD ORDERABLES Final Resu lt Performing Organization Address [facility] Co de Phone Number PORSHA [address] [address] Department [place] [address] * (ABNORMAL) Comprehensive metabolic panel (01/20/2024 2:03 [...] ORDERABLES Final Resu lt Performing Organization Address [facility]/ZIP Co de Phone Number PORSHA [address] [address] Chairez Department [place] [address] * (ABNORMAL) Lipase (01/19/2024 11:29 AM CDT) Lipase 445(H) 10 - 99 Units/L Blood 01/19/2024 11:2 9 AM CDT 01/19/2024 12:12 PM CDT Marko Luo MD LAB [place]LOOD [place] [address] [address]airez Department [place] [address] from Last 3 Months Insurance MEDICARE [facility] MEDICARE IDPA MEDICARE IDPA Advance Directives For more information, please contact: [phone] * Full Code (Latest Code Status on File) Date Activated Date Inactivated Comments 01/18/2024 1:42 PM 01/21/2024 5:17 PM Care Teams Top Waddy Relationship Specialty Start Date End Date Jose Bryan PA [address] [place] [address] PCP - General Family Practice 10/13/18 Ciaran Mcallister MD [address] [place] [address] General Surgery 04/03/24
--- OUTSIDE RECORDS SUMMARY | 2024-04-20 11:01 | XMS_ITS | Continuity of Care Document ---
Author Organization [facility] Address [address] [place] [address] Phone Care Team Providers Care Exercise Scientist Name Role Phone Slim Grier MD Unavailable Unavailable Allergies, Adverse Reactions, Alerts Substance Reaction Status Criticality No Known Allergies Active No Inform ation Medications Medication Instructions Dosage Effective Dates (start - stop) Status Comments Valium 10 mg tablet take 1 tablet (10MG) by oral route 2 times every day 10 MG - Active avoid driving or operate machines Celexa 40 mg tablet take 1 tablet (40MG) by oral route every day 40 MG - Active Lipitor 20 mg tablet take 1 Tablet (20MG) by oral route every day 20 MG - Active losartan 100 mg tablet take 1 tablet (100MG) by oral route every day 100 MG - Active ProAir HFA 90 mcg/actuation Aerosol Inhaler inhale 2 puff by inhalation route every 4 - 6 hours as needed - Active Flovent HFA 110 mcg/actuation aerosol inhaler inhale 2 puff (220MCG) by inhalation route 2 times every day 220 MCG - Active Procedures Procedure Date OFFICE/OUTPATIENT VISIT, EST OFFICE/OUTPATIENT VISIT, EST OFFICE/OUTPATIENT VISIT, EST OFFICE/OUTPATIENT VISIT, EST OFFICE/OUTPATIENT VISIT, EST OFFICE/OUTPATIENT VISIT, NEW Advance Directives Directive Yes / No Effective Date File Name No Information Encounters Encounter Description Practice Location Reason(s) For Visit Diagnoses Date Provider Providers Copied on Encounter [facility], [address] [place], [place], [id number], tel:[phone] [facility] No Information 4 Marvel Soler [address], [address], [place], [place], [address] , [place]. tel:[phone] Referring Provider: Mateo Desai [address], [place], [place], [id number]. tel:[phone] OFFICE/OUTPA TIENT VISIT, [facility], [address], [place], [place], [address], [place] tel:[phone] [facility] HTN (chief complaint) HLP (chief complaint) COPD (chief complaint) Dietary surveillance and counselingHypertens ion, UnspecifiedHypothyr oidismOther and unspecified hyperlipidemiaCOPD 4 Marvel Soler [address], [address], [place], [place], [address] , [place]. tel:[phone] Referring Provider: Mateo Desai [address], [place], [place], [address]. tel:[phone] OFFICE/OUTPA TIENT VISIT, [facility], [address], [place], [place], [address], [place] tel:[phone] [facility] COPD (chief complaint) anxiety (chief complaint) HLP (chief complaint) Dietary surveillance and counselingLEUKOCYTO SIS NOSCOPDOther and unspecified hyperlipidemiaHypot hyroidism 4 Marvel Galindo [address], [place], [place], [address] , [place]. tel:[phone] Referring Provider: Mateo Desai [address], [place], [place], [address]. tel:[phone] OFFICE/OUTPA TIENT VISIT, [facility], [address], [place], [place], [address], [place] tel:[phone] [facility] anxiety (chief complaint) back pain (chief complaint) COPD (chief complaint) Dietary surveillance and counselingOther and unspecified hyperlipidemiaCOPDL umbago 4 Grier Slim. [address], [place], [place], [address] , [place]. tel:[phone] Referring Provider: Mateo Desai [address], [place], [place], [address]. tel:[phone] OFFICE/OUTPA TIENT VISIT, [facility], [address], [place], [place], [address], [place] tel:[phone] [facility] HLP (chief complaint) metabolic (chief complaint) leukocytos is (chief complaint) hypothyroi dism (chief complaint) anxiety (chief complaint) bronchitis (chief complaint) Dietary surveillance and counselingOther and unspecified hyperlipidemiaMetab olic SyndromeLEUKOCYTOSI S NOSHypothyroidism Apr-2 4 4 Marvel Smalls. [address], [place], [place], [address] , [place]. tel:[phone] Referring Provider: Mateo Desai [address], [place], [place], [address]. tel:[phone] OFFICE/OUTPA TIENT VISIT, [facility], [address], [place], [place], [address], [place] tel:[phone] [facility] HTN (chief complaint) anxiety (chief complaint) back pain (chief complaint) cough (chief complaint) Dietary surveillance and counselingHypertens ion, UnspecifiedLumbagoB ronchitis, Acute Apr-0 3201 4 Marvel Smalls. [address], [address], [place], [place], [address] , [place]. tel:[phone] Referring Provider: Mateo Desai [address], [place], [place], [address]. tel:[phone] OFFICE/OUTPA TIENT VISIT, [facility], [address], [place], [place], [address], [place] tel:[phone] [facility] Dietary surveillance and counselingLumbagoHy pertension, UnspecifiedHypergly cemia Mar-0 6201 4 Marvel Smalls. [address], [place], [place], [address] , . tel:[phone] Family History Family Member Type Diagnosis Age At Onset Father Problem (finding) Coronary artery disease Mother Problem (finding) Hypertension Mother Problem (finding) Diabetes mellitus Mother Problem (finding) Asthma Mother Problem (finding) Anxiety Mother Problem (finding) Depression Father Problem (finding) schizophrenia Father Problem (finding) Anxiety Payers Payer name Insurance type Covered constitution party ID Authoriza tion(s) No Information Social [...] Information Instructions Date Instruction Additional Infor latesha Dietary counseling Related to Di etary surveillance [...] caloric intake Related to Dietary surveillance counseling Assessments Type Assessment Date No Information
--- OUTSIDE RECORDS SUMMARY | 2024-04-20 11:01 | XMS_ITS | CONTINUITY OF CARE DOCUMENT ---
Author Name brandie diego Address Unknown Organization [facility] Address [address] [place] [address] Phone [phone] Care Team Providers Care Real Time Trader Name Role Phone brandie diego Unavailable Unavailable
--- OUTSIDE RECORDS SUMMARY | 2024-04-20 11:01 | XMS_ITS | Clinical Summary ---
Author Organization [facility] Address [address] [place] [address] Phone Care Team Providers Care Diet Counselor Name Role Phone Jose Bryan Primary Care Provider [phone] Ron Batista MD Unavailable Jomar Kiran MD Unavailable [phone] Macy Alarcon APRN, AUTOMATIC SPINNING LATHE OPERATOR Unavailable Allergies Active Allergy Reactions Criticality Noted [...] naloxone HCl (Narcan) 4 MG/0.1ML Liquid 1 [place] by Nasal route as needed for Opioid [...] Department Care Team Description 04/05/2024 Telephone [facility] G[facility]enterology [facility] [address] [place] [address] Esvin, Ciaran Sher MD Appointment 03/07/2024 3:00 PM AUTOMOTIVE MACHINIST APPRENTICE Office Visit [facility] Oncology Services [address] [place] [address] Jomar Kiran MD Rheumatoid arthritis involving both ankles with positive rheumatoid factor (HCC) (Primary Dx) Discharge Disposition: Discharged to home or Selfcare 03/07/2024 Travel 03/02/2024 Telephone [facility] Gastroenterology [facility] [address] [place] [address] Ciaran Mcallister MD Referral 02/28/2024 Results Follow-Up [facility]enterology - [place] [address] [place] [address] Andreina Castano RN 02/25/2024 8:41 AM AUTOMOTIVE MACHINIST APPRENTICE - 02/25/2024 11:59 PM AUTOMOTIVE MACHINIST APPRENTICE Hospital Encounter [facility] [address] [place] [address] Jomar Kiran MD Discharge Disposition: Discharged to home or Selfcare 02/25/2024 Telephone [facility] Gastroenterology [facility] [address] [place] [address] Ciaran Mcallister MD 02/24/2024 8:42 AM AUTOMOTIVE MACHINIST APPRENTICE Anesthesia Event [facility] Gi Lab Periop [address] [place] [address] Cornelio Zuleta APRN, FROG FARMER 02/24/2024 8:30 AM AUTOMOTIVE MACHINIST APPRENTICE - 02/24/2024 9:00 AM AUTOMOTIVE MACHINIST APPRENTICE Surgery [facility] Gi Lab Periop [address] [place] [address] Ciaran Mcallister MD EGD- MID ESOPHAGEAL ZENKER'S AT 30 CM, ANTRAL BIOPSY RULE OUT H. PYLORI 02/24/2024 7:50 AM AUTOMOTIVE MACHINIST APPRENTICE Ancillary Procedure [facility] Gi Lab Main [address] [place] [address] Ciaran Mcallister MD 02/24/2024 7:43 AM AUTOMOTIVE MACHINIST APPRENTICE - 02/24/2024 10:07 AM AUTOMOTIVE MACHINIST APPRENTICE [facility] Preop/Pacu II [address] [place] [address] Ciaran Mcallister MD Discharge Disposition: Discharged to home or Selfcare 02/23/2024 10:30 AM AUTOMOTIVE MACHINIST APPRENTICE Office Visit [facility] [address] [place] [address] Macy Alarcon APRN, ANABEL Dysphagia, unspecified type (Primary Dx); Constipation, unspecified constipation type; Gastroesophageal reflux disease, unspecified whether esophagitis present; History of pancreatitis; Elevated liver enzymes; Hepatic steatosis Discharge Disposition: Discharged to home or Selfcare 02/23/2024 Travel 02/15/2024 2:47 PM AUTOMOTIVE MACHINIST APPRENTICE - 02/15/2024 11:59 PM AUTOMOTIVE MACHINIST APPRENTICE Hospital [facility] Ultrasound [address] [place] [address] Jomar Kiran MD Discharge Disposition: Discharged to home or Selfcare 02/15/2024 1:41 PM AUTOMOTIVE MACHINIST APPRENTICE - 02/15/2024 2:46 PM AUTOMOTIVE MACHINIST APPRENTICE Hospital [facility] Mammography [address] [place] [address] Jomar Kiran MD Discharge Disposition: Discharged to [...] Comments Blood Pressure 143/81 03/07/2024 3:06 PM AUTOMOTIVE MACHINIST APPRENTICE Pulse 80 03/07/2024 3:06 PM AUTOMOTIVE MACHINIST APPRENTICE Temperature 36.6 ??C (97.9 ??F) 03/07/2024 3:06 PM CS T Respiratory Rate 18 03/07/2024 3:06 PM AUTOMOTIVE MACHINIST APPRENTICE Oxygen Saturation 97% 03/07/2024 3:06 PM AUTOMOTIVE MACHINIST APPRENTICE Inhaled Oxygen Concentration - - Weight 87.6 kg (193 lb 3.2 oz) 03/07/2024 3:06 P M AUTOMOTIVE MACHINIST APPRENTICE Height 160 cm (5' 3 ) 03/07/2024 3:06 PM AUTOMOTIVE MACHINIST APPRENTICE Body Mass Index 34.22 03/07/2024 3:06 PM AUTOMOTIVE MACHINIST APPRENTICE Plan of Treatment Health Maintenance Due Date [...] PELVIS W CONTRAST Routine 02/25/2024 9:05 AM AUTOMOTIVE MACHINIST APPRENTICE Rheumatoid arthritis involving both ankles with positive rheumatoid factor (HCC) Lymphadenopathy POCT CREATININE Routine 02/25/2024 8:56 AM AUTOMOTIVE MACHINIST APPRENTICE MANUAL DIFFERENTIAL Routine 02/24/2024 9 :52 AM AUTOMOTIVE MACHINIST APPRENTICE Seropositive rheumatoid arthritis of multiple sites (HCC) Need for prophylactic chemotherapy Ankylosing spondylitis of multiple sites in spine (HCC) CBC WITH AUTO DIFFERENTIAL Today 02/24/2024 9:52 AM AUTOMOTIVE MACHINIST APPRENTICE Seropositive rheumatoid arthritis of multiple sites (HCC) Need for prophylactic chemotherapy Ankylosing spondylitis of multiple sites in spine (HCC) [id number] DEHYDROGENASE ENZYME ACTIVITY, BLOOD, CADENA G6PD1 Today 02/24/2024 9:52 AM AUTOMOTIVE MACHINIST APPRENTICE Seropositive rheumatoid arthritis of multiple sites (HCC) Need for prophylactic chemotherapy Ankylosing spondylitis of multiple sites in spine (HCC) COMPLETE BLOOD COUNT (CBC) WITH DIFF Today 02/24/2024 9:52 AM AUTOMOTIVE MACHINIST APPRENTICE Seropositive rheumatoid arthritis of multiple sites (HCC) Need for prophylactic chemotherapy Ankylosing spondylitis of multiple sites in spine (HCC) C-REACTIVE PROTEIN (CRP) QUANT Today 02/24/2024 9:52 AM AUTOMOTIVE MACHINIST APPRENTICE Seropositive rheumatoid arthritis of multiple sites (HCC) Need for prophylactic chemotherapy Ankylosing spondylitis of multiple sites in spine (HCC) CMP (COMPREHENSIVE METABOLIC PANEL) Today 02/24/2024 9:52 AM AUTOMOTIVE MACHINIST APPRENTICE Seropositive rheumatoid arthritis of multiple sites (HCC) Need for prophylactic chemotherapy Ankylosing spondylitis of multiple sites in spine (HCC) PATHOLOGY SURGICAL Routine 02/24/2024 8: 52 AM AUTOMOTIVE MACHINIST APPRENTICE EGD 02/24/2024 8:46 AM AUTOMOTIVE MACHINIST APPRENTICE EGD- MID ESOPHAGEAL ZENKER'S AT 30 CM, ANTRAL BIOPSY RULE OUT H. PYLORI Special Needs Dx dysphagia 02/22 LM GI LAB IMAGING - EGD Routine 02/24/2024 7:46 AM AUTOMOTIVE MACHINIST APPRENTICE [facility] US BREAST LIMITED GARFIELD Routine 02/15/2024 3:16 PM AUTOMOTIVE MACHINIST APPRENTICE Abnormal mammogram [facility] DIAG BILATERAL DIGITAL W CAD W SANDRA Routine 02/15/2024 2:53 PM AUTOMOTIVE MACHINIST APPRENTICE Abnormal mammogram from Last 3 Months Results * CT CHEST ABDOMEN AND PELVIS W CONTRAST (02/25/2024 9:05 AM AUTOMOTIVE MACHINIST APPRENTICE) Anatomical Region Laterality Modality Chest, Abdomen, Pelvis N/A Computed Tomography 02/28/2024 9:09 AM AUTOMOTIVE MACHINIST APPRENTICE Impressions 02/28/2024 9:11 AM AUTOMOTIVE MACHINIST APPRENTICE IMPRESSION: Interval decrease in size of lymph [...] findings as above. Narrative 02/28/2024 9:11 AM AUTOMOTIVE MACHINIST APPRENTICE EXAM DESCRIPTION: CT CHEST ABDOMEN AND PELVIS [...] AM T: ??02/28/2024 9:09 AM Report ID: [id number] Reading Location: ??[id number] Procedure Note Jo Flannery MD - 02/28/2024 [...] Jo Flannery M.D. TW: PABLO Report ID: [id number] Reading Location: [id number] IMPRESSION: Interval decrease in size of lymph [...] Result * POCT Creatinine (02/25/2024 8:56 AM AUTOMOTIVE MACHINIST APPRENTICE) CREATININE - POCT 0.7 0.6 - 1.3 mg/dL 02/25/2024 8:57 AM AUTOMOTIVE MACHINIST APPRENTICE [facility] Blood 02/25/2024 8:56 AM AUTOMOTIVE MACHINIST APPRENTICE 02/25/2024 8:57 AM AUTOMOTIVE MACHINIST APPRENTICE None Provider POINT OF CARE TESTING Final Resu lt [facility] [address] [place] [address] * [id number] DEHYDROGENASE ENZYME ACTIVITY, BLOOD, YALE G6PD1 (02/24/2024 9:52 AM AUTOMOTIVE MACHINIST APPRENTICE) Pathologist [facility] G6PD1 ENZYME ACTIVITY, B 11.8 8.0 - 11.9 U/g Hb 02/25/2024 12:22 PM AUTOMOTIVE MACHINIST APPRENTICE [facility] [place] Comment: The G6PD activity level is expected [...] developed and its performance characteristics determined by [facility] in a manner consistent with CLIA requirements. This test has not been cleared or approved by the U.S. Food and Drug Administration. Test Performed by: [facility] - [address] [address] Business Liaison Manager: Jodi Patricio Ph.D.; CLIA# [id number] Blood Venipuncture / Unknown 02/24/2024 9:52 AM AUTOMOTIVE MACHINIST APPRENTICE 02/24/2024 10:20 AM AUTOMOTIVE MACHINIST APPRENTICE us Mila Hassan PORTAINER OPERATOR, AUTOMATIC SPINNING LATHE OPERATOR LAB SEND OUTS Sabra l Result [facility] US * (ABNORMAL) MANUAL DIFFERENTIAL (02/24/2024 9:52 AM AUTOMOTIVE MACHINIST APPRENTICE) NEUTROPHILS % 27.0(L) 47.0 - 73.0 % 02/24/2024 11:03 AM [facility] LYMPHOCYTES % 63.0(H) 18.0 - 42.0 % 02/24/2024 11:03 AM [facility] MONOCYTES % 8.0 4.0 - 12.0 % 02/24/2024 11:03 AM [facility] EOSINOPHILS % 1.0 0.0 - 5.0 % 02/24/2024 11:03 AM [facility] BASOPHILS % 1.0 0.0 - 1.0 % 02/24/2024 11:03 AM [facility] NEUTROPHILS ABSOLUTE 3.12 1.60 - 7.70 10(3)/mcL 02/24/2024 11:03 AM [facility] LYMPHOCYTES ABSOLUTE 7.28(H) 1.30 - 3.20 10(3)/[facility] 02/24/2024 11:03 AM [facility] MONOCYTES ABSOLUTE 0.92 0.20 - 1.00 10(3)/[facility] 02/24/2024 11:03 AM [facility] EOSINOPHILS ABSOLUTE 0.12 0.00 - 0.40 10(3)/[facility] 02/24/2024 11:03 AM [facility] BASOPHILS ABSOLUTE 0.12(H) 0.00 - 0.10 10(3)/[facility] 02/24/2024 11:03 AM [facility] RBC MORPHOLOGY CONSISTENT WITH INDICES Yes 02/24/2024 11:03 AM [facility] REACTIVE LYMPHOCYTES 6 02/24/2024 11:03 AM [facility] WBC MORPH STATUS Normal 02/24/20 11:03 AM [facility] PLATELET STATUS Normal 11:03 AM [facility] Blood Venipuncture / Unknown 02/24/2024 9:52 AM AUTOMOTIVE MACHINIST APPRENTICE 02/24/2024 10:20 AM AUTOMOTIVE MACHINIST APPRENTICE us Mila Hassan PORTAINER OPERATOR, AUTOMATIC SPINNING LATHE OPERATOR HEMATOLOGY ORDERABLE S Final Result [facility] [address] [place] [address] * CBC WITH AUTO DIFFERENTIAL (02/24/2024 9:52 AM AUTOMOTIVE MACHINIST APPRENTICE) WBC 11.56 4.00 - 12.00 10(3)/mcL 02/24/2024 11:03 AM [facility] RBC 4.63 3.80 - 5.30 10(6)/mcL 02/24/2024 11:03 AM [facility] HEMOGLOBIN (HGB) 13.6 12.0 - 15.8 g/dL 02/24/2024 11:03 AM [facility] HEMATOCRIT (HCT) 42.8 36.0 - 47.0 % 02/24/2024 11:03 AM [facility] MCV 92.4 82.0 - 96.0 fL 02/24/2024 11:03 AM [facility] MCH 29.4 26.0 - 34.0 pg 02/24/2024 11:03 AM [facility] MCHC 31.8 31.0 - 36.0 g/dL 02/24/2024 11:03 AM [facility] PLATELET COUNT 340 140 - 440 10(3)/mcL 02/24/2024 11:03 AM [facility] RDW 14.7 11.8 - 15.5 % 02/24/2024 11:03 AM [facility] MPV 11.0 9.7 - 12.4 fL 02/24/2024 11:03 AM [facility] NRBC PER 100 WBC 0 02/24/2024 11:03 AM [facility] RESULTS ARE CONSISTENT WITH PERIPHERAL SMEAR REVIEW Yes 02/24/2024 11:03 AM [facility] Blood Venipuncture / Unknown 02/24/2024 9:52 AM AUTOMOTIVE MACHINIST APPRENTICE 02/24/2024 10:20 AM AUTOMOTIVE MACHINIST APPRENTICE us Mila Hassan PORTAINER OPERATOR, AUTOMATIC SPINNING LATHE OPERATOR HEMATOLOGY ORDERABLE S Final Result [facility] [address] [place] [address] * (ABNORMAL) CMP (COMPREHENSIVE METABOLIC PANEL) (02/24/2024 9:52 AM AUTOMOTIVE MACHINIST APPRENTICE) SODIUM 140 136 - 145 mmol/L 02/24/2024 10:47 AM [facility] POTASSIUM 4.3 3.5 - 5.1 mmol/L 02/24/2024 10:47 AM [facility] CHLORIDE 104 98 - 107 mmol/L 02/24/2024 10:47 AM [facility] CO2, VENOUS 26 22 - 30 mmol/L 02/24/2024 10:47 AM [facility] ANION GAP 14.3 <18.0 mmol/L 02/24/2024 10:47 AM [facility] GLUCOSE 119(H) 70 - 99 mg/dL 02/24/2024 10:47 AM [facility] BUN 16 10 - 20 mg/dL 02/24/2024 10:47 AM [facility] CREATININE, BLOOD 0.68 0.60 - 1.00 mg/dL 02/24/2024 10:47 AM [facility] BUN/CREATININE RATIO 24(H) 12 - 20 ratio 02/24/2024 10:47 AM [facility] TOTAL PROTEIN 7.2 6.3 - 8.2 g/dL 02/24/2024 10:47 AM [facility] ALBUMIN 4.4 3.5 - 5.0 g/dL 02/24/2024 10:47 AM [facility] A/G RATIO 1.6 1.0 - 2.2 02/24/2024 10:47 AM [facility] CALCIUM 9.5 8.7 - 10.5 mg/dL 02/24/2024 10:47 AM [facility] T BILI 0.6 0.2 - 1.2 mg/dL 02/24/2024 10:47 AM [facility] SGOT (AST) 49(H) 5 - 34 U/L 02/24/2024 10:47 AM [facility] SGPT (ALT) 97(H) 0 - 55 U/L 02/24/2024 10:47 AM [facility] ALKALINE PHOSPHATASE 91 40 - 150 U/L 02/24/2024 10:47 AM [facility] IS THE PATIENT REQUIRED TO BE FASTING? No 02/24/2024 10:47 AM [facility] GFR, ESTIMATED >60 >=60 02/24/2024 10:47 AM [facility] Comment: Creatinine Clearance is the preferred criteria for selecting drug dose adjustments in renally impaired patients. ??The GFR is provided as additional pertinent clinical information. GFR is reported in mL/min/1.73 sq m. Calculation based on the Chronic Kidney Disease Epidemiology Collaboration (CKD- EPI) equation refit without adjustment for race. GFR, EST. >60 >=60 024 10:47 AM [facility] GFR, EST. NONAFRICAN >60 >=60 02/24/2024 10:47 AM [facility] Blood Venipuncture / Unknown 02/24/2024 9:52 AM AUTOMOTIVE MACHINIST APPRENTICE 02/24/2024 10:19 AM AUTOMOTIVE MACHINIST APPRENTICE us Mila Hassan APRN, AUTOMATIC SPINNING LATHE OPERATOR CHEMISTRY ORDERABLES Final Result Performing Organization Address City/[facility] Co de Phone Number [facility] [address] [place] [address] * C-REACTIVE PROTEIN (CRP) QUANT (02/24/2024 9:52 AM AUTOMOTIVE MACHINIST APPRENTICE) C-REACTIVE PROTEIN 0.42 <0.50 mg/dL 02/24/2024 10:47 AM AUTOMOTIVE MACHINIST APPRENTICE [facility] Blood Venipuncture / Unknown 02/24/2024 9:52 AM AUTOMOTIVE MACHINIST APPRENTICE 02/24/2024 10:19 AM AUTOMOTIVE MACHINIST APPRENTICE us Mila Hassan APRN, AUTOMATIC SPINNING LATHE OPERATOR CHEMISTRY ORDERABLES Final Result Performing Organization Address [facility] de Phone Number [facility] [address] [place] [address] * Pathology Surgical (02/24/2024 8:52 AM AUTOMOTIVE MACHINIST APPRENTICE) Case Report Surgical Pathology Report ? Case: [id number] ? Authorizing Provider: ??Ciaran Mcallister MD ?? Collected: ? 02/24/2024 08:52 AM ? Ordering Location: ? [facility] ? Received: ?02/24/2024 10:39 AM ? [facility] ? Lab Main ? Pathologist: ? Pedro Harris MD PhD ? Specimen: ?Stomach, ANTRAL BIOPSY RULE OUT H. PYLORI ? 02/25/2024 12:54 PM [facility] FINAL DIAGNOSIS Gastric antrum, biopsy: - Gastric mucosa with mild chronic inflammation - Negative for acute inflammation or H. pylori by IHC stain 02/25/2024 12:54 PM [facility] Pre-Operative Diagnosis DYSPHAGIA 02/25/2024 12:54 PM [facility] Gross Description A. ANTRAL BIOPSY RULE [...] 12 hours, 54 minutes. 02/25/2024 12:54 PM [facility] Tissue STOMACH STRUCTURE / Unknown 02/24/2024 8:52 AM AUTOMOTIVE MACHINIST APPRENTICE 02/24/2024 10:39 AM AUTOMOTIVE MACHINIST APPRENTICE Ciaran Mcallister MD PATHOLOGY/CYTOLOGY ORDERA BLES Final Result [facility] [address] [facility] [place] [address] * GI LAB IMAGING - EGD (02/24/2024 7:46 AM AUTOMOTIVE MACHINIST APPRENTICE) Ciaran Mcallister MD IMG DIAGNOSTIC ORDERABLES Final Result * [facility] US BREAST LIMITED GARFIELD (02/15/2024 3:16 PM AUTOMOTIVE MACHINIST APPRENTICE) Anatomical Region Laterality Modality breast Bilateral Ultrasound 02/15/2024 2:24 PM AUTOMOTIVE MACHINIST APPRENTICE Narrative 02/15/2024 4:13 PM AUTOMOTIVE MACHINIST APPRENTICE - [facility] DIAG BILATERAL DIGITAL W CAD [...] made to exams dated: ??07[facility]26/2023 [facility] ?? BREAST TISSUE:There are scattered areas of [...] Lindsey Dick M.D. ? ab/:02/15/2024 15:20:23 ?? Engineering Aide(s): Brandi ??RT Claudia(R)(M), [facility]; Coty ??Matilde [facility] letter sent: Birad 3 Followup ?? Reading location: [facility] OVERALL STUDY BIRADS: Category 3: Probably Benign [...] made to exams dated: 07/26/2023 and 07/26/2023 [facility]. BREAST TISSUE:There are scattered areas of fibroglandular [...] signed by: Lindsey Dick M.D. ab/:02/15/2024 15:20:23 Engineering Aide(s): RT Judy(R)(M), [facility]; Coty Clayton, [facility] letter sent: Birad 3 Followup Reading location: [facility] STUDY BIRADS: Category 3: Probably Benign us Jomar Linda Kiran MD IMG MAMMO ORDERABLES Fin al Result * [facility] DIAG BILATERAL DIGITAL W CAD W SANDRA (02/15/2024 2:53 PM AUTOMOTIVE MACHINIST APPRENTICE) Anatomical Region Laterality Modality breast Bilateral Mammography 02/15/2024 2:24 PM AUTOMOTIVE MACHINIST APPRENTICE Narrative 02/15/2024 4:13 PM AUTOMOTIVE MACHINIST APPRENTICE - [facility] DIAG BILATERAL DIGITAL W CAD [...] to exams dated: ??07/26/2023 and 07/26/2023 [facility]. ?? BREAST TISSUE:There are scattered areas [...] Lindsey Dick M.D. ? ab/:02/15/2024 15:20:23 ?? Engineering Aide(s): Brandi ??RT Claudia(R)(M), [facility]; Coty ??Matilde, [facility] letter sent: Birad 3 Followup ?? Reading location: [facility] STUDY BIRADS: Category 3: Probably Benign Procedure Note Lindsey Dick MD - 02/15/2024 - [facility] DIAG BILATERAL DIGITAL W CAD W SANDRA - [facility] US BREAST LIMITED GARFIELD BILATERAL DIGITAL DIAGNOSTIC MAMMOGRAM 3D/2D WITH CAD WITH MEDIOLATERAL OBLIQUE CRANIOCAUDAL AND TARGETED BILATERAL ULTRASOUND: 02/15/2024 The study was acquired using digital technology and interpreted from soft copy. Current study was also evaluated with MatchMate.Me version 7.2. 2D digital mammographic views, as [...] made to exams dated: 07/26/2023 and 07/26/2023 [facility]. BREAST TISSUE:There are scattered areas of fibroglandular [...] signed by: Lindsey Dick M.D. ab/:02/15/2024 15:20:23 Engineering Aide(s): Brandi Taylor, (R)(M), [facility]; Coty Clayton, [facility] letter sent: Jace 3 Followup Reading location: [facility] OVERALL STUDY BIRADS: Category 3: Probably Benign [facility] Linda Kiran MD IMG MAMMO ORDERABLES Fin al Result from Last [address] [place] [address] MEDICAID [place] MEDIC[place] Care Teams Diet Counselor Relationship Specialty Start Date End Date Jose Bryan, PAC [address] [place] [address] PCP - General Physician Agricultural Equipment Salesperson 09/27/19 Ron Batista MD [address] [address] Consulting Physician Urology 08/19/23 Jomar Kiran MD [address] [place] [address] Consulting Physician Medical Oncology 07/20/23 Macy Alarcon APRN, AUTOMATIC SPINNING LATHE OPERATOR [address] [place] [address] Nurse Practitioner Advanced Practice Nurse 02/23/24
--- OUTSIDE RECORDS SUMMARY | 2024-04-20 11:01 | XMS_ITS | Clinical Summary ---
Author Organization [facility] Address [address] [place] [address] Care Team Providers Care Facility Planner Name Role Phone Jose Bryan Primary Care Provider [phone] Ciaran Mcallister MD Unavailable [phone] Allergies Active Allergy Reactions Criticality Noted Date [...] for esophageal spasm versus mild early presbyesophagus. Jnfr-rs-arquajlv spontaneous gastroesophageal reflux. Small sliding-type hiatal hernia. [...] Type Department Care Team Description 04/11/2024 Telephone [facility] [address] [address] Jaqueline Jorgensen RN 04/04/2024 Orders Only [facility] Floor [address] [place] [id number] Raghav Pugh NP Esophageal diverticulum (Primary Dx) 04/03/2024 8:30 AM [employer]ICE FIELD WORKER Office Visit [facility] [address] [facility] [place] [address] David Miller MD Esophageal diverticulum 03/30/2024 8:00 AM [employer] FIELD WORKER - 03/30/2024 11:59 PM [employer] FIELD WORKER Hospital Encounter [facility] [address] [place] [address] Rad, Amh Fluoro Esophageal diverticulum Discharge Disposition: Discharge to home or self care 03/27/2024 Orders Only [facility] Surgery [address] [place] [address] [address] [place] [phone] Yumiko Donaldson NP Esophageal diverticulum (Primary Dx) 01/25/2024 Telephone [facility] G[facility] at [facility] [id number] [place] [address] [address], [place] [phone] Ronald Bonilla MD 01/18/2024 6:14 AM CDT - 01/21/2024 1:16 PM CDT Hospital Encounter [address] [address] Harmeet Merritt MD Onaghise, Jude, MD Perez [...] drink = 0.6 oz pur e alcohol) [facility] Tr[employer]atesities Answer Date Recorded In the past 12 months has [employer] electric, gas, oil, or water [employer] threatened to shut off services in your [...] often do you attend chur ch or mandaen services? Never 01/18/2024 Do you belong to any clubs o r organizations such as episcopal groups, unions, fraternal or athletic groups, or [...] time in the past 12 m [facility], were you homeless or living in a care home (including now)? No 01/18/2024 Personal Safety Answer Date Recorded Have you ever been in or are you currently in a harmful physical or emotional relationship or is someone making you feel afraid or unsafe? Denies 01/18/2024 Comments No Sex and Gender Information Value Date Recorded Sex Assigned at Not on file Legal Sex Female 9:45 AM [employer] FIELD WORK[employer] Gender Identity Not on file Sexual Orientation Not on file Occupation Industry Job Start Date Job End Date disability Not on file Not on file Not on file Obstetrics History Last Filed Vital Signs Vital Sign Reading Time Taken Comments Blood Pressure 151/85 04/03/2024 8:40 AM [employer] FIELD WORKER Pulse 84 04/03/2024 8:40 AM [employer] FIELD WORKER Temperature 36.4 ??C (97.6 ??F) 04/03/2024 8:40 AM CS T Respiratory Rate 16 04/03/2024 8:40 AM [employer] FIELD WORKER Oxygen Saturation 96% 04/03/2024 8:40 AM [employer] FIELD WORKER Inhaled Oxygen Concentration - - Weight 87.2 kg (192 lb 3.2 oz) 04/03/2024 8:40 A M [employer] Height 163.1 cm (5' 4.21 ) 04/03/2024 8:40 AM CS T Body Mass Index 32.77 04/03/2024 8:40 AM [employer]ICE FIELD WORKER Plan of Treatment Health Maintenance Due Date [...] Read Routine (OP Routine) 03/30/2024 8:30 AM [employer] FIELD WORKER Esophageal diverticulum HEPATIC FUNCTION PANEL Routine 01/21/2024 [...] FL Esophagram, Double Contrast (03/30/2024 8:30 AM [employer]ICE FIELD WORKER) Anatomical Region Laterality Modality Body N/A Radio Fluoroscop y 03/30/2024 10:1 2 AM [employer] FIELD WORKER Narrative 03/30/2024 10:26 AM [employer]ICE FIELD WORKER EXAM DESCRIPTION: ?? FL ESOPHAGRAM BARIUM SWALLOW TO STOMACH, DOUBLE CONTRAST REASON FOR STUDY: ?? Esophageal diverticulum ?? Esophageal diverticulum ? Egd 1 month at [facility] ??Perforation?1.4 min ft ??276.5 mgy ?? RADIATION [...] small sliding-type hiatal hernia. ?? There is dpga-ne-oqxeccki spontaneous gastroesophageal reflux observed during the study. [...] spasm versus mild early presbyesophagus. 4. ?? Mutx-uk-opyutbws spontaneous gastroesophageal reflux. 5. ?? Small sliding-type hiatal hernia. THIS IS AN ELECTRONICALLY VERIFIED FINAL REPORT 03/30/2024 10:26 AM - Electronically signed by ??Zunilda De Los Santos D.O. PS: PS D: ??03/30/2024 10:26 AM T: ??03/30/2024 10:26 AM Report ID: [id number] Reading Location: ??[id number] Procedure Note Zunilda De Los Santos, DO - 03/30/2024 EXAM DESCRIPTION: FL ESOPHAGRAM BARIUM SWALLOW TO STOMACH, DOUBLECONTRAST REASON FOR STUDY: Esophageal diverticulum Esophageal diverticulum Egd 1 month at [facility] Perforation?1.4min ft 276.5 mgy RADIATION DOSE: Dose: [...] is small sliding-type hiatal hernia. There is ewzj-nk-iffvsvbk spontaneous gastroesophageal reflux observedduring the study. NON-GI [...] foresophageal spasm versus mild early presbyesophagus. 4. Sanb-vx-fflvgafb spontaneous gastroesophageal reflux. 5. Small sliding-type hiatal hernia. THIS IS AN ELECTRONICALLY VERIFIED FINAL REPORT 03/30/2024 10:26 AM - Electronically signed by Zunilda De Los Santos D.O. PS: PS Report ID: [id number] Reading Location: [place] [address] Yumiko Donaldson SENIOR QUALITY MANAGER IMG FLUOROSCOPY PROCEDURES Sabra l Result [...] MD LAB BLOOD ORDERABLES Final Resu lt [facility] [address] Department [place] [address] * Hepatitis panel, acute Blood (01/20/2024 12:16 PM CDT) Pathologist [facility] Hep A IgM Nonreactive Nonreactive Comment: Interpretive Data: If Hep A IgM Ab is reported as Equivocal, a new sample should be drawn in two weeks for testing. Current interpretive data was last revised on 19. Hep B core IgM Nonreactive Nonreactive [facility] Comment: Interpretive Data If HepB Core IgM Ab is reported as Equivocal, a new sample should be drawn in two weeks for testing. Current interpretive data was last revised on 19. Hep C Ab Nonreactive Nonreactive [facility] Comment: Interpretive Data Nonreactive: Antibodies to HCV [...] - GENERA L ORDERABLES Final Result [facility] [address] Department [place] [address] * US RUQ (01/20/2024 10:42 AM CDT) [...] MD LAB BLOOD ORDERABLES Final Resu lt [facility] [address] Department [place] [address] * (ABNORMAL) CBC without differential (01/20/2024 2:03 AM CDT) WBC 8.7 3.8 - 9.9 K/cumm Hgb 9.8(L) 11.9 - 15.5 g/dL [facility] Hct 31.5(L) 35.6 - 45.5 % [facility] Plt 307 150 - 400 K/cumm [facility] MPV 11.0 9.1 - 12.3 fL [facility] RBC 3.37(L) 3.90 - 5.20 M/cumm [facility] MCV 93.5 81.3 - 96.4 fL [facility] MCH 29.1 27.1 - 33.3 pg [facility] MCHC 31.1(L) 32.3 - 35.7 g/dL [facility] RDW CV 16.6(H) 11.1 - 14.9 % [facility] RDW SD 56.6(H) 35.7 - 48.1 fL [facility] NRBC abs 0.00 0.00 - 0.01 K/cumm [facility] Blood 01/20/2024 2:03 AM CDT 01/20/2024 2:49 AM CDT us Marko Luo MD LAB BLOOD ORDERABLES Final Resu lt [facility] [address] [place] [address] * Phosphorus (01/20/2024 2:03 AM CDT) Phosphorus, pl 3.2 2.3 - 4.5 mg/dL Blood 01/20/2024 2:03 AM CDT 01/20/2024 2:50 AM CDT us Marko Luo MD LAB BLOOD ORDERABLES Final Resu lt Performing Organization Address [facility] de Phone Number [facility] [address] Department [place] [address] * (ABNORMAL) Lipase (01/20/2024 2:03 AM CDT) Lipase 233(H) 10 - 99 Units/L Blood 01/20/2024 2:03 AM CDT 01/20/2024 2:50 AM CDT us Marko Luo MD LAB BLOOD ORDERABLES Final Resu lt Performing Organization Address [facility] Co de Phone Number [facility] [address] Department [place] [address] * (ABNORMAL) Bilirubin, direct (01/20/2024 2:03 AM CDT) Bilirubin, direct 0.5(H) 0.1 - 0.3 mg/dL Blood 01/20/2024 2:03 AM CDT 01/20/2024 2:50 AM CDT us Marko Luo MD LAB BLOOD ORDERABLES Final Resu lt Performing Organization Address [facility] Co de Phone Number [facility] [address] Department [place] [address] * (ABNORMAL) Comprehensive metabolic panel (01/20/2024 2:03 [...] BLOOD ORDERABLES Final Resu lt [facility] [address] Department [place] [address] * (ABNORMAL) Lipase (01/19/2024 11:29 AM CDT) Lipase 445(H) 10 - 99 Units/L Blood 01/19/2024 11:2 9 AM CDT 01/19/2024 12:12 PM CDT Marko Luo MD LAB [place]LOOD [place] [address] [address] Department [place] [address] from Last 3 Months [place] [address] [facility] MEDICARE [employer] MEDICARE [facility] Advance Directives For more information, please contact: [phone] * Full Code (Latest Code Status on File) Date Activated Date Inactivated Comments 01/18/2024 1:42 PM 01/21/2024 5:17 PM Care Teams Facility Planner Relationship Specialty Start Date End Date Jose Bryan PA [address] [place] [address] PCP - General Family Practice 10/13/18 Ciaran Mcallister MD [address] [place] [address] General Surgery 04/03/24
[2024-04-20 11:21] LABS: Add Urine Microscopic? NO; Appearance Urine Clear (Clear); Bilirubin Urine Negative (Negative); Blood Urine Negative (Negative); Color Urine Yellow (Yellow); Glucose Urine UA Negative (Negative); Ketones Urine Negative (Negative); Leukocyte Esterase Ur Negative LEU/UL (Negative); Nitrate Urine Negative (Negative); Protein Urine Negative (Negative); Specific Grav Ur 1.025 (1.010-1.020); Urobilinogen Urine 0.2 mg/dL (0.2-1.0)
[2024-04-20] MEDS: MORPHINE SULFATE (*CRX) 4 MG/ML INJ IV PUSH (11:26)
--- NOTE | 2024-04-20 11:34 | ED_ITS ---
HPI - SOB/Dyspnea General Chief Complaint: Shortness of Breath/Dyspnea Stated Complaint: cough 2 weeks Source: patient Mode of arrival: ambulatory Limitations: no limitations History of Present Illness HPI Narrative: this is a 53-year-old female who presents with shortness of breath with inspiration and left lower back pain, has a history of chronic back pain and cervical spondylosis. Patient is afebrile with no nausea vomiting no abdominal pain denies any dysuria or hematuria no fever chills no neck pain or neck stiffness. MD elicited complaint: shortness of breath Onset (ago): day(s) Related Data Home Medications ?Medication ?Instructions ?Recorded ?Confirmed ?Last Taken ?Type acetaminophen 300 mg-codeine 60 mg 1 tablet PO Q6-8H 07/10/22 07/15/22 Unknown History tablet cyclobenzaprine 10 mg tablet 10 mg PO TID 07/10/22 07/15/22 Unknown History fluoxetine 20 mg capsule 20 mg PO DAILY 07/10/22 07/15/22 Unknown History lisinopril 5 mg tablet 5 mg PO DAILY 07/10/22 07/15/22 Unknown History gabapentin 300 mg capsule 300 mg PO QID 07/15/22 07/15/22 Unknown History Allergies Allergy/AdvReac Type Severity Reaction Status Date / Time No Known Drug Allergies Allergy Mild Hives Verified 04/20/24 11:37 Review of Systems 2 Review of Systems: All systems reviewed & are unremarkable except as noted in HPI and below PMFSH Past Medical History Medical History Hypertension Epistaxis Social History Social History Social History: smoker Exam 2 Const: General: healthy appearing and no acute distress Nutritional Appearance: well nourished Orientation/consciousness: patient oriented x3 Limitations: no limitations HENMT: Head: normal to inspection Resp: Effort & Inspection: normal respiratory effort Auscultation: clear to auscultation bilaterally Cardio: Rate: regular rate Rhythm: regular rhythm GI: GI Palp: Yes Soft to palpation Auscultation: normal bowel sounds : General: Yes bladder normal to palpation Urinary Catheter: Urinary Catheter: patent and draining Back/Spine/Pelvis: Back: no CVA tenderness Skin: General skin exam: normal color Wounds: no wounds Neuro: General: patient oriented x3, moves all extremities, no meningeal signs and no focal motor deficits Extrem: Other: L4 left paravertebral tenderness with palpation. Course Course Emergency Course: A chest x-ray performed shows no acute abnormalities a UA and blood work within normal limits patient received Toradol after reassessment lower back pain has not improved, patient received 4mg IV morphine after reassessment patient's pain level has improved with morphine. Vital Signs Vital signs: Vital Signs Temperature 36.9 C 04/20/24 09:38 Pulse Rate 80 04/20/24 09:38 Respiratory Rate 16 04/20/24 09:38 Blood Pressure 145/64 H 04/20/24 09:38 Pulse Oximetry 97 04/20/24 09:38 Oxygen Delivery Room Air 04/20/24 09:38 Temperature 36.9 C 04/20/24 09:38 Pulse Rate 69 04/20/24 11:23 Respiratory Rate 20 04/20/24 11:23 Blood Pressure 115/55 L 04/20/24 11:23 Pulse Oximetry 96 04/20/24 11:23 Oxygen Delivery Room Air 04/20/24 11:23 MDM - SOB/Dyspnea Lab Data 04/20/24 09:56 04/20/24 09:56 Labs: Lab Results 04/20/24 04/20/24 Range/Units 09:43 09:56 WBC 8.7 (4.8-10.8) K/mm3 RBC 4.24 (4.20-5.40) M/mm3 Hgb 12.4 (12.0-15.0) g/dL Hct 39.1 (35.0-49.0) % MCV 92.2 (78.0-102.0) fL MCH 29.2 (27.0-31.0) pg MCHC 31.7 L (32-36) g/dL RDW 15.2 H (11.6-14.4) % Plt Count 376 (150-420) K/mm3 MPV 10.2 (9.2-11.8) fl Immature Gran % (Auto) 0.1 H (0.0-0.0) % Neut % (Auto) 36.1 L (50.0-70.0) % Lymph % (Auto) 52.8 H (18.0-42.0) % [place] % (Auto) 7.7 (2.0-11.0) % Eos % (Auto) 2.3 (1.0-6.0) % Baso % (Auto) 1.0 (0.0-1.0) % Lymph # (Auto) 4.61 H (1.10-4.50) K/mm3 Churchill # (Auto) 0.67 (0.10-0.90) K/mm3 Eos # (Auto) 0.20 (0.02-0.50) K/mm3 Baso # (Auto) 0.09 (0.00-0.10) K/mm3 Abs Immat Gran (auto) 0.01 H (0.00-0.00) K/mm3 Absolute Neuts (auto) 3.15 (1.70-7.20) K/mm3 Absolute Nucleated RBC 0.00 (0.00-0.00) K/mm3 Nucleated RBC % 0.0 (0-0.0) % Sodium 140 (136-145) mmol/L Potassium 3.9 (3.5-5.1) mmol/L Chloride 105 (98-108) mmol/L Carbon Dioxide 28 (21-32) mmol/L Anion Gap 7 (4-12) mmol/L BUN 11 (7-18) mg/dL Creatinine 0.74 (0.55-1.02) mg/dL Estim Creat Clear Calc 81 ml/min Estimated GFR > 60 (59 - ) Glucose 94 (70-99) mg/dL Calculated Osmolality 289 (285-295) mOsm/kg Calcium 8.7 (8.5-10.1) mg/dL Total Bilirubin 0.2 (0.00-1.00) mg/dL AST 10 L (15-37) U/L ALT 26 (14-59) U/L Alkaline Phosphatase 72 (46-116) U/L Total Protein 6.4 (6.4-8.2) g/dL Albumin 3.5 (3.4-5.0) g/dL Urine Color Yellow (Yellow) Urine Appearance Clear (Clear) Urine pH 6.0 (5.0-8.0) Ur Specific [place] 1.025 H (1.010-1.020) Urine Protein Negative (Negative) Urine Glucose (UA) Negative (Negative) Urine Ketones Negative (Negative) Ur Blood (Man) Negative (Negative) Urine Nitrate Negative (Negative) Urine Bilirubin Negative (Negative) Urine Urobilinogen 0.2 (0.2-1.0) mg/dL Leukocyte Esterase Rfl Negative (Negative) MESHA/UL Influenza A (RT-PCR) Negative (Negative) Influenza B (RT-PCR) Negative (Negative) RSV (RT-PCR) Negative (Negative) SARS-CoV-2 RNA (RT-PCR) Negative (Negative) Critical Care Time Critical Care Time Critical Care Time: No Discharge Plan Discharge Clinical Impression: Low back strain Qualifiers: Encounter type: initial encounter Qualified Code(s): S39.012A - Strain of muscle, fascia and tendon of lower back, initial encounter Patient Disposition: Home, Self-Care Condition: Stable Instructions: Antibiotic Form, Low Back Strain (ED) Additional Instructions: take medicine as prescribed and follow with primary care physician within 1 week further evaluation treatment. Patient Language: Guinean Prescriptions: New oxycodone-acetaminophen [Percocet] 5-325 mg tablet 1 tablet PO Q6H PRN (Reason: pain) Qty: 20 0RF cyclobenzaprine 10 mg tablet 10 mg PO TID Qty: 20 0RF No Action cyclobenzaprine 10 mg tablet 10 mg PO TID acetaminophen-codeine 300-60 mg tablet 1 tablet PO Q6-8H lisinopril 5 mg tablet 5 mg PO DAILY fluoxetine 20 mg capsule 20 mg PO DAILY gabapentin 300 mg capsule 300 mg PO QID Eren-Synephrine (phenylephrine) 0.5 % spray,non-aerosol 1 spray intranasal Q6H PRN (Reason: nasal congestion) 3 Days Qty: 15 0RF Follow-up/Referrals: Randi,NILA Madera [Primary Care Provider] - Time of Disposition: 11:39
== END 2024-04-20 12:02 | disposition home or self-care (01) ==
PROVIDERS: Emergency Provider Emergency Medicine; PCP Physician Assistant
DX: S39.012A Strain of muscle, fascia and tendon of lower back, initial encounter (principal); R06.02 Shortness of breath; I10 Essential (primary) hypertension; X58.XXXA Exposure to other specified factors, initial encounter; Z20.822 Contact with and (suspected) exposure to COVID-19
CPT/HCPCS: 36415; 71045; 80053; 81003; 85025; 87637; 96361; 96374; 96375; 99284; J1885; J2270; J7030

== ENCOUNTER 2024-05-05 16:08 | Emergency (ER) | payer MEDICARE, MEDICAID, SELFPAY ==
--- NOTE | ~2024-05-05 | CT_ITS ---
History: Fall, PROCEDURE: CT lumbar spine without intravenous contrast. COMPARISON: Reference is made to a plain film evaluation of the lumbar spine performed approximately 1 hour earlier TECHNIQUE: Multiple contiguous axial images of the lumbar spine were performed without the administration of int ravenous contrast. DLP: 1155 mGy-cm FINDINGS: Straightening of the normal lordotic curvature of the lumbar spine is identified, possibly muscular i n origin. No acute compression fractures are present. No soft tissue abnormality is noted. The irregularity within the posterior spinous process of T12 was artifactual in origin. No acute fracture within the vertebral body of T12. At the level of L3/L4 is a left paracentral disc protrusion with mass effect on the exiting nerve karin ts at this level. Hypertrophy of the ligamentum flavum is also noted at this level contributing to the degree of narrow ing of the spinal canal. At the level of L4/L5 is a broad-based disc protrusion without significant mass effect on either the spinal canal or bilateral neural foramen Impression: Straightening of the normal lordotic curvature of the lumbar spine, likely muscular in origin. Degenerative disease, most prominent at the level of L3/L4 and L4/L5 without acute fracture. Reviewed, dictated and finalized at location A. E TELEVISION ACCESS COORDINATOR Impression: Straightening of the normal lordotic curvature of the lumbar spine, likely musc ular in origin. Degenerative disease, most prominent at the level of L3/L4 and L4/L5 without ac augustine fracture.
--- NOTE | ~2024-05-05 | XR_ITS ---
HISTORY: Fall, Lt. hip pain COMPARISON: None TECHNIQUE: 2 views of the left hip along with an AP view of the pelvis FINDINGS: No acute fracture or dislocation is identified. Superior lateral sclerosis of the femoral acetabular joint spaces bilaterally consistent with osteoar thritis. Significant joint space narrowing detected within the bilateral femoral acetabular joint spaces. Fixation hardware within the lower lumbar spine. Mineralization is age-appropriate. IMPRESSION: Degenerative disease without acute fracture or dislocation Reviewed, dictated and finalized at location A. ERY DECORATOR
--- NOTE | ~2024-05-05 | XR_ITS ---
HISTORY: fall, Lt. side low back pain COMPARISON: None. TECHNIQUE: 2 view lumbar spine. FINDINGS: Lumbar vertebral bodies are normally aligned. There are 5 non-rib bearing lumbar vertebral bodies. Fixation hardware at the level of L5/S1. Irregularity within the posterior spinous process of T12, possibly secondary to positioning. If this corresponds to the area of pain would recommend cross-sectional imaging (noncontrast enhanced CT) for further evaluation. Remaining disc spaces and vertebral body heights are otherwise well maintained. There are no lytic or sclerotic lesions. IMPRESSION: Findings within the posterior spinous process of T12 possibly secondary to positioning. If this corre sponds to the area of pain cross-sectional imaging (noncontrast enhanced CT examination of the thorac olumbar spine) is recommended. Otherwise, degenerative disease without acute fracture. Reviewed, dictated and finalized at location A. E WORKER IMPRESSION: Findings within the posterior spinous process of T12 possibly secondary to posi tioning. If this corresponds to the area of pain cross-sectional imaging (nonco ntrast enhanced CT examination of the thoracolumbar spine) is recommended. Otherwise, degenerative disease without acute fracture.
[2024-05-05 16:09] VITALS: BP 126/106; PULSE 80; RESP 22; TEMP 37.2; O2SAT 95
--- OUTSIDE RECORDS SUMMARY | 2024-05-05 16:11 | XMS_ITS | Clinical Summary ---
Author Organization [facility] Address [address] [place] [address] Care Team Providers Care Line Fisher Name Role Phone Jose Bryan Primary Care Provider [phone] Ciaran Mcallister MD Unavailable [phone] Allergies Active Allergy Reactions Criticality Noted Date [...] for esophageal spasm versus mild early presbyesophagus. Idre-ro-lybtbynr spontaneous gastroesophageal reflux. Small sliding-type hiatal hernia. [...] Type Department Care Team Description 04/11/2024 Telephone [facility] [address] [address] Jaqueline Jorgensen RN 04/04/2024 Orders Only [facility] Surgery [address] [facility] [address] [place] [id number] Raghav Pugh NP Esophageal diverticulum (Primary Dx) 04/03/2024 8:30 AM SALES ADMINISTRATION MANAGER Office Visit [facility] Surgery [address] [place] [address] David Miller MD Esophageal diverticulum 03/30/2024 8:00 AM SALES ADMINISTRATION MANAGER - 03/30/2024 11:59 PM SALES ADMINISTRATION MANAGER Hospital Encounter [facility] [address] [place] [address] Rad, Amh Fluoro Esophageal diverticulum Discharge Disposition: Discharge to home or self care 03/27/2024 Orders Only [facility] Surgery [facility] [address] [place] [id number] Yumiko Donaldson NP Esophageal diverticulum (Primary Dx) from Last 3 Months Immunizations Name Administration [...] drink = 0.6 oz pur e alcohol) [facility] Utilities Answer Date Recorded In the past 12 months has e electric, gas, oil, or water company [...] often do you attend chur ch or baptism services? Never 01/18/2024 Do you belong to any clubs o r organizations such as buddhism groups, unions, fraternal or athletic groups, or [...] any time in the past 12 m [facility], were you homeless or living in a longterm (including now)? No 01/18/2024 Personal Safety Answer Date Recorded Have you ever been in or are you currently in a harmful physical or emotional relationship or is someone making you feel afraid or unsafe? Denies 01/18/2024 Comments No Sex and Gender Information Value Date Recorded Sex Assigned at Not on file Legal Sex Female 9:45 AM SALES ADMINISTRATION MANAGER Gender Identity Not on file Sexual Orientation Not on file Occupation Industry Job Start Date Job End Date disability Not on file Not on file Not on file Obstetrics History Last Filed Vital Signs Vital Sign Reading Time Taken Comments Blood Pressure 151/85 04/03/2024 8:40 AM SALES ADMINISTRATION MANAGER Pulse 84 04/03/2024 8:40 AM SALES ADMINISTRATION MANAGER Temperature 36.4 C (97.6 F) 04/03/2024 8:40 AM SALES ADMINISTRATION MANAGER Respiratory Rate 16 04/03/2024 8:40 AM SALES ADMINISTRATION MANAGER Oxygen Saturation 96% 04/03/2024 8:40 AM SALES ADMINISTRATION MANAGER Inhaled Oxygen Concentration - - Weight 87.2 kg (192 lb 3.2 oz) 04/03/2024 8:40 A M SALES ADMINISTRATION MANAGER Height 163.1 cm (5' 4.21 ) 04/03/2024 8:40 AM CS T Body Mass Index 32.77 04/03/2024 8:40 AM SALES ADMINISTRATION MANAGER Plan of Treatment Health Maintenance Due Date [...] Read Routine (OP Routine) 03/30/2024 8:30 AM SALES ADMINISTRATION MANAGER Esophageal diverticulum HEPATITIS PANEL, ACUTE Routine 01/20/2024 12:16 PM CDT from Last 3 Months or Most Recently Relevant to Health Maintenance Results * FL Esophagram, Double Contrast (03/30/2024 8:30 AM SALES ADMINISTRATION MANAGER) Anatomical Region Laterality Modality Body N/A Radio Fluoroscop y 03/30/2024 10:1 2 AM SALES ADMINISTRATION MANAGER Narrative 03/30/2024 10:26 AM SALES ADMINISTRATION MANAGER EXAM DESCRIPTION: FL ESOPHAGRAM BARIUM SWALLOW TO STOMACH, DOUBLE CONTRAST REASON FOR STUDY: Esophageal diverticulum Esophageal diverticulum Egd 1 month at [facility] Perforation?1.4 min ft 276.5 mgy RADIATION DOSE: Dose: 5157.33 uGym2 Dose Area Product (DAP) TECHNIQUE: Under fluoroscopic guidance, patient ingested effervescent granules followed by thick and thin barium. COMPARISON: None FINDINGS: ESOPHAGEAL MOTILITY: There are scattered tertiary contractions noted, which [...] is small sliding-type hiatal hernia. There is kahw-mz-kckzbudd spontaneous gastroesophageal reflux observed during the study. NON-GI TRACT STRUCTURES: No significant [...] esophageal spasm versus mild early presbyesophagus. 4. Scni-sl-epomvdzi spontaneous gastroesophageal reflux. 5. Small sliding-type hiatal hernia. THIS IS AN ELECTRONICALLY VERIFIED FINAL REPORT 03/30/2024 10:26 AM - Electronically signed by Zunilda De Los Santos D.O. PS: PS Report ID: [id number] Reading Location: [id number] Procedure Note Zunilda De Los Santos, DO - 03/30/2024 EXAM DESCRIPTION: FL ESOPHAGRAM BARIUM SWALLOW TO STOMACH, DOUBLECONTRAST REASON FOR STUDY: Esophageal diverticulum Esophageal diverticulum Egd 1 month at [facility] Perforation?1.4min ft 276.5 mgy RADIATION [...] is small sliding-type hiatal hernia. There is ptbd-ds-dlzaatfl spontaneous gastroesophageal reflux observedduring the study. NON-GI [...] foresophageal spasm versus mild early presbyesophagus. 4. Bjpc-wk-owldrdht spontaneous gastroesophageal reflux. 5. Small sliding-type hiatal hernia. THIS IS AN ELECTRONICALLY VERIFIED FINAL REPORT 03/30/2024 10:26 AM - Electronically signed by Zunilda De Los Santos D.O. PS: WADE Report ID: [id number] Reading Location: [id number] us Yumiko Donaldson CORPORATE COMMUNICATIONS MANAGER IMG FLUOROSCOPY PROCEDURES Sabra l Result * Hepatitis panel, acute Blood (01/20/2024 12:16 PM CDT) Hep A IgM Nonreactive Nonreactive Comment: Interpretive Data: If Hep A IgM Ab is reported as Equivocal, a new sample should be drawn in two weeks for testing. Current interpretive data was last revised on 19. Hep B core IgM Nonreactive [facility]reactive [facility] Comment: Interpretive Data If HepB Core IgM Ab is reported as Equivocal, a new sample should be drawn in two weeks for testing. Current interpretive data was last revised on 19. Hep C Ab Nonreactive Nonreactive [facility] Comment: Interpretive Data Nonreactive: Antibodies to HCV not detected. Does NOT exclude the possibility of recent exposure to HCV. Equivocal: Equivocal for HCV antibodies. Supplemental molecular testing will be automatically performed to determine infection status in accordance with current CDC screening recommendations. Reactive: Positive for HCV antibodies. This may represent current or past HCV infection. Supplemental molecular testing will be automatically performed to determine current infection status in accordance with current CDC screening recommendations. Interpretive data was last revised on 2019. HepBsAg Nonreactive Nonreactive [facility] Blood 01/20/2024 12:1 6 PM CDT 01/20/2024 12:23 PM CDT Joanna [facility] MICROBIOLOGY - GENERA L ORDERABLES Final Result [facility] [id number] [address] Department [place] [address] from Last 3 Months or Most Recently Relevant to Health Maintenance Insurance MEDICARE [employer] MEDICARE IDPA MEDICARE [facility] Address: [address] [address] [place] [address] IDPA Advance Directives For more information, please contact: [phone] * Full Code (Latest Code Status on File) Date Activated Date Inactivated Comments 01/18/2024 1:42 PM 01/21/2024 5:17 PM Care Teams Line Fisher Relationship Specialty Start Date End Date Jose Bryan PA [address] [place] [address] PCP - General Family Practice 10/13/18 Ciaran Mcallister MD [address] [place] [address] General Surgery 04/03/24
--- OUTSIDE RECORDS SUMMARY | 2024-05-05 16:11 | XMS_ITS | Clinical Summary ---
Author Organization [facility] Address [address] [place] [address] Care Team Providers Care Automotive Vehicle Inspector Name Role Phone Jose Bryan Primary Care Provider [phone] Allergies Active Allergy Reactions Criticality Noted Date [...] drink = 0.6 oz pur e alcohol) [facility] Utilities Answer Date Recorded In the past 12 months has e [employer], gas, oil, or water [employer] threatened to shut off services in your [...] any time in the past 12 m [facility], were you homeless or living in a residential (including now)? No 07/30/2023 Comments No Sex and Gender Information Value Date Recorded Sex Assigned at Not on file Legal Sex Female 4:49 PM CDT Gender Identity Not on file Sexual Orientation Not on file Last Filed Vital Signs Vital Sign Reading Time Taken Comments Blood Pressure 128/57 01/18/2024 4:59 AM CDT Pulse 101 01/18/2024 4:59 AM CDT Temperature 36.8 C (98.3 F) 01/18/2024 4:59 AM CDT Respiratory Rate 16 01/18/2024 4:59 AM CDT [...] patient's age to complete this [place] [place] [address] MEDICARE MEDICAID Advance Directives * Full Code (Latest Code Status on File) Date Activated Date Inactivated Comments 07/30/2023 6:07 PM 08/02/2023 3:11 PM Care Teams Automotive Vehicle Inspector Relationship Specialty Start Date End Date Jose Bryan PA [address] [place] [address] PCP - General PHYSICIAN TRAINING PROFESSIONAL 11/22/18
--- OUTSIDE RECORDS SUMMARY | 2024-05-05 16:11 | XMS_ITS | Clinical Summary ---
Author Organization [facility] Address [address] [place] [address] Phone Care Team Providers Care Phonograph Mechanic Name Role Phone Jose Bryan Primary Care Provider [phone] Ron Batista MD Unavailable Jomar Kiran MD Unavailable [phone] Macy Alarcon APRN, CUSTODIAN Unavailable Allergies Active Allergy Reactions Criticality Noted [...] naloxone HCl (Narcan) 4 MG/0.1ML Liquid 1 [place] by Nasal route as needed for Opioid [...] Type Department Care Team Description 04/05/2024 Telephone [facility] - Gastroenterology [facility] [address] [place] [address] Esvin, Ciaran Sher MD Appointment 03/07/2024 3:00 PM MEDICATION RECONCILIATION TECHNICIAN Office Visit [facility] Oncology Services [address] [place] [address] Jomar Kiran MD Rheumatoid arthritis involving both ankles with positive rheumatoid factor (HCC) (Primary Dx) Discharge Disposition: Discharged to home or Selfcare 03/07/2024 Travel 03/02/2024 Telephone [facility] Gastroenterology [facility] [address] [place] [address] Ciaran Mcallister MD Referral 02/28/2024 Results Follow-Up [facility] Gastroenterology - [place] [address] [place] [address] Andreina Castano RN 02/25/2024 8:41 AM MEDICATION RECONCILIATION TECHNICIAN - 02/25/2024 11:59 PM MEDICATION RECONCILIATION TECHNICIAN Hospital Encounter [facility] [address] [place] [address] Jomar Kiran MD Discharge Disposition: Discharged to home or Selfcare 02/25/2024 Telephone [facility] Gastroenterology [facility] [address] [place] [address] Ciaran Mcallister MD 02/24/2024 8:42 AM MEDICATION RECONCILIATION TECHNICIAN Anesthesia Event [facility] Gi Lab Periop [address] [place] [address] Cornelio Zuleta APRN, INTERSTATE BUS DISPATCHER 02/24/2024 8:30 AM MEDICATION RECONCILIATION TECHNICIAN - 02/24/2024 9:00 AM MEDICATION RECONCILIATION TECHNICIAN Surgery [facility] Gi Lab Periop [address] [place] [address] Ciaran Mcallister MD EGD- MID ESOPHAGEAL ZENKER'S AT 30 CM, ANTRAL BIOPSY RULE OUT H. PYLORI 02/24/2024 7:50 AM MEDICATION RECONCILIATION TECHNICIAN Ancillary Procedure [facility] Gi Lab Main [address] [place] [address] Ciaran Mcallister MD 02/24/2024 7:43 AM MEDICATION RECONCILIATION TECHNICIAN - 02/24/2024 10:07 AM MEDICATION RECONCILIATION TECHNICIAN [facility] Preop/Pacu II [address] [place] [address] Ciaran Mcallister MD Discharge Disposition: Discharged to home or Selfcare 02/23/2024 10:30 AM MEDICATION RECONCILIATION TECHNICIAN Office Visit [facility] [address] [place] [address] Macy Alarcon APRN, ANABEL Dysphagia, unspecified type (Primary Dx); Constipation, unspecified constipation type; Gastroesophageal reflux disease, unspecified whether esophagitis present; History of pancreatitis; Elevated liver enzymes; Hepatic steatosis Discharge Disposition: Discharged to home or Selfcare 02/23/2024 Travel 02/15/2024 2:47 PM MEDICATION RECONCILIATION TECHNICIAN - 02/15/2024 11:59 PM MEDICATION RECONCILIATION TECHNICIAN [facility] Ultrasound [address] [place] [address] Jomar Kiran MD Discharge Disposition: Discharged to home or Selfcare 02/15/2024 1:41 PM MEDICATION RECONCILIATION TECHNICIAN - 02/15/2024 2:46 PM MEDICATION RECONCILIATION TECHNICIAN [facility] Mammography [address] [place] [address] Jomar Kiran MD Discharge Disposition: Discharged to [...] Years Used Date Smoking Tobacco: Former Cigarettes 0.2 41.1 S tarted: 1984 Smokeless Tobacco: Never [...] Comments Blood Pressure 143/81 03/07/2024 3:06 PM MEDICATION RECONCILIATION TECHNICIAN Pulse 80 03/07/2024 3:06 PM MEDICATION RECONCILIATION TECHNICIAN Temperature 36.6 C (97.9 F) 03/07/2024 3:06 PM MEDICATION RECONCILIATION TECHNICIAN Respiratory Rate 18 03/07/2024 3:06 PM MEDICATION RECONCILIATION TECHNICIAN Oxygen Saturation 97% 03/07/2024 3:06 PM MEDICATION RECONCILIATION TECHNICIAN Inhaled Oxygen Concentration - - Weight 87.6 kg (193 lb 3.2 oz) 03/07/2024 3:06 P M MEDICATION RECONCILIATION TECHNICIAN Height 160 cm (5' 3 ) 03/07/2024 3:06 PM MEDICATION RECONCILIATION TECHNICIAN Body Mass Index 34.22 03/07/2024 3:06 PM MEDICATION RECONCILIATION TECHNICIAN Plan of Treatment Health Maintenance Due Date [...] PELVIS W CONTRAST Routine 02/25/2024 9:05 AM MEDICATION RECONCILIATION TECHNICIAN Rheumatoid arthritis involving both ankles with positive rheumatoid factor (HCC) Lymphadenopathy POCT CREATININE Routine 02/25/2024 8:56 AM MEDICATION RECONCILIATION TECHNICIAN MANUAL DIFFERENTIAL Routine 02/24/2024 9 :52 AM MEDICATION RECONCILIATION TECHNICIAN Seropositive rheumatoid arthritis of multiple sites (HCC) Need for prophylactic chemotherapy Ankylosing spondylitis of multiple sites in spine (HCC) CBC WITH AUTO DIFFERENTIAL Today 02/24/2024 9:52 AM MEDICATION RECONCILIATION TECHNICIAN Seropositive rheumatoid arthritis of multiple sites (HCC) Need for prophylactic chemotherapy Ankylosing spondylitis of multiple sites in spine (HCC) [id number] DEHYDROGENASE ENZYME ACTIVITY, BLOOD, CADENA G6PD1 Today 02/24/2024 9:52 AM MEDICATION RECONCILIATION TECHNICIAN Seropositive rheumatoid arthritis of multiple sites (HCC) Need for prophylactic chemotherapy Ankylosing spondylitis of multiple sites in spine (HCC) COMPLETE BLOOD COUNT (CBC) WITH DIFF Today 02/24/2024 9:52 AM MEDICATION RECONCILIATION TECHNICIAN Seropositive rheumatoid arthritis of multiple sites (HCC) Need for prophylactic chemotherapy Ankylosing spondylitis of multiple sites in spine (HCC) C-REACTIVE PROTEIN (CRP) QUANT Today 02/24/2024 9:52 AM MEDICATION RECONCILIATION TECHNICIAN Seropositive rheumatoid arthritis of multiple sites (HCC) Need for prophylactic chemotherapy Ankylosing spondylitis of multiple sites in spine (HCC) CMP (COMPREHENSIVE METABOLIC PANEL) Today 02/24/2024 9:52 AM MEDICATION RECONCILIATION TECHNICIAN Seropositive rheumatoid arthritis of multiple sites (HCC) Need for prophylactic chemotherapy Ankylosing spondylitis of multiple sites in spine (HCC) PATHOLOGY SURGICAL Routine 02/24/2024 8: 52 AM MEDICATION RECONCILIATION TECHNICIAN EGD 02/24/2024 8:46 AM MEDICATION RECONCILIATION TECHNICIAN EGD- MID ESOPHAGEAL ZENKER'S AT 30 CM, ANTRAL BIOPSY RULE OUT H. PYLORI Special Needs Dx dysphagia 02/22 LM GI LAB IMAGING - EGD Routine 02/24/2024 7:46 AM MEDICATION RECONCILIATION TECHNICIAN [facility] US BREAST LIMITED GARFIELD Routine 02/15/2024 3:16 PM MEDICATION RECONCILIATION TECHNICIAN Abnormal mammogram [facility] DIAG BILATERAL DIGITAL W CAD W SANDRA Routine 02/15/2024 2:53 PM MEDICATION RECONCILIATION TECHNICIAN Abnormal mammogram from Last 3 Months Results * CT CHEST ABDOMEN AND PELVIS W CONTRAST (02/25/2024 9:05 AM MEDICATION RECONCILIATION TECHNICIAN) Anatomical Region Laterality Modality Chest, Abdomen, Pelvis N/A Computed Tomography 02/28/2024 9:09 AM MEDICATION RECONCILIATION TECHNICIAN Impressions 02/28/2024 9:11 AM MEDICATION RECONCILIATION TECHNICIAN IMPRESSION: Interval decrease in size of lymph [...] findings as above. Narrative 02/28/2024 9:11 AM MEDICATION RECONCILIATION TECHNICIAN EXAM DESCRIPTION: CT CHEST ABDOMEN AND PELVIS [...] Jo Flannery M.D. TW: PABLO Report ID: [id number] Reading Location: [id number] Procedure Note Jo Flannery MD - 02/28/2024 [...] Jo Flannery M.D. TW: PABLO Report ID: [id number] Reading Location: [id number] IMPRESSION: Interval decrease in size of lymph [...] and hepatic steatosis. Additional findings as above. Jomar Kiran MD IMG CT ORDERABLES Final Result * POCT Creatinine (02/25/2024 8:56 AM MEDICATION RECONCILIATION TECHNICIAN) CREATININE - POCT 0.7 0.6 - 1.3 mg/dL 02/25/2024 8:57 AM MEDICATION RECONCILIATION TECHNICIAN [facility] Blood 02/25/2024 8:56 AM MEDICATION RECONCILIATION TECHNICIAN 02/25/2024 8:57 AM MEDICATION RECONCILIATION TECHNICIAN us None Provider POINT OF CARE TESTING Final Resu lt Performing Organization Address City/[facility] [address]/ZIP Co de Phone Number [facility] [address] [place] [address] * [id number] DEHYDROGENASE ENZYME ACTIVITY, BLOOD, [place] G6PD1 (02/24/2024 9:52 AM MEDICATION RECONCILIATION TECHNICIAN) G6PD1 ENZYME ACTIVITY, B 11.8 8.0 - 11.9 U/g Hb 02/25/2024 12:22 PM MEDICATION RECONCILIATION TECHNICIAN [facility] Comment: The G6PD activity level is expected [...] developed and its performance characteristics determined by [facility] in a manner consistent with CLIA requirements. This test has not been cleared or approved by the U.S. Food and Drug Administration. Test Performed by: [facility] [address] Mud Analysis Operator: Jodi Patricio Ph.D.; CLIA# [id number] Blood Venipuncture / Unknown 02/24/2024 9:52 AM MEDICATION RECONCILIATION TECHNICIAN 02/24/2024 10:20 AM MEDICATION RECONCILIATION TECHNICIAN us Mila Hassan APRN, CUSTODIAN LAB SEND OUTS Sabra l Result [facility] * (ABNORMAL) MANUAL DIFFERENTIAL (02/24/2024 9:52 AM MEDICATION RECONCILIATION TECHNICIAN) NEUTROPHILS % 27.0(L) 47.0 - 73.0 % 02/24/2024 11:03 AM [facility] LYMPHOCYTES % 63.0(H) 18.0 - 42.0 % 02/24/2024 11:03 AM [facility] MONOCYTES % 8.0 4.0 - 12.0 % 02/24/2024 11:03 AM [facility] EOSINOPHILS % 1.0 0.0 - 5.0 % 02/24/2024 11:03 AM [facility] BASOPHILS % 1.0 0.0 - 1.0 % 02/24/2024 11:03 AM [facility] NEUTROPHILS ABSOLUTE 3.12 1.60 - 7.70 10(3)/[facility] 02/24/2024 11:03 AM [facility] LYMPHOCYTES ABSOLUTE 7.28(H) 1.30 - 3.20 10(3)/[facility] 02/24/2024 11:03 AM [facility] MONOCYTES ABSOLUTE 0.92 0.20 - 1.00 10(3)/[facility] 02/24/2024 11:03 AM [facility] EOSINOPHILS ABSOLUTE 0.12 0.00 - 0.40 10(3)/[facility] 02/24/2024 11:03 AM [facility] BASOPHILS ABSOLUTE 0.12(H) 0.00 - 0.10 10(3)/[facility] 02/24/2024 11:03 AM [facility] RBC MORPHOLOGY CONSISTENT WITH INDICES Yes 02/24/2024 11:03 AM [facility] REACTIVE LYMPHOCYTES 6 02/24/2024 11:03 AM [facility] WBC MORPH STATUS Normal 02/24/20 11:03 AM [facility] PLATELET STATUS Normal 11:03 AM [facility] Blood Venipuncture / Unknown 02/24/2024 9:52 AM MEDICATION RECONCILIATION TECHNICIAN 02/24/2024 10:20 AM MEDICATION RECONCILIATION TECHNICIAN us Mila Hassan CAN WASHER, CUSTODIAN HEMATOLOGY ORDERABLE S Final Result [facility] [address] [place] [address] * CBC WITH AUTO DIFFERENTIAL (02/24/2024 9:52 AM MEDICATION RECONCILIATION TECHNICIAN) WBC 11.56 4.00 - 12.00 10(3)/mcL 02/24/2024 11:03 AM [facility] RBC 4.63 3.80 - 5.30 10(6)/mcL 02/24/2024 11:03 AM [facility] HEMOGLOBIN (HGB) 13.6 12.0 - 15.8 g/dL 02/24/2024 11:03 AM [facility] HEMATOCRIT (HCT) 42.8 36.0 - 47.0 % 02/24/2024 11:03 AM [facility] MCV 92.4 82.0 - 96.0 fL 02/24/2024 11:03 AM [facility] MCH 29.4 26.0 - 34.0 pg 02/24/2024 11:03 AM [facility] MCHC 31.8 31.0 - 36.0 g/dL 02/24/2024 11:03 AM [facility] PLATELET COUNT 340 140 - 440 10(3)/[facility] 02/24/2024 11:03 AM [facility] RDW 14.7 11.8 - 15.5 % 02/24/2024 11:03 AM [facility] MPV 11.0 9.7 - 12.4 fL 02/24/2024 11:03 AM [facility] NRBC PER 100 WBC 0 02/24/2024 11:03 AM [facility] RESULTS ARE CONSISTENT WITH PERIPHERAL SMEAR REVIEW Yes 02/24/2024 11:03 AM [facility] Blood Venipuncture / Unknown 02/24/2024 9:52 AM MEDICATION RECONCILIATION TECHNICIAN 02/24/2024 10:20 AM MEDICATION RECONCILIATION TECHNICIAN us Mila Hassan CAN WASHER, CUSTODIAN HEMATOLOGY ORDERABLE S Final Result [facility] [address] [place] [address] * (ABNORMAL) CMP (COMPREHENSIVE METABOLIC PANEL) (02/24/2024 9:52 AM MEDICATION RECONCILIATION TECHNICIAN) SODIUM 140 136 - 145 mmol/L 02/24/2024 10:47 AM MEDICATION RECONCILIATION TECHNICIAN [facility] POTASSIUM 4.3 3.5 - 5.1 mmol/L 02/24/2024 10:47 AM [facility] CHLORIDE 104 98 - 107 mmol/L 02/24/2024 10:47 AM [facility] CO2, VENOUS 26 22 - 30 mmol/L 02/24/2024 10:47 AM [facility] ANION GAP 14.3 <18.0 mmol/L 02/24/2024 10:47 AM [facility] GLUCOSE 119(H) 70 - 99 mg/dL 02/24/2024 10:47 AM [facility] BUN 16 10 - 20 mg/dL 02/24/2024 10:47 AM [facility] CREATININE, BLOOD 0.68 0.60 - 1.00 mg/dL 02/24/2024 10:47 AM [facility] BUN/CREATININE RATIO 24(H) 12 - 20 ratio 02/24/2024 10:47 AM [facility] TOTAL PROTEIN 7.2 6.3 - 8.2 g/dL 02/24/2024 10:47 AM [facility] ALBUMIN 4.4 3.5 - 5.0 g/dL 02/24/2024 10:47 AM [facility] A/G RATIO 1.6 1.0 - 2.2 02/24/2024 10:47 AM [facility] CALCIUM 9.5 8.7 - 10.5 mg/dL 02/24/2024 10:47 AM [facility] T BILI 0.6 0.2 - 1.2 mg/dL 02/24/2024 10:47 AM [facility] SGOT (AST) 49(H) 5 - 34 U/L 02/24/2024 10:47 AM [facility] SGPT (ALT) 97(H) 0 - 55 U/L 02/24/2024 10:47 AM [facility] ALKALINE PHOSPHATASE 91 40 - 150 U/L 02/24/2024 10:47 AM [facility] IS THE PATIENT REQUIRED TO BE FASTING? No 02/24/2024 10:47 AM [facility] GFR, ESTIMATED >60 >=60 02/24/2024 10:47 AM [facility] Comment: Creatinine Clearance is the preferred criteria for selecting drug dose adjustments in renally impaired patients. The GFR is provided as additional pertinent clinical information. GFR is reported in mL/min/1.73 sq m. Calculation based on the Chronic Kidney Disease Epidemiology Collaboration (CKD- EPI) equation refit without adjustment for race. GFR, EST. >60 >=60 024 10:47 AM [facility] GFR, EST. NONAFRICAN >60 >=60 02/24/2024 10:47 AM [facility] Blood Venipuncture / Unknown 02/24/2024 9:52 AM MEDICATION RECONCILIATION TECHNICIAN 02/24/2024 10:19 AM MEDICATION RECONCILIATION TECHNICIAN Mila Hassan CAN WASHER, CUSTODIAN CHEMISTRY ORDERABLES Final Result [facility] [address] [place] [address] * C-REACTIVE PROTEIN (CRP) QUANT (02/24/2024 9:52 AM MEDICATION RECONCILIATION TECHNICIAN) C-REACTIVE PROTEIN 0.42 <0.50 mg/dL 02/24/2024 10:47 AM [facility] Blood Venipuncture / Unknown 02/24/2024 9:52 AM MEDICATION RECONCILIATION TECHNICIAN 02/24/2024 10:19 AM MEDICATION RECONCILIATION TECHNICIAN us Mila Hassan APRN, CNP CHEMISTRY ORDERABLES Final Result Performing Organization Address City/[facility] [address]/[facility] Co de Phone Number [facility] [address] [place] [address] * Pathology Surgical (02/24/2024 8:52 AM MEDICATION RECONCILIATION TECHNICIAN) Case Report Surgical Pathology Report Case: [id number] Authorizing Provider: Ciaran Mcallister MD Collected: 02/24/2024 08:52 AM Ordering Location: [facility] Received: 02/24/2024 10:39 AM [facility] Gi Lab Main Pathologist: Pedro Harris MD PhD Specimen: Stomach, ANTRAL BIOPSY RULE OUT H. PYLORI 02/25/2024 12:54 PM MEDICATION RECONCILIATION TECHNICIAN [facility] FINAL DIAGNOSIS Gastric antrum, biopsy: - Gastric mucosa with mild chronic inflammation - Negative for acute inflammation or H. pylori by IHC stain 02/25/2024 12:54 PM MEDICATION RECONCILIATION TECHNICIAN [facility] Pre-Operative Diagnosis DYSPHAGIA 02/25/2024 12:54 PM MEDICATION RECONCILIATION TECHNICIAN [facility] Gross Description A. ANTRAL BIOPSY RULE [...] 12 hours, 54 minutes. 02/25/2024 12:54 PM MEDICATION RECONCILIATION TECHNICIAN [facility] Tissue STOMACH STRUCTURE / Unknown 02/24/2024 8:52 AM MEDICATION RECONCILIATION TECHNICIAN 02/24/2024 10:39 AM MEDICATION RECONCILIATION TECHNICIAN us Ciaran Mcallister MD PATHOLOGY/CYTOLOGY ORDERA BLES Final Result Performing Organization Address City/[facility] [address]/[facility] Co de Phone Number [facility] [address] [place] [address] * GI LAB IMAGING - EGD (02/24/2024 7:46 AM MEDICATION RECONCILIATION TECHNICIAN) us Ciaran Mcallister MD IMG DIAGNOSTIC ORDERABLES Final Result * [facility] US BREAST LIMITED GARFIELD (02/15/2024 3:16 PM MEDICATION RECONCILIATION TECHNICIAN) Anatomical Region Laterality Modality breast Bilateral Ultrasound 02/15/2024 2:24 PM MEDICATION RECONCILIATION TECHNICIAN Narrative 02/15/2024 4:13 PM MEDICATION RECONCILIATION TECHNICIAN - [facility] DIAG BILATERAL DIGITAL W CAD [...] made to exams dated: 07/26/2023 and 07/26/2023 [facility]. BREAST TISSUE:There are scattered areas of fibroglandular [...] signed by: Lindsey Dick M.D. ab/:02/15/2024 15:20:23 Hosiery Repairer(s): RT Judy(R)(M), [facility]; Coty Clayton, [facility] letter sent: Birad 3 Followup Reading location: [facility] OVERALL STUDY BIRADS: Category 3: Probably Benign [...] made to exams dated: 07/26/2023 and 07/26/2023 [facility]. BREAST TISSUE:There are scattered areas of fibroglandular [...] signed by: Lindsey Dick M.D. ab/:02/15/2024 15:20:23 Hosiery Repairer(s): Brandi Taylor, RT(R)(M), [facility]; Coty [place], [facility] letter sent: Birad 3 Followup Reading location: [facility] OVERALL STUDY BIRADS: Category 3: Probably Benign us Jomar Linda Kiran MD IMG MAMMO ORDERABLES Fin al Result * [facility] DIAG BILATERAL DIGITAL W CAD W SANDRA (02/15/2024 2:53 PM MEDICATION RECONCILIATION TECHNICIAN) Anatomical Region Laterality Modality breast Bilateral Mammography 02/15/2024 2:24 PM MEDICATION RECONCILIATION TECHNICIAN Narrative 02/15/2024 4:13 PM MEDICATION RECONCILIATION TECHNICIAN - [facility] DIAG BILATERAL DIGITAL W CAD [...] made to exams dated: 07/26/2023 and 07/26/2023 [facility]. BREAST TISSUE:There are scattered areas of fibroglandular [...] signed by: Lindsey Dick M.D. ab/:02/15/2024 15:20:23 Hosiery Repairer(s): RT Judy(R)(M), [facility]; Coty Clayton, [facility] letter sent: Birad 3 Followup Reading location: [facility] STUDY BIRADS: Category 3: Probably Benign Procedure [...] made to exams dated: 07/26/2023 and 07/26/2023 [facility]. BREAST TISSUE:There are scattered areas of fibroglandular [...] signed by: Lindsey Dick M.D. ab/:02/15/2024 15:20:23 Hosiery Repairer(s): RT Judy(R)(M), [facility]; Coty Clayton, [facility] letter sent: Birad 3 Followup Reading location: [facility] OVERALL STUDY BIRADS: Category 3: Probably Benign Jomar Kiran MD IMG MAMMO ORDERABLES Fin al Result from Last [address] [place] [address] MEDICAID [place] Care Teams Phonograph Mechanic Relationship Specialty Start Date End Date Jose Bryan PAC [address] [place] [id number] PCP - General Physician All Terrain Vehicle Racer 09/27/19 Ron Batista MD [address] [address] Consulting Physician Urology 08/19/23 Jomar Kiran MD [address] [id number] Consulting Physician Medical Oncology 07/20/23 Macy Alarcon APRN, CUSTODIAN [address] [place] [address] Nurse Practitioner Advanced Practice Nurse 02/23/24
--- OUTSIDE RECORDS SUMMARY | 2024-05-05 16:11 | XMS_ITS | Encounter Summary ---
Author Organization [facility] Address [address] [place] [address] Care Team Providers Care Saturation Equipment Operator Name Role Phone Jose Bryan Primary Care Provider [phone] Encounter Details Date Type Department Care Team (Late st Contact Info) Description 08/27/2018 Abstract [facility] CONVERSION [address] [place] [address] , Generic Conversion, Social History Tobacco Use [...] on filedocumented in this encounter Care Teams Saturation Equipment Operator Relationship Specialty Start Date End Date Jose Bryan PA [address] [place] [address] PCP - General PHYSICIAN [employer] 11/22/18 documented as of this encounter
--- OUTSIDE RECORDS SUMMARY | 2024-05-05 16:11 | XMS_ITS | Clinical Summary ---
Author Organization [facility] Address [address] [place] [address] Care Team Providers Care [place] Representative Name Role Phone Unavailable Primary Care Provider Unavailabl e Source Comments [facility],non-owned Affiliates and Associated Physician Practices is amultiple site organization consisting of ambulatory clinics and hospital sitesin [place], [place], [place] and [place]. This disclosure is being madepursuant to the Care Everywhere program and may not contain all information available regarding this patient. Last updated 17.[facility] Extreme DA Active Problems Problem Noted Date Diagnosed Date [...] LIPID TESTING 1969 MAMMOGRAM 1969 MEDICARE AWV 12 MONTHS 1969 PAP SMEAR 1969 HIV SCREENING 1984 HEPATITIS C SCREENING 06/12/1987 DTAP/TDAP/TD VACCINES (1 - Tdap) 1988 HEPATITIS B VACCINE (1 of 3 - 19+ 3-dose series) 1988 PNEUMOCOCCAL VACCINE 50+ (1 of 1 - PCV) 06/17/2019 ZOSTER VACCINE (1 of 2) 06/17/2019 COVID-19 VACCINE (1 - 2023-2 5 season) 2023 INFLUENZA VACCINE [...]
--- OUTSIDE RECORDS SUMMARY | 2024-05-05 16:11 | XMS_ITS | Patient Health Summary ---
Author Organization [facility] Address [address] [place] [address] Care Team Providers Care Poultry Raiser Name Role Phone Unavailable Primary Care Provider Unavailabl e Note from [facility],non-owned Affiliates and Associated Physician Practices is amultiple site organization consisting of ambulatory clinics and hospital sitesin [place], [place], [place] and [place]. This disclosure is being madepursuant to the Care Everywhere program and may not contain all information available regarding this patient. Last updated 17.[facility] Active Problems Problem Noted Date Diagnosed Date Syncope, unspecified syncope type 07/30/2023 Social History Tobacco Use Types Packs/Day Years Used Date Smoking Tobacco: Never Assessed Sex and Gender Information Value Date Recorded Sex Assigned at Not on file Gender Identity Not on file Sexual Orientation Not on file
--- OUTSIDE RECORDS SUMMARY | 2024-05-05 16:11 | XMS_ITS | Referral Summary ---
Author Organization [facility] al Address [address] [place] [address] Care Team Providers Care Foreign Student Adviser Name Role Phone Jose Bryan Primary Care Provider [phone] Ciaran Mcallister MD Unavailable [phone] Encounters Date Type Department Care Team Description 04/11/2024 Telephone [facility] [address] [address] Jaqueline Jorgensen RN 04/04/2024 Orders Only [facility] [address] [place] [phone] Raghav Pugh NP Esophageal diverticulum (Primary Dx) 04/03/2024 8:30 AM [employer] Office Visit [facility] [address] [place] [phone] David Miller MD Esophageal diverticulum 03/30/2024 8:00 AM [employer]OUT WORK[employer] - 03/30/2024 11:59 PM [employer] WORKER Hospital Encounter [facility] [address] [place] [address] Dilan, Jensen Fluoro Esophageal diverticulum Discharge Disposition: Discharge to home or self care 03/27/2024 Orders Only [facility] [address] [place] [address] [address] [place] [phone] Yumiko Donaldson NP Esophageal diverticulum (Primary Dx) from Last 3 Months Allergies Active Allergy [...] as needed for pain 12 tablet 01/21/20 Active Additional Information Patient not taking.Reported on 04/03/2024 GEETA Noonan, Pen 40 mg/0.4 mL pen injector kit Inject 0.4 mL (40 mg total) under the skin every 14 (fourteen) days 01/19/20 Active traMADoL (ULTRAM) 50 mg tablet Take [...] for esophageal spasm versus mild early presbyesophagus. Gwte-sw-gyrwxjrq spontaneous gastroesophageal reflux. Small sliding-type hiatal hernia. [...] drink = 0.6 oz pur e alcohol) [facility] Utilities Answer Date Recorded In the past 12 months has [employer], gas, oil, or water [employer] threatened to shut off services in your [...] often do you attend chur ch or yazidism services? Never 01/18/2024 Do you belong to any clubs o r organizations such as pentecostal groups, unions, fraternal or athletic groups, or [...] in the past 12 m [facility], were you homeless or living in a detention (including now)? No 01/18/2024 Personal Safety Answer Date Recorded Have you ever been in or are you currently in a harmful physical or emotional relationship or is someone making you feel afraid or unsafe? 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[employer] Gender Identity Not on file Sexual Orientation Not on file Occupation Industry Job Start Date Job End Date disability Not on file Not on file Not on file Last Filed Vital Signs Vital Sign Reading Time Taken Comments Blood Pressure 151/85 04/03/2024 8:40 AM [employer] WORK[employer] Pulse 84 04/03/2024 8:40 AM [employer] WORKER Temperature 36.4 C (97.6 F) 04/03/2024 8:40 AM [employer] WORKER Respiratory Rate 16 04/03/2024 8:40 AM [employer]OUT WORKER Oxygen Saturation 96% 04/03/2024 8:40 AM [employer]OUT WORKER Inhaled Oxygen Concentration - - Weight 87.2 kg (192 lb 3.2 oz) 04/03/2024 8:40 A M [employer] Height 163.1 cm (5' 4.21 ) 04/03/2024 8:40 AM CS T Body Mass Index 32.77 04/03/2024 8:40 AM [employer] WORKER Plan of Treatment Not on file Procedures Procedure Name Priority Date/Time Associated Diagnosis Comments FL ESOPHAGRAM, DOUBLE CONTRAST Schedule Routine, Read Routine (OP Routine) 03/30/2024 8:30 AM [employer] WORKER Esophageal diverticulum HEPATITIS PANEL, ACUTE Routine 01/20/2024 12:16 PM CDT from Last 3 Months or Most Recently Relevant to Health Maintenance Results * FL Esophagram, Double Contrast (03/30/2024 8:30 AM [employer]OUT WORKER) Anatomical Region Laterality Modality Body N/A Radio Fluoroscop y 03/30/2024 10:1 2 AM [employer]OUT WORKER Narrative 03/30/2024 10:26 AM [employer]AYOUT WORKER EXAM DESCRIPTION: FL ESOPHAGRAM BARIUM SWALLOW TO STOMACH, DOUBLE CONTRAST REASON FOR STUDY: Esophageal diverticulum Esophageal diverticulum Egd 1 month at [facility] Perforation?1.4 min ft 276.5 mgy RADIATION DOSE: [...] is small sliding-type hiatal hernia. There is cjvf-ll-hfbylcuj spontaneous gastroesophageal reflux observed during the study. [...] esophageal spasm versus mild early presbyesophagus. 4. Tcda-oz-kxkidcls spontaneous gastroesophageal reflux. 5. Small sliding-type hiatal hernia. THIS IS AN ELECTRONICALLY VERIFIED FINAL REPORT 03/30/2024 10:26 AM - Electronically signed by Zunilda De Los Santos D.O. PS: PS Report ID: [id number] Reading Location: [place] [address] Procedure Note Zunilda De Los Santos, - 03/30/2024 EXAM DESCRIPTION: FL ESOPHAGRAM BARIUM SWALLOW TO STOMACH, DOUBLECONTRAST REASON FOR STUDY: Esophageal diverticulum Esophageal diverticulum Egd 1 month at [facility] Perforation?1.4min ft 276.5 mgy RADIATION DOSE: Dose: [...] is small sliding-type hiatal hernia. There is lwgb-ng-vkybjmzn spontaneous gastroesophageal reflux observedduring the study. NON-GI [...] foresophageal spasm versus mild early presbyesophagus. 4. Vjzs-ty-hlhnpzdn spontaneous gastroesophageal reflux. 5. Small sliding-type hiatal hernia. THIS IS AN ELECTRONICALLY VERIFIED FINAL REPORT 03/30/2024 10:26 AM - Electronically signed by Zunilda De Los Santos D.O. PS: PS Report ID: [id number] Reading Location: [place] [address] us Yumiko Donaldson NP IMG FLUOROSCOPY PROCEDURES [place] [facility] Result * Hepatitis panel, acute Blood (01/20/2024 12:16 PM CDT) Hep A IgM Nonreactive Nonreactive Comment: Interpretive Data: If Hep A IgM Ab is reported as Equivocal, a new sample should be drawn in two weeks for testing. Current interpretive data was last revised on 19. Hep B core IgM Nonreactive Nonreactive [facility] Comment: Interpretive Data If HepB Core IgM Ab is reported as Equivocal, a new sample should be drawn in two weeks for testing. Current interpretive data was last revised on 19. Hep C Ab Nonreactive Nonreactive [facility] Comment: Interpretive Data Nonreactive: Antibodies to HCV [...] last revised on 2019. HepBsAg Nonreactive Nonreactive [facility] Blood 01/20/2024 12:1 6 PM CDT 01/20/2024 12:23 PM CDT Joanna [facility] MICROBIOLOGY - GENERA L ORDERABLES Final Result [facility] [id number] [address]z Department [place] [address] from Last 3 Months or Most Recently Relevant to Health Maintenance [place] [address] MEDICARE IDPA MEDICARE [facility] Advance Directives For more information, please contact: [phone] * Full Code (Latest Code Status on File) Date Activated Date Inactivated Comments 01/18/2024 1:42 PM 01/21/2024 5:17 PM Care Teams Foreign Student Adviser Relationship Specialty Start Date End Date Jose Bryan PA [address] [place] [address] PCP - General Family Practice 10/13/18 Ciaran Mcallister MD [address] [place] [address] General Surgery 04/03/24
--- OUTSIDE RECORDS SUMMARY | 2024-05-05 16:11 | XMS_ITS | Data Portability ---
Author Organization [facility] Address [address] [place] [address] Care Team Providers Care Agricultural Engineering Technician Name Role Phone LATYOA BRYAN Primary Care Provider Assessment No assessment recorded. Plan of Treatment Reminders Order Date Submit Date Provider Last Modified By Organization Details Last Modified Time Details Appointments ANY 15 2024 10:00A M Latoya Bryan PA-C Not available Not available Not available Lab rsv (resp irato ry syncy tial virus ), rapid , nasop haryn geal 2024 025 GRACE In-Office Order, Internal Use Only DO Not Attach Compendium DO Not Attach Compendium, Do Not Delete/merge, [id number] 04/26/2024 13:10:41 drug scree n, urine 2023 024 GRACE In-Office Order, Internal Use Only DO Not Attach Compendium DO Not Attach Compendium, Do Not Delete/merge, [id number] 02/16/2024 11:22:48 Referral gastr filiberto cervantes ist refer [facility] 2023 024 [facility] [place], [address] [place] [address], [address], [place], [address], 02/23/2024 12:34:44 urolo gist refer [facility] 2023 024 GRACE Correa MD, [address] [place] [address] Dov Ziegler A [address], [place], [address], 09/07/2023 10:00:39 Procedures None recor ded. Surgeries None recor ded. Imaging None recor ded. Medication Orders linnea bowden in 500 mg table t 2024 025 GRACE [facility], [address] [place] [address], [id number], 04/26/2024 14:41:17 benzo natat e 200 mg capsu le 2023 025 GRACE [facility], [address] [place] [address], [address], 04/26/2024 11:31:41 diaze joselo 2 mg table t 2023 024 GRACE [facility], [address] [place] [address], [address], 02/16/2024 12:28:39 buspi christen 15 mg table t 2023 024 GRACE [facility], [address] [place] [address], [address], 02/16/2024 12:28:36 buspi christen 10 mg table t 2023 025 GRACE [facility], [address] [place] [address], [id number], 04/26/2024 11:31:43 clind amyci n HCl 300 mg capsu le 2023 024 [facility], [facility] [place], [id number], 02/02/2024 10:05:23 trazo done 100 mg table t 2023 024 [facility], [facility] [place], [id number], 02/02/2024 10:05:16 amitr iptyl ine 25 mg table t 2023 024 GRACE [id number], [address], [place], [id number], 02/02/2024 10:05:04 fluox etine 40 mg capsu le 2023 024 GRACE [id number], [address], [place], [id number], 07/26/2023 15:10:56 Patient TargetsNo targets recorded. Patient Instructions Encounter Date Encounter Id Patient Instructions Last Modified By Organization Details Last Modified Time 07/26/2023 [id number] anxiety disorder : care instructions jnanney Not available 07/26/2023 15:10:35 Stress Incontinence: Care Instructions jnanney Not available 07/26/2023 15:10:35 08/24/2023 [id number] abscessed tooth: care instructions jnanney Not available 08/24/2023 10:40:01 A healthy lifestyle: care instructions jnanney Not available 08/24/2023 10:42:23 Stress Incontinence: Care Instructions jnanney Not available 08/24/2023 10:42:23 02/02/2024 [id number] A healthy lifestyle: care instructions jnanney Not available 02/02/2024 10:26:33 pancreatitis: care instructions jnanney Not available 02/02/2024 10:24:38 Rheumatoid Arthritis (RA): Care Instructions jnanney Not available 02/02/2024 10:24:38 02/16/2024 [id number] A healthy lifestyle: care instructions jnanney Not available 02/16/2024 11:11:25 04/26/2024 [id number] A healthy lifestyle: care instructions jnanney Not available 04/26/2024 11:48:00 shortness of breath: care instructions jnanney Not available 04/26/2024 11:27:44 Reason for Referral Urologist Referral for Urina ry incontinence Referring Physician: [facility], Encounter Date: 08/24/2023 Law Enforcement Officer 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 pancreatitis Referring Physician: [facility], Encounter Date: 02/02/2024 Results Created Date Observation [...] 07/13/2023 urina lysis , dipst ick Specific [place] 1.015 Not Available In-Off ice Order Internal [...] Attach Compendium, Do Not Delete/merge, 07/13/2023 11:19:32 02/16/20 24 02/16/2024 drug scree [...] DO Not Attach Compendium, Do Not Delete/merge, [id number] 02/16/2024 11:16:11 02/16/20 24 02/16/2024 drug scree n, urine Methadone (Mtd) Negati ve Not Available In-Office Order Internal Use Only DO Not Attach Compendium DO Not Attach Compendium, Do Not Delete/merge, [id number] 02/16/2024 11:16:11 02/16/20 24 02/16/2024 drug scree n, urine Buprenorphin e (Bup) Negati ve Not Available In-Office Order Internal Use Only DO Not Attach Compendium DO Not Attach Compendium, Do Not Delete/merge, [id number] 02/16/2024 11:16:11 02/16/20 24 02/16/2024 drug scree n, urine Oxycodone (Oxy) Negati ve Not Available In-Office Order Internal Use Only DO Not Attach Compendium DO Not Attach Compendium, Do Not Delete/merge, [id number] 02/16/2024 11:16:11 02/16/20 24 02/16/2024 drug scree n, urine Barbiturates (Bar) Negati ve Not Available In-Office Order Internal Use Only DO Not Attach Compendium DO Not Attach Compendium, Do Not Delete/merge, [id number] 02/16/2024 11:16:11 02/16/20 24 02/16/2024 drug scree n, urine MDMA (Ecstacy) Negati ve Not Available In-Office Order Internal Use Only DO Not Attach Compendium DO Not Attach Compendium, Do Not Delete/merge, [id number] 02/16/2024 11:16:11 02/16/20 24 02/16/2024 drug scree n, urine Amphetamines (Amp) Negati ve Not Available In-Office Order Internal Use Only DO Not Attach Compendium DO Not Attach Compendium, Do Not Delete/merge, [id number] 02/16/2024 11:16:11 02/16/20 24 02/16/2024 drug scree n, urine Opiates (opi) Negati ve Not Available In-Office Order Internal Use Only DO Not Attach Compendium DO Not Attach Compendium, Do Not Delete/merge, [id number] 02/16/2024 11:16:11 02/16/20 24 02/16/2024 drug scree n, urine Phencyclidin e (Pcp) Negati ve Not Available In-Office Order Internal Use Only DO Not Attach Compendium DO Not Attach Compendium, Do Not Delete/merge, [id number] 02/16/2024 11:16:11 02/16/20 24 02/16/2024 drug scree n, urine Tricyclic Antidepressa nts Invali d Not Available In-Office Order Internal Use Only DO Not Attach Compendium DO Not Attach Compendium, Do Not Delete/merge, [id number] 02/16/2024 11:16:11 02/16/20 24 02/16/2024 drug scree n, urine Fentanyl Negati ve Not Available In-Office Order Internal Use Only DO Not Attach Compendium DO Not Attach Compendium, Do Not Delete/merge, [id number] 02/16/2024 11:16:11 04/26/19 25 04/26/2024 rsv (resp irato ry syncy tial virus ), rapid , nasop haryn geal RSV negati ve Not Available In-Office Order Internal Use Only DO Not Attach Compendium DO Not Attach Compendium, Do Not Delete/merge, [id number] 04/26/2024 11:26:45 07/13/19 24 07/10/2023 CT, angio gram, chest + abdom en + pelvi s, w/ contr ast No observ ation record ed. [email or web address] Not Available 2023 11:55:42 04/20/19 25 04/20/2024 XR, chest [facility] observ [facility] [address] [place], [address], 04/20/2024 11:45:04 Result Notes None recorded. Problems Name Problem SNOMED Code Status Onset Date Resolution Date Notes Provider Name and Address Organization Details Recorded Time Pneumonia 237781766 Active Not Available [facility] 2 07:33:31 Essential hypertension 14490432 Active Not Available [facility] 2 07:33:31 Hyperglycemia 73733798 Active Not Available [facility] 2 07:33:31 Mixed hyperlipidemi a 945295804 Active Not Available [facility] 2 07:33:31 Chronic depression 247285728 Active Not Available [facility] 2 07:33:31 Strain of trapezius muscle 744672782 Active Not Available [facility] 2 07:33:31 Chronic cough 11923683 Active Not Available [facility] 2 07:33:31 Problem Notes None recorded. Procedures Surgical History Date Name Laterality Status Provider Name and Address Organization Details Recorded Time 03/22/19 15 Date of Last Mammogram completed Lakeshia Ramirez MA [facility] 05/13/2020 15:46:28 03/22/19 15 Total hysterectomy completed Lakeshia Ramirez MA [facility] 05/13/2020 15:50:46 Tonsillectomy completed Lakeshia Ramirez MA [facility] 02/18/2021 18:36:00 Imaging Results Imaging Date Name Status LastModified by Organiz ation Details LastModified Time 07/10/2023 CT, angiogram, chest + abdomen + pelvis, w/ contrast completed [facility] Information not available 07/13/2023 11:55:42 04/20/2024 XR, chest completed [facility] [address] [place], [address], 04/20/2024 11:45:04 Procedure Notes None recorded. Medical Equipment None [...] oral route as needed for 30 days. 04/26 completed Not Available Not Available Not Available hydrocodo ne 5 mg-acetam inophen 325 mg [...] oxycodone -acetamin ophen 5 mg-325 mg tablet TAKE 1 TABLET BY MOUTH EVERY 6 HOURS NEEDED FOR PAIN 04/26 completed Not Available Not Available Not Available [...] TAKE 8 TABLETS BY MOUTH ONCE WEEKLY 04/26 completed Not Available Not Available Not Available tamsulosi n 0.4 mg capsule TAKE [...] day by oral route for 30 days. 04/26 completed Not Available Not Available Not Available prednison e 50 mg tablet 05/13 [...] by oral route 2 times per day 04/26 completed Not Available Not Available Not Available folic acid 1 mg tablet take [...] e 50 mcg/actua tion nasal spray,maranda pension [place] 1 spray every day by intranas al [...] BY MOUTH THREE TIMES A DAY NEEDED active Not Available Not Available No t Available oxycodone 5 mg tablet TAKE 1 TABLET BY MOUTH EVERY 4 HOURS NEEDED FOR SEVERE PAIN. 12/11 completed Not Available Not Available Not Available azithromy mark 500 mg tablet Take 1 tablet every day by oral route for 3 days. 2024 active Not Available Not Available Not Avai lable nitrofura ntoin monohydra te/macroc rystals 100 mg [...] Not Available Vitals Date Recorded Body height Body mass index (BMI) Body weight Oxygen saturation Oxygen saturation in Arterial blood by Pulse oximetry Heart rate Systolic blood pressure Diastolic blood pressure Provider Name and Address Organization Details Last Updated DateTime 4 162.56 cm 33.1 kg/m2 88984.3 3 g 97 % 97 % 89 /min 128 mm[Hg] 82 mm[Hg] Thania Leyva MA [facility] 4 14:52:19 Date Recorded Body height Body mass index (BMI) Body weight Heart rate Oxygen saturation Oxygen saturation in Arterial blood by Pulse oximetry Systolic blood pressure Diastolic blood pressure Provider Name and Address Organization Details Last Updated DateTime 4 162.56 cm 33.5 kg/m2 94370.2 1 g 94 /min 99 % 99 % 110 mm[Hg] 60 mm[Hg] Thania Leyva MA [facility] 4 10:26:01 Date Recorded Body height Body mass index (BMI) Body weight Oxygen saturation Oxygen saturation in Arterial blood by Pulse oximetry Heart rate Systolic blood pressure Diastolic blood pressure Provider Name and Address Organization Details Last Updated DateTime 4 162.56 cm 33.4 kg/m2 14289.7 2 g 98 % 98 % 83 /min 152 mm[Hg] 93 mm[Hg] Thania Leyva MA [facility] 4 10:07:38 Date Recorded Body height Body mass index (BMI) Body weight Oxygen saturation Oxygen saturation in Arterial blood by Pulse oximetry Heart rate Systolic blood pressure Diastolic blood pressure Provider Name and Address Organization Details Last Updated DateTime 4 162.56 cm 32.2 kg/m2 58399.5 7 g 96 % 96 % 90 /min 148 mm[Hg] 90 mm[Hg] Annalise John Ernestina Camposw [facility] 4 10:38:13 Date Recorded Body height Body mass index (BMI) Body weight Oxygen saturation Oxygen saturation in Arterial blood by Pulse oximetry Heart rate Systolic blood pressure Diastolic blood pressure Provider Name and Address Organization Details Last Updated DateTime 5 162.56 cm 34.8 kg/m2 13659.2 5 g 97 % 97 % 73 /min 140 mm[Hg] 96 mm[Hg] Lakeshia Ramirez MA [facility] 11:26:31 Social History Question Answer Notes LastModified by Organizat ion Details LastModified Time Tobacco Smoking Status Former Smoker Thania Leyva MA [place], [place] - [facility] 07/13/2023 10:54:09 What Is Your Level Of [...] Date Of Your Most Recent Tobacco Screening? 04/26/2024 Information not available 04/26/2024 What Is Your Relationship Status? Single Information [...] Anxious, Or Unable To Sleep At Night)? [id number] Information not available 12/11/2021 Do You Use Any Illicit Or Recreational Drugs? Yes Dominik Gonzales Information not available 12/11/2021 Has Tobacco Cessation Counseling Been Provided? Yes [email or web address] Information not available 10/10/2018 On What Date Was Tobacco Cessation Counseling Provided? 04/26/2024 Information not available 04/26/2024 Do You Or Have You Ever Used Any Other Forms Of Tobacco Or Nicotine? No Information not available 05/13/2020 Sex: Female Functional Status Question Answer Note LastModified by Organization D etails LastModified Time Are you able to care for yourself? Yes Information n ot available 05/13/2020 Mental Status None recorded. Family History Nothing Reported. Medical History Condition Response Coronary Artery Disease N Other N Atrial Fibrillation N High Blood Pressure N Thyroid Problems N Kidney or Bladder Problems N Depression N COPD N Blood Clots N GI Problems N Skin Problems N Eating Disorder N Anemia N Heart Attack ([place]) N Diabetes N Anxiety Disorder N Muscle, Joint, or Bone Problems N Seizures/Epilepsy N Acid Reflux (GERD) N Cancer N Stroke N Allergies N Asthma N ADHD N Substance Abuse N High Cholesterol N Hepatitis N Liver Disease N Schizophrenia N Headaches N Osteoporosis N Heart Failure N Gynecological History Statement/Question Response Date of Last Pap Smear Date of Last Mammogram 03/22/2014 Date of LMP Obstetrics History GPAL:G 0 P 0 0 0 0 Immunizations Vaccine Type Date Status Note Provider Nam e and Address Organization Details Recorded Time Tdap 4 completed Not Available [facility] 07/15/2022 12:15:59 Influenza, split virus, quadrivalent, preservative 12/08/201 6 completed Not Available [facility] 04/08/2019 02:48:36 Pneumococcal conjugate PCV20, polysaccharide GNC263 conjugate, adjuvant, PF 4 completed Thania Leyva MA [facility], [facility] 02/16/2024 11:23:37 Past Encounters Encounter ID Performer Location Encounter Start Date Encounter Closed Date Diagnosis/Indication Diagnosis SNOMED-CT Code Diagnosis ICD10 Code Diagnosis Note [id number] Latoya Bryan PA-C [facility] [address] [place] [address] 11/20/2015 11:53:46 11/20/2015 12:28:50 Pneumonia 461346595 J18.9 [id number] Latoya Bryan PA-C [facility] [address] [place] [address] 11/27/2015 11:33:52 11/27/2015 12:47:12 Essential hypertension 93940818 I10 Hyperglycemia 72021979 R 73.9 Mixed hyperlipidemia 267 030985 E78.2 Chronic depression 56670 0009 F34.1 [id number] Latoya Bryan PA-C [facility] [address] [place] [address] 12/09/2015 16:54:44 12/09/2015 17:38:48 Chronic depression 687610567 F34.1 Essential hypertension 70607897 I10 Strain of trapezius muscle 595747005 S46.812A Chronic cough 91541512 R 05 [id number] Latoya Bryan PA-C [facility] [address] [place] [address] 02/04/2016 11:23:43 02/04/2016 14:12:13 Community acquired pneumonia 506058794 J18.9 Lumbar radiculopathy 128 468574 M54.16 [id number] Latoya Bryan PA-C [facility] [address] [place] [address] 02/14/2016 10:54:36 02/14/2016 13:50:39 Upper respiratory infection 75257796 J06.9 Insomnia 905967806 G47.0 0 [id number] Latoya Bryan PA-C [facility] [address] [place] [address] 02/20/2016 10:26:16 02/20/2016 12:58:58 Community acquired pneumonia 643199130 J18.9 [id number] Latoya Bryan PA-C [facility] [address] [place] [address] 02/27/2016 10:35:04 02/27/2016 11:48:44 Administration of influenza vaccine 91615267 Z23 Pneumonitis 260329386 J1 8.9 [id number] aLtoya Bryan PA-C [facility] [address] [place] [address] 03/13/2016 11:26:44 03/13/2016 12:22:10 Acute bronchitis 81607018 J20.0 Generalize d anxiety disorder 41729488 F41.1 Chronic depression 83255 8 F34.1 [id number] Latoya Bryan PA-C [facility] [address] [place] [address] 08/13/2016 09:56:33 08/13/2016 11:27:51 Lumbosacral radiculopathy 5809517 M54.16 [id number] Latoya Bryan PA-C [facility] [address] [place] [address] 10/19/2016 17:31:02 10/19/2016 19:04:45 Lumbar radiculopathy 205635100 M54.16 Cervical radiculopathy 03403689 M54.12 [id number] Hortencia Macias MA [facility] [address] [place] [address] 10/10/2018 10:19:53 10/10/2018 11:28:45 Strain of trapezius muscle 005655456 S46.812A Essential hypertension 67179221 I10 Chronic depression 8 F34.1 Cervical radiculopathy 35752512 M54.12 [id number] Latoya Bryan PA-C [facility] [address] [place] [address] 10/18/2018 14:17:59 10/18/2018 16:10:47 Lumbar radiculopathy 823121542 M54.16 Chronic depression 8 F34.1 [id number] [facility] [address] [place] [address] 07/10/2019 12:00:32 07/12/2019 12:51:19 Lumbar radiculopathy 636016402 M54.16 Primary insomnia 4100263 F51.01 [id number] Latoya Bryan PA-C [facility] [address] [place] [address] 02/14/2020 09:38:35 02/14/2020 15:32:57 Primary insomnia 8206773 F51.01 Cervical radiculopathy 87588497 M54.12 [id number] Lakeshia Ramirez MA [facility] [address] [place] [address] 04/16/2020 11:04:06 04/16/2020 16:37:29 Long-term drug therapy 332072463 Z79.651 [id number] Latoya Bryan PA-C [facility] [address] [place] [address] 05/13/2020 12:06:35 05/17/2020 07:45:59 Cervical radiculopathy 55988371 M54.12 Lumbar radiculopathy 128 021907 M54.16 Essential hypertension 53894630 I10 [id number] [facility] [address] [place] [address] 07/23/2020 09:29:19 07/23/2020 17:59:45 Furuncle of neck 59091602 L02.12 [id number] Latoya Bryan PA-C [facility] [address] [place] [address] 08/01/2020 18:22:39 08/03/2020 11:58:36 Pain of right shoulder joint 1970736116 0318465 M25.511 Essential hypertension 20545873 I10 [id number] [facility] [address] [place] [address] 02/18/2021 18:29:17 02/18/2021 19:47:55 Long-term drug therapy 441726936 Z79.899 Chronic low back pain 27 4848502 M54.51 Cervical radiculopathy 00823306 M54.12 Essential hypertension 17867596 I10 Lumbar radiculopathy 128 352525 M54.16 Degenerati on of cervical intervertebral disc 08849646 M50.30 Tobacco de pendence syndrome 42981801 F17.728 [id number] Latoya Bryan PA-C [facility] [address] [place] [address] 05/06/2021 09:44:01 05/06/2021 17:20:55 Painless rectal bleeding 032503135 K62.5 History of colitis 95568 9006 Z87.19 Cervical radiculopathy 49769631 M54.12 [id number] Latoya Bryan PA-C [facility] [address] [place] [address] 05/09/2021 10:27:47 05/09/2021 11:41:32 Essential hypertension 25849184 I10 Mixed hyperlipidemia 267 293427 E78.2 Chronic id iopathic constipation 92862902 K59.04 [id number] Latoya Bryan PA-C [facility] [address] [place] [address] 05/27/2021 18:07:20 05/27/2021 19:05:58 Irritable bowel syndrome characterized by constipation 400115491 K58.1 Chronic depression 69704 000 F34.1 Lumbar radiculopathy 128 732173 M54.16 Body mass index 25-29 - overweight 245025119 Z68.29 [id number] Latoya Bryan PA-C [facility] [address] [place] [address] 06/24/2021 10:52:42 06/24/2021 11:58:07 Pelvic lymphadenopathy 596413840 R59.0 Lumbar radiculopathy 128 805980 M54.16 [id number] Latoya Bryan PA-C [facility] [address] [place] [address] 12/11/2021 16:27:58 12/11/2021 17:10:40 Overweight 633438383 E66.3 Chronic depression 28981 0009 F34.1 Screening mammography 24 280188 Z12.31 Cervical radiculopathy 43587629 M54.12 [id number] Latoya Bryan PA-C [facility] [address] [place] [address] 04/20/2022 16:50:55 04/22/2022 12:34:03 Cervical radiculopathy 40192147 M54.12 Overweight 525611452 E66 .3 [id number] Latoya Bryan PA-C [facility] [address] [place] [address] 07/13/2022 15:34:14 07/16/2022 14:55:27 Cervical radiculopathy 58009998 M54.12 Overweight 816219160 E66 .3 [id number] Latoya Bryan PA-C [facility] [address] [place] [address] 10/22/2022 10:59:19 10/23/2022 12:30:17 Long-term drug therapy 780275548 Z79.899 Essential hypertension 83836899 I10 Cervical radiculopathy 30262797 M54.12 Overweight 554587121 E66 .3 [id number] Latoya Bryan PA-C [facility] [address] [place] [address] 11/20/2022 10:34:32 11/24/2022 10:30:47 Abdominal bloating 773842025 R14.0 Retroperit glez lymphadenopathy 143265438 R59.0 Cervical radiculopathy 00306887 M54.12 Overweight 934057872 E66 .3 [id number] Latoya Bryan PA-C [facility] [address] [place] [address] 03/10/2023 15:18:52 03/12/2023 14:43:10 Chronic depression 194074109 F34.1 Essential hypertension 39945532 I10 Mixed anxi ety and depressive disorder 677263790 F41.8 Overweight 490244377 E66 .3 [id number] Latoya Bryan PA-C [facility] [address] [place] [address] 03/12/2023 16:13:34 03/16/2023 12:20:44 Cervical radiculopathy 38203246 M54.12 [id number] Latoya Bryan PA-C [facility] [address] [place] [address] 07/13/2023 10:34:20 07/22/2023 10:31:34 Generalized enlarged lymph nodes 341542625 R59.1 Acute urin ankit tract infection 254611362 N10 Female str ess incontinence 28779161 N39.3 Mixed anxi ety and depressive disorder 925483184 F41.8 [id number] Latoya Bryan PA-C [facility] [address] [place] [address] 07/26/2023 14:44:30 07/28/2023 13:12:36 Axillary lymphadenopathy 486593070 R59.0 Urinary incontinence 165 398127 N39.41 Generalize d anxiety disorder 37831901 F41.1 Primary fi bromyalgia syndrome 93498357 M79.7 [id number] Latoya Bryan PA-C [facility] [address] [place] [address] 08/24/2023 10:16:48 08/25/2023 14:21:35 Dental abscess 605760689 K04.7 Urinary incontinence 165 899925 N39.41 Overweight 169863476 E66 .3 Mixed anxi ety and depressive disorder 702271333 F41.8 [id number] Latoya Bryan PA-C [facility] [address] [place] [address] 02/02/2024 09:49:26 02/11/2024 08:38:12 Acute pancreatitis 754534745 K85.80 Rheumatoid arthritis 698 91916 M05.09 Mixed anxi ety and depressive disorder 879323221 F41.8 Overweight 769466230 E66 .3 [id number] Thania Leyva MA [facility] [address] [place] [address] 02/16/2024 10:22:48 02/22/2024 13:56:48 Seropositive rheumatoid arthritis 589455787 M05.711 Mixed anxi ety and depressive disorder 067585405 F41.8 Overweight 727234224 E66 .3 Persistent cough 5635361 02 R05.3 Administra tion of pneumococcal vaccine 22013378 Z23 Long-term drug therapy 985437886 Z79.186 [id number] Latoya Bryan PA-C [facility] [address] [facility] [place] [address] 04/26/2024 10:45:41 04/28/2024 11:39:20 Dyspnea 022995715 R06.00 Acute bron chitis with bronchospasm 49247479 J20.8 Overweight 451524261 E66 .3 Health Concerns Section Related Observation LastModified by Organization Detai ls LastModified Time None Recorded Concern Status LastModified by Organization Details LastModified Time None Recorded Advance Directives Directive None Recorded Payers Encounter Date Sequence Insurance Name Policy Number Policy Mack Covered Member ID Mack Member ID Guarantor Name 07/26/2023 1 [place] Thuy A Cooper [id number] Thuy A Cooper 07/26/2023 2 [place] OR MEDICARE REPLACEMENT PRIMARY) Thuy A Cooper [id number] Thuy A Cooper 08/24/2023 1 [place] Thuy A Cooper [id number] Thuy A Cooper 08/24/2023 2 [place] REPLACEMENT [place]IMARY) Thuy A Cooper [id number] Thuy A Cooper 02/02/2024 1 [place] Thuy A Cooper [id number] Thuy A Cooper 02/02/2024 2 [place] WHEN MEDICARE OR MEDICARE REPLACEMENT PRIMARY) Thuy A Cooper [id number] Thuy A Cooper 02/16/2024 1 [place]) Thuy A Cooper [id number] Thuy A Cooper 02/16/2024 2 [place] WHEN MEDICARE OR MEDICARE REPLACEMENT PRIMARY) Thuy A Cooper [id number] Thuy A Cooper 04/26/2024 1 [place] Thuy A Cooper [id number] Thuy A Cooper 04/26/2024 2 [place] WHEN MEDICARE OR MEDICARE REPLACEMENT PRIMARY) Thuy A Cooper [id number] Thuy A Cooper Notes Date Note Type Note Provider Name and Address Organization Details Recorded Time 07/26/2023 text/html had panels by dr Sosa wilder has not had follow up yet...anxiety is up...quit cymbalta ...fibromyalgia... effexor no good...currently on prozac...describes incontinence...has urology on ... Latoya Bryan PA-C Attn: Accounting, [address] [facility], [place], [address], [facility] 07/26/2023 15:14:47 08/24/2023 text/html rt side of jaw i s swollen thinks it an abscess...urinary incontinence is a problem...has a uro..also lymph nodes are still painful...will be seeing rheum soon vs this and lymphadenopathy..r eports anxiety as well Latoya Bryan PA-C Attn: Accounting, [address] [place], [address], [facility] 08/24/2023 10:42:58 02/02/2024 text/html anxiety is bad..panic attacks uses the brown bag method...also needs referral for GI vs pancreatitis caused by azothioprine given by rheum... Latoya Bryan PA-C Attn: Accounting, [address] [place], [address], [facility] 02/02/2024 10:27:20 02/16/2024 text/html buspirone is not working for her...diazepam has worked for her and she is having issues with her rheum treatment and her anxiety is problematic Thania Leyva MA [facility], [facility] 02/16/2024 11:16:58 04/26/2024 text/html went to ER for lungs and sob and also back...feels like pneumonia now.. Latoya Bryan PA-C Attn: Accounting, [address] [facility], [place], [address], [facility] 04/26/2024 11:51:17 OBGyn Episode No OBEpisode recorded.
--- OUTSIDE RECORDS SUMMARY | 2024-05-05 16:11 | XMS_ITS | Continuity of Care Document ---
Author Organization [facility] Address [address] [place] [address] Phone Care Team Providers Care Brick Kiln Worker Name Role Phone Slim Grier MD Unavailable [...] Diagnoses Date Provider Providers Copied on Encounter [facility] [place], [address], [place], [address], tel:[phone] [facility] [place] No Information 4 Marvel Soler [address], [place], [place], [address] , [place]. tel:[phone] Referring Provider: Mateo Desai [address], [place], [place], [address]. tel:[phone] OFFICE/OUTPA TIENT VISIT, [facility], [address], [place], [place], [address], [place] tel:[phone] [facility] [place] HTN (chief complaint) HLP (chief complaint) COPD (chief complaint) Dietary surveillance and counselingHypertens ion, UnspecifiedHypothyr oidismOther and unspecified hyperlipidemiaCOPD 4 Marvel Soler [address], [place], [place], [address] , [place]. tel:[phone] Referring Provider: Mateo Desai [address], [place], [place], [address]. tel:[phone] OFFICE/OUTPA TIENT VISIT, [facility], [address], [place], [place], [address], [place] tel:[phone] [facility] [place] COPD (chief complaint) anxiety (chief complaint) HLP (chief complaint) Dietary surveillance and counselingLEUKOCYTO SIS NOSCOPDOther and unspecified hyperlipidemiaHypot hyroidism 4 Marvel Galindo [address], [place], [place], [address] , [place]. tel:[phone] Referring Provider: Mateo Desai [address], [place], [place], [address]. tel:[phone] OFFICE/OUTPA TIENT VISIT, [facility], [address], [place], [place], [address], [place] tel:[phone] [facility] [place] anxiety (chief complaint) back pain (chief complaint) COPD (chief complaint) Dietary surveillance and counselingOther and unspecified hyperlipidemiaCOPDL umbago 4 Grier Slim. [address], [place], [place], [address] , [place]. tel:[phone] Referring Provider: Mateo Desai [address], [place], [place], [address]. tel:[phone] OFFICE/OUTPA TIENT VISIT, [facility], [address], [place], [place], [address], [place] tel:[phone] [facility] [place] HLP (chief complaint) metabolic (chief complaint) leukocytos is (chief complaint) hypothyroi dism (chief complaint) anxiety (chief complaint) bronchitis (chief complaint) Dietary surveillance and counselingOther and unspecified hyperlipidemiaMetab olic SyndromeLEUKOCYTOSI S NOSHypothyroidism Apr-2 4 4 Marvel Smalls. [address], [place], [place], [address] , [place]. tel:[phone] Referring Provider: Mateo Desai [address], [place], [place], [address]. tel:[phone] OFFICE/OUTPA TIENT VISIT, [facility], [address], [place], [place], [address], [place] tel:[phone] [facility] [place] HTN (chief complaint) anxiety (chief complaint) back pain (chief complaint) cough (chief complaint) Dietary surveillance and counselingHypertens ion, UnspecifiedLumbagoB ronchitis, Acute Apr-0 3201 4 Marvel Smalls. [address], [place], [place], [address] , [place]. tel:[phone] Referring Provider: Mateo Desai [address], [place], [place], [address]. tel:[phone] OFFICE/OUTPA TIENT VISIT, [facility], [address], [place], [place], [address], [place] tel:[phone] [facility] [place] Dietary surveillance and counselingLumbagoHy pertension, UnspecifiedHypergly cemia Mar-0 6201 4 Marvel Smalls. [address], [place], [place], [address] , . tel:[phone] Family History Family Member Type Diagnosis Age [...] ordered Referral Ordered: Otolaryngology ordered Referral Ordered: CHEST X-RAY PA/LAT TWO-VIEWS ordered Referral Ordered: Referral: Pulmonary Diseases. ordered Referral Ordered: Referral: Otolaryngology. ordered Referral Ordered: Pain Management (related to Lumbago) ordered Referral Ordered: MAMMOGRAM, SCREENING ordered Referral Ordered: Referral: Pain Management. Evaluate and treat. ordered History Of Present Illness Encounter Date [...]
--- OUTSIDE RECORDS SUMMARY | 2024-05-05 16:11 | XMS_ITS | Clinical Summary ---
Author Organization [facility]ices Address [address] [place] [address] Care Team Providers Care Physical Medicine Specialist Name Role Phone Unavailable Primary Care Provider [...] Insurance MEDICARE PART A AND B MEDICAID [place]
--- OUTSIDE RECORDS SUMMARY | 2024-05-05 16:11 | XMS_ITS | Referral Summary ---
Author Organization [facility] Address [address] [place] [address] Care Team Providers Care Policy Loan Calculator Name Role Phone Unavailable Primary Care Provider Unavailabl e Source Comments [facility],non-owned Affiliates and Associated Physician Practices is amultiple site organization consisting of ambulatory clinics and hospital sitesin [place], [place], [place] and [place]. This disclosure is being madepursuant to the Care Everywhere program and may not contain all information available regarding this patient. Last updated 17.[facility] Active Problems Problem Noted Date Diagnosed Date Syncope, unspecified syncope type 07/30/2023 Social History Tobacco Use Types Packs/Day Years Used Date Smoking Tobacco: Never Assessed Sex and Gender Information Value Date Recorded Sex Assigned at Not on file Gender Identity Not on file Sexual Orientation Not on file Plan of Treatment Not on file
[2024-05-05 16:39] LABS: Add Urine Microscopic? YES; Appearance Urine Clear (Clear); Bilirubin Urine Negative (Negative); Blood Urine Negative (Negative); Color Urine Light Yellow (Yellow); Glucose Urine UA Negative (Negative); Ketones Urine Negative (Negative); Leukocyte Esterase Ur Negative LEU/UL (Negative); Nitrate Urine Negative (Negative); Protein Urine Trace (Negative); Specific Grav Ur 1.015 (1.010-1.020); Urobilinogen Urine 0.2 mg/dL (0.2-1.0)
[2024-05-05] MEDS: HYDROcodone/acetaminophen (*CRX) 5-325 MG TABLET 1 TAB PO (16:42)
[2024-05-05] MEDS: IBUPROFEN 600 MG TABLET PO (16:43)
--- NOTE | 2024-05-05 16:43 | ED_ITS ---
HPI - Fall General Chief Complaint: Back Pain/Injury Stated Complaint: fell Time Seen by Provider: 05/05/24 16:16 Source: patient History of Present Illness HPI Narrative: 53 years old white female came to the ED by private car from home complaining of lower back pain and left groin pain after falling on kitchen floor, water on the floor. Patient also complaining of burning urination Four weeks, was treated 1 week ago with antibiotics. Patient denies any fever, chills, nausea, vomiting, abdominal pain, chest pain, shortness of breath, vaginal bleeding or discharge. Related Data Home Medications ?Medication ?Instructions ?Recorded ?Confirmed ?Last Taken ?Type acetaminophen 300 mg-codeine 60 mg 1 tablet PO Q6-8H 07/10/22 07/15/22 Unknown History tablet cyclobenzaprine 10 mg tablet 10 mg PO TID 07/10/22 07/15/22 Unknown History fluoxetine 20 mg capsule 20 mg PO DAILY 07/10/22 07/15/22 Unknown History lisinopril 5 mg tablet 5 mg PO DAILY 07/10/22 07/15/22 Unknown History gabapentin 300 mg capsule 300 mg PO QID 07/15/22 07/15/22 Unknown History Allergies Allergy/AdvReac Type Severity Reaction Status Date / Time No Known Drug Allergies Allergy Mild Hives Verified 04/20/24 11:37 Review of Systems Review of Systems: All systems reviewed & are unremarkable except as noted in HPI and below PMFSH Past Medical History Medical History Hypertension Epistaxis Social History Social History Social History: smoker Exam Narrative: General appearance: Well-developed, well-nourished Skin: Normal color Head: Normocephalic, nontraumatic Eyes: Clear conjunctiva ENT: Oropharynx normal, ears normal, nose normal Neck: Supple, nontender Chest and respiratory: Airway patent, no respiratory distress, no accessory muscle use Heart: Regular rate/rhythm Abdomen: Soft, nontender, no organomegaly, quiet bowel sounds Vascular: Normal peripheral pulses, normal capillary refill. Musculoskeletal: Mild diffuse tenderness across lower back mainly on the left side, no bruises, no swelling, no rash, slight limited range of motion because of pain. Slight limited range of motion of the left hip because of pain, no deformity, no swelling, no bruises, no rash Neurologic: Alert and oriented ?3, LIEUTENANT SHIFT SUPERVISOR is normal as tested, no gross motor deficit Course Vital Signs Vital signs: Vital Signs Temperature 37.2 C 05/05/24 16:09 Pulse Rate 80 05/05/24 16:09 Respiratory Rate 22 H 05/05/24 16:09 Blood Pressure 126/106 H 05/05/24 16:09 Pulse Oximetry 95 05/05/24 16:09 Oxygen Delivery Room Air 05/05/24 16:09 Temperature 37.2 C 05/05/24 16:09 Pulse Rate 80 05/05/24 16:09 Respiratory Rate 22 H 05/05/24 16:09 Blood Pressure 126/106 H 05/05/24 16:09 Pulse Oximetry 95 05/05/24 16:09 Oxygen Delivery Room Air 05/05/24 16:09 MDM - Fall MDM Narrative Medical decision making narrative: patient complaining lower back pain and left groin area pain after a fall, ground level fall prior to arrival . Patient also complaining of burning urination 4 weeks Vital signs showing blood pressure 126/106 otherwise within normal limit Physical examination consistent with tenderness left lower back and left hip area otherwise no other sign of trauma. Differential diagnosis include contusion, strain, sprain, less likely fracture. Urinalysis showed no evidence of infection X-ray of the left hip and pelvis showed degenerative joint disease X-ray of the lumbar spine showed degenerative joint disease Medical Records Attestation: I reviewed the patient's medical records. Lab Data Attestation: I reviewed the patient's lab results. Labs: Lab Results 05/05/24 Range/Units 16:24 Urine Color Light yellow (Yellow) Urine Appearance Clear (Clear) Urine pH 6.0 (5.0-8.0) Ur Specific [place] 1.015 (1.010-1.020) Urine Protein Trace H (Negative) Urine Glucose (UA) Negative (Negative) Urine Ketones Negative (Negative) Ur Blood (Man) Negative (Negative) Urine Nitrate Negative (Negative) Urine Bilirubin Negative (Negative) Urine Urobilinogen 0.2 (0.2-1.0) mg/dL Leukocyte Esterase Rfl Negative (Negative) MESHA/UL Urine RBC None seen (0-2) /hpf Urine WBC None seen (0-3) /hpf Ur Squamous Epith Cells Few (Few) /hpf Urine Bacteria Trace (None) /hpf Imaging Data Radiologist's impression: Impressions Hip/Pelvis X-Ray 05/05/24 17:41 IMPRESSION: Degenerative disease without acute fracture or dislocation Lumbar Spine X-Ray 05/05/24 17:43 IMPRESSION: Findings within the posterior spinous process of T12 possibly secondary to positioning. If this corresponds to the area of pain cross-sectional imaging (noncontrast enhanced CT examination of the thoracolumbar spine) is recommended. Otherwise, degenerative disease without acute fracture. Lumbar Spine CT 05/05/24 18:19 Impression: Straightening of the normal lordotic curvature of the lumbar spine, likely muscular in origin. Degenerative disease, most prominent at the level of L3/L4 and L4/L5 without acute fracture. Critical Care Time Critical Care Time Critical Care Time: No Discharge Plan Discharge Clinical Impression: Dysuria, Lower back pain, Degenerative joint disease Patient Disposition: Home, Self-Care Condition: Stable Instructions: Acute Low Back Pain (ED), Dysuria (ED), Lower Back Exercises (ED) Additional Instructions: Return if symptoms are worsening , call your family physician for appointment, take Tylenol as as needed for aches and pain, continue home medications. Patient Language: Estonian Prescriptions: New cyclobenzaprine 10 mg tablet 10 mg PO TID PRN (Reason: muscle spasm) Qty: 20 0RF diclofenac sodium 75 mg tablet,delayed release (DR/EC) 75 mg PO BID PRN (Reason: pain) Qty: 20 0RF No Action cyclobenzaprine 10 mg tablet 10 mg PO TID acetaminophen-codeine 300-60 mg tablet 1 tablet PO Q6-8H lisinopril 5 mg tablet 5 mg PO DAILY fluoxetine 20 mg capsule 20 mg PO DAILY gabapentin 300 mg capsule 300 mg PO QID Eren-Synephrine (phenylephrine) 0.5 % spray,non-aerosol 1 spray intranasal Q6H PRN (Reason: nasal congestion) 3 Days Qty: 15 0RF oxycodone-acetaminophen [Percocet] 5-325 mg tablet 1 tablet PO Q6H PRN (Reason: pain) Qty: 20 0RF cyclobenzaprine 10 mg tablet 10 mg PO TID Qty: 20 0RF Follow-up/Referrals: Ha Oseguera MD [Physician] - 05/08/24 Fabrizio Clayton MD [Physician] - 05/05/24 6:48 pm Randi,NILA Madera [Primary Care Provider] -
[2024-05-05 16:44] LABS: RBC Urine None seen /hpf (0-2)
[2024-05-05 16:45] LABS: Bacteria Urine Trace /hpf; Squamous Epithelial Cell Urine Few /hpf (Few); WBC Urine None seen /hpf (0-3)
--- OUTSIDE RECORDS SUMMARY | 2024-05-05 16:45 | XMS_ITS | Clinical Summary ---
Author Organization [facility] Administrative Offices Address [address] [place] [address] Care Team Providers Care Team Leader/Research Psychologist Name Role Phone Unavailable Primary Care Provider [...] Insurance MEDICARE PART A AND B MEDICAID [place]
--- OUTSIDE RECORDS SUMMARY | 2024-05-05 16:45 | XMS_ITS | Continuity of Care Document ---
Author Organization [facility] Address [address] [place] [address] Phone Care Team Providers Care Nursing Service Administrator Name Role Phone Slim Grier MD Unavailable [...] Diagnoses Date Provider Providers Copied on Encounter [facility], [address], [place], [address], tel:[phone] [facility] No Information 4 Marvel Soler [address], [place], [place], [address] , [place]. tel:[phone] Referring Provider: Mateo Desai [address], [place], [place], [address]. tel:[phone] OFFICE/OUTPA TIENT VISIT, [facility], [address], [place], [place], [address], [place] tel:[phone] [facility] HTN (chief complaint) HLP (chief complaint) COPD (chief complaint) Dietary surveillance and counselingHypertens ion, UnspecifiedHypothyr oidismOther and unspecified hyperlipidemiaCOPD 4 Marvel Soler [address], [place], [place], [address] , [place]. tel:[phone] Referring Provider: Mateo Desai [address], [place], [place], [address]. tel:[phone] OFFICE/OUTPA TIENT VISIT, [facility], [address], [place], [place], [address], [place] tel:[phone] [facility] COPD (chief complaint) anxiety (chief complaint) HLP (chief complaint) Dietary surveillance and counselingLEUKOCYTO SIS NOSCOPDOther and unspecified hyperlipidemiaHypot hyroidism 4 Marvel Galindo [address], [place], [place], [address] , [place]. tel:[phone] Referring Provider: Mateo Desai [address], [place], [place], [address]. tel:[phone] OFFICE/OUTPA TIENT VISIT, [facility], [address], [place], [place], [address], [place] tel:[phone] [facility] anxiety (chief complaint) back pain (chief complaint) COPD (chief complaint) Dietary surveillance and counselingOther and unspecified hyperlipidemiaCOPDL umbago 4 Grier Slim. [address], [place], [place], [address] , [place]. tel:[phone] Referring Provider: Mateo Desai [address], [place], [place], [address]. tel:[phone] OFFICE/OUTPA TIENT VISIT, [facility], [address], [place], [place], [address], [place] tel:[phone] [facility] HLP (chief complaint) metabolic (chief complaint) leukocytos is (chief complaint) hypothyroi dism (chief complaint) anxiety (chief complaint) bronchitis (chief complaint) Dietary surveillance and counselingOther and unspecified hyperlipidemiaMetab olic SyndromeLEUKOCYTOSI S NOSHypothyroidism Apr-2 4 4 Marvel Smalls. [address], [place], [place], [address] , [place]. tel:[phone] Referring Provider: Mateo Desai [address], [place], [place], [address]. tel:[phone] OFFICE/OUTPA TIENT VISIT, [facility], [address], [place], [place], [address], [place] tel:[phone] [facility] HTN (chief complaint) anxiety (chief complaint) back pain (chief complaint) cough (chief complaint) Dietary surveillance and counselingHypertens ion, UnspecifiedLumbagoB ronchitis, Acute Apr-0 3201 4 Marvel Smalls. [address], [place], [place], [address] , [place]. tel:[phone] Referring Provider: Mateo Desai [address], [place], [place], [address]. tel:[phone] OFFICE/OUTPA TIENT VISIT, [facility], [address], [place], [place], [address], [place] tel:[phone] [facility] Dietary surveillance and counselingLumbagoHy pertension, UnspecifiedHypergly cemia Mar-0 6201 4 Marvel Smalls. [address], [place], [place], [address] , . tel:[phone] Family History Family Member Type Diagnosis Age At Onset Father Problem (finding) Coronary artery disease Mother Problem (finding) Hypertension Mother Problem (finding) Diabetes mellitus Mother Problem (finding) Asthma Mother Problem (finding) Anxiety Mother Problem (finding) Depression Father Problem (finding) schizophrenia Father Problem (finding) Anxiety Payers Payer name Insurance type Covered libertarian ID Authoriza tion(s) No Information Social History [...]
--- OUTSIDE RECORDS SUMMARY | 2024-05-05 16:45 | XMS_ITS | Encounter Summary ---
Author Organization [facility] Address [address] [place] [address] Care Team Providers Care Cognos Analyst Name Role Phone Jose Bryan Primary Care Provider Encounter Details Date Type Department Care Team (Late st Contact Info) Description 08/27/2018 Abstract [facility] CONVERSION [address] [place] [address] , Generic Conversion, Social History Tobacco Use [...] on filedocumented in this encounter Care Teams Cognos Analyst Relationship Specialty Start Date End Date Jose Bryan PA [address] [place] [address] PCP - General PHYSICIAN CIVIL DIVISION COMMANDER DEPUTY SHERIFF 11/22/18 documented as of this encounter
--- OUTSIDE RECORDS SUMMARY | 2024-05-05 16:45 | XMS_ITS | Clinical Summary ---
Author Organization [facility] Address [address] [place] [address] Care Team Providers Care Maintenance Service Technician Name Role Phone Unavailable Primary Care Provider Unavailabl e Source Comments [facility],non-owned Affiliates and Associated Physician Practices is amultiple site organization consisting of ambulatory clinics and hospital sitesin [place], [place], [place] and [place]. This disclosure is being madepursuant to the Care Everywhere program and may not contain all information available regarding this patient. Last updated 17.[facility] CodeEval Active Problems Problem Noted Date Diagnosed Date [...]
--- OUTSIDE RECORDS SUMMARY | 2024-05-05 16:45 | XMS_ITS | Clinical Summary ---
Author Organization [facility] Address [address] [place] [address] Care Team Providers Care Plaster And Stucco Worker Name Role Phone Jose Bryan Primary Care Provider [phone] Allergies Active Allergy Reactions Criticality Noted Date [...] drink = 0.6 oz pur e alcohol) [facility] Utilities Answer Date Recorded In the past 12 months has e [employer], gas, oil, or water erento threatened to shut off services in your [...] time in the past 12 m [facility], were you homeless or living in a alf (including now)? No 07/30/2023 Comments No Sex [...] to complete this [place] [address] MEDICARE MEDICAID Advance Directives * Full Code (Latest Code Status on File) Date Activated Date Inactivated Comments 07/30/2023 6:07 PM 08/02/2023 3:11 PM Care Teams Plaster And Stucco Worker Relationship Specialty Start Date End Date Jose Bryan PA [address] [place] [address] PCP - General PHYSICIAN SUPERVISOR PAPER PRODUCTS 11/22/18
--- OUTSIDE RECORDS SUMMARY | 2024-05-05 16:45 | XMS_ITS | Clinical Summary ---
Author Organization [facility] Address [address] [place] [address] Care Team Providers Care Tool And Machine Maintainer Name Role Phone Jose Bryan Primary Care Provider Ciaran Mcallister MD Unavailable [phone] Allergies Active Allergy Reactions Criticality Noted Date [...] for esophageal spasm versus mild early presbyesophagus. Ceps-jg-fnkwecnb spontaneous gastroesophageal reflux. Small sliding-type hiatal hernia. [...] Type Department Care Team Description 04/11/2024 Telephone [facility] [address] [address] Jaqueline Jorgensen RN 04/04/2024 Orders Only [facility] [address] [facility] Floor [address] [place] [id number] Raghav Pugh NP Esophageal diverticulum (Primary Dx) 04/03/2024 8:30 AM ENGRAVER AUTOMATIC Office Visit [facility] [address] [place] [address] David Miller MD Esophageal diverticulum 03/30/2024 8:00 AM ENGRAVER AUTOMATIC - 03/30/2024 11:59 PM ENGRAVER [employer]OM[employer] Hospital Encounter [facility] [address] [place] [address] Rad, Amh Fluoro Esophageal diverticulum Discharge Disposition: Discharge to home or self care 03/27/2024 Orders Only [facility] [address] [place] [phone] Yumiko Donaldson NP Esophageal diverticulum (Primary Dx) [...] drink = 0.6 oz pur e alcohol) [facility] Utilities Answer Date Recorded In the [...] often do you attend chur ch or restorationism services? Never 01/18/2024 Do you belong to any clubs o r organizations such as hoahaoism groups, unions, fraternal or athletic groups, or [...] any time in the past 12 m [facility], were you homeless or living in a fdc (including now)? No 01/18/2024 Personal Safety Answer Date Recorded Have you ever been in or are you currently in a harmful physical or emotional relationship or is someone making you feel afraid or unsafe? Denies 01/18/2024 Comments No Sex and Gender Information Value Date Recorded Sex Assigned at Not on file Legal Sex Female 9:45 AM ENGRAVER AUTOMAT[employer] Gender Identity Not on file Sexual Orientation Not on file Occupation Industry Job Start Date Job End Date disability Not on file Not on file Not on file Obstetrics History Last Filed Vital Signs Vital Sign Reading Time Taken Comments Blood Pressure 151/85 04/03/2024 8:40 AM ENGRAVER AUTOMATIC Pulse 84 04/03/2024 8:40 AM ENGRAVER AUTOMATIC Temperature 36.4 C (97.6 F) 04/03/2024 8:40 AM ENGRAVER AUTOMATIC Respiratory Rate 16 04/03/2024 8:40 AM ENGRAVER AUTOMATIC Oxygen Saturation 96% 04/03/2024 8:40 AM ENGRAVER AUTOMATIC Inhaled Oxygen Concentration - - Weight 87.2 kg (192 lb 3.2 oz) 04/03/2024 8:40 A M ENG[employer]OM[employer] Height 163.1 cm (5' 4.21 ) 04/03/2024 8:40 AM CS T Body Mass Index 32.77 04/03/2024 8:40 AM ENGRAVER AUTOMATIC Plan of Treatment Health Maintenance Due Date [...] Read Routine (OP Routine) 03/30/2024 8:30 AM ENGRAVER AUTOMATIC Esophageal diverticulum HEPATITIS PANEL, ACUTE Routine 01/20/2024 12:16 PM CDT from Last 3 Months or Most Recently Relevant to Health Maintenance Results * FL Esophagram, Double Contrast (03/30/2024 8:30 AM ENGRAVER AUTOMATIC) Anatomical Region Laterality Modality Body N/A Radio Fluoroscop y 03/30/2024 10:1 2 AM ENGRAVER AUTOMATIC Narrative 03/30/2024 10:26 AM ENGRAVER AUTOMATIC EXAM DESCRIPTION: FL ESOPHAGRAM BARIUM SWALLOW TO STOMACH, DOUBLE CONTRAST REASON FOR STUDY: Esophageal diverticulum Esophageal diverticulum Egd 1 month at [facility] Perforation?1.4 min ft 276.5 mgy RADIATION [...] is small sliding-type hiatal hernia. There is ovnn-yn-vceguaxk spontaneous gastroesophageal reflux observed during the study. [...] esophageal spasm versus mild early presbyesophagus. 4. Sbjb-rs-poxpbzwi spontaneous gastroesophageal reflux. 5. Small sliding-type hiatal hernia. THIS IS AN ELECTRONICALLY VERIFIED FINAL REPORT 03/30/2024 10:26 AM - Electronically signed by Zunilda De Los Santos D.O. PS: PS Report ID: [id number] Reading Location: [id number] Procedure Note Zunilda De Los Santos, DO - 03/30/2024 EXAM DESCRIPTION: FL ESOPHAGRAM BARIUM SWALLOW TO STOMACH, DOUBLECONTRAST REASON FOR STUDY: Esophageal diverticulum Esophageal diverticulum Egd 1 month at [facility] Perforation?1.4min ft 276.5 mgy RADIATION DOSE: [...] is small sliding-type hiatal hernia. There is nvtq-yn-aceoouaj spontaneous gastroesophageal reflux observedduring the study. NON-GI [...] foresophageal spasm versus mild early presbyesophagus. 4. Ukim-xw-fyfczgua spontaneous gastroesophageal reflux. 5. Small sliding-type hiatal hernia. THIS IS AN ELECTRONICALLY VERIFIED FINAL REPORT 03/30/2024 10:26 AM - Electronically signed by Zunilda De Los Santos D.O. PS: WADE Report ID: [id number] Reading Location: [id number] us Yumiko Donaldson CONCRETE FORM SETTER AND FINISHER IMG FLUOROSCOPY PROCEDURES [place] Result * Hepatitis panel, acute Blood (01/20/2024 12:16 PM CDT) Hep A IgM Nonreactive Nonreactive Comment: Interpretive Data: If Hep A IgM Ab is reported as Equivocal, a new sample should be drawn in two weeks for testing. Current interpretive data was last revised on 19. Hep B core IgM Nonreactive [facility]reactive [facility] Comment: Interpretive Data If HepB Core IgM Ab is reported as Equivocal, a new sample should be drawn in two weeks for testing. Current interpretive data was last revised on 19. Hep C Ab Nonreactive Nonreactive [facility] Comment: Interpretive Data Nonreactive: Antibodies to HCV [...] last revised on 2019. HepBsAg Nonreactive Nonreactive [facility] Blood 01/20/2024 12:1 6 PM CDT 01/20/2024 12:23 PM CDT [facility]anna [facility] MICROBIOLOGY - GENERA L ORDERABLES Final Result [facility] [id number] [address] Department [place] [address] from Last 3 Months or Most Recently Relevant to Health Maintenance Insurance MEDICARE IDLA MEDICARE IDPA MEDICARE IDPA Advance Directives For more information, please contact: [phone] * Full Code (Latest Code Status on File) Date Activated Date Inactivated Comments 01/18/2024 1:42 PM 01/21/2024 5:17 PM Care Teams Tool And Machine Maintainer Relationship Specialty Start Date End Date Jose Bryan PA [address] [place] [address] PCP - General Family Practice 10/13/18 Ciaran Mcallister MD [address] [place] [address] General Surgery 04/03/24
--- OUTSIDE RECORDS SUMMARY | 2024-05-05 16:45 | XMS_ITS | Clinical Summary ---
Author Organization [facility] Address [address] [place] [address] Phone Care Team Providers Care Clinical Pharmacologist Name Role Phone Jose Bryan Primary Care Provider [phone] Ron Batista MD Unavailable Jomar Kiran MD Unavailable [phone] Macy Alarcon APRN, SALES TEAM RECRUITER Unavailable Allergies Active Allergy Reactions Criticality Noted [...] naloxone HCl (Narcan) 4 MG/0.1ML Liquid 1 [place] by Nasal route as needed for Opioid [...] Type Department Care Team Description 04/05/2024 Telephone [facility] G[facility] [address] [place] [address] Esvin, Ciaran Sher MD Appointment 03/07/2024 3:00 PM DIRECTOR OF SECURITIES AND REAL ESTATE Office Visit [facility] Oncology Services [address] [place] [address] Jomar Kiran MD Rheumatoid arthritis involving both ankles with positive rheumatoid factor (HCC) (Primary Dx) Discharge Disposition: Discharged to home or Selfcare 03/07/2024 Travel 03/02/2024 Telephone [facility] Gastroenterology [facility] [address] [place] [address] Ciaran Mclalister MD Referral 02/28/2024 Results Follow-Up [facility] Gastroenterology - [place] [address] [place] [address] Andreina Castano RN 02/25/2024 8:41 AM DIRECTOR OF SECURITIES AND REAL ESTATE - 02/25/2024 11:59 PM DIRECTOR OF SECURITIES AND REAL ESTATE Hospital Encounter [facility] [address] [place] [address] Jomar Kiran MD Discharge Disposition: Discharged to home or Selfcare 02/25/2024 Telephone [facility] Gastroenterology [facility] [address] [place] [address] Ciaran Mcallister MD 02/24/2024 8:42 AM DIRECTOR OF SECURITIES AND REAL ESTATE Anesthesia Event [facility] Gi Lab Periop [address] [place] [address] Cornelio Zuleta APRN, RECLAMATION KETTLE TENDER 02/24/2024 8:30 AM DIRECTOR OF SECURITIES AND REAL ESTATE - 02/24/2024 9:00 AM DIRECTOR OF SECURITIES AND REAL ESTATE Surgery [facility] Gi Lab Periop [address] [place] [address] Ciaran Mcallister MD EGD- MID ESOPHAGEAL ZENKER'S AT 30 CM, ANTRAL BIOPSY RULE OUT H. PYLORI 02/24/2024 7:50 AM DIRECTOR OF SECURITIES AND REAL ESTATE Ancillary Procedure [facility] Gi Lab Main [address] [place] [address] Ciaran Mcallister MD 02/24/2024 7:43 AM DIRECTOR OF SECURITIES AND REAL ESTATE - 02/24/2024 10:07 AM DIRECTOR OF SECURITIES AND REAL ESTATE Hospital [facility] Lab Preop/Pacu II [address] [place] [address] Ciaran Mcallister MD Discharge Disposition: Discharged to home or Selfcare 02/23/2024 10:30 AM DIRECTOR OF SECURITIES AND REAL ESTATE Office Visit [facility] [address] [place] [address] Macy Alarcon APRN, ANABEL Dysphagia, unspecified type (Primary Dx); Constipation, unspecified constipation type; Gastroesophageal reflux disease, unspecified whether esophagitis present; History of pancreatitis; Elevated liver enzymes; Hepatic steatosis Discharge Disposition: Discharged to home or Selfcare 02/23/2024 Travel 02/15/2024 2:47 PM DIRECTOR OF SECURITIES AND REAL ESTATE - 02/15/2024 11:59 PM DIRECTOR OF SECURITIES AND REAL ESTATE [facility] Ultrasound [address] [place] [address] Jomar Kiran MD Discharge Disposition: Discharged to home or Selfcare 02/15/2024 1:41 PM DIRECTOR OF SECURITIES AND REAL ESTATE - 02/15/2024 2:46 PM DIRECTOR OF SECURITIES AND REAL ESTATE [facility] Mammography 1 [place] [address] oJmar Kiran MD Discharge Disposition: Discharged to home [...] Comments Blood Pressure 143/81 03/07/2024 3:06 PM DIRECTOR OF SECURITIES AND REAL ESTATE Pulse 80 03/07/2024 3:06 PM DIRECTOR OF SECURITIES AND REAL ESTATE Temperature 36.6 C (97.9 F) 03/07/2024 3:06 PM DIRECTOR OF SECURITIES AND REAL ESTATE Respiratory Rate 18 03/07/2024 3:06 PM DIRECTOR OF SECURITIES AND REAL ESTATE Oxygen Saturation 97% 03/07/2024 3:06 PM DIRECTOR OF SECURITIES AND REAL ESTATE Inhaled Oxygen Concentration - - Weight 87.6 kg (193 lb 3.2 oz) 03/07/2024 3:06 P M DIRECTOR OF SECURITIES AND REAL ESTATE Height 160 cm (5' 3 ) 03/07/2024 3:06 PM DIRECTOR OF SECURITIES AND REAL ESTATE Body Mass Index 34.22 03/07/2024 3:06 PM DIRECTOR OF SECURITIES AND REAL ESTATE Plan of Treatment Health Maintenance Due Date [...] PELVIS W CONTRAST Routine 02/25/2024 9:05 AM DIRECTOR OF SECURITIES AND REAL ESTATE Rheumatoid arthritis involving both ankles with positive rheumatoid factor (HCC) Lymphadenopathy POCT CREATININE Routine 02/25/2024 8:56 AM DIRECTOR OF SECURITIES AND REAL ESTATE MANUAL DIFFERENTIAL Routine 02/24/2024 9 :52 AM DIRECTOR OF SECURITIES AND REAL ESTATE Seropositive rheumatoid arthritis of multiple sites (HCC) Need for prophylactic chemotherapy Ankylosing spondylitis of multiple sites in spine (HCC) CBC WITH AUTO DIFFERENTIAL Today 02/24/2024 9:52 AM DIRECTOR OF SECURITIES AND REAL ESTATE Seropositive rheumatoid arthritis of multiple sites (HCC) Need for prophylactic chemotherapy Ankylosing spondylitis of multiple sites in spine (HCC) [id number] DEHYDROGENASE ENZYME ACTIVITY, BLOOD, CADENA G6PD1 Today 02/24/2024 9:52 AM DIRECTOR OF SECURITIES AND REAL ESTATE Seropositive rheumatoid arthritis of multiple sites (HCC) Need for prophylactic chemotherapy Ankylosing spondylitis of multiple sites in spine (HCC) COMPLETE BLOOD COUNT (CBC) WITH DIFF Today 02/24/2024 9:52 AM DIRECTOR OF SECURITIES AND REAL ESTATE Seropositive rheumatoid arthritis of multiple sites (HCC) Need for prophylactic chemotherapy Ankylosing spondylitis of multiple sites in spine (HCC) C-REACTIVE PROTEIN (CRP) QUANT Today 02/24/2024 9:52 AM DIRECTOR OF SECURITIES AND REAL ESTATE Seropositive rheumatoid arthritis of multiple sites (HCC) Need for prophylactic chemotherapy Ankylosing spondylitis of multiple sites in spine (HCC) CMP (COMPREHENSIVE METABOLIC PANEL) Today 02/24/2024 9:52 AM DIRECTOR OF SECURITIES AND REAL ESTATE Seropositive rheumatoid arthritis of multiple sites (HCC) Need for prophylactic chemotherapy Ankylosing spondylitis of multiple sites in spine (HCC) PATHOLOGY SURGICAL Routine 02/24/2024 8: 52 AM DIRECTOR OF SECURITIES AND REAL ESTATE EGD 02/24/2024 8:46 AM DIRECTOR OF SECURITIES AND REAL ESTATE EGD- MID ESOPHAGEAL ZENKER'S AT 30 CM, ANTRAL BIOPSY RULE OUT H. PYLORI Special Needs Dx dysphagia 02/22 [facility] GI LAB IMAGING - EGD Routine 02/24/2024 7:46 AM DIRECTOR OF SECURITIES AND REAL ESTATE [facility] US BREAST LIMITED GARFIELD Routine 02/15/2024 3:16 PM DIRECTOR OF SECURITIES AND REAL ESTATE Abnormal mammogram [facility] DIAG BILATERAL DIGITAL W CAD W SANDRA Routine 02/15/2024 2:53 PM DIRECTOR OF SECURITIES AND REAL ESTATE Abnormal mammogram from Last 3 Months Results * CT CHEST ABDOMEN AND PELVIS W CONTRAST (02/25/2024 9:05 AM DIRECTOR OF SECURITIES AND REAL ESTATE) Anatomical Region Laterality Modality Chest, Abdomen, Pelvis N/A Computed Tomography 02/28/2024 9:09 AM DIRECTOR OF SECURITIES AND REAL ESTATE Impressions 02/28/2024 9:11 AM DIRECTOR OF SECURITIES AND REAL ESTATE IMPRESSION: Interval decrease in size of lymph [...] findings as above. Narrative 02/28/2024 9:11 AM DIRECTOR OF SECURITIES AND REAL ESTATE EXAM DESCRIPTION: CT CHEST ABDOMEN AND PELVIS [...] Jo Flannery M.D. TW: PABLO Report ID: [id number] Reading Location: [id number] Procedure Note Jo Flannery MD - 02/28/2024 [...] Jo Flannery M.D. TW: PABLO Report ID: [id number] Reading Location: [id number] IMPRESSION: Interval decrease in size of lymph [...] Result * POCT Creatinine (02/25/2024 8:56 AM DIRECTOR OF SECURITIES AND REAL ESTATE) CREATININE - POCT 0.7 0.6 - 1.3 mg/dL 02/25/2024 8:57 AM DIRECTOR OF SECURITIES AND REAL ESTATE [facility] Blood 02/25/2024 8:56 AM DIRECTOR OF SECURITIES AND REAL ESTATE 02/25/2024 8:57 AM DIRECTOR OF SECURITIES AND REAL ESTATE us None Provider POINT OF CARE TESTING Final Resu lt Performing Organization Address City/[facility]/ZIP Co de Phone Number [facility] [address] [place] [address] * [id number] DEHYDROGENASE ENZYME ACTIVITY, BLOOD, RANIER G6PD1 (02/24/2024 9:52 AM DIRECTOR OF SECURITIES AND REAL ESTATE) G6PD1 ENZYME ACTIVITY, B 11.8 8.0 - 11.9 U/g Hb 02/25/2024 12:22 PM DIRECTOR OF SECURITIES AND REAL ESTATE [facility] Comment: The G6PD activity level is expected [...] developed and its performance characteristics determined by [facility] in a manner consistent with CLIA requirements. This test has not been cleared or approved by the U.S. Food and Drug Administration. Test Performed by: [facility] [place] [address] Wine Master: Jodi Patricio Ph.D.; CLIA# [id number] Blood Venipuncture / Unknown 02/24/2024 9:52 AM DIRECTOR OF SECURITIES AND REAL ESTATE 02/24/2024 10:20 AM DIRECTOR OF SECURITIES AND REAL ESTATE us Mila Hassan APRN, SALES TEAM RECRUITER LAB SEND OUTS Sabra l Result [facility] * (ABNORMAL) MANUAL DIFFERENTIAL (02/24/2024 9:52 AM DIRECTOR OF SECURITIES AND REAL ESTATE) NEUTROPHILS % 27.0(L) 47.0 - 73.0 % 02/24/2024 11:03 AM [facility] LYMPHOCYTES % 63.0(H) 18.0 - 42.0 % 02/24/2024 11:03 AM [facility] MONOCYTES % 8.0 4.0 - 12.0 % 02/24/2024 11:03 AM [facility] EOSINOPHILS % 1.0 0.0 - 5.0 % 02/24/2024 11:03 AM [facility] BASOPHILS % 1.0 0.0 - 1.0 % 02/24/2024 11:03 AM [facility] NEUTROPHILS ABSOLUTE 3.12 1.60 - 7.70 10(3)/[facility] 02/24/2024 11:03 AM [facility] LYMPHOCYTES ABSOLUTE 7.28(H) 1.30 - 3.20 10(3)/[facility] 02/24/2024 11:03 AM [facility] MONOCYTES ABSOLUTE 0.92 0.20 - 1.00 10(3)/[facility] 02/24/2024 11:03 AM [facility] EOSINOPHILS ABSOLUTE 0.12 0.00 - 0.40 10(3)/[facility] 02/24/2024 11:03 AM [facility] BASOPHILS ABSOLUTE 0.12(H) 0.00 - 0.10 10(3)/[facility] 02/24/2024 11:03 AM [facility] RBC MORPHOLOGY CONSISTENT WITH INDICES Yes 02/24/2024 11:03 AM [facility] REACTIVE LYMPHOCYTES 6 02/24/2024 11:03 AM [facility] WBC MORPH STATUS Normal 02/24/20 11:03 AM [facility] PLATELET STATUS Normal 11:03 AM [facility] Blood Venipuncture / Unknown 02/24/2024 9:52 AM DIRECTOR OF SECURITIES AND REAL ESTATE 02/24/2024 10:20 AM DIRECTOR OF SECURITIES AND REAL ESTATE us Mila Hassan OTC CLERK, SALES TEAM RECRUITER HEMATOLOGY ORDERABLE S Final Result [facility] [address] [place] [address] * CBC WITH AUTO DIFFERENTIAL (02/24/2024 9:52 AM DIRECTOR OF SECURITIES AND REAL ESTATE) WBC 11.56 4.00 - 12.00 10(3)/mcL 02/24/2024 11:03 AM [facility] RBC 4.63 3.80 - 5.30 10(6)/mcL 02/24/2024 11:03 AM [facility] HEMOGLOBIN (HGB) 13.6 12.0 - 15.8 g/dL 02/24/2024 11:03 AM [facility] HEMATOCRIT (HCT) 42.8 36.0 - 47.0 % 02/24/2024 11:03 AM [facility] MCV 92.4 82.0 - 96.0 fL 02/24/2024 11:03 AM [facility] MCH 29.4 26.0 - 34.0 pg 02/24/2024 11:03 AM [facility] MCHC 31.8 31.0 - 36.0 g/dL 02/24/2024 11:03 AM [facility] PLATELET COUNT 340 140 - 440 10(3)/[facility] 02/24/2024 11:03 AM [facility] RDW 14.7 11.8 - 15.5 % 02/24/2024 11:03 AM [facility] MPV 11.0 9.7 - 12.4 fL 02/24/2024 11:03 AM [facility] NRBC PER 100 WBC 0 02/24/2024 11:03 AM [facility] RESULTS ARE CONSISTENT WITH PERIPHERAL SMEAR REVIEW Yes 02/24/2024 11:03 AM [facility] Blood Venipuncture / Unknown 02/24/2024 9:52 AM DIRECTOR OF SECURITIES AND REAL ESTATE 02/24/2024 10:20 AM DIRECTOR OF SECURITIES AND REAL ESTATE us Mila Hassan OTC CLERK, SALES TEAM RECRUITER HEMATOLOGY ORDERABLE S Final Result [facility] [address] [place] [address] * (ABNORMAL) CMP (COMPREHENSIVE METABOLIC PANEL) (02/24/2024 9:52 AM DIRECTOR OF SECURITIES AND REAL ESTATE) SODIUM 140 136 - 145 mmol/L 02/24/2024 10:47 AM DIRECTOR OF SECURITIES AND REAL ESTATE [facility] POTASSIUM 4.3 3.5 - 5.1 mmol/L 02/24/2024 10:47 AM [facility] CHLORIDE 104 98 - 107 mmol/L 02/24/2024 10:47 AM [facility] CO2, VENOUS 26 22 - 30 mmol/L 02/24/2024 10:47 AM [facility] ANION GAP 14.3 <18.0 mmol/L 02/24/2024 10:47 AM [facility] GLUCOSE 119(H) 70 - 99 mg/dL 02/24/2024 10:47 AM [facility] BUN 16 10 - 20 mg/dL 02/24/2024 10:47 AM [facility] CREATININE, BLOOD 0.68 0.60 - 1.00 mg/dL 02/24/2024 10:47 AM [facility] BUN/CREATININE RATIO 24(H) 12 - 20 ratio 02/24/2024 10:47 AM [facility] TOTAL PROTEIN 7.2 6.3 - 8.2 g/dL 02/24/2024 10:47 AM [facility] ALBUMIN 4.4 3.5 - 5.0 g/dL 02/24/2024 10:47 AM [facility] A/G RATIO 1.6 1.0 - 2.2 02/24/2024 10:47 AM [facility] CALCIUM 9.5 8.7 - 10.5 mg/dL 02/24/2024 10:47 AM [facility] T BILI 0.6 0.2 - 1.2 mg/dL 02/24/2024 10:47 AM [facility] SGOT (AST) 49(H) 5 - 34 U/L 02/24/2024 10:47 AM [facility] SGPT (ALT) 97(H) 0 - 55 U/L 02/24/2024 10:47 AM [facility] ALKALINE PHOSPHATASE 91 40 - 150 U/L 02/24/2024 10:47 AM [facility] IS THE PATIENT REQUIRED TO BE FASTING? No 02/24/2024 10:47 AM [facility] GFR, ESTIMATED >60 >=60 02/24/2024 10:47 AM [facility] Comment: Creatinine Clearance is the preferred criteria for selecting drug dose adjustments in renally impaired patients. The GFR is provided as additional pertinent clinical information. GFR is reported in mL/min/1.73 sq m. Calculation based on the Chronic Kidney Disease Epidemiology Collaboration (CKD- EPI) equation refit without adjustment for race. GFR, EST. >60 >=60 024 10:47 AM [facility] GFR, EST. NONAFRICAN >60 >=60 02/24/2024 10:47 AM [facility] Blood Venipuncture / Unknown 02/24/2024 9:52 AM DIRECTOR OF SECURITIES AND REAL ESTATE 02/24/2024 10:19 AM DIRECTOR OF SECURITIES AND REAL ESTATE Mila Hassan OTC CLERK, SALES TEAM RECRUITER CHEMISTRY ORDERABLES Final Result [facility] [address] [place] [address] * C-REACTIVE PROTEIN (CRP) QUANT (02/24/2024 9:52 AM DIRECTOR OF SECURITIES AND REAL ESTATE) C-REACTIVE PROTEIN 0.42 <0.50 mg/dL 02/24/2024 10:47 AM [facility] Blood Venipuncture / Unknown 02/24/2024 9:52 AM DIRECTOR OF SECURITIES AND REAL ESTATE 02/24/2024 10:19 AM DIRECTOR OF SECURITIES AND REAL ESTATE us Mila Hassan APRN, CNP CHEMISTRY ORDERABLES Final Result Performing Organization Address City/[facility] Co de Phone Number [facility] [address] [place] [address] * Pathology Surgical (02/24/2024 8:52 AM DIRECTOR OF SECURITIES AND REAL ESTATE) Case Report Surgical Pathology Report Case: [id number] Authorizing Provider: Ciaran Mcallister MD Collected: 02/24/2024 08:52 AM Ordering Location: [facility] Received: 02/24/2024 10:39 AM [facility] Gi Lab Main Pathologist: Pedro Harris MD PhD Specimen: Stomach, ANTRAL BIOPSY RULE OUT H. PYLORI 02/25/2024 12:54 PM DIRECTOR OF SECURITIES AND REAL ESTATE [facility] FINAL DIAGNOSIS Gastric antrum, biopsy: - Gastric mucosa with mild chronic inflammation - Negative for acute inflammation or H. pylori by IHC stain 02/25/2024 12:54 PM DIRECTOR OF SECURITIES AND REAL ESTATE [facility] Pre-Operative Diagnosis DYSPHAGIA 02/25/2024 12:54 PM DIRECTOR OF SECURITIES AND REAL ESTATE [facility] Gross Description A. ANTRAL BIOPSY [...] 12 hours, 54 minutes. 02/25/2024 12:54 PM DIRECTOR OF SECURITIES AND REAL ESTATE [facility] Tissue STOMACH STRUCTURE / Unknown 02/24/2024 8:52 AM DIRECTOR OF SECURITIES AND REAL ESTATE 02/24/2024 10:39 AM DIRECTOR OF SECURITIES AND REAL ESTATE us Ciaran Mcallister MD PATHOLOGY/CYTOLOGY ORDERA BLES Final Result Performing Organization Address City/[facility] Co de Phone Number [facility] [address] [place] [address] * GI LAB IMAGING - EGD (02/24/2024 7:46 AM DIRECTOR OF SECURITIES AND REAL ESTATE) us Ciaran Mcallister MD IMG DIAGNOSTIC ORDERABLES Final Result * [facility] US BREAST LIMITED GARFIELD (02/15/2024 3:16 PM DIRECTOR OF SECURITIES AND REAL ESTATE) Anatomical Region Laterality Modality breast Bilateral Ultrasound 02/15/2024 2:24 PM DIRECTOR OF SECURITIES AND REAL ESTATE Narrative 02/15/2024 4:13 PM DIRECTOR OF SECURITIES AND REAL ESTATE - [facility] DIAG BILATERAL DIGITAL W CAD [...] made to exams dated: 07/26/2023 and 07/26/2023 [facility]. BREAST TISSUE:There are scattered areas of [...] signed by: Lindsey Dick M.D. ab/:02/15/2024 15:20:23 Hack Saw Operator(s): RT Judy(R)(M), [facility]; Coty Clayton, [facility] letter sent: Birad 3 Followup Reading location: [facility] OVERALL STUDY BIRADS: Category 3: [...] made to exams dated: 07/26/2023 and 07/26/2023 [facility]. BREAST TISSUE:There are scattered areas of [...] signed by: Lindsey Dick M.D. ab/:02/15/2024 15:20:23 Hack Saw Operator(s): Brandi Taylor, RT(R)(M), [facility]; Coty [place], [facility] letter sent: Birad 3 Followup Reading location: [facility] OVERALL STUDY BIRADS: Category 3: Probably Benign us Jomar Linda Kiran MD IMG MAMMO ORDERABLES Fin al Result * [facility] DIAG BILATERAL DIGITAL W CAD W SANDRA (02/15/2024 2:53 PM DIRECTOR OF SECURITIES AND REAL ESTATE) Anatomical Region Laterality Modality breast Bilateral Mammography 02/15/2024 2:24 PM DIRECTOR OF SECURITIES AND REAL ESTATE Narrative 02/15/2024 4:13 PM DIRECTOR OF SECURITIES AND REAL ESTATE - [facility] DIAG BILATERAL DIGITAL W CAD [...] made to exams dated: 07/26/2023 and 07/26/2023 [facility]. BREAST TISSUE:There are scattered areas of [...] signed by: Lindsey Dick M.D. ab/:02/15/2024 15:20:23 Hack Saw Operator(s): RT Judy(R)(M), [facility]; Coty Clayton, [facility] letter sent: Birad 3 Followup Reading location: [facility] STUDY BIRADS: Category 3: Probably Benign [...] exams dated: 07/26/2023 and 07/26/2023 [facility]. BREAST TISSUE:There are scattered areas of [...] signed by: Lindsey Dick M.D. ab/:02/15/2024 15:20:23 Hack Saw Operator(s): RT Judy(R)(M), [facility]; Coty Clayton, [facility] letter sent: Birad 3 Followup Reading location: [facility] OVERALL STUDY BIRADS: Category 3: Probably Benign Jomar Kiran MD IMG MAMMO ORDERABLES Fin al Result from Last [address] [place] [address] MEDICAID [place] MEDICARE Care Teams Clinical Pharmacologist Relationship Specialty Start Date End Date Jose Bryan PAC [address] [place] [phone] PCP - General Physician Multiple Pressure Riveter Operator 09/27/19 Ron Batista MD [address] [address] Consulting Physician Urology 08/19/23 Jomar Kiran MD [address] [id number] Consulting Physician Medical Oncology 07/20/23 Macy Alarcon APRN, SALES TEAM RECRUITER [address] [place] [address] Nurse Practitioner Advanced Practice Nurse 02/23/24
--- OUTSIDE RECORDS SUMMARY | 2024-05-05 16:45 | XMS_ITS | Referral Summary ---
Author Organization [facility] Address [address] [place] [address] Care Team Providers Care Experience Design Director Name Role Phone Unavailable Primary Care Provider Unavailabl e Source Comments [facility],non-owned Affiliates and Associated Physician Practices is amultiple site organization consisting of ambulatory clinics and hospital sitesin [place], [place] and [place]. This disclosure is being madepursuant to the Care Everywhere program and may not contain all information available regarding this patient. Last updated 17.[facility] Active Problems Problem Noted Date Diagnosed Date Syncope, unspecified syncope type 07/30/2023 Social History Tobacco Use Types Packs/Day Years Used Date Smoking Tobacco: Never Assessed Sex and Gender Information Value Date Recorded Sex Assigned at Not on file Gender Identity Not on file Sexual Orientation Not on file Plan of Treatment Not on file
--- OUTSIDE RECORDS SUMMARY | 2024-05-05 16:45 | XMS_ITS | Patient Health Summary ---
Author Organization [facility] Address [address] [place] [address] Care Team Providers Care Kindergarten Teacher Name Role Phone Unavailable Primary Care Provider Unavailabl e Note from [facility],non-owned Affiliates and Associated Physician Practices is amultiple site organization consisting of ambulatory clinics and hospital sitesin [place], [place], [place] and [place]. This disclosure is being madepursuant to the Care Everywhere program and may not contain all information available regarding this patient. Last updated 17.[facility] Active Problems Problem Noted Date Diagnosed Date Syncope, unspecified syncope type 07/30/2023 Social History Tobacco Use Types Packs/Day Years Used Date Smoking Tobacco: Never Assessed Sex and Gender Information Value Date Recorded Sex Assigned at Not on file Gender Identity Not on file Sexual Orientation Not on file
--- OUTSIDE RECORDS SUMMARY | 2024-05-05 16:45 | XMS_ITS | Referral Summary ---
Author Organization [facility] al Address [address] [place] [address] Care Team Providers Care Engraver Hand Soft Metals Name Role Phone Jose Bryan Primary Care Provider [phone] Ciaran Mcallister MD Unavailable [phone] Encounters Date Type Department Care Team Description 04/11/2024 Telephone [facility] [address] [address] Jaqueline Jorgensen RN 04/04/2024 Orders Only [facility] Surgery [address] [place] [phone] Raghav Pugh NP Esophageal diverticulum (Primary Dx) 04/03/2024 8:30 AM HYPOID GEAR TESTER Office Visit [facility] Surgery [address] [place] [phone] David Miller MD Esophageal diverticulum 03/30/2024 8:00 AM HYPOID GEAR TESTER - 03/30/2024 11:59 PM HYPOID GEAR TESTER Hospital Encounter [facility] [address] [place] [address] Dilan, Jensen Fluoro Esophageal diverticulum Discharge Disposition: Discharge to home or self care 03/27/2024 Orders Only [facility] Surgery [address] [place] [address] Floor [address] [place] [phone] Yumiko Donaldson NP Esophageal diverticulum (Primary Dx) [...] for esophageal spasm versus mild early presbyesophagus. Hfww-da-ckypclzk spontaneous gastroesophageal reflux. Small sliding-type hiatal hernia. [...] drink = 0.6 oz pur e alcohol) [facility] Utilities Answer Date Recorded In the past 12 months has [employer], gas, oil, or water [employer] threatened to shut off services in your [...] often do you attend chur ch or jew services? Never 01/18/2024 Do you belong to any clubs o r organizations such as yazidi groups, unions, fraternal or athletic groups, or [...] time in the past 12 m [facility], were you homeless or living in a alf (including now)? No 01/18/2024 Personal Safety Answer Date Recorded Have you ever been in or are you currently in a harmful physical or emotional relationship or is someone making you feel afraid or unsafe? Denies 01/18/2024 Comments No Sex and Gender Information Value Date Recorded Sex Assigned at Not on file Legal Sex Female 9:45 AM HYPOID GEAR TESTER Gender Identity Not on file Sexual Orientation Not on file Occupation Industry Job Start Date Job End Date disability Not on file Not on file Not on file Last Filed Vital Signs Vital Sign Reading Time Taken Comments Blood Pressure 151/85 04/03/2024 8:40 AM HYPOID GEAR TESTER Pulse 84 04/03/2024 8:40 AM HYPOID GEAR TESTER Temperature 36.4 C (97.6 F) 04/03/2024 8:40 AM HYPOID GEAR TESTER Respiratory Rate 16 04/03/2024 8:40 AM HYPOID GEAR TESTER Oxygen Saturation 96% 04/03/2024 8:40 AM HYPOID GEAR TESTER Inhaled Oxygen Concentration - - Weight 87.2 kg (192 lb 3.2 oz) 04/03/2024 8:40 A M HYPOID GEAR TESTER Height 163.1 cm (5' 4.21 ) 04/03/2024 8:40 AM CS T Body Mass Index 32.77 04/03/2024 8:40 AM HYPOID GEAR TESTER Plan of Treatment Not on file Procedures Procedure Name Priority Date/Time Associated Diagnosis Comments FL ESOPHAGRAM, DOUBLE CONTRAST Schedule Routine, Read Routine (OP Routine) 03/30/2024 8:30 AM HYPOID GEAR TESTER Esophageal diverticulum HEPATITIS PANEL, ACUTE Routine 01/20/2024 12:16 PM CDT from Last 3 Months or Most Recently Relevant to Health Maintenance Results * FL Esophagram, Double Contrast (03/30/2024 8:30 AM HYPOID GEAR TESTER) Anatomical Region Laterality Modality Body N/A Radio Fluoroscop y 03/30/2024 10:1 2 AM HYPOID GEAR TESTER Narrative 03/30/2024 10:26 AM HYPOID GEAR TESTER EXAM DESCRIPTION: FL ESOPHAGRAM BARIUM SWALLOW TO STOMACH, DOUBLE CONTRAST REASON FOR STUDY: Esophageal diverticulum Esophageal diverticulum Egd [address] [facility] Perforation?1.4 min ft 276.5 mgy RADIATION [...] is small sliding-type hiatal hernia. There is blsh-nf-nkvuygov spontaneous gastroesophageal reflux observed during the study. [...] esophageal spasm versus mild early presbyesophagus. 4. Tzbh-ql-rxpkmtwr spontaneous gastroesophageal reflux. 5. Small sliding-type hiatal hernia. THIS IS AN ELECTRONICALLY VERIFIED FINAL REPORT 03/30/2024 10:26 AM - Electronically signed by Zunilda De Los Santos D.O. PS: PS Report ID: [id number] Reading Location: [place] [address] Procedure Note Zunilda De Los Santos, - 03/30/2024 EXAM DESCRIPTION: FL ESOPHAGRAM BARIUM SWALLOW TO STOMACH, DOUBLECONTRAST REASON FOR STUDY: Esophageal diverticulum Esophageal diverticulum Egd [address] [facility] Perforation?1.4min ft 276.5 mgy RADIATION DOSE: [...] is small sliding-type hiatal hernia. There is zvfn-uf-nnggirvo spontaneous gastroesophageal reflux observedduring the study. NON-GI [...] foresophageal spasm versus mild early presbyesophagus. 4. Bvdb-dr-drdjwgza spontaneous gastroesophageal reflux. 5. Small sliding-type hiatal hernia. THIS IS AN ELECTRONICALLY VERIFIED FINAL REPORT 03/30/2024 10:26 AM - Electronically signed by Zunilda De Los Santos D.O. PS: PS Report ID: [id number] Reading Location: [place] [address] us Yumiko Donaldson NP IMG FLUOROSCOPY PROCEDURES Sabra l Result * Hepatitis panel, acute Blood (01/20/2024 12:16 PM CDT) Hep A IgM Nonreactive Nonreactive Comment: Interpretive Data: If Hep A IgM Ab is reported as Equivocal, a new sample should be drawn in two weeks for testing. Current interpretive data was last revised on 19. Hep B core IgM Nonreactive Nonreactive [facility] Comment: Interpretive Data If HepB Core IgM Ab is reported as Equivocal, a new sample should be drawn in two weeks for testing. Current interpretive data was last revised on 19. Hep C Ab Nonreactive Nonreactive [facility] Comment: Interpretive Data Nonreactive: Antibodies [...] last revised on 2019. HepBsAg Nonreactive Nonreactive [facility] Blood 01/20/2024 12:1 6 PM CDT 01/20/2024 12:23 PM CDT Joanna [facility] MICROBIOLOGY - GENERA L ORDERABLES Final Result [facility] [id number] [address] [place] [address] from Last 3 Months or Most Recently Relevant to Health Maintenance Insurance MEDICARE IDPA MEDICARE IDPA MEDICARE [facility] Advance Directives For more information, please contact: [phone] * Full Code (Latest Code Status on File) Date Activated Date Inactivated Comments 01/18/2024 1:42 PM 01/21/2024 5:17 PM Care Teams Engraver Hand Soft Metals Relationship Specialty Start Date End Date Jose Bryan PA [address] [place] [address] PCP - General Family Practice 10/13/18 Ciaran Mcallister MD [address] [place] [address] General Surgery 04/03/24
[2024-05-05 17:30] VITALS: BP 154/80; PULSE 74; RESP 20; O2SAT 98
[2024-05-05 18:41] VITALS: BP 154/84; PULSE 78; RESP 20; O2SAT 98
[2024-05-05 18:45] VITALS: BP 146/97; PULSE 82; RESP 20; O2SAT 95
== END 2024-05-05 18:45 | disposition home or self-care (01) ==
PROVIDERS: Emergency Provider Emergency Medicine; PCP Physician Assistant
DX: R30.0 Dysuria (principal); M54.50 Low back pain, unspecified; M19.90 Unspecified osteoarthritis, unspecified site; I10 Essential (primary) hypertension; W01.0XXA Fall on same level from slipping, tripping and stumbling without subsequent striking against object, initial encounter
CPT/HCPCS: 72100; 72131; 73502; 81001; 99284; A9270

== ENCOUNTER 2024-06-22 10:10 | Outpatient (CLI) | payer MEDICARE, MEDICAID, SELFPAY ==
--- NOTE | ~2024-06-22 | XR_ITS ---
Right Knee Technique: AP, lateral, and sunrise views were obtained. Clinical History: Pain Findings: No fracture or dislocation is seen. There is advanced degenerative change of the medial lat eral compartments. There is mild to moderate degenerative change of the patellofemoral compartment.. Small joint effusion is seen. Impression: Degenerative changes, as above. Reviewed, dictated and finalized at location . Impression: Degenerative changes, as above.
--- OUTSIDE RECORDS SUMMARY | 2024-06-22 11:02 | XMS_ITS | Encounter Summary ---
Author Organization [facility] Care Team Providers Care Cutter Head Sharpener Name Role Phone Randi Jose Natalio SAUCEDO Primary Care Provider [phone] Ron Batista MD Unavailable Jomar Kiran MD Unavailable [phone] Macy Alarcon APRN, CAB DRIVER Unavailable Kingston Peoples MD Unavailable Encounter Details Date Type Department Care Team (Latest Contact Info) Description 06/21/2024 Travel Social History Tobacco Use Types Packs/Day Years Used Date Smoking Tobacco: Former Cigarettes 1 40 1 4 - 2023 Smokeless Tobacco: Never Alcohol Use Standard Drinks/Week Comments Not Currently [...] as of this encounter Plan of Treatment Upcoming Encounters Date Type Department Care Team (Latest Contact Info) Description 07/03/2024 12:40 PM CDT [facility] [address] [place] [phone] Kingston Peoples MD #[address] [address] 07/03/2024 12:40 PM CDT - 07/03/2024 1:40 PM CDT [facility] [address] [place] [phone] Kingston Peoples MD #[address] [address] EXCISION OF RIGHT POSTERIOR NECK SEBACEOUS CYST 07/12/2024 9:15 AM CDT Office Visit [facility] - General Surgery [facility] #[address] [phone] Kingston Peoples MD #[address] [address] Scheduled Procedures Name Priority Associated Diagnoses Date/Ti me EXCISION CYST SEBACEOUS CYST 07/03/2024 12:40 PM CDT documented as of this encounter Visit Diagnoses Not on filedocumented in this encounter Care Teams Cutter Head Sharpener Relationship Specialty Start Date End Date Jose Bryan, [facility] [address] [place] [address] PCP - General Physician Director Search Marketing Strategies 09/27/19 Ron Batista MD #[address] [address] Consulting Physician Urology 08/19/23 Jomar Kiran MD [address] [place] [address] Consulting Physician Medical Oncology 07/20/23 Macy Alarcon APRN, CAB DRIVER [address] [place] [address] Nurse Practitioner Advanced Practice Nurse 02/23/24 Kingston Peoples MD #[address] [address] Consulting Physician Colon and Rectal Surgery 06/20/24 documented as of this encounter
--- OUTSIDE RECORDS SUMMARY | 2024-06-22 11:02 | XMS_ITS | Encounter Summary ---
Author Organization [facility] Address [address] [place] [address] Phone Care Team Providers Care Skein Bleacher Name Role Phone Latoya Bryan Primary Care Provider [phone] Ron Batista MD Unavailable Jomar Kiran MD Unavailable [phone] Macy Alarcon APRN, CNP Unavailable Kingston Peoples MD Unavailable Reason for Referral * Other (Routine) - Closed Specialty Diagnoses / Procedures Referred By Roula pak Referred To Contact General Surgery Diagnoses Sebaceous cyst Procedures GENERAL SURGERY PROCEDURE Kingston Peoples MD #[address] [address] Phone: tel: fax: Referral ID Status Reason Start Date Expiration Date Visits Re quested Visits Authorized [id number] Closed 06/21/2024 1 1 Reason for Visit * Reason Comments Cyst Infected sebaceous c yst on neck * Consult, Test & Initiate Treatment (Routine) - Closed Specialty Diagnoses / Procedures Referred By Roula pak Referred To Contact General Surgery Diagnoses Sebaceous cyst Latoya Bryan, PAC [address] [place] [address] Phone: tel: fax: Kingston Peoples MD #[address] [address] Phone: tel: fax: Referral ID Status Reason Start Date Expiration Date Visits Re quested Visits Authorized [id number] Closed 1 1 Encounter Details Date Type Department Care Team (Late st Contact Info) Description 06/21/2024 8:30 AM CDT Office Visit [facility] - General [facility] - [place] [address] [address] Kingston Peoples MD #[address] [address] Sebaceous cyst (Primary Dx) Discharge Disposition: Discharged to home or Selfcare Social History Tobacco Use Types Packs/Day Years Used Date Smoking Tobacco: Former Cigarettes 1 40 1 984 - 2023 Smokeless Tobacco: Never Alcohol Use [...] on file documented as of this encounter Last Filed Vital Signs Vital Sign Reading Time Taken Comments Blood Pressure 140/82 06/21/2024 8:43 AM CDT Pulse 86 06/21/2024 8:43 AM CDT Temperature 36.3 C (97.4 F) 06/21/2024 8:43 AM CDT Respiratory Rate 16 06/21/2024 8:43 AM CDT Oxygen Saturation 95% 06/21/2024 8:43 AM CDT Inhaled Oxygen Concentration - - Weight 88.9 kg (196 lb) 06/21/2024 8:43 AM CDT Height 160 cm (5' 3 ) 06/21/2024 8:43 AM CDT Body Mass Index 34.72 06/21/2024 8:43 AM CDT documented in this encounter Progress Notes * Kingston Peoples MD - 06/21/2024 8:30 AM CDT HISTORY AND PHYSICAL Assessment: Infected sebaceous cyst of the right posterior neck, drained in the emergency room on June 15, 2024 On RA medications PLAN: 1) will need to schedule the surgery on and off week between her Humira shots. 2) surgery would be excision of right posterior neck sebaceous cyst. Procedure would be an outpatient. Procedure was discussed with her in detail. Risks benefits alternatives were also discussed withher. Risks include but not limited to pain, infection, bleeding, anesthetic risk, cardiopulmonary risk, injury to the surrounding structures. We also talked about how the sebaceous cyst can come backif I do not remove all of the cyst and the capsule. The cysts can also come back right next to the location from another skin pore. Postop care was also discussed with her. She understands and agreesto the procedure done. Consent was obtained. Thank you for allowing me to participate in her care Subjective: HPI: Catrachito Karimi is a 54 y.o. female who I was asked to see by LEWIS BALL for sebaceous cyst. I had seen her last in 2021 and did a colonoscopy. Since then she has been diagnosedofficially with rheumatoid arthritis. On Humira and other medications. Is actually able to move anddo better now. Had a sebaceous cyst in the right posterior neck for many years that finally got infected. She had a drained in the emergency room a few days ago. It is still healing and draining. We talked about the pathophysiology of sebaceous cyst. I would have to get the entire capsule out in order to prevent a recurrence. She understands. She definitely wants to get this thing out. Will have to wait until the inflammation is better and we have to schedule this between her Humira shots. She understands. Procedure was discussed with her in detail. She understands and please see the above. Patient Active Problem List Diagnosis Date Noted Rheumatoid arthritis involving both ankles with positive rheumatoid factor (HCC) 08/04/2023 Joint stiffness 07/20/2023 Lymphadenopathy 07/24/2021 Allergies Allergen Reactions Morphine Other (see Comments) AMPS HER UP Cannot display prior to admission medications because the patient has not been admitted in this contact. Current Outpatient Medications on File Prior to Visit Medication Sig Dispense Refill Adalimumab-aaty 40 MG/0.4ML Auto-injector Kit 40 mg by Subcutaneous route. amitriptyline (ELAVIL) 25 MG Tablet Take 25 mg by mouth daily. (Patient not taking: Reported on 06/21/2024) Benzonatate 200 MG Capsule take 1 capsule by mouth three times daily as needed (Patient not taking:Reported on 06/21/2024) busPIRone (BUSPAR) 15 MG Tablet take one tablet by mouth three times a day as needed Clindamycin HCl (CLEOCIN) 300 MG Capsule Take 1 Capsule by mouth every 8 hours for 10 days. Indications: Infection of the Skin and/or Soft Tissue 30 Capsule 0 diazePAM (VALIUM) 2 MG Tablet take 1 tablet by mouth three times daily as needed Docusate Sodium (DSS) 250 MG Capsule Take 250 mg by mouth. (Patient not taking: Reported on 06/21/2024) FLUoxetine (PROzac) 20 MG Capsule Take 40 mg by mouth daily. folic acid (FOLVITE) 1 MG Tablet Take 1 mg by mouth. (Patient not taking: Reported on 06/21/2024) gabapentin (NEURONTIN) 300 MG Capsule Take 600 mg by mouth 3 times daily. HYDROcodone-acetaminophen (NORCO) 5-325 MG Tablet Take 1 Tablet by mouth every 8 hours as needed for Moderate or more severe pain. (Patient not taking: Reported on 06/21/2024) 12 Tablet 0 LISINOPRIL PO Take 5 mg by mouth every morning. meloxicam (MOBIC) 7.5 MG Tablet take 1 tablet (7.5 mg total) by mouth daily pantoprazole (PROTONIX) 40 MG Tablet Delayed Response Take 40 mg by mouth daily. sulfaSALAzine (AZULFIDINE) 500 MG Tablet Delayed Response Take 1,000 mg by mouth. traMADol (ULTRAM) 50 MG Tablet TAKE 1 TABLET BY MOUTH THREE TIMES A DAY FOR PAIN CONTROL (Patient not taking: Reported on 06/21/2024) traZODone (DESYREL) 50 MG Tablet Take 50 mg by mouth 2 times daily. (Patient not taking: Reported on 06/21/2024) No current facility-administered medications on file prior to visit. Past Medical History Positives Diagnosis Date Anxiety Chronic back pain Constipation DDD (degenerative disc disease), cervical DDD (degenerative disc disease), lumbar Hypertension Hypertension RA (rheumatoid arthritis) (HCC) Past Surgical History: Procedure Laterality Date BACK SURGERY lumbar x3; fusion and cage COLONOSCOPY 07/31/2021 Procedure: COLONOSCOPY--TRANSVERSE COLON POLYPECTOMY (JUMBO FORCEPS); Surgeon: Kingston Peoples MD; Location: [facility]; Service: General HYSTERECTOMY One ovary left, lap assist- enlarged. LYMPH NODE BIOPSY Left 07/24/2021 left inguinal node times two LYMPH NODE BIOPSY Left 07/24/2021 Procedure: LYMPH NODE BIOPSY LEFT INGUINAL; Surgeon: Kingston Peoples MD; Location: [facility]; Service: General TONSILLECTOMY UPPER GASTROINTESTINAL ENDOSCOPY N/A 02/24/2024 Procedure: EGD- MID ESOPHAGEAL ZENKER'S AT 30 CM, ANTRAL BIOPSY RULE OUT H. PYLORI; Surgeon: Ciaran Mcallister MD; Location: [facility]; Service: General Family History Problem Relation Age of Onset Chronic Obstructive Pulmonary Disease Mother Emphysema Mother Congestive Heart Failure Mother Heart Surgery Father Stents placed Schizophrenia Father Cancer Maternal Grandmother Thoat Heart Surgery Maternal Grandmother 14 No Known Problems Maternal Grandfather Breast Cancer Paternal Grandmother Alzheimer's Disease Paternal Grandmother Cancer Paternal Grandmother breast Alzheimer's Disease Paternal Grandfather Anxiety disorder Daughter Thyroid Disease Daughter Asthma Son Heart Disease Son MVP No Known Problems Son Skin Cancer Half-Sister Social History Socioeconomic History Marital status: Single Spouse name: Not on file Number of children: Not on file Years of education: Not on file Highest education level: Not on file Occupational History Not on file Tobacco Use Smoking status: Former Current packs/day: 0.00 Average packs/day: 1 pack/day for 40.0 years (40.0 ttl pk-yrs) Types: Cigarettes Start date: 1983 Quit date: 2023 Years since quittin.2 Smokeless tobacco: Never Vaping Use Vaping status: Some Days Substances: THC Substance and Sexual Activity Alcohol use: Not Currently Comment: rarely Drug use: Yes Frequency: 7.0 times per week Types: Marijuana Comment: Edibles Sexual activity: Not Currently Partners: Male Other Topics Concern Not on file Social History Narrative Not on file Social Drivers of Health Financial Resource Needs: Low Risk (01/18/2024) Received from [facility] Overall Financial Resource Strain (CARDIA) Difficulty of Paying Living Expenses: Not hard at all Food Insecurity Needs: No Food Insecurity (01/18/2024) Received from [facility] Hunger Vital Sign Worried About Running Out of Food in the Last Year: Never true Ran Out of Food in the Last Year: Never true Transportation Needs: No Transportation Needs (01/18/2024) Received from [facility] PRAPARE - Transportation Lack of Transportation (Medical): No Lack of Transportation (Non-Medical): No Physical Activity: Not on file Stress: Not on file Social Integration: Socially Isolated (01/18/2024) Received from [facility] Social Connection and Isolation Panel [NHANES] Frequency of Communication with Friends and Family: More than three times a week Frequency of Social Gatherings with Friends and Family: More than three times a week Attends Baptism Services: Never Active Member of Clubs or Organizations: No Attends Club or Organization Meetings: Never Marital Status: Personal Safety: Low Risk (03/07/2024) Personal Safety Feels Unsafe at Home or Work/School: no Feels Threatened by Someone: no Does Anyone Try to Keep You From Having Contact with Others or Doing Things Outside Your Home?: no Physical Signs of Abuse Present: no Housing Stability: Low Risk (01/18/2024) Received from [facility] Housing Stability Vital Sign Unable to Pay for Housing in the Last Year: No Number of Times Moved in the Last Year: 1 Homeless in the Last Year: No No results found for this or any previous visit from the past 365 days. ADULT TRANS THORACIC ECHO 2D COMPLETE 07/31/2023 Narrative Echocardiography Report Pat.Name: CATRACHITO KARIMI Pat.ID: [id number] .Date: 07/31/2023 Refer.MD: RAUL GUZMAN Exam Time: 9:14:00 AM Study Type:ECHO WITH CARDIAC DOPPLER COMP Height: 163 cm Weight: 86 kg BSA: 1.92 m2 Age: 3 1970,53Y Sex: F BP: 123/56 HR: 85 bpm Sonogrphr: Bing Humphries RDCS Pat. Stat.:Inpatient Room: 860 CPT - 4: 40685 Reason for Study:Stroke/TIA Procedures: 2D, M-mode, Doppler, Color Flow, Definity was used to enhance endocardial definition. Intraveneous saline contrast was used to help determine presence of intracardiac shunting. The study quality is technically adequate. Race: W ++++++++++++++++++++++++++++++++++++ SUMMARY: ++++++++++++++++++++++++++++++++++++ The calculated ejection fraction is 62%. Left ventricular diastolic function is normal. The right ventricle size is normal. The right ventricular function is normal. The agitated saline injection showed no clear evidence of shunting into the left atrium, consistent with no patent foramen ovale. No evidence of pericardial effusion. There is trace tricuspid regurgitation. ++++++++++++++++++++++++++++++++++++ FINDINGS: ++++++++++++++++++++++++++++++++++++ LV: The left ventricular size is normal. The left ventricular systolic function is normal. The calculated ejection fraction is 62%. The septal E/e' is indeterminate at 8-15. The lateral E/e' is indeterminate at 9-11. Left ventricular diastolic function is normal. WM: Wall motion appears normal in all segments. RV: The right ventricle size is normal. The right ventricular function is normal. IVS: Intraventricular septum is normal. LA: The left atrial size is normal. RA: Right atrial size is normal. IAS: Atrial septum appears intact. The agitated saline injection showed no clear evidence of shunting into the left atrium, consistent with no patent foramen ovale. ARLIN: No evidence of pericardial effusion. AO: The aortic root measures 2.4 cm. The proximal ascending aorta measures 2.8cm. PA: Unable to reliably quantitate pulmonary systolic pressure. PVn: Pulmonary veins are not assessable. SVn: Inferior vena cava shows >50% collapse with respiration consistent with normal right atrial pressure. AV: The aortic valve is trileaflet. No evidence of aortic valve stenosis. No evidence of aortic valve regurgitation. MV: Structurally normal mitral valve. No evidence of mitral regurgitation. No evidence of mitral stenosis. PV: The pulmonic valve is normal There is trace pulmonic regurgitation TV: The tricuspid valve appears structurally normal. There is trace tricuspid regurgitation. ++++++++++++++++++++++++++++++++++++ MEASUREMENTS: ++++++++++++++++++++++++++++++++++++ DOPPLER LVOT LVOTpkPG 5 mmHg LVOTmnPG 3 mmHg LVOTpkVel 117 cm/s (70-110)* LVOT SV 41 ml LVOT TVI 15.7 cm AV Forward Flow AV TVI 21.7 cm AV pkPG 12 mmHg AV pkVel 172 cm/s (100-170)* Area (TVI) 1.88 cm2 (3-5)* AV mnVel 137 cm/s Area (Chilo) 1.77 cm2 (3-5)* AV mnPG 8 mmHg MV Forward Flow MV DeTm 152 msec MV E/A 0.9 MVA P1/2t 4.89 cm2 (4-6) MV pkE 74.6 cm/s (60-130) MV P1/2t 45 msec (30-60)+ MV pkA 87.4 cm/s Lat E' Lat e 8.16 cm/s Lat E/E' Lat E/e 9.1 Med E' Med e 5.77 cm/s Med E/E' Med E/e 12.9 Aortic Valve Aortic Valve Ar 0.98 Aortic Valve Ve 0.68 AV DI Value 0.7 SERINA (VTI) Index Value 0.98 LV Mass 2D Value 90.4 g LV Mass [id number] Value 47.1 g/m2 2D Left Ventricle LVIDd 3.65 cm (3.6-5.2) LV EF(Bi-Plane) 62.2 % (55-75) LVIDs 2.4 cm (2.3-3.9) LVPW LVPWd 0.97 cm Ventricular Septum IVSd 0.77 cm Aorta Ao Rtd 2.43 cm (zsc -1.2) Ao Asc 2.87 cm (zsc 1.4) LVOT LVOT 1.82 cm Ratios IVS LA Biplane LAVol I BP 9.1 ml/m2 Right Ventricle Right Ventricle 1.39 cm Major [place] 5.53 cm <Electronic Signature> 07/31/2023 02:38 PM Gabby Marques M.D. No results found for this or any previous visit from the past 365 days. Review of Systems: Review of Systems Constitutional: Negative. HENT: Negative. Eyes: Negative. Respiratory: Negative. Cardiovascular: Negative. Gastrointestinal: Positive for constipation. Genitourinary: Negative. Musculoskeletal: Positive for back pain, joint pain and neck pain. Skin: Positive for rash. Neurological: Negative. Endo/Heme/Allergies: Negative. Psychiatric/Behavioral: The patient is nervous/anxious. All other systems reviewed and are negative. Pertinent items are noted in HPI. All other systems were reviewed and were negative. Objective: VITALS: BP 140/82 (BP Location: Left Arm, BP Position: Sitting, BP Cuff Size: Large) Pulse 86 Temp 97.4 ??F (36.3 ??C) (Temporal) Resp 16 Ht 5' 3 (1.6 m) Wt 196 lb (88.9 kg) SpO2 95% BMI 34.72 kg/m?? Physical Exam Vitals and nursing note reviewed. Constitutional: Appearance: Normal appearance. HENT: Head: Normocephalic and atraumatic. Right Ear: External ear normal. Left Ear: External ear normal. Nose: Nose normal. Mouth/Throat: Mouth: Mucous membranes are moist. Pharynx: Oropharynx is clear. Eyes: Extraocular Movements: Extraocular movements intact. Conjunctiva/sclera: Conjunctivae normal. Pupils: Pupils are equal, round, and reactive to light. Neck: Thyroid: No thyromegaly. Comments: Right posterior neck with some erythema, some from the Band-Aid and some from the cyst itself. There was a 5 mm incision. Some sebaceous cyst is present there which was removed. No pus or blood expressed. Tenderness around the area. Covered with gauze and tape Cardiovascular: Rate and Rhythm: Normal rate and regular rhythm. Heart sounds: Murmur heard. Pulmonary: Effort: Pulmonary effort is normal. No respiratory distress. Breath sounds: Normal breath sounds. Abdominal: General: Bowel sounds are normal. There is no distension. Palpations: Abdomen is soft. Tenderness: There is no abdominal tenderness. Hernia: No hernia is present. Comments: Surgical scars Musculoskeletal: General: No deformity. Normal range of motion. Cervical back: Tenderness present. Comments: Orthopedic scars Skin: General: Skin is warm and dry. Capillary Refill: Capillary refill takes less than 2 seconds. Findings: No rash. Neurological: General: No focal deficit present. Mental Status: She is alert and oriented to person, place, and time. Coordination: Coordination is intact. Gait: Gait is intact. Psychiatric: Mood and Affect: Mood and affect normal. Behavior: Behavior normal. Thought Content: Thought content normal. Cognition and Memory: Memory normal. Judgment: Judgment normal. Data Review: Lab Results Component Value Date WBC 11.56 02/24/2024 HEMOGLOBIN 13.6 02/24/2024 PLATELETCNT 340 02/24/2024 MCV 92.4 02/24/2024 Lab Results Component Value Date SODIUM 140 02/24/2024 POTASSIUM 4.3 02/24/2024 CHLORIDE 104 02/24/2024 CO2VEN 26 02/24/2024 ANIONGAP 14.3 02/24/2024 GLUCOSE 119 (H) 02/24/2024 BUN 16 02/24/2024 CREATININE 0.7 02/25/2024 BCRATIO8 24 (H) 02/24/2024 TOTALPROTEIN 7.2 02/24/2024 ALBUMIN 4.4 02/24/2024 AGRATIO 0.9 07/20/2023 CALCIUM 9.5 02/24/2024 TBIL 0.6 02/24/2024 SGOTAST 49 (H) 02/24/2024 SGPTALT 97 (H) 02/24/2024 ALKALINEPHO 91 02/24/2024 GFRNA >60 02/24/2024 GFRA >60 02/24/2024 Lab Results Component Value Date INR 1.2 05/05/2021 PTP 14.9 (H) 05/05/2021 I personally reviewed the above labs and radiological studies (images if available and reports), and agree with the radiologist unless stated above. This note was dictated using [employer] fluency dictation system and there may be errors in call center director. Despite proof reading the note, there may be mistakes and I apologize for those. By: Kingston Peoples MD, 06/21/2024, 9:59 AM CDT Primary Care Physician: LATOYA BRYAN, PAC documented in this encounter Plan of Treatment Upcoming Encounters Date Type Department Care Team (Latest Contact Info) Description 07/03/2024 12:40 PM CDT Hospital Encounter [facility] [address] [place] [address] Kingston Peoples MD #[address] [address] 07/03/2024 12:40 PM CDT - 07/03/2024 1:40 PM CDT Surgery [facility] [address] [address] [place] [address] Kingston Peoples MD #[address] [address] EXCISION OF RIGHT POSTERIOR NECK SEBACEOUS CYST 07/12/2024 9:15 AM CDT [facility] - [place] #[address] [phone] Kingston Peoples MD #[address] [address] Scheduled Orders Name Type Priority Associated Diagnoses Orde r Schedule GENERAL SURGERY PROCEDURE Procedures Routine Sebaceous cyst Expected: 06/21/2024, Expires: 09/19/2024 Scheduled Procedures Name Priority Associated Diagnoses Date/Ti me EXCISION CYST SEBACEOUS CYST 07/03/2024 12:40 PM CDT documented as of this encounter Visit Diagnoses Diagnosis Sebaceous cyst- Primary documented in this encounter Care Teams Skein Bleacher Relationship Specialty Start Date End Date Latoya Bryan [facility] [address] [place] [address] PCP - General Physician Vat House Supervisor 09/27/19 Ron Batista MD #[address] [address] Consulting Physician Urology 08/19/23 Jomar Kiran MD [address] [place] [address] Consulting Physician Medical Oncology 07/20/23 Macy Alarcon APRN, AQUEDUCT AND RESERVOIR KEEPER [address] [place] [address] Nurse Practitioner Advanced Practice Nurse 02/23/24 Kingston Peoples MD #[address] [address] Consulting Physician Colon and Rectal Surgery 06/20/24 documented as of this encounter
--- OUTSIDE RECORDS SUMMARY | 2024-06-22 11:02 | XMS_ITS | CONTINUITY OF CARE DOCUMENT ---
Author Name brandie diego Address Unknown Organization [facility] Address [address] [place] [address] Phone [phone] Care Team Providers Care Bulbs Farmworker Name Role Phone brandie diego Unavailable Unavailable
--- OUTSIDE RECORDS SUMMARY | 2024-06-22 11:02 | XMS_ITS | Encounter Summary ---
Author Organization [facility] Care Team Providers Care Meat Soaker Name Role Phone Randi Jose Natalio SAUCEDO Primary Care Provider [phone] Ron Batista MD Unavailable Jomar Kiran MD Unavailable [phone] Macy Alarcon APRN, CASINO FLOORPERSON Unavailable Kingston Peoples MD Unavailable Encounter Details Date Type Department Care Team (Latest Contact Info) Description 06/22/2024 Travel Social History Tobacco Use Types Packs/Day [...] Description 07/03/2024 12:40 PM CDT [facility] [address] [place] [phone] Kingston Peoples MD #[address] [address] 07/03/2024 12:40 PM CDT - 07/03/2024 1:40 PM CDT [facility] [address] [place] [address] Kingston Peoples MD #[address] [address] EXCISION OF RIGHT POSTERIOR NECK SEBACEOUS CYST 07/12/2024 9:15 AM CDT Office Visit [facility] #[address] [phone] Kingston Peoples MD #[address] [address] Scheduled Procedures Name Priority Associated Diagnoses Date/Ti me EXCISION CYST SEBACEOUS CYST 07/03/2024 12:40 PM CDT documented as of this encounter Visit Diagnoses Not on filedocumented in this encounter Care Teams Meat Soaker Relationship Specialty Start Date End Date Jose Bryan, [facility] [address] [place] [address] PCP - General Physician Senior Sql Server Developer 09/27/19 Ron Batista MD #[address] [address] Consulting Physician Urology 08/19/23 Jomar Kiran MD [address] [place] [address] Consulting Physician Medical Oncology 07/20/23 Macy Alarcon APRN, CASINO FLOORPERSON #[address] [place] [address] Nurse Practitioner Advanced Practice Nurse 02/23/24 Kingston Peoples MD #[address] [address] Consulting Physician Colon and Rectal Surgery 06/20/24 documented as of this encounter
--- OUTSIDE RECORDS SUMMARY | 2024-06-22 11:02 | XMS_ITS | Continuity of Care Document ---
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 tel:[phone] Referring Provider: Mateo Desai [address], [place], [place], [address]. tel:[phone] OFFICE/OUTPA TIENT VISIT, [facility], [place], [address], [place], [place], [address], [place] tel:[phone] [facility] HTN (chief complaint) HLP (chief complaint) COPD (chief complaint) Dietary surveillance and counselingHypertens ion, UnspecifiedHypothyr oidismOther and unspecified hyperlipidemiaCOPD 4 Marvel Soler [address], [address], [place], [place], [address] , [place]. tel:[phone] Referring Provider: Mateo Desai [address], [place], [place], [address]. tel:[phone] OFFICE/OUTPA TIENT VISIT, [facility], [place], [address], [place], [place], [address], [place] tel:[phone] [facility] COPD (chief complaint) anxiety (chief complaint) HLP (chief complaint) Dietary surveillance and counselingLEUKOCYTO SIS NOSCOPDOther and unspecified hyperlipidemiaHypot hyroidism 4 Marvel Galindo [address], [place], [place], [address] , [place]. tel:[phone] Referring Provider: Mateo Desai [address], [place], [place], [address]. tel:[phone] OFFICE/OUTPA TIENT VISIT, [facility], [place], [address], [place], [place], [address], [place] tel:[phone] [facility] anxiety (chief complaint) back pain (chief complaint) COPD (chief complaint) Dietary surveillance and counselingOther and unspecified hyperlipidemiaCOPDL umbago 4 Grier Slim. [address], [address], [place], [place], [address] , [place]. tel:[phone] Referring Provider: Mateo Desai [address], [place], [place], [address]. tel:[phone] OFFICE/OUTPA TIENT VISIT, [facility], [place], [address], [place], [place], [address], [place] tel:[phone] [facility] HLP (chief complaint) metabolic (chief complaint) leukocytos is (chief complaint) hypothyroi dism (chief complaint) anxiety (chief complaint) bronchitis (chief complaint) Dietary surveillance and counselingOther and unspecified hyperlipidemiaMetab olic SyndromeLEUKOCYTOSI S NOSHypothyroidism Apr-2 4 4 Marvel Smalls. [address], [address], [place], [place], [address] , [place]. tel:[phone] Referring Provider: Mateo Desai [address], [place], [place], [address]. tel:[phone] OFFICE/OUTPA TIENT VISIT, [facility], [place], [address], [place], [place], [address], [place] tel:[phone] [facility] HTN (chief complaint) anxiety (chief complaint) back pain (chief complaint) cough (chief complaint) Dietary surveillance and counselingHypertens ion, UnspecifiedLumbagoB ronchitis, Acute Apr-0 3201 4 Marvel Smalls. [address], [address], [place], [place], [address] , [place]. tel:[phone] Referring Provider: Mateo Desai [address], [place], [place], [address]. tel:[phone] OFFICE/OUTPA TIENT VISIT, [facility], [address], [place], [place], [address], [place] tel:[phone] [facility] Dietary surveillance and counselingLumbagoHy pertension, UnspecifiedHypergly cemia Mar-0 6201 4 Marvel Smalls. [address], [place], [place], [address] , . tel:[phone] Family History Family Member Type Diagnosis Age At Onset Father Problem (finding) Coronary artery disease Mother Problem (finding) Hypertension Mother Problem (finding) Diabetes mellitus Mother Problem (finding) Asthma Mother Problem (finding) Anxiety Mother Problem (finding) Depression Father Problem (finding) schizophrenia Father Problem (finding) Anxiety Payers Payer name Insurance type Covered republican ID Authoriza tion(s) No Information Social History [...]
--- OUTSIDE RECORDS SUMMARY | 2024-06-22 11:02 | XMS_ITS | Encounter Summary ---
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
--- OUTSIDE RECORDS SUMMARY | 2024-06-22 11:02 | XMS_ITS | Clinical Summary ---
Author Organization [facility] Address [address] [place] [address] Care Team Providers Care Pole Peeler Name Role Phone Jose Bryan Primary Care Provider [phone] Ciaran Mcallister MD Unavailable [phone] Allergies Active Allergy Reactions Criticality Noted Date Comments Morphine Agitation Low Medications gabapentin (NEURONTIN) 300 mg capsule Take 4 capsules (1,200 mg total) by mouth nightly Active lisinopriL (PRINIVIL,ZES TRIL) 5 mg tablet Take 1 tablet (5 [...] daily Active docusate sodium (COLACE) 250 mg capsuleIndica tions:constip ation Take 1 capsule (250 mg total) by mouth 2 (two) times a day 60 capsule 01/21/20 24 Active Additional Information Patient not taking.Reported on 04/03/2024 nicotine (NICODERM CQ) [address] 1 patch on the skin daily 10 patch 01/22/20 24 Active Additional Information Patient not taking.Reported on 04/03/2024 traMADoL (ULTRAM) 50 mg tablet Take 1 [...] (three) times a day 02/16/20 24 Active naloxone (NARCAN) 4 mg/actuation spray,non-aer osol Administer 1 spray (4 mg total) into affected nostril(s) as needed 07/06/19 24 Active sulfaSALAzine EN (AZULFIDINE EN) 500 mg EC tabletIndicat ions:Rheumato id Arthritis Take 2 tablets (1,000 mg total) by mouth 2 (two) times a day 360 tablet 05/16/19 25 025 Active meloxicam (MOBIC) 7.5 mg tabletIndicat ions:Rheumato id Arthritis Take 1 tablet (7.5 mg total) by mouth daily 90 tablet 1 05/16/19 25 025 Active adalimumab-aa ty (Yuflyma,CF, Autoinjector) 40 mg/0.4 mL auto-injector , kitIndication s:Rheumatoid Arthritis Inject 40 mg under the skin every 14 (fourteen) days 1 each 06/20/19 25 Active Humira,CF, Pen 40 mg/0.4 mL pen injector kitIndication s:Rheumatoid Arthritis Inject 0.4 mL (40 mg total) under the skin every 14 (fourteen) days 2 each 5 05/16/19 25 025 Discontinued(Al ternate therapy) predniSONE (DELTASONE) 5 mg tablet Take 4 tablets (20 mg) by mouth daily for 7 days, THEN 3 tablets (15 mg) daily for 7 days, THEN 2 tablets (10 mg) daily for 7 days, THEN 1 tablet (5 mg) daily for 7 days. 70 tablet 05/16/19 25 025 adalimumab-ad bm 40 mg/0.4 mL pen injector kitIndication s:Rheumatoid arthritis involving multiple sites with positive rheumatoid factor (HCC) Inject 40 mg under the skin every 14 (fourteen) days 2 kit 3 06/08/19 25 025 Discontinued adalimumab-aa ty (Yuflyma,CF, Autoinjector) 40 mg/0.4 mL auto-injector , kitIndication s:Rheumatoid Arthritis Inject 40 mg under the skin every 14 (fourteen) days 1 each 3 06/09/19 25 025 Discontinued(Re order) Active Problems Patient Care Coordination No te [...] for esophageal spasm versus mild early presbyesophagus. [id number] spontaneous gastroesophageal reflux. Small sliding-type hiatal hernia. [...] Encounters Date Type Department Care Team Description 06/08/2024 Telephone [facility] [address] [place] [address] Juanita Lemus RPh 06/08/2024 Telephone [facility] Rheumatology [address] 5th [place] [address] [place] [address] Jayne Gibbons MD 05/18/2024 Results Follow-Up [facility] Rheumatology [address] [place] [address] [address] [place] [address] Jayne Gibbons MD 05/16/2024 11:27 AM POWER PRESS TENDER - 05/16/2024 11:59 PM POWER PRESS TENDER Hospital Encounter [facility] [address] [place] [id number] Rheumatoid arthritis involving multiple sites with positive rheumatoid factor (HCC) Discharge Disposition: Discharge to home or self care 05/16/2024 10:20 AM POWER PRESS TENDER Lab [facility] Infectious Diseases [address] [place] [address] [address] [place] [address] 05/16/2024 10:14 AM POWER PRESS TENDER - 05/16/2024 11:59 PM POWER PRESS TENDER Hospital Encounter [facility] [address] [place] [address] Rheumatoid arthritis involving multiple sites with positive rheumatoid factor (HCC); High risk medication use Discharge Disposition: Discharge to home or self care 05/16/2024 9:00 AM POWER PRESS TENDER Office Visit [facility] Rheumatology [address] [place] [address] [address] [place] [address] Jayne Gibbons MD Rheumatoid arthritis involving multiple sites with positive rheumatoid factor (HCC) (Primary Dx); High risk medication use; Chronic pain of right knee; Cervical spinal stenosis; 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; Lymphadenopathy; Transaminitis 04/11/2024 Telephone [facility] [address] [place] [address] Jaqueline Jorgensen RN 04/04/2024 Orders Only [facility] Surgery [address] [place] [id number] Raghav Pugh NP Esophageal diverticulum (Primary Dx) 04/03/2024 8:30 AM POWER PRESS TENDER Office Visit [facility] Surgery [address] [place] [address] David Miller MD Esophageal diverticulum 03/30/2024 8:00 AM POWER PRESS TENDER - 03/30/2024 11:59 PM POWER PRESS TENDER Hospital Encounter [facility] [address] [place] [address] Rad, Amh Fluoro Esophageal diverticulum Discharge Disposition: Discharge to home or self care 03/27/2024 Orders Only [facility] Surgery [address] 5 [place] [phone] Yumiko Donaldson NP Esophageal diverticulum (Primary Dx) from Last 3 Months Immunizations Immunization Administration Dates Next Due Influenza, Quadrivalent, Split, [...] drink = 0.6 oz pur e alcohol) [facility] Utilities Answer Date Recorded In the [...] often do you attend chur ch or restorationist services? Never 01/18/2024 Do you belong to any clubs o r organizations such as latter-day groups, unions, fraternal or athletic groups, or [...] any time in the past 12 [facility], were you homeless or living [...] on file Legal Sex Female 9:45 AM POWER PRESS TENDER Gender Identity Not on file Sexual Orientation Not on file Occupation Industry Job Start Date Job End Date disability Not on file Not on file Not on file Obstetrics History Last Filed Vital Signs Vital Sign Reading Time Taken Comments Blood Pressure 134/82 05/16/2024 8:33 AM POWER PRESS TENDER Pulse 91 05/16/2024 8:33 AM POWER PRESS TENDER Temperature 36.7 C (98 F) 05/16/2024 8:33 AM POWER PRESS TENDER Respiratory Rate 16 04/03/2024 8:40 AM POWER PRESS TENDER Oxygen Saturation 98% 05/16/2024 8:33 AM POWER PRESS TENDER Inhaled Oxygen Concentration - - Weight 88.7 kg (195 lb 9.6 oz) 05/16/2024 8:33 A M POWER PRESS TENDER Height 162.6 cm (5' 4 ) 05/16/2024 8:33 AM POWER PRESS TENDER Body Mass Index 33.57 05/16/2024 8:33 AM POWER PRESS TENDER Plan of Treatment Health Maintenance Due Date Last Done Comments Colon Cancer Screening-Colonoscopy 1969 Depression Screening 1969 Regular Well Visit/Exam 18-64 06/17/1987 Lung Cancer Screening 06/17/2019 Zoster Vaccine (1 of 2) 06/17/2019 DTaP/Tdap/Td Vaccine (2 - Td or Tdap) 03/31/2023 03/31/2013 Breast Cancer Screening-Mammogram 02/14/2025 02/15/2024, 02/15/2024, 07/26/2023, Additional history exists Influenza Vaccine Completed 02/02/2024, , 02/27/2016 Hepatitis B Screening Completed 05/16/2024 Hepatitis C Screening Completed 05/16/2024, 024 Pneumococcal vaccine <65 Aged Out No longer eligible based on patient's age to complete this topic Procedures Procedure Name Priority Date/Time Associated Diagnosis Comments XR KNEE RIGHT 3 VIEWS Schedule Routine, Read Routine (OP Routine) 05/16/2024 11:54 AM POWER PRESS TENDER Rheumatoid arthritis involving multiple sites with positive rheumatoid factor (HCC) XR SPINE CERVICAL W FLEXION AND EXTENSION 4 VIEWS Schedule Routine, Read Routine (OP Routine) 05/16/2024 11:54 AM POWER PRESS TENDER Rheumatoid arthritis involving multiple sites with positive rheumatoid factor (HCC) XR HIP RIGHT 2 OR 3 VIEWS Schedule Routine, Read Routine (OP Routine) 05/16/2024 11:54 AM POWER PRESS TENDER Rheumatoid arthritis involving multiple sites with positive rheumatoid factor (HCC) XR HIP LEFT 2 OR 3 VIEWS Schedule Routine, Read Routine (OP Routine) 05/16/2024 11:54 AM POWER PRESS TENDER Rheumatoid arthritis involving multiple sites with positive rheumatoid factor (HCC) XR SACROILIAC JOINTS 3 OR MORE VIEWS Schedule Routine, Read Routine (OP Routine) 05/16/2024 11:54 AM POWER PRESS TENDER Rheumatoid arthritis involving multiple sites with positive rheumatoid factor (HCC) XR FOOT BILATERAL 3 OR MORE VIEWS OF EACH Schedule Routine, Read Routine (OP Routine) 05/16/2024 11:54 AM POWER PRESS TENDER Rheumatoid arthritis involving multiple sites with positive rheumatoid factor (HCC) XR HAND BILATERAL 3 OR MORE VIEWS OF EACH Schedule Routine, Read Routine (OP Routine) 05/16/2024 11:54 AM POWER PRESS TENDER Rheumatoid arthritis involving multiple sites with positive rheumatoid factor (HCC) KARYN-1 ANTIBODY Routine 05/16/2024 10:14 AM POWER PRESS TENDER Rheumatoid arthritis involving multiple sites with positive rheumatoid factor (HCC) SCL 70 ANTIBODIES Routine 05/16/2024 10: 14 AM POWER PRESS TENDER Rheumatoid arthritis involving multiple sites with positive rheumatoid factor (HCC) ROUTE SALES REPRESENTATIVE ANTIBODIES Routine 05/16/2024 10:14 AM POWER PRESS TENDER Rheumatoid arthritis involving multiple sites with positive rheumatoid factor (HCC) BIRD ANTIBODIES Routine 05/16/2024 10:1 4 AM POWER PRESS TENDER Rheumatoid arthritis involving multiple sites with positive rheumatoid factor (HCC) SJOGRENS SYNDROME-B ANTIBODY Routine 05/16/2024 10:14 AM POWER PRESS TENDER Rheumatoid arthritis involving multiple sites with positive rheumatoid factor (HCC) SJOGRENS SYNDROME-A ANTIBODY Routine 05/16/2024 10:14 AM POWER PRESS TENDER Rheumatoid arthritis involving multiple sites with positive rheumatoid factor (HCC) EGFR Routine 05/16/2024 10:14 AM POWER PRESS TENDER Rheumatoid arthritis involving multiple sites with positive rheumatoid factor (HCC) DIFFERENTIAL AUTO Routine 05/16/2024 10: 14 AM POWER PRESS TENDER Rheumatoid arthritis involving multiple sites with positive rheumatoid factor (HCC) VITAMIN D 25 HYDROXY Routine 05/16/2024 10:14 AM POWER PRESS TENDER High risk medication use CRP (ACUTE PHASE) Routine 05/16/2024 10: 14 AM POWER PRESS TENDER Rheumatoid arthritis involving multiple sites with positive rheumatoid factor (HCC) ERYTHROCYTE SEDIMENTATION RATE Routine 05/16/2024 10:14 AM POWER PRESS TENDER Rheumatoid arthritis involving multiple sites with positive rheumatoid factor (HCC) CBC WITH AUTO DIFFERENTIAL Routine 05/16/2024 10:14 AM POWER PRESS TENDER Rheumatoid arthritis involving multiple sites with positive rheumatoid factor (HCC) COMPREHENSIVE METABOLIC PANEL Routine 05/16/2024 10:14 AM POWER PRESS TENDER Rheumatoid arthritis involving multiple sites with positive rheumatoid factor (HCC) ANTI-DOUBLE STRANDED DNA ANTIBODIES Routine 05/16/2024 10:14 AM POWER PRESS TENDER Rheumatoid arthritis involving multiple sites with positive rheumatoid factor (HCC) RHEUMATOID FACTOR Routine 05/16/2024 10: 14 AM POWER PRESS TENDER Rheumatoid arthritis involving multiple sites with positive rheumatoid factor (HCC) OLIVE ANTIBODY EVALUATION WITH REFLEX Routine 05/16/2024 10:14 AM POWER PRESS TENDER Rheumatoid arthritis involving multiple sites with positive rheumatoid factor (HCC) C4 COMPLEMENT Routine 05/16/2024 10:14 AM POWER PRESS TENDER Rheumatoid arthritis involving multiple sites with positive rheumatoid factor (HCC) C3 COMPLEMENT Routine 05/16/2024 10:14 AM POWER PRESS TENDER Rheumatoid arthritis involving multiple sites with positive rheumatoid factor (HCC) CYCLIC CITRUL PEPTIDE ANTIBODY, IGG Routine 05/16/2024 10:14 AM POWER PRESS TENDER Rheumatoid arthritis involving multiple sites with positive rheumatoid factor (HCC) CHELSEY QUALITATIVE WITH REFLEX TO CHELSEY QUANTITATIVE Routine 05/16/2024 10:14 AM POWER PRESS TENDER Rheumatoid arthritis involving multiple sites with positive rheumatoid factor (HCC) HEPATITIS B SURFACE ANTIBODY (IMMUNE STATUS) Routine 05/16/2024 10:14 AM POWER PRESS TENDER High risk medication use HEPATITIS B CORE ANTIBODY, TOTAL Routine 05/16/2024 10:14 AM POWER PRESS TENDER High risk medication use HEPATITIS B SURFACE ANTIGEN Routine 05/16/2024 10:14 AM POWER PRESS TENDER High risk medication use HEPATITIS C ANTIBODY Routine 05/16/2024 10:14 AM POWER PRESS TENDER High risk medication use T-SPOT.TB Routine 05/16/2024 10:14 AM POWER PRESS TENDER High risk medication use FL ESOPHAGRAM, DOUBLE CONTRAST Schedule Routine, Read Routine (OP Routine) 03/30/2024 8:30 AM POWER PRESS TENDER Esophageal diverticulum from Last 3 Months Results * XR Foot Bilateral 3 or More Views of Each (05/16/2024 11:54 AM POWER PRESS TENDER) Anatomical Region Laterality Modality Lower Extremities, Foot Computed Radiography 05/16/2024 9:36 PM POWER PRESS TENDER Narrative 05/16/2024 9:49 PM POWER PRESS TENDER EXAM DESCRIPTION: XR HAND BILATERAL 3 OR MORE VIEWS OF EACH; XR SACROILIAC JOINTS 3 OR MORE VIEWS; XR FOOT BILATERAL 3 OR MORE VIEWS OF EACH; XR HIP LEFT 2 OR 3 VIEWS; XR HIP RIGHT 2 OR 3 VIEWS; XR SPINE CERVICAL W FLEXION AND EXTENSION 4 OR 5 VIEWS; XR KNEE RIGHT 3 VIEWS REASON FOR STUDY: pain, evaluate for inflammatory arthritis vs OA, pain, evaluate for inflammatory arthritis vs OA pain, evaluate for sacroiliitis, pain, evaluate for sacroiliitis hip pain, hx RA neck pain, hx RA knee pain, eval OA vs inflammatory arthritis Rheumatoid arthritis involving multiple sites with positive rheumatoid factor FINDINGS: Three views each hand, four views cervical spine, two views each hip, three views sacroiliac joints, three views right knee and three views each foot submitted with comparison 01/08/2020. Cervical spine: No acute fracture. No prevertebral soft tissue swelling. Cervical kyphosis is present. There is phmy-ek-wyitiily C3-C7 degenerative disc disease, most severe at C6-C7. Flexion-extension views demonstrate no abnormal translation. There is bilateral uncovertebral osteoarthritis, greatest at C6-C7. Left hand: There is an erosion involving the radius. There is mild radiocarpal, triscaphe and severe basal thumb joint osteoarthritis. There is mild 1st and 2nd metacarpophalangeal joint osteoarthritis. No dorsal wrist soft tissue swelling. Right hand: There are erosions involving the distal radius, ulna, and 2nd and 3rd metacarpal heads. There is mild radiocarpal and severe basal thumb joint osteoarthritis. 2nd metacarpophalangeal and polyarticular interphalangeal joint osteoarthritis is present. There is no dorsal wrist soft tissue swelling. Sacroiliac joints: No erosions. No acute fractures. Lumbosacral fusion is noted. The sacroiliac joints are normal. Hips: No erosions. No acute fractures. Alignment is normal. There is mild right and minimal left bilateral hip osteoarthritis. Right knee: No erosions. No acute fractures. There is severe lateral predominant right knee osteoarthritis. Moderate-sized effusion is noted. Right foot: There are erosions involving the 1st and 5th metatarsal heads, and great toe proximal and distal phalanges. Midfoot osteoarthritis is present. Hallux valgus and 1st metatarsophalangeal joint osteoarthritis is present. Left foot: There are erosions involving the 1st metatarsal head and great toe proximal phalanx. No acute fracture. Midfoot osteoarthritis is present. Hallux valgus with a bunion deformity and 1st metatarsophalangeal joint osteoarthritis is present. IMPRESSION: Rsbl-id-vpctpsyv C3-C7 degenerative disc disease, most severe at C6-C7 with bilateral uncovertebral osteoarthritis. Erosions involving the bilateral hands and feet which can be associated with inflammatory arthritis. No radiographic evidence of sacroiliitis. Mild right and minimal left bilateral hip osteoarthritis. Severe lateral predominant right knee osteoarthritis with a moderate-sized effusion. THIS IS AN ELECTRONICALLY VERIFIED FINAL REPORT 05/16/2024 9:49 PM - Electronically signed by Prem Teran M.D. MF: RA Report ID: [id number] Reading Location: [id number] Procedure Note Prem Teran MD - 05/16/2024 EXAM DESCRIPTION: XR HAND BILATERAL 3 OR MORE VIEWS OF EACH; XR SACROILIAC JOINTS 3 OR MORE VIEWS; XR FOOT BILATERAL 3 OR MORE VIEWS OF EACH; XR HIP LEFT 2 OR 3 VIEWS; XR HIP RIGHT 2 OR 3 VIEWS; XR SPINE CERVICAL W FLEXION AND EXTENSION 4 OR 5 VIEWS; XR KNEE RIGHT 3 VIEWS REASON FOR STUDY: pain, evaluate for inflammatory arthritis vs OA, pain, evaluate for inflammatory arthritis vs OA pain, evaluate for sacroiliitis, pain, evaluate for sacroiliitis hip pain, hx RA neck pain, hx RA knee pain, eval OA vs inflammatory arthritis Rheumatoid arthritis involving multiple sites with positive rheumatoidfactor FINDINGS: Three views each hand, four views cervical spine, two views each hip,three views sacroiliac joints, three views right knee and three views each foot submitted with comparison 01/08/2020. Cervical spine: No acute fracture. No prevertebral soft tissue swelling. Cervicalkyphosis is present. There is vmya-mu-ftqzwbwv C3-C7 degenerative disc disease,most severe at C6-C7. Flexion-extension views demonstrate no abnormaltranslation. There is bilateral uncovertebral osteoarthritis, greatest at C6-C7. Left hand: There is an erosion involving the radius. There is mild radiocarpal, triscaphe and severe basal thumb joint osteoarthritis. There is mild 1stand 2nd metacarpophalangeal joint osteoarthritis. No dorsal wrist soft tissue swelling. Right hand: There are erosions involving the distal radius, ulna, and 2nd and 3rd metacarpal heads. There is mild radiocarpal and severe basal thumb joint osteoarthritis. 2nd metacarpophalangeal and polyarticular interphalangeal joint osteoarthritis is present. There is no dorsal wrist soft tissue swelling. Sacroiliac joints: No erosions. No acute fractures. Lumbosacral fusion is noted. The sacroiliac joints are normal. Hips: No erosions. No acute fractures. Alignment is normal. There is mildright and minimal left bilateral hip osteoarthritis. Right knee: No erosions. No acute fractures. There is severe lateral predominantright knee osteoarthritis. Moderate-sized effusion is noted. Right foot: There are erosions involving the 1st and 5th metatarsal heads, and greattoe proximal and distal phalanges. Midfoot osteoarthritis is present. Hallux valgus and 1st metatarsophalangeal joint osteoarthritis is present. Left foot: There are erosions involving the 1st metatarsal head and great toeproximal phalanx. No acute fracture. Midfoot osteoarthritis is present. Hallux valgus with a bunion deformity and 1st metatarsophalangeal joint osteoarthritis is present. IMPRESSION: Qamk-hh-vgvdgyzx C3-C7 degenerative disc disease, most severe at C6-C7with bilateral uncovertebral osteoarthritis. Erosions involving the bilateral hands and feet which can be associatedwith inflammatory arthritis. No radiographic evidence of sacroiliitis. Mild right and minimal left bilateral hip osteoarthritis. Severe lateral predominant right knee osteoarthritis with amoderate-sized effusion. THIS IS AN ELECTRONICALLY VERIFIED FINAL REPORT 05/16/2024 9:49 PM - Electronically signed by Prem Teran M.D. MF: RA Report ID: [id number] Reading Location: [id number] Jayne Gibbons MD IMG XR PROCEDURES Fin al Result * XR Hand Bilateral 3 or More Views of Each (05/16/2024 11:54 AM POWER PRESS TENDER) Anatomical Region Laterality Modality Upper Extremities, Hand Computed Radiography 05/16/2024 9:36 PM POWER PRESS TENDER Narrative 05/16/2024 9:49 PM POWER PRESS TENDER EXAM DESCRIPTION: XR HAND BILATERAL 3 OR MORE VIEWS OF EACH; XR SACROILIAC JOINTS 3 OR MORE VIEWS; XR FOOT BILATERAL 3 OR MORE VIEWS OF EACH; XR HIP LEFT 2 OR 3 VIEWS; XR HIP RIGHT 2 OR 3 VIEWS; XR SPINE CERVICAL W FLEXION AND EXTENSION 4 OR 5 VIEWS; XR KNEE RIGHT 3 VIEWS REASON FOR STUDY: pain, evaluate for inflammatory arthritis vs OA, pain, evaluate for inflammatory arthritis vs OA pain, evaluate for sacroiliitis, pain, evaluate for sacroiliitis hip pain, hx RA neck pain, hx RA knee pain, eval OA vs inflammatory arthritis Rheumatoid arthritis involving multiple sites with positive rheumatoid factor FINDINGS: Three views each hand, four views cervical spine, two views each hip, three views sacroiliac joints, three views right knee and three views each foot submitted with comparison 01/08/2020. Cervical spine: No acute fracture. No prevertebral soft tissue swelling. Cervical kyphosis is present. There is ikez-xa-hdtsqlob C3-C7 degenerative disc disease, most severe at C6-C7. Flexion-extension views demonstrate no abnormal translation. There is bilateral uncovertebral osteoarthritis, greatest at C6-C7. Left hand: There is an erosion involving the radius. There is mild radiocarpal, triscaphe and severe basal thumb joint osteoarthritis. There is mild 1st and 2nd metacarpophalangeal joint osteoarthritis. No dorsal wrist soft tissue swelling. Right hand: There are erosions involving the distal radius, ulna, and 2nd and 3rd metacarpal heads. There is mild radiocarpal and severe basal thumb joint osteoarthritis. 2nd metacarpophalangeal and polyarticular interphalangeal joint osteoarthritis is present. There is no dorsal wrist soft tissue swelling. Sacroiliac joints: No erosions. No acute fractures. Lumbosacral fusion is noted. The sacroiliac joints are normal. Hips: No erosions. No acute fractures. Alignment is normal. There is mild right and minimal left bilateral hip osteoarthritis. Right knee: No erosions. No acute fractures. There is severe lateral predominant right knee osteoarthritis. Moderate-sized effusion is noted. Right foot: There are erosions involving the 1st and 5th metatarsal heads, and great toe proximal and distal phalanges. Midfoot osteoarthritis is present. Hallux valgus and 1st metatarsophalangeal joint osteoarthritis is present. Left foot: There are erosions involving the 1st metatarsal head and great toe proximal phalanx. No acute fracture. Midfoot osteoarthritis is present. Hallux valgus with a bunion deformity and 1st metatarsophalangeal joint osteoarthritis is present. IMPRESSION: Bluy-my-xduhwwst C3-C7 degenerative disc disease, most severe at C6-C7 with bilateral uncovertebral osteoarthritis. Erosions involving the bilateral hands and feet which can be associated with inflammatory arthritis. No radiographic evidence of sacroiliitis. Mild right and minimal left bilateral hip osteoarthritis. Severe lateral predominant right knee osteoarthritis with a moderate-sized effusion. THIS IS AN ELECTRONICALLY VERIFIED FINAL REPORT 05/16/2024 9:49 PM - Electronically signed by Prem Teran M.D. MF: RA Report ID: [id number] Reading Location: [place] [id number] Procedure Note Prem Teran MD - 05/16/2024 EXAM DESCRIPTION: XR HAND BILATERAL 3 OR MORE VIEWS OF EACH; XR SACROILIAC JOINTS 3 OR MORE VIEWS; XR FOOT BILATERAL 3 OR MORE VIEWS OF EACH; XR HIP LEFT 2 OR 3 VIEWS; XR HIP RIGHT 2 OR 3 VIEWS; XR SPINE CERVICAL W FLEXION AND EXTENSION 4 OR 5 VIEWS; XR KNEE RIGHT 3 VIEWS REASON FOR STUDY: pain, evaluate for inflammatory arthritis vs OA, pain, evaluate for inflammatory arthritis vs OA pain, evaluate for sacroiliitis, pain, evaluate for sacroiliitis hip pain, hx RA neck pain, hx RA knee pain, eval OA vs inflammatory arthritis Rheumatoid arthritis involving multiple sites with positive rheumatoidfactor FINDINGS: Three views each hand, four views cervical spine, two views each hip,three views sacroiliac joints, three views right knee and three views each foot submitted with comparison 01/08/2020. Cervical spine: No acute fracture. No prevertebral soft tissue swelling. Cervicalkyphosis is present. There is dvfn-zp-fzfvmreb C3-C7 degenerative disc disease,most severe at C6-C7. Flexion-extension views demonstrate no abnormaltranslation. There is bilateral uncovertebral osteoarthritis, greatest at C6-C7. Left hand: There is an erosion involving the radius. There is mild radiocarpal, triscaphe and severe basal thumb joint osteoarthritis. There is mild 1stand 2nd metacarpophalangeal joint osteoarthritis. No dorsal wrist soft tissue swelling. Right hand: There are erosions involving the distal radius, ulna, and 2nd and 3rd metacarpal heads. There is mild radiocarpal and severe basal thumb joint osteoarthritis. 2nd metacarpophalangeal and polyarticular interphalangeal joint osteoarthritis is present. There is no dorsal wrist soft tissue swelling. Sacroiliac joints: No erosions. No acute fractures. Lumbosacral fusion is noted. The sacroiliac joints are normal. Hips: No erosions. No acute fractures. Alignment is normal. There is mildright and minimal left bilateral hip osteoarthritis. Right knee: No erosions. No acute fractures. There is severe lateral predominantright knee osteoarthritis. Moderate-sized effusion is noted. Right foot: There are erosions involving the 1st and 5th metatarsal heads, and greattoe proximal and distal phalanges. Midfoot osteoarthritis is present. Hallux valgus and 1st metatarsophalangeal joint osteoarthritis is present. Left foot: There are erosions involving the 1st metatarsal head and great toeproximal phalanx. No acute fracture. Midfoot osteoarthritis is present. Hallux valgus with a bunion deformity and 1st metatarsophalangeal joint osteoarthritis is present. IMPRESSION: Hrvr-zw-grwgstmp C3-C7 degenerative disc disease, most severe at C6-C7with bilateral uncovertebral osteoarthritis. Erosions involving the bilateral hands and feet which can be associatedwith inflammatory arthritis. No radiographic evidence of sacroiliitis. Mild right and minimal left bilateral hip osteoarthritis. Severe lateral predominant right knee osteoarthritis with amoderate-sized effusion. THIS IS AN ELECTRONICALLY VERIFIED FINAL REPORT 05/16/2024 9:49 PM - Electronically signed by Prem Teran M.D. MF: RA Report ID: [id number] Reading Location: [id number] us Jayne Gibbons MD IMG XR PROCEDURES Fin al Result * XR Spine Cervical W Flexion And Extension 4 or 5 Views (05/16/2024 11:54 AM POWER PRESS TENDER) Anatomical Region Laterality Modality Spine N/A Computed Radiogr aphy 05/16/2024 9:36 PM POWER PRESS TENDER Narrative 05/16/2024 9:49 PM POWER PRESS TENDER EXAM DESCRIPTION: XR HAND BILATERAL 3 OR MORE VIEWS OF EACH; XR SACROILIAC JOINTS 3 OR MORE VIEWS; XR FOOT BILATERAL 3 OR MORE VIEWS OF EACH; XR HIP LEFT 2 OR 3 VIEWS; XR HIP RIGHT 2 OR 3 VIEWS; XR SPINE CERVICAL W FLEXION AND EXTENSION 4 OR 5 VIEWS; XR KNEE RIGHT 3 VIEWS REASON FOR STUDY: pain, evaluate for inflammatory arthritis vs OA, pain, evaluate for inflammatory arthritis vs OA pain, evaluate for sacroiliitis, pain, evaluate for sacroiliitis hip pain, hx RA neck pain, hx RA knee pain, eval OA vs inflammatory arthritis Rheumatoid arthritis involving multiple sites with positive rheumatoid factor FINDINGS: Three views each hand, four views cervical spine, two views each hip, three views sacroiliac joints, three views right knee and three views each foot submitted with comparison 01/08/2020. Cervical spine: No acute fracture. No prevertebral soft tissue swelling. Cervical kyphosis is present. There is qzkn-ih-iucbufil C3-C7 degenerative disc disease, most severe at C6-C7. Flexion-extension views demonstrate no abnormal translation. There is bilateral uncovertebral osteoarthritis, greatest at C6-C7. Left hand: There is an erosion involving the radius. There is mild radiocarpal, triscaphe and severe basal thumb joint osteoarthritis. There is mild 1st and 2nd metacarpophalangeal joint osteoarthritis. No dorsal wrist soft tissue swelling. Right hand: There are erosions involving the distal radius, ulna, and 2nd and 3rd metacarpal heads. There is mild radiocarpal and severe basal thumb joint osteoarthritis. 2nd metacarpophalangeal and polyarticular interphalangeal joint osteoarthritis is present. There is no dorsal wrist soft tissue swelling. Sacroiliac joints: No erosions. No acute fractures. Lumbosacral fusion is noted. The sacroiliac joints are normal. Hips: No erosions. No acute fractures. Alignment is normal. There is mild right and minimal left bilateral hip osteoarthritis. Right knee: No erosions. No acute fractures. There is severe lateral predominant right knee osteoarthritis. Moderate-sized effusion is noted. Right foot: There are erosions involving the 1st and 5th metatarsal heads, and great toe proximal and distal phalanges. Midfoot osteoarthritis is present. Hallux valgus and 1st metatarsophalangeal joint osteoarthritis is present. Left foot: There are erosions involving the 1st metatarsal head and great toe proximal phalanx. No acute fracture. Midfoot osteoarthritis is present. Hallux valgus with a bunion deformity and 1st metatarsophalangeal joint osteoarthritis is present. IMPRESSION: Jzyc-kp-rettueev C3-C7 degenerative disc disease, most severe at C6-C7 with bilateral uncovertebral osteoarthritis. Erosions involving the bilateral hands and feet which can be associated with inflammatory arthritis. No radiographic evidence of sacroiliitis. Mild right and minimal left bilateral hip osteoarthritis. Severe lateral predominant right knee osteoarthritis with a moderate-sized effusion. THIS IS AN ELECTRONICALLY VERIFIED FINAL REPORT 05/16/2024 9:49 PM - Electronically signed by Prem Teran M.D. MF: RA Report ID: [id number] Reading Location: [place] [id number] Procedure Note Prem Teran MD - 05/16/2024 EXAM DESCRIPTION: XR HAND BILATERAL 3 OR MORE VIEWS OF EACH; XR SACROILIAC JOINTS 3 OR MORE VIEWS; XR FOOT BILATERAL 3 OR MORE VIEWS OF EACH; XR HIP LEFT 2 OR 3 VIEWS; XR HIP RIGHT 2 OR 3 VIEWS; XR SPINE CERVICAL W FLEXION AND EXTENSION 4 OR 5 VIEWS; XR KNEE RIGHT 3 VIEWS REASON FOR STUDY: pain, evaluate for inflammatory arthritis vs OA, pain, evaluate for inflammatory arthritis vs OA pain, evaluate for sacroiliitis, pain, evaluate for sacroiliitis hip pain, hx RA neck pain, hx RA knee pain, eval OA vs inflammatory arthritis Rheumatoid arthritis involving multiple sites with positive rheumatoidfactor FINDINGS: Three views each hand, four views cervical spine, two views each hip,three views sacroiliac joints, three views right knee and three views each foot submitted with comparison 01/08/2020. Cervical spine: No acute fracture. No prevertebral soft tissue swelling. Cervicalkyphosis is present. There is lirz-fx-oanowlnl C3-C7 degenerative disc disease,most severe at C6-C7. Flexion-extension views demonstrate no abnormaltranslation. There is bilateral uncovertebral osteoarthritis, greatest at C6-C7. Left hand: There is an erosion involving the radius. There is mild radiocarpal, triscaphe and severe basal thumb joint osteoarthritis. There is mild 1stand 2nd metacarpophalangeal joint osteoarthritis. No dorsal wrist soft tissue swelling. Right hand: There are erosions involving the distal radius, ulna, and 2nd and 3rd metacarpal heads. There is mild radiocarpal and severe basal thumb joint osteoarthritis. 2nd metacarpophalangeal and polyarticular interphalangeal joint osteoarthritis is present. There is no dorsal wrist soft tissue swelling. Sacroiliac joints: No erosions. No acute fractures. Lumbosacral fusion is noted. The sacroiliac joints are normal. Hips: No erosions. No acute fractures. Alignment is normal. There is mildright and minimal left bilateral hip osteoarthritis. Right knee: No erosions. No acute fractures. There is severe lateral predominantright knee osteoarthritis. Moderate-sized effusion is noted. Right foot: There are erosions involving the 1st and 5th metatarsal heads, and greattoe proximal and distal phalanges. Midfoot osteoarthritis is present. Hallux valgus and 1st metatarsophalangeal joint osteoarthritis is present. Left foot: There are erosions involving the 1st metatarsal head and great toeproximal phalanx. No acute fracture. Midfoot osteoarthritis is present. Hallux valgus with a bunion deformity and 1st metatarsophalangeal joint osteoarthritis is present. IMPRESSION: Jxat-lo-mnfwyick C3-C7 degenerative disc disease, most severe at C6-C7with bilateral uncovertebral osteoarthritis. Erosions involving the bilateral hands and feet which can be associatedwith inflammatory arthritis. No radiographic evidence of sacroiliitis. Mild right and minimal left bilateral hip osteoarthritis. Severe lateral predominant right knee osteoarthritis with amoderate-sized effusion. THIS IS AN ELECTRONICALLY VERIFIED FINAL REPORT 05/16/2024 9:49 PM - Electronically signed by Prem Teran M.D. MF: RA Report ID: [id number] Reading Location: [id number] us Jayne Gibbons MD IMG XR PROCEDURES Fin al Result * XR Knee Right 3 Views (05/16/2024 11:54 AM POWER PRESS TENDER) Anatomical Region Laterality Modality Lower Extremities, Knee Right Computed Radiography 05/16/2024 9:36 PM POWER PRESS TENDER Narrative 05/16/2024 9:49 PM POWER PRESS TENDER EXAM DESCRIPTION: XR HAND BILATERAL 3 OR MORE VIEWS OF EACH; XR SACROILIAC JOINTS 3 OR MORE VIEWS; XR FOOT BILATERAL 3 OR MORE VIEWS OF EACH; XR HIP LEFT 2 OR 3 VIEWS; XR HIP RIGHT 2 OR 3 VIEWS; XR SPINE CERVICAL W FLEXION AND EXTENSION 4 OR 5 VIEWS; XR KNEE RIGHT 3 VIEWS REASON FOR STUDY: pain, evaluate for inflammatory arthritis vs OA, pain, evaluate for inflammatory arthritis vs OA pain, evaluate for sacroiliitis, pain, evaluate for sacroiliitis hip pain, hx RA neck pain, hx RA knee pain, eval OA vs inflammatory arthritis Rheumatoid arthritis involving multiple sites with positive rheumatoid factor FINDINGS: Three views each hand, four views cervical spine, two views each hip, three views sacroiliac joints, three views right knee and three views each foot submitted with comparison 01/08/2020. Cervical spine: No acute fracture. No prevertebral soft tissue swelling. Cervical kyphosis is present. There is utwu-ir-amnenkgp C3-C7 degenerative disc disease, most severe at C6-C7. Flexion-extension views demonstrate no abnormal translation. There is bilateral uncovertebral osteoarthritis, greatest at C6-C7. Left hand: There is an erosion involving the radius. There is mild radiocarpal, triscaphe and severe basal thumb joint osteoarthritis. There is mild 1st and 2nd metacarpophalangeal joint osteoarthritis. No dorsal wrist soft tissue swelling. Right hand: There are erosions involving the distal radius, ulna, and 2nd and 3rd metacarpal heads. There is mild radiocarpal and severe basal thumb joint osteoarthritis. 2nd metacarpophalangeal and polyarticular interphalangeal joint osteoarthritis is present. There is no dorsal wrist soft tissue swelling. Sacroiliac joints: No erosions. No acute fractures. Lumbosacral fusion is noted. The sacroiliac joints are normal. Hips: No erosions. No acute fractures. Alignment is normal. There is mild right and minimal left bilateral hip osteoarthritis. Right knee: No erosions. No acute fractures. There is severe lateral predominant right knee osteoarthritis. Moderate-sized effusion is noted. Right foot: There are erosions involving the 1st and 5th metatarsal heads, and great toe proximal and distal phalanges. Midfoot osteoarthritis is present. Hallux valgus and 1st metatarsophalangeal joint osteoarthritis is present. Left foot: There are erosions involving the 1st metatarsal head and great toe proximal phalanx. No acute fracture. Midfoot osteoarthritis is present. Hallux valgus with a bunion deformity and 1st metatarsophalangeal joint osteoarthritis is present. IMPRESSION: Afjc-lu-yviwwinv C3-C7 degenerative disc disease, most severe at C6-C7 with bilateral uncovertebral osteoarthritis. Erosions involving the bilateral hands and feet which can be associated with inflammatory arthritis. No radiographic evidence of sacroiliitis. Mild right and minimal left bilateral hip osteoarthritis. Severe lateral predominant right knee osteoarthritis with a moderate-sized effusion. THIS IS AN ELECTRONICALLY VERIFIED FINAL REPORT 05/16/2024 9:49 PM - Electronically signed by Prem Teran M.D. MF: RA Report ID: [id number] Reading Location: [place] [id number] Procedure Note Prem Teran MD - 05/16/2024 EXAM DESCRIPTION: XR HAND BILATERAL 3 OR MORE VIEWS OF EACH; XR SACROILIAC JOINTS 3 OR MORE VIEWS; XR FOOT BILATERAL 3 OR MORE VIEWS OF EACH; XR HIP LEFT 2 OR 3 VIEWS; XR HIP RIGHT 2 OR 3 VIEWS; XR SPINE CERVICAL W FLEXION AND EXTENSION 4 OR 5 VIEWS; XR KNEE RIGHT 3 VIEWS REASON FOR STUDY: pain, evaluate for inflammatory arthritis vs OA, pain, evaluate for inflammatory arthritis vs OA pain, evaluate for sacroiliitis, pain, evaluate for sacroiliitis hip pain, hx RA neck pain, hx RA knee pain, eval OA vs inflammatory arthritis Rheumatoid arthritis involving multiple sites with positive rheumatoidfactor FINDINGS: Three views each hand, four views cervical spine, two views each hip,three views sacroiliac joints, three views right knee and three views each foot submitted with comparison 01/08/2020. Cervical spine: No acute fracture. No prevertebral soft tissue swelling. Cervicalkyphosis is present. There is exdo-cp-neqhvhta C3-C7 degenerative disc disease,most severe at C6-C7. Flexion-extension views demonstrate no abnormaltranslation. There is bilateral uncovertebral osteoarthritis, greatest at C6-C7. Left hand: There is an erosion involving the radius. There is mild radiocarpal, triscaphe and severe basal thumb joint osteoarthritis. There is mild 1stand 2nd metacarpophalangeal joint osteoarthritis. No dorsal wrist soft tissue swelling. Right hand: There are erosions involving the distal radius, ulna, and 2nd and 3rd metacarpal heads. There is mild radiocarpal and severe basal thumb joint osteoarthritis. 2nd metacarpophalangeal and polyarticular interphalangeal joint osteoarthritis is present. There is no dorsal wrist soft tissue swelling. Sacroiliac joints: No erosions. No acute fractures. Lumbosacral fusion is noted. The sacroiliac joints are normal. Hips: No erosions. No acute fractures. Alignment is normal. There is mildright and minimal left bilateral hip osteoarthritis. Right knee: No erosions. No acute fractures. There is severe lateral predominantright knee osteoarthritis. Moderate-sized effusion is noted. Right foot: There are erosions involving the 1st and 5th metatarsal heads, and greattoe proximal and distal phalanges. Midfoot osteoarthritis is present. Hallux valgus and 1st metatarsophalangeal joint osteoarthritis is present. Left foot: There are erosions involving the 1st metatarsal head and great toeproximal phalanx. No acute fracture. Midfoot osteoarthritis is present. Hallux valgus with a bunion deformity and 1st metatarsophalangeal joint osteoarthritis is present. IMPRESSION: Uzed-gc-ecmfmxml C3-C7 degenerative disc disease, most severe at C6-C7with bilateral uncovertebral osteoarthritis. Erosions involving the bilateral hands and feet which can be associatedwith inflammatory arthritis. No radiographic evidence of sacroiliitis. Mild right and minimal left bilateral hip osteoarthritis. Severe lateral predominant right knee osteoarthritis with amoderate-sized effusion. THIS IS AN ELECTRONICALLY VERIFIED FINAL REPORT 05/16/2024 9:49 PM - Electronically signed by Prem Teran M.D. MF: RA Report ID: [id number] Reading Location: [place] [id number] us Jayne Gibbons MD IMG XR PROCEDURES Fin al Result * XR Hip Right 2 or 3 Views (05/16/2024 11:54 AM POWER PRESS TENDER) Anatomical Region Laterality Modality Lower Extremities, Hip, Pelvis Right C omputed Radiography 05/16/2024 9:36 PM POWER PRESS TENDER Narrative 05/16/2024 9:49 PM POWER PRESS TENDER EXAM DESCRIPTION: XR HAND BILATERAL 3 OR MORE VIEWS OF EACH; XR SACROILIAC JOINTS 3 OR MORE VIEWS; XR FOOT BILATERAL 3 OR MORE VIEWS OF EACH; XR HIP LEFT 2 OR 3 VIEWS; XR HIP RIGHT 2 OR 3 VIEWS; XR SPINE CERVICAL W FLEXION AND EXTENSION 4 OR 5 VIEWS; XR KNEE RIGHT 3 VIEWS REASON FOR STUDY: pain, evaluate for inflammatory arthritis vs OA, pain, evaluate for inflammatory arthritis vs OA pain, evaluate for sacroiliitis, pain, evaluate for sacroiliitis hip pain, hx RA neck pain, hx RA knee pain, eval OA vs inflammatory arthritis Rheumatoid arthritis involving multiple sites with positive rheumatoid factor FINDINGS: Three views each hand, four views cervical spine, two views each hip, three views sacroiliac joints, three views right knee and three views each foot submitted with comparison 01/08/2020. Cervical spine: No acute fracture. No prevertebral soft tissue swelling. Cervical kyphosis is present. There is mamt-ap-vpimlfps C3-C7 degenerative disc disease, most severe at C6-C7. Flexion-extension views demonstrate no abnormal translation. There is bilateral uncovertebral osteoarthritis, greatest at C6-C7. Left hand: There is an erosion involving the radius. There is mild radiocarpal, triscaphe and severe basal thumb joint osteoarthritis. There is mild 1st and 2nd metacarpophalangeal joint osteoarthritis. No dorsal wrist soft tissue swelling. Right hand: There are erosions involving the distal radius, ulna, and 2nd and 3rd metacarpal heads. There is mild radiocarpal and severe basal thumb joint osteoarthritis. 2nd metacarpophalangeal and polyarticular interphalangeal joint osteoarthritis is present. There is no dorsal wrist soft tissue swelling. Sacroiliac joints: No erosions. No acute fractures. Lumbosacral fusion is noted. The sacroiliac joints are normal. Hips: No erosions. No acute fractures. Alignment is normal. There is mild right and minimal left bilateral hip osteoarthritis. Right knee: No erosions. No acute fractures. There is severe lateral predominant right knee osteoarthritis. Moderate-sized effusion is noted. Right foot: There are erosions involving the 1st and 5th metatarsal heads, and great toe proximal and distal phalanges. Midfoot osteoarthritis is present. Hallux valgus and 1st metatarsophalangeal joint osteoarthritis is present. Left foot: There are erosions involving the 1st metatarsal head and great toe proximal phalanx. No acute fracture. Midfoot osteoarthritis is present. Hallux valgus with a bunion deformity and 1st metatarsophalangeal joint osteoarthritis is present. IMPRESSION: Zexj-rj-vqpqrirm C3-C7 degenerative disc disease, most severe at C6-C7 with bilateral uncovertebral osteoarthritis. Erosions involving the bilateral hands and feet which can be associated with inflammatory arthritis. No radiographic evidence of sacroiliitis. Mild right and minimal left bilateral hip osteoarthritis. Severe lateral predominant right knee osteoarthritis with a moderate-sized effusion. THIS IS AN ELECTRONICALLY VERIFIED FINAL REPORT 05/16/2024 9:49 PM - Electronically signed by Prem Teran M.D. MF: RA Report ID: [id number] Reading Location: [id number] Procedure Note Prem Teran MD - 05/16/2024 EXAM DESCRIPTION: XR HAND BILATERAL 3 OR MORE VIEWS OF EACH; XR SACROILIAC JOINTS 3 OR MORE VIEWS; XR FOOT BILATERAL 3 OR MORE VIEWS OF EACH; XR HIP LEFT 2 OR 3 VIEWS; XR HIP RIGHT 2 OR 3 VIEWS; XR SPINE CERVICAL W FLEXION AND EXTENSION 4 OR 5 VIEWS; XR KNEE RIGHT 3 VIEWS REASON FOR STUDY: pain, evaluate for inflammatory arthritis vs OA, pain, evaluate for inflammatory arthritis vs OA pain, evaluate for sacroiliitis, pain, evaluate for sacroiliitis hip pain, hx RA neck pain, hx RA knee pain, eval OA vs inflammatory arthritis Rheumatoid arthritis involving multiple sites with positive rheumatoidfactor FINDINGS: Three views each hand, four views cervical spine, two views each hip,three views sacroiliac joints, three views right knee and three views each foot submitted with comparison 01/08/2020. Cervical spine: No acute fracture. No prevertebral soft tissue swelling. Cervicalkyphosis is present. There is dlte-iq-issmayll C3-C7 degenerative disc disease,most severe at C6-C7. Flexion-extension views demonstrate no abnormaltranslation. There is bilateral uncovertebral osteoarthritis, greatest at C6-C7. Left hand: There is an erosion involving the radius. There is mild radiocarpal, triscaphe and severe basal thumb joint osteoarthritis. There is mild 1stand 2nd metacarpophalangeal joint osteoarthritis. No dorsal wrist soft tissue swelling. Right hand: There are erosions involving the distal radius, ulna, and 2nd and 3rd metacarpal heads. There is mild radiocarpal and severe basal thumb joint osteoarthritis. 2nd metacarpophalangeal and polyarticular interphalangeal joint osteoarthritis is present. There is no dorsal wrist soft tissue swelling. Sacroiliac joints: No erosions. No acute fractures. Lumbosacral fusion is noted. The sacroiliac joints are normal. Hips: No erosions. No acute fractures. Alignment is normal. There is mildright and minimal left bilateral hip osteoarthritis. Right knee: No erosions. No acute fractures. There is severe lateral predominantright knee osteoarthritis. Moderate-sized effusion is noted. Right foot: There are erosions involving the 1st and 5th metatarsal heads, and greattoe proximal and distal phalanges. Midfoot osteoarthritis is present. Hallux valgus and 1st metatarsophalangeal joint osteoarthritis is present. Left foot: There are erosions involving the 1st metatarsal head and great toeproximal phalanx. No acute fracture. Midfoot osteoarthritis is present. Hallux valgus with a bunion deformity and 1st metatarsophalangeal joint osteoarthritis is present. IMPRESSION: Nsdt-ic-cumpjzvm C3-C7 degenerative disc disease, most severe at C6-C7with bilateral uncovertebral osteoarthritis. Erosions involving the bilateral hands and feet which can be associatedwith inflammatory arthritis. No radiographic evidence of sacroiliitis. Mild right and minimal left bilateral hip osteoarthritis. Severe lateral predominant right knee osteoarthritis with amoderate-sized effusion. THIS IS AN ELECTRONICALLY VERIFIED FINAL REPORT 05/16/2024 9:49 PM - Electronically signed by Prem Teran M.D. MF: RA Report ID: [id number] Reading Location: [place] [id number] us Jayne Gibbons MD IMG XR PROCEDURES Fin al Result * XR Hip Left 2 or 3 Views (05/16/2024 11:54 AM POWER PRESS TENDER) Anatomical Region Laterality Modality Lower Extremities, Hip, Pelvis Left C omputed Radiography 05/16/2024 9:36 PM POWER PRESS TENDER Narrative 05/16/2024 9:49 PM POWER PRESS TENDER EXAM DESCRIPTION: XR HAND BILATERAL 3 OR MORE VIEWS OF EACH; XR SACROILIAC JOINTS 3 OR MORE VIEWS; XR FOOT BILATERAL 3 OR MORE VIEWS OF EACH; XR HIP LEFT 2 OR 3 VIEWS; XR HIP RIGHT 2 OR 3 VIEWS; XR SPINE CERVICAL W FLEXION AND EXTENSION 4 OR 5 VIEWS; XR KNEE RIGHT 3 VIEWS REASON FOR STUDY: pain, evaluate for inflammatory arthritis vs OA, pain, evaluate for inflammatory arthritis vs OA pain, evaluate for sacroiliitis, pain, evaluate for sacroiliitis hip pain, hx RA neck pain, hx RA knee pain, eval OA vs inflammatory arthritis Rheumatoid arthritis involving multiple sites with positive rheumatoid factor FINDINGS: Three views each hand, four views cervical spine, two views each hip, three views sacroiliac joints, three views right knee and three views each foot submitted with comparison 01/08/2020. Cervical spine: No acute fracture. No prevertebral soft tissue swelling. Cervical kyphosis is present. There is mvad-cq-fxnsobqx C3-C7 degenerative disc disease, most severe at C6-C7. Flexion-extension views demonstrate no abnormal translation. There is bilateral uncovertebral osteoarthritis, greatest at C6-C7. Left hand: There is an erosion involving the radius. There is mild radiocarpal, triscaphe and severe basal thumb joint osteoarthritis. There is mild 1st and 2nd metacarpophalangeal joint osteoarthritis. No dorsal wrist soft tissue swelling. Right hand: There are erosions involving the distal radius, ulna, and 2nd and 3rd metacarpal heads. There is mild radiocarpal and severe basal thumb joint osteoarthritis. 2nd metacarpophalangeal and polyarticular interphalangeal joint osteoarthritis is present. There is no dorsal wrist soft tissue swelling. Sacroiliac joints: No erosions. No acute fractures. Lumbosacral fusion is noted. The sacroiliac joints are normal. Hips: No erosions. No acute fractures. Alignment is normal. There is mild right and minimal left bilateral hip osteoarthritis. Right knee: No erosions. No acute fractures. There is severe lateral predominant right knee osteoarthritis. Moderate-sized effusion is noted. Right foot: There are erosions involving the 1st and 5th metatarsal heads, and great toe proximal and distal phalanges. Midfoot osteoarthritis is present. Hallux valgus and 1st metatarsophalangeal joint osteoarthritis is present. Left foot: There are erosions involving the 1st metatarsal head and great toe proximal phalanx. No acute fracture. Midfoot osteoarthritis is present. Hallux valgus with a bunion deformity and 1st metatarsophalangeal joint osteoarthritis is present. IMPRESSION: Xyet-eb-unrzgnsq C3-C7 degenerative disc disease, most severe at C6-C7 with bilateral uncovertebral osteoarthritis. Erosions involving the bilateral hands and feet which can be associated with inflammatory arthritis. No radiographic evidence of sacroiliitis. Mild right and minimal left bilateral hip osteoarthritis. Severe lateral predominant right knee osteoarthritis with a moderate-sized effusion. THIS IS AN ELECTRONICALLY VERIFIED FINAL REPORT 05/16/2024 9:49 PM - Electronically signed by Prem Teran M.D. MF: RA Report ID: [id number] Reading Location: [id number] Procedure Note Prem Teran MD - 05/16/2024 EXAM DESCRIPTION: XR HAND BILATERAL 3 OR MORE VIEWS OF EACH; XR SACROILIAC JOINTS 3 OR MORE VIEWS; XR FOOT BILATERAL 3 OR MORE VIEWS OF EACH; XR HIP LEFT 2 OR 3 VIEWS; XR HIP RIGHT 2 OR 3 VIEWS; XR SPINE CERVICAL W FLEXION AND EXTENSION 4 OR 5 VIEWS; XR KNEE RIGHT 3 VIEWS REASON FOR STUDY: pain, evaluate for inflammatory arthritis vs OA, pain, evaluate for inflammatory arthritis vs OA pain, evaluate for sacroiliitis, pain, evaluate for sacroiliitis hip pain, hx RA neck pain, hx RA knee pain, eval OA vs inflammatory arthritis Rheumatoid arthritis involving multiple sites with positive rheumatoidfactor FINDINGS: Three views each hand, four views cervical spine, two views each hip,three views sacroiliac joints, three views right knee and three views each foot submitted with comparison 01/08/2020. Cervical spine: No acute fracture. No prevertebral soft tissue swelling. Cervicalkyphosis is present. There is hzxs-mh-edgyrdmh C3-C7 degenerative disc disease,most severe at C6-C7. Flexion-extension views demonstrate no abnormaltranslation. There is bilateral uncovertebral osteoarthritis, greatest at C6-C7. Left hand: There is an erosion involving the radius. There is mild radiocarpal, triscaphe and severe basal thumb joint osteoarthritis. There is mild 1stand 2nd metacarpophalangeal joint osteoarthritis. No dorsal wrist soft tissue swelling. Right hand: There are erosions involving the distal radius, ulna, and 2nd and 3rd metacarpal heads. There is mild radiocarpal and severe basal thumb joint osteoarthritis. 2nd metacarpophalangeal and polyarticular interphalangeal joint osteoarthritis is present. There is no dorsal wrist soft tissue swelling. Sacroiliac joints: No erosions. No acute fractures. Lumbosacral fusion is noted. The sacroiliac joints are normal. Hips: No erosions. No acute fractures. Alignment is normal. There is mildright and minimal left bilateral hip osteoarthritis. Right knee: No erosions. No acute fractures. There is severe lateral predominantright knee osteoarthritis. Moderate-sized effusion is noted. Right foot: There are erosions involving the 1st and 5th metatarsal heads, and greattoe proximal and distal phalanges. Midfoot osteoarthritis is present. Hallux valgus and 1st metatarsophalangeal joint osteoarthritis is present. Left foot: There are erosions involving the 1st metatarsal head and great toeproximal phalanx. No acute fracture. Midfoot osteoarthritis is present. Hallux valgus with a bunion deformity and 1st metatarsophalangeal joint osteoarthritis is present. IMPRESSION: Gwkq-fu-zolprvuf C3-C7 degenerative disc disease, most severe at C6-C7with bilateral uncovertebral osteoarthritis. Erosions involving the bilateral hands and feet which can be associatedwith inflammatory arthritis. No radiographic evidence of sacroiliitis. Mild right and minimal left bilateral hip osteoarthritis. Severe lateral predominant right knee osteoarthritis with amoderate-sized effusion. THIS IS AN ELECTRONICALLY VERIFIED FINAL REPORT 05/16/2024 9:49 PM - Electronically signed by Prem Teran M.D. MF: RA Report ID: [id number] Reading Location: [id number] us Jayne Gibbons MD IMG XR PROCEDURES Fin al Result * XR Sacroiliac Joints 3 or More Views (05/16/2024 11:54 AM POWER PRESS TENDER) Anatomical Region Laterality Modality Pelvis, Body N/A Computed Radiogr aphy 05/16/2024 9:36 PM POWER PRESS TENDER Narrative 05/16/2024 9:49 PM POWER PRESS TENDER EXAM DESCRIPTION: XR HAND BILATERAL 3 OR MORE VIEWS OF EACH; XR SACROILIAC JOINTS 3 OR MORE VIEWS; XR FOOT BILATERAL 3 OR MORE VIEWS OF EACH; XR HIP LEFT 2 OR 3 VIEWS; XR HIP RIGHT 2 OR 3 VIEWS; XR SPINE CERVICAL W FLEXION AND EXTENSION 4 OR 5 VIEWS; XR KNEE RIGHT 3 VIEWS REASON FOR STUDY: pain, evaluate for inflammatory arthritis vs OA, pain, evaluate for inflammatory arthritis vs OA pain, evaluate for sacroiliitis, pain, evaluate for sacroiliitis hip pain, hx RA neck pain, hx RA knee pain, eval OA vs inflammatory arthritis Rheumatoid arthritis involving multiple sites with positive rheumatoid factor FINDINGS: Three views each hand, four views cervical spine, two views each hip, three views sacroiliac joints, three views right knee and three views each foot submitted with comparison 01/08/2020. Cervical spine: No acute fracture. No prevertebral soft tissue swelling. Cervical kyphosis is present. There is ltqq-rp-rfsftors C3-C7 degenerative disc disease, most severe at C6-C7. Flexion-extension views demonstrate no abnormal translation. There is bilateral uncovertebral osteoarthritis, greatest at C6-C7. Left hand: There is an erosion involving the radius. There is mild radiocarpal, triscaphe and severe basal thumb joint osteoarthritis. There is mild 1st and 2nd metacarpophalangeal joint osteoarthritis. No dorsal wrist soft tissue swelling. Right hand: There are erosions involving the distal radius, ulna, and 2nd and 3rd metacarpal heads. There is mild radiocarpal and severe basal thumb joint osteoarthritis. 2nd metacarpophalangeal and polyarticular interphalangeal joint osteoarthritis is present. There is no dorsal wrist soft tissue swelling. Sacroiliac joints: No erosions. No acute fractures. Lumbosacral fusion is noted. The sacroiliac joints are normal. Hips: No erosions. No acute fractures. Alignment is normal. There is mild right and minimal left bilateral hip osteoarthritis. Right knee: No erosions. No acute fractures. There is severe lateral predominant right knee osteoarthritis. Moderate-sized effusion is noted. Right foot: There are erosions involving the 1st and 5th metatarsal heads, and great toe proximal and distal phalanges. Midfoot osteoarthritis is present. Hallux valgus and 1st metatarsophalangeal joint osteoarthritis is present. Left foot: There are erosions involving the 1st metatarsal head and great toe proximal phalanx. No acute fracture. Midfoot osteoarthritis is present. Hallux valgus with a bunion deformity and 1st metatarsophalangeal joint osteoarthritis is present. IMPRESSION: Zrnm-gz-zkytbrja C3-C7 degenerative disc disease, most severe at C6-C7 with bilateral uncovertebral osteoarthritis. Erosions involving the bilateral hands and feet which can be associated with inflammatory arthritis. No radiographic evidence of sacroiliitis. Mild right and minimal left bilateral hip osteoarthritis. Severe lateral predominant right knee osteoarthritis with a moderate-sized effusion. THIS IS AN ELECTRONICALLY VERIFIED FINAL REPORT 05/16/2024 9:49 PM - Electronically signed by Prem Teran M.D. MF: RA Report ID: [id number] Reading Location: [id number] Procedure Note Prem Teran MD - 05/16/2024 EXAM DESCRIPTION: XR HAND BILATERAL 3 OR MORE VIEWS OF EACH; XR SACROILIAC JOINTS 3 OR MORE VIEWS; XR FOOT BILATERAL 3 OR MORE VIEWS OF EACH; XR HIP LEFT 2 OR 3 VIEWS; XR HIP RIGHT 2 OR 3 VIEWS; XR SPINE CERVICAL W FLEXION AND EXTENSION 4 OR 5 VIEWS; XR KNEE RIGHT 3 VIEWS REASON FOR STUDY: pain, evaluate for inflammatory arthritis vs OA, pain, evaluate for inflammatory arthritis vs OA pain, evaluate for sacroiliitis, pain, evaluate for sacroiliitis hip pain, hx RA neck pain, hx RA knee pain, eval OA vs inflammatory arthritis Rheumatoid arthritis involving multiple sites with positive rheumatoidfactor FINDINGS: Three views each hand, four views cervical spine, two views each hip,three views sacroiliac joints, three views right knee and three views each foot submitted with comparison 01/08/2020. Cervical spine: No acute fracture. No prevertebral soft tissue swelling. Cervicalkyphosis is present. There is efci-sv-kgirjifp C3-C7 degenerative disc disease,most severe at C6-C7. Flexion-extension views demonstrate no abnormaltranslation. There is bilateral uncovertebral osteoarthritis, greatest at C6-C7. Left hand: There is an erosion involving the radius. There is mild radiocarpal, triscaphe and severe basal thumb joint osteoarthritis. There is mild 1stand 2nd metacarpophalangeal joint osteoarthritis. No dorsal wrist soft tissue swelling. Right hand: There are erosions involving the distal radius, ulna, and 2nd and 3rd metacarpal heads. There is mild radiocarpal and severe basal thumb joint osteoarthritis. 2nd metacarpophalangeal and polyarticular interphalangeal joint osteoarthritis is present. There is no dorsal wrist soft tissue swelling. Sacroiliac joints: No erosions. No acute fractures. Lumbosacral fusion is noted. The sacroiliac joints are normal. Hips: No erosions. No acute fractures. Alignment is normal. There is mildright and minimal left bilateral hip osteoarthritis. Right knee: No erosions. No acute fractures. There is severe lateral predominantright knee osteoarthritis. Moderate-sized effusion is noted. Right foot: There are erosions involving the 1st and 5th metatarsal heads, and greattoe proximal and distal phalanges. Midfoot osteoarthritis is present. Hallux valgus and 1st metatarsophalangeal joint osteoarthritis is present. Left foot: There are erosions involving the 1st metatarsal head and great toeproximal phalanx. No acute fracture. Midfoot osteoarthritis is present. Hallux valgus with a bunion deformity and 1st metatarsophalangeal joint osteoarthritis is present. IMPRESSION: Ghot-rk-nothiovb C3-C7 degenerative disc disease, most severe at C6-C7with bilateral uncovertebral osteoarthritis. Erosions involving the bilateral hands and feet which can be associatedwith inflammatory arthritis. No radiographic evidence of sacroiliitis. Mild right and minimal left bilateral hip osteoarthritis. Severe lateral predominant right knee osteoarthritis with amoderate-sized effusion. THIS IS AN ELECTRONICALLY VERIFIED FINAL REPORT 05/16/2024 9:49 PM - Electronically signed by Prem Teran M.D. MF: RA Report ID: [id number] Reading Location: [place] [id number] us Jayne Gibbons MD IMG XR PROCEDURES Fin al Result * (ABNORMAL) CHELSEY ab ql w/rflx to CHELSEY qn (05/16/2024 10:14 AM POWER PRESS TENDER) CHELSEY Positive 1:80 Comment: Interpretive Data Normal range for CHELSEY Qualitative Antibody = Negative. 1. CHELSEY is performed using indirect immunofluorescence against HEp-2 cells 2. CHELSEY titers are performed on all positive qualitative results. 3. A significantly positive CHELSEY result is defined as a positive nuclear fluorescence at a titer of 1:80 or greater. 4. 15% of normal people above age 65 have significantly positive CHELSEY results. 5% or less of normal people age 65 or under have significantly positive CHELSEY results. Current interpretive data was last revised on 2019. Testing performed by: [facility], [address] [place] [address], [place] [address] CHELSEY, quant 1:80 titer CERLLUVIA Comment:Testing performed by : [facility], [address] [place]., [address] CHELSEY, interp Homogeneous (A) CERLLUVIA Comment:Testing performed by : [address] [address] Blood 05/16/2024 10:1 4 AM POWER PRESS TENDER 05/17/2024 10:12 AM POWER PRESS TENDER us Jayne Gibbons MD LAB BLOOD ORDERABLES Final Result Performing Organization Address City/State/[facility] [place] [address] [address] Department [place] [employer] [place] [address] * Anti-double stranded DNA abs (05/16/2024 10:14 AM POWER PRESS TENDER) Pathologist [facility] dsDNA Ab <1.0 <=4.0 IUnits/mL Comment: Interpretive Data Negative: < or = 4 IUnits/mL Indeterminate: 5 - 9 IUnits/mL Positive: > or = 10 IUnits/mL Current interpretive data was last revised on 2016. Testing performed by: [facility], [address] [place] [address]., [id number] Blood 05/16/2024 10:1 4 AM POWER PRESS TENDER 05/17/2024 9:57 AM POWER PRESS TENDER Jayne Gibbons MD LAB BLOOD ORDERABLES Final Result Performing Organization Address [facility] de Phone Number PORSHA GARS[place] [address] [address] Department [place] [address] * T-SPOT.TB Blood (05/16/2024 10:14 AM POWER PRESS TENDER) [facility] T-SPOT.TB Negative SeeBelow Comment: Normal Value: Negative A negative test result does not exclude the possibility of exposure to or infection with Mycobacterium tuberculosis (M. tuberculosis). Patients with recent exposure to TB infected individuals exhibiting a negative T-SPOT.TB result should be considered for retesting within 6 weeks or if other relevant clinical symptoms indicate. Results from T-SPOT.TB testing must be used in conjunction with each individual's epidemiological history, current medical status, and results of other diagnostic evaluations. The T-SPOT.TB test is qualitative and results are reported as positive, borderline or negative, given that the test controls perform as expected. In line with the Centers for Disease Control and Prevention's 2010 recommendation to report quantitative measurements alongside the qualitative result, the laboratory provides spot counts for informational purposes only. The T-SPOT.TB test should not be interpreted as a quantitative test. T-SPOT.TB Panel A Spot Count 0 [facility] T-SPOT.TB Panel B Spot Count 0 [facility] T[facility]SPOT.TB Negative Control [facility]ed [facility] T-SPOT.TB Positive Control Passed [facility] CH Comment: Test Performed at: [facility], [facility] [address] [place] [id number] JANAE LAWSON,PHD Blood 05/16/2024 10:1 4 AM POWER PRESS TENDER 05/16/2024 2:35 PM POWER PRESS TENDER Jayne Gibbons MD LAB MICROBIOLOGY - NERAL ORDERABLES Final Result Performing Organization Address City/[facility]/ZIP Co de Phone Number [facility] [address] [address] Department [place] [employer] [place] [address] * SCL 70 abs (05/16/2024 10:14 AM POWER PRESS TENDER) Anti-Scl70, IgG <0.2 <=0.9 Ab Index Comment: Interpretive Data Negative: < 1.0 Ab Index Positive: > or = 1.0 Ab Index Current interpretive data was last revised on 2016. Testing performed by: [facility], [address] [place]., [address] Blood 05/16/2024 10:1 4 AM POWER PRESS TENDER 05/17/2024 10:00 AM POWER PRESS TENDER Jayne Gibbons MD LAB BLOOD ORDERABLES Final Result Performing Organization Address [facility] [place] [address] [address] Department [place] [employer] [place] [address] * eGFR (05/16/2024 10:14 AM POWER PRESS TENDER) eGFR >90 >=60 mL/min/1. 73 m2 Comment: Interpretive Data Reference Interval Normal >/= 90 mL/min/1.73m2 Mildly decreased* 60 - 89 mL/min/1.73m2 Mildly to moderately decreased 45 - 59 mL/min/1.73m2 Moderately to severely decreased 30 - 44 mL/min/1.73m2 Severely decreased 15 - 29 mL/min/1.73m2 Kidney Failure < 15 mL/min/1.73m2 *Relative to young adult level Estimated glomerular [...] interpretive data was last reviewed 2021. Blood 05/16/2024 10:1 4 AM POWER PRESS TENDER 05/16/2024 3:59 PM POWER PRESS TENDER us Jayne Gibbons MD LAB BLOOD ORDERABLES Final Result [facility] [address] [address] Department [place] [address] * (ABNORMAL) Differential, auto (05/16/2024 10:14 AM POWER PRESS TENDER) Neutrophil abs 9.1(H) 1.5 - 6.5 K/cumm Imm gran abs 0.0 0.0 - 0.1 K/cumm [facility] Lymphocyte abs 1.9 0.8 - 3.3 K/cumm [facility] Monocyte abs 0.7 0.2 - 0.8 K/cumm [facility] Eosinophil abs 0.1 0.0 - 0.5 K/cumm [facility] Basophil abs 0.1 0.0 - 0.1 K/cumm [facility] Neutrophil pct 76.7 % [facility] Comment: Interpretive Data Percent cell count reference ranges are not reported, since discordance with absolute values may lead to misinterpretation of CBC data. Current Interpretive Data was last revised on 2017. Imm gran pct 0.3 % [facility] Comment: Interpretive Data Percent cell count reference ranges are not reported, since discordance with absolute values may lead to misinterpretation of CBC data. Current Interpretive Data was last revised on 2017. Lymphocyte pct 16.1 % [facility] Comment: Interpretive Data Percent cell count reference ranges are not reported, since discordance with absolute values may lead to misinterpretation of CBC data. Current Interpretive Data was last revised on 2017. Monocyte pct 5.7 % [facility] Comment: Interpretive Data Percent cell count reference ranges are not reported, since discordance with absolute values may lead to misinterpretation of CBC data. Current Interpretive Data was last revised on 2017. Eosinophil pct 0.4 % [facility] Comment: Interpretive Data Percent cell count reference ranges are not reported, since discordance with absolute values may lead to misinterpretation of CBC data. Current Interpretive Data was last revised on 2017. Basophil pct 0.8 % [facility] Comment: Interpretive Data Percent cell count reference ranges are not reported, since discordance with absolute values may lead to misinterpretation of CBC data. Current Interpretive Data was last revised on 2017. Blood 05/16/2024 10:1 4 AM POWER PRESS TENDER 05/16/2024 3:59 PM POWER PRESS TENDER Jayne Gibbons MD LAB BLOOD ORDERABLES Final Result Performing Organization Address [facility] Co de Phone Number [facility] [address] [address] Department [place] [employer] [place] [address] * Bird abs (05/16/2024 10:14 AM POWER PRESS TENDER) Anti-OLIVE, SM <0.2 <=0.9 Ab Index Comment: Interpretive Data Negative: < 1.0 Ab Index Positive: > or = 1.0 Ab Index Current interpretive data was last revised on 2016. Testing performed by: [facility], [address] [facility] [place] [address] Blood 05/16/2024 10:1 4 AM POWER PRESS TENDER 05/17/2024 10:00 AM POWER PRESS TENDER Jayne Gibbons MD LAB BLOOD ORDERABLES Final Result Performing Organization Address [facility]/ZIP Co de Phone Number [facility] [address] [address] Department [place] [employer] [place] [address] * (ABNORMAL) ROUTE SALES REPRESENTATIVE abs (05/16/2024 10:14 AM POWER PRESS TENDER) ROUTE SALES REPRESENTATIVE ab 2.8(H) <=0.9 Ab Index Comment: Interpretive Data Negative: < 1.0 Ab Index Positive: > or = 1.0 Ab Index Current interpretive data was last revised on 2016. Testing performed by: [facility], [address] [place] [address]., [id number] Blood 05/16/2024 10:1 4 AM POWER PRESS TENDER 05/17/2024 10:00 AM POWER PRESS TENDER Jayne Gibbons MD LAB BLOOD ORDERABLES Final Result Performing Organization Address [facility]/ZIP Co de Phone Number P[place] [address] [address] Department [place] [employer] [place] [address] * C4 complement (05/16/2024 10:14 AM POWER PRESS TENDER) Pathologist [facility] Complement C4 24 10 - 40 mg/dL Blood 05/16/2024 10:1 4 AM POWER PRESS TENDER 05/16/2024 3:59 PM POWER PRESS TENDER Jayne Gibbons MD LAB BLOOD ORDERABLES Final Result Performing Organization Address [facility] Co de Phone Number [facility] [address] [facility] Department [place] [employer] [place] [address] * (ABNORMAL) OLIVE ab eval w/reflex (05/16/2024 10:14 AM POWER PRESS TENDER) Pathologist [facility] OLIVE ab Positive( A) Negative Comment: Interpretive Data Positive Screens will be reflexed to specific testing for Antibodies against the following antigens: Karyn-1 Ab, ROUTE SALES REPRESENTATIVE Ab, Scl-70 Ab, Bird Ab, SS-A/Ro Ab, and SS- B/La Ab. Further testing for dsDNA, Centromere, or Ribosomal P antibodies is suggested in patient with a positive screen and negative specific antibodies. Current interpretive data was last revised on 2022. Testing performed by: [facility], [address] [place] [address]., [id number] Blood 05/16/2024 10:1 4 AM POWER PRESS TENDER 05/17/2024 9:57 AM POWER PRESS TENDER Jayne Gibbons MD LAB BLOOD ORDERABLES Final Result Performing Organization Address City/[facility] Co de Phone Number PORSHA GARS[place] [address] [address] Department [place] [employer] [place] [address] * Karyn-1 antibody (05/16/2024 10:14 AM POWER PRESS TENDER) Karyn 1 Antibody, IgG <0.2 <=0.9 Ab Index Comment: Interpretive Data Negative: < 1.0 Ab Index Positive: > or = 1.0 Ab Index Current interpretive data was last revised on 2016. Testing performed by: [facility], [address] [place]., [address] Blood 05/16/2024 10:1 4 AM POWER PRESS TENDER 05/17/2024 10:00 AM POWER PRESS TENDER Jayne Gibbons MD LAB BLOOD ORDERABLES Final Result Performing Organization Address City/[facility] Co de Phone Number PORSHA G[place] [address] [address] Department [place] [employer] [place] [address] * (ABNORMAL) CBC with auto differential (05/16/2024 10:14 AM POWER PRESS TENDER) WBC 11.8(H) 3.8 - 9.9 K/cumm Hgb 14.3 11.9 - 15.5 g/dL [facility] Hct 45.3 35.6 - 45.5 % [facility] Plt 407(H) 150 - 400 K/cumm [facility] MPV 11.0 9.1 - 12.3 fL [facility] RBC 4.88 3.90 - 5.20 M/cumm [facility] MCV 92.8 81.3 - 96.4 fL [facility] MCH 29.3 27.1 - 33.3 pg [facility] MCHC 31.6(L) 32.3 - 35.7 g/dL [facility] RDW CV 16.1(H) 11.1 - 14.9 % [facility] RDW SD 55.0(H) 35.7 - 48.1 fL [facility] NRBC abs 0.00 0.00 - 0.01 K/cumm [facility] Blood 05/16/2024 10:1 4 AM POWER PRESS TENDER 05/16/2024 3:59 PM POWER PRESS TENDER Jayne Gibbons MD LAB BLOOD ORDERABLES Final Result Performing Organization Address [facility] de Phone Number [facility] [address] [place] [address] * Hepatitis C antibody Blood (05/16/2024 10:14 AM POWER PRESS TENDER) Hep C Ab Nonreactive Nonreactive Comment: Interpretive Data Nonreactive: Antibodies to HCV [...] Interpretive data was last revised on 2019. Blood 05/16/2024 10:1 4 AM POWER PRESS TENDER 05/16/2024 3:59 PM POWER PRESS TENDER Jayne Gibbons MD LAB MICROBIOLOGY - NERAL ORDERABLES Final Result Performing Organization Address [facility] Co de Phone Number [facility] [address] [place] [address] * (ABNORMAL) Cyclic citrul peptide antibody, IgG (05/16/2024 10:14 AM POWER PRESS TENDER) CCP Ab 153.8(H) <=2.9 units/mL Comment: Interpretive data Negative: <3 units/mL Positive: > or equal to 3 units/mL Current interpretive data was last revised on 2016. Testing performed by: [facility], [address] [place] [address] Blood 05/16/2024 10:1 4 AM POWER PRESS TENDER 05/17/2024 10:12 AM POWER PRESS TENDER Jayne Gibbons MD LAB BLOOD ORDERABLES Final Result Performing Organization Address City/[facility]/ZIP Co de Phone Number [place] [address] [address] Department M [place] [address] * Hepatitis B core antibody, total Blood (05/16/2024 10:14 AM POWER PRESS TENDER) Hep B core IgG/IgM Nonreactive Nonreactive Comment:Testing performed by : [facility], [address] [place] [address]., [id number] Blood 05/16/2024 10:1 4 AM POWER PRESS TENDER 05/17/2024 9:57 AM POWER PRESS TENDER us Jayne Gibbons MD LAB MICROBIOLOGY - GE NERAL ORDERABLES Final Result Performing Organization Address City/[facility]/ZIP Co de Phone Number PORSHA [address] [address] [facility] [place] [employer] [place] [address] * Vitamin D 25 hydroxy (05/16/2024 10:14 AM POWER PRESS TENDER) Vitamin D 25-OH 35 30 - 80 ng/mL Blood 05/16/2024 10:1 4 AM POWER PRESS TENDER 05/16/2024 3:59 PM POWER PRESS TENDER Jayne Gibbons MD LAB BLOOD ORDERABLES Final Result ISMALLUVIA [address] [address] [facility] [place] [place] [address] * Hepatitis B surface antibody (immune status) Blood (05/16/2024 10:14 AM POWER PRESS TENDER) HBsAb (immune status) Nonreactive Comment: Interpretive Data Nonreactive: This result is consistent with a lack of immunity to Hepatitis B Virus when used in the setting of routine screening. Equivocal: The immune status of the individual should be further assessed, if appropriate, after consideration of clinical status, risk factors, and additional diagnostic information. Reactive: This result is consistent with immunity to Hepatitis B Virus when used in the setting of routine screening. Current interpretive data was last revised on 19. Blood 05/16/2024 10:1 4 AM POWER PRESS TENDER 05/16/2024 3:59 PM POWER PRESS TENDER Jayne Gibbons MD LAB MICROBIOLOGY - GE NERAL ORDERABLES Final Result PORSHA [address] [address] Department [place] [employer] [place] [address] * Hepatitis B Surface Antigen Blood (05/16/2024 10:14 AM POWER PRESS TENDER) HepBsAg Nonreactive Nonreactive Blood 05/16/2024 10:1 4 AM POWER PRESS TENDER 05/16/2024 3:59 PM POWER PRESS TENDER Jayne Gibbnos MD LAB MICROBIOLOGY - GE NERAL ORDERABLES Final Result Performing Organization Address [facility] Co de Phone Number PORSHA GARSIA [address] [address] Department [place] [employer] [place] [address] * Sjogren's syndrome B ab (05/16/2024 10:14 AM POWER PRESS TENDER) Anti-OLIVE, SS-B <0.2 <=0.9 Ab Index Comment: Interpretive Data Negative: < 1.0 Ab Index Positive: > or = 1.0 Ab Index Current interpretive data was last revised on 2016. Testing performed by: [facility], [address] [facility]., [address] Blood 05/16/2024 10:1 4 AM POWER PRESS TENDER 05/17/2024 10:00 AM POWER PRESS TENDER Jayne Gibbons MD LAB BLOOD ORDERABLES Final Result Performing Organization Address [facility] Co de Phone Number PORSHA GARSIA [address] [address] [facility] [place] [employer] [place] [address] * Sjogren's syndrome A ab (05/16/2024 10:14 AM POWER PRESS TENDER) Anti-OLIVE, SS-A <0.2 <=0.9 Ab Index Comment: Interpretive Data Negative: < 1.0 Ab Index Positive: > or = 1.0 Ab Index Current interpretive data was last revised on 2016. Testing performed by: [facility], [address] [place] [address]., [id number] Blood 05/16/2024 10:1 4 AM POWER PRESS TENDER 05/17/2024 10:00 AM POWER PRESS TENDER Jayne Gibbons MD LAB BLOOD ORDERABLES Final Result Performing Organization Address [facility] Co de Phone Number ISMALLUVIA GARSIA [address] [address] Department [place] [place] [address] * Erythrocyte sedimentation rate (05/16/2024 10:14 AM POWER PRESS TENDER) Pathologist [facility] Erythrocyte sedimentation rate 11 1 - 30 mm/hr Blood 05/16/2024 10:1 4 AM POWER PRESS TENDER 05/16/2024 3:59 PM POWER PRESS TENDER Jayne Gibbons MD LAB BLOOD ORDERABLES Final Result Performing Organization Address [facility] Co de Phone Number ISMALLUVIA [address] [address] [facility] [place] [place] [address] * (ABNORMAL) Rheumatoid factor (05/16/2024 10:14 AM POWER PRESS TENDER) Pathologist [facility] Rheumatoid factor, quant 46(H) <=15 IUnits/mL Blood 05/16/2024 10:1 4 AM POWER PRESS TENDER 05/16/2024 3:59 PM POWER PRESS TENDER Jayne Gibbons MD LAB BLOOD ORDERABLES Final Result Performing Organization Address City/[facility]/ZIP Co de Phone Number PORSHA [id number] [place] [address] * C3 complement (05/16/2024 10:14 AM POWER PRESS TENDER) Complement C3 152 90 - 180 mg/dL Blood 05/16/2024 10:1 4 AM POWER PRESS TENDER 05/16/2024 3:59 PM POWER PRESS TENDER Jayne Gibbons MD LAB BLOOD ORDERABLES Final Result Performing Organization Address [facility] Phone Number PORSHA [address] [address] [facility] [place] [place] [address] * CRP (acute phase) (05/16/2024 10:14 AM POWER PRESS TENDER) Pathologist [facility] CRP 4.6 <=10.0 mg/L Blood 05/16/2024 10:1 4 AM POWER PRESS TENDER 05/16/2024 3:59 PM POWER PRESS TENDER Jayne Gibbons MD LAB BLOOD ORDERABLES Final Result Performing Organization Address [facility] Co [place] Phone Number [facility] [address] [address] [place] [employer] [place] [address] * Comprehensive metabolic panel (05/16/2024 10:14 AM POWER PRESS TENDER) Sodium 137 135 - 145 mmol/L Potassium, pl 4.6 3.3 - 4.9 mmol/L [facility] Chloride 101 97 - 110 mmol/L [facility] CO2 22 22 - 32 mmol/L [facility] Anion gap 14 2 - 15 mmol/L [facility] BUN 15 6 - 25 mg/dL [facility] Creatinine 0.60 0.60 - 1.10 mg/dL [facility] Glucose 110 70 - 199 mg/dL [facility] Comment: Interpretive Data Fasting glucose >/= 126 mg/dl is diagnostic for diabetes. Fasting is defined as no caloric intake [...] interpretive data was last revised 2022. Calcium 10.0 8.5 - 10.3 mg/dL [facility] Bilirubin, total 0.3 0.1 - 1.2 mg/dL [facility] Protein, pl 7.6 6.5 - 8.5 g/dL [facility] Albumin 4.7 3.5 - 5.0 g/dL [facility] Alk phos 85 40 - 130 Units/L [facility] ALT 19 7 - 45 Units/L [facility] AST 25 10 - 45 Units/L [facility] Blood 05/16/2024 10:1 4 AM POWER PRESS TENDER 05/16/2024 3:59 PM POWER PRESS TENDER us Jayne Gibbons MD LAB BLOOD ORDERABLES Final Result PORSHA [address] [address] [facility] [place] [address] * FL Esophagram, Double Contrast (03/30/2024 8:30 AM POWER PRESS TENDER) Anatomical Region Laterality Modality Body N/A Radio Fluoroscop y 03/30/2024 10:1 2 AM POWER PRESS TENDER Narrative 03/30/2024 10:26 AM POWER PRESS TENDER EXAM DESCRIPTION: FL ESOPHAGRAM BARIUM SWALLOW TO STOMACH, DOUBLE CONTRAST REASON FOR STUDY: Esophageal diverticulum Esophageal diverticulum Egd [address] [facility] Perforation?1.4 min ft 276.5 mgy RADIATION DOSE: [...] is small sliding-type hiatal hernia. There is ybdo-ze-qzpcuqfb spontaneous gastroesophageal reflux observed during the study. [...] esophageal spasm versus mild early presbyesophagus. 4. Hbiw-un-xqqaennj spontaneous gastroesophageal reflux. 5. Small sliding-type hiatal hernia. THIS IS AN ELECTRONICALLY VERIFIED FINAL REPORT 03/30/2024 10:26 AM - Electronically signed by Zunilda De Los Santos D.O. PS: PS Report ID: [id number] Reading Location: [id number] Procedure Note Zunilda De Los Santos DO - 03/30/2024 EXAM DESCRIPTION: FL ESOPHAGRAM BARIUM SWALLOW TO STOMACH, DOUBLECONTRAST REASON FOR STUDY: Esophageal diverticulum Esophageal diverticulum Egd [address] [facility] Perforation?1.4min ft 276.5 mgy RADIATION DOSE: Dose: [...] is small sliding-type hiatal hernia. There is mgni-tw-qmonefac spontaneous gastroesophageal reflux observedduring the study. NON-GI [...] foresophageal spasm versus mild early presbyesophagus. 4. Cszy-yw-zhteoyia spontaneous gastroesophageal reflux. 5. Small sliding-type hiatal hernia. THIS IS AN ELECTRONICALLY VERIFIED FINAL REPORT 03/30/2024 10:26 AM - Electronically signed by Zunilda De Los Santos D.O. PS: WADE Report ID: [id number] Reading Location: [place] [address] Yumiko Donaldson NP IMG FLUOROSCOPY PROCEDURES [place] l Result from Last 3 Months Insurance MEDICARE [employer] MEDICARE [employer] MEDICARE [employer] Advance Directives For more information, please contact: [phone] * Full Code (Latest Code Status on File) Date Activated Date Inactivated Comments 01/18/2024 1:42 PM 01/21/2024 5:17 PM Care Teams Pole Peeler Relationship Specialty Start Date End Date Jose Bryan PA [address] [place] [address] PCP - General Family Practice 10/13/18 Ciaran Mcallister MD [address] [place] [address] General Surgery 04/03/24
--- OUTSIDE RECORDS SUMMARY | 2024-06-22 11:02 | XMS_ITS | Clinical Summary ---
Author Organization [facility] Address [address] [place] [place] [address] Care Team Providers Care Liquor Inspector Name Role Phone Unavailable Primary Care Provider Unavailabl e Source Comments [facility],non-owned Affiliates and Associated Physician Practices is amultiple site organization consisting of ambulatory clinics and hospital sitesin [place], [place], [place] and [place]. This disclosure is being madepursuant to the Care Everywhere program and may not contain all information available regarding this patient. Last updated 17.[facility] [employer] Active Problems Problem Noted Date Diagnosed Date [...] VACCINE ( - 2023-2 5 season) 2023 DEPRESSION SCREENING 03/22/2024 INFLUENZA VACCINE (Season Ended) 2024 HIB VACCINE Aged Out No longer eligi ble based on patient's age to complete this topic HPV VACCINE Aged Out No longer eligi ble based on patient's age to complete this topic MENINGOCOCCAL (Group B) VACC INE SHARED DECISION-MAKING Aged Out No longer eligibl e based on patient's age to complete this topic MENINGOCOCCAL GROUPS A/C/Y/W VACCINE Aged Out No longer eligible b ased on patient's age to complete this topic PNEUMOCOCCAL VACCINE Aged Out No long er eligible based on patient's age to complete this topic
--- OUTSIDE RECORDS SUMMARY | 2024-06-22 11:02 | XMS_ITS | Referral Summary ---
Author Organization [facility] al Address [address] [place] [address] Care Team Providers Care Donor Services Coordinator Name Role Phone Jose Bryan Primary Care Provider [phone] Ciaran Mcallister MD Unavailable [phone] Encounters Date Type Department Care Team Description 06/08/2024 Telephone [facility] [address] [place] [phone] Juanita Lemus RPh 06/08/2024 Telephone [facility] Rheumatology [address] Medicine 5th [place] [address] [place] [phone] Jayne Gibbons MD 05/18/2024 Results Follow-Up [facility] Rheumatology [address] [place] [phone] Jayne Gibbons MD 05/16/2024 10:14 AM SPACE AND STORAGE CLERK - 05/16/2024 11:59 PM SPACE AND STORAGE CLERK Hospital Encounter [place] [id number] [place], [place] [id number] Rheumatoid arthritis involving multiple sites with positive rheumatoid factor (HCC); High risk medication use Discharge Disposition: Discharge to home or self care 05/16/2024 11:27 AM SPACE AND STORAGE CLERK - 05/16/2024 11:59 PM SPACE AND STORAGE CLERK Hospital Encounter [facility] [address] [place] [address] Rheumatoid arthritis involving multiple sites with positive rheumatoid factor (HCC) Discharge Disposition: Discharge to home or self care 05/16/2024 10:20 AM SPACE AND STORAGE CLERK Lab [facility] Infectious Diseases [address] [place] [phone] 05/16/2024 9:00 AM SPACE AND STORAGE CLERK Office Visit [facility] Rheumatology [address] [place] [address] Jayne Gibbons MD Rheumatoid arthritis involving multiple sites with positive rheumatoid factor (HCC) (Primary Dx); High risk medication use; Chronic pain of right knee; Cervical spinal stenosis; halfway (current) use of systemic steroids; Lymphadenopathy; Transaminitis 04/11/2024 Telephone [facility] [address] [place] [address] Jaqueline Jorgensen RN 04/04/2024 Orders Only [facility] Surgery [facility] Floor [address] [place] [phone] Raghav Pugh NP Esophageal diverticulum (Primary Dx) 04/03/2024 8:30 AM SPACE AND STORAGE CLERK Office Visit [facility] Surgery [address] [place] [address] David Miller MD Esophageal diverticulum 03/30/2024 8:00 AM SPACE AND STORAGE CLERK - 03/30/2024 11:59 PM SPACE AND STORAGE CLERK Hospital Encounter [facility] [address] [place] [address] Rad, Amh Fluoro Esophageal diverticulum Discharge Disposition: Discharge to home or self care 03/27/2024 Orders Only [facility] Surgery [facility] [address] [place] [phone] Yumiko Donladson NP Esophageal diverticulum (Primary Dx) from Last [...] (three) times a day as needed 03/21/20 Active diazePAM (VALIUM) 2 mg tablet Take [...] 1 05/16/19 25 025 Active adalimumab-aa ty (GEETA Layton, Autoinjector) 40 mg/0.4 mL auto-injector , kitIndication s:Rheumatoid Arthritis Inject 40 mg under the skin every 14 (fourteen) days 1 each 06/20/19 25 Active HumGEETA whatley, Pen 40 mg/0.4 mL pen injector kitIndication [...] for esophageal spasm versus mild early presbyesophagus. Rcsy-ru-ixnzefjy spontaneous gastroesophageal reflux. Small sliding-type hiatal hernia. [...] disorder 01/16/2015 Overview (06/26/2016): Bipolar disorder Immunizations Immunization Administration Dates Next Due Influenza, Quadrivalent, Split, Intramuscular Influenza, Unspecified 12/20/2018 Tdap 03/31/2013 Social History Tobacco Use Types Packs/Day Years Used Date Smoking Tobacco: Former Cigarettes 1 39.3 1 985 - 06/28/2023 Smokeless Tobacco: Never Tobacco Cessation:Counseling Given: Not Answered Alcohol Use Standard Drinks/Week Comments Not Currently 0 (1 standard drink = 0.6 oz pur e alcohol) [facility] Utilities Answer Date Recorded In the past 12 months has [employer], gas, oil, or water [employer] threatened to shut off services in your [...] often do you attend chur ch or anabaptism services? Never 01/18/2024 Do you belong to any clubs o r organizations such as gnosticist groups, unions, fraternal or athletic groups, or [...] were you homeless or living in a nursing home (including now)? No 01/18/2024 Personal Safety Answer Date Recorded Have you ever been in or are you currently in a harmful physical or emotional relationship or is someone making you feel afraid or unsafe? Denies 01/18/2024 Comments No Sex and Gender Information Value Date Recorded Sex Assigned at Not on file Legal Sex Female 9:45 AM SPACE AND STORAGE CLERK Gender Identity Not on file Sexual Orientation Not on file Occupation Industry Job Start Date Job End Date disability Not on file Not on file Not on file Last Filed Vital Signs Vital Sign Reading Time Taken Comments Blood Pressure 134/82 05/16/2024 8:33 AM SPACE AND STORAGE CLERK Pulse 91 05/16/2024 8:33 AM SPACE AND STORAGE CLERK Temperature 36.7 C (98 F) 05/16/2024 8:33 AM SPACE AND STORAGE CLERK Respiratory Rate 16 04/03/2024 8:40 AM SPACE AND STORAGE CLERK Oxygen Saturation 98% 05/16/2024 8:33 AM SPACE AND STORAGE CLERK Inhaled Oxygen Concentration - - Weight 88.7 kg (195 lb 9.6 oz) 05/16/2024 8:33 A M SPACE AND STORAGE CLERK Height 162.6 cm (5' 4 ) 05/16/2024 8:33 AM SPACE AND STORAGE CLERK Body Mass Index 33.57 05/16/2024 8:33 AM SPACE AND STORAGE CLERK Plan of Treatment Not on file Procedures Procedure Name Priority Date/Time Associated Diagnosis Comments XR KNEE RIGHT 3 VIEWS Schedule Routine, Read Routine (OP Routine) 05/16/2024 11:54 AM SPACE AND STORAGE CLERK Rheumatoid arthritis involving multiple sites with positive rheumatoid factor (HCC) XR SPINE CERVICAL W FLEXION AND EXTENSION 4 VIEWS Schedule Routine, Read Routine (OP Routine) 05/16/2024 11:54 AM SPACE AND STORAGE CLERK Rheumatoid arthritis involving multiple sites with positive rheumatoid factor (HCC) XR HIP RIGHT 2 OR 3 VIEWS Schedule Routine, Read Routine (OP Routine) 05/16/2024 11:54 AM SPACE AND STORAGE CLERK Rheumatoid arthritis involving multiple sites with positive rheumatoid factor (HCC) XR HIP LEFT 2 OR 3 VIEWS Schedule Routine, Read Routine (OP Routine) 05/16/2024 11:54 AM SPACE AND STORAGE CLERK Rheumatoid arthritis involving multiple sites with positive rheumatoid factor (HCC) XR SACROILIAC JOINTS 3 OR MORE VIEWS Schedule Routine, Read Routine (OP Routine) 05/16/2024 11:54 AM SPACE AND STORAGE CLERK Rheumatoid arthritis involving multiple sites with positive rheumatoid factor (HCC) XR FOOT BILATERAL 3 OR MORE VIEWS OF EACH Schedule Routine, Read Routine (OP Routine) 05/16/2024 11:54 AM SPACE AND STORAGE CLERK Rheumatoid arthritis involving multiple sites with positive rheumatoid factor (HCC) XR HAND BILATERAL 3 OR MORE VIEWS OF EACH Schedule Routine, Read Routine (OP Routine) 05/16/2024 11:54 AM SPACE AND STORAGE CLERK Rheumatoid arthritis involving multiple sites with positive rheumatoid factor (HCC) KARYN-1 ANTIBODY Routine 05/16/2024 10:14 AM SPACE AND STORAGE CLERK Rheumatoid arthritis involving multiple sites with positive rheumatoid factor (HCC) SCL 70 ANTIBODIES Routine 05/16/2024 10: 14 AM SPACE AND STORAGE CLERK Rheumatoid arthritis involving multiple sites with positive rheumatoid factor (HCC) INVESTIGATOR VICE ANTIBODIES Routine 05/16/2024 10:14 AM SPACE AND STORAGE CLERK Rheumatoid arthritis involving multiple sites with positive rheumatoid factor (HCC) BIRD ANTIBODIES Routine 05/16/2024 10:1 4 AM SPACE AND STORAGE CLERK Rheumatoid arthritis involving multiple sites with positive rheumatoid factor (HCC) SJOGRENS SYNDROME-B ANTIBODY Routine 05/16/2024 10:14 AM SPACE AND STORAGE CLERK Rheumatoid arthritis involving multiple sites with positive rheumatoid factor (HCC) SJOGRENS SYNDROME-A ANTIBODY Routine 05/16/2024 10:14 AM SPACE AND STORAGE CLERK Rheumatoid arthritis involving multiple sites with positive rheumatoid factor (HCC) EGFR Routine 05/16/2024 10:14 AM SPACE AND STORAGE CLERK Rheumatoid arthritis involving multiple sites with positive rheumatoid factor (HCC) DIFFERENTIAL AUTO Routine 05/16/2024 10: 14 AM SPACE AND STORAGE CLERK Rheumatoid arthritis involving multiple sites with positive rheumatoid factor (HCC) VITAMIN D 25 HYDROXY Routine 05/16/2024 10:14 AM SPACE AND STORAGE CLERK High risk medication use CRP (ACUTE PHASE) Routine 05/16/2024 10: 14 AM SPACE AND STORAGE CLERK Rheumatoid arthritis involving multiple sites with positive rheumatoid factor (HCC) ERYTHROCYTE SEDIMENTATION RATE Routine 05/16/2024 10:14 AM SPACE AND STORAGE CLERK Rheumatoid arthritis involving multiple sites with positive rheumatoid factor (HCC) CBC WITH AUTO DIFFERENTIAL Routine 05/16/2024 10:14 AM SPACE AND STORAGE CLERK Rheumatoid arthritis involving multiple sites with positive rheumatoid factor (HCC) COMPREHENSIVE METABOLIC PANEL Routine 05/16/2024 10:14 AM SPACE AND STORAGE CLERK Rheumatoid arthritis involving multiple sites with positive rheumatoid factor (HCC) ANTI-DOUBLE STRANDED DNA ANTIBODIES Routine 05/16/2024 10:14 AM SPACE AND STORAGE CLERK Rheumatoid arthritis involving multiple sites with positive rheumatoid factor (HCC) RHEUMATOID FACTOR Routine 05/16/2024 10: 14 AM SPACE AND STORAGE CLERK Rheumatoid arthritis involving multiple sites with positive rheumatoid factor (HCC) OLIVE ANTIBODY EVALUATION WITH REFLEX Routine 05/16/2024 10:14 AM SPACE AND STORAGE CLERK Rheumatoid arthritis involving multiple sites with positive rheumatoid factor (HCC) C4 COMPLEMENT Routine 05/16/2024 10:14 AM SPACE AND STORAGE CLERK Rheumatoid arthritis involving multiple sites with positive rheumatoid factor (HCC) C3 COMPLEMENT Routine 05/16/2024 10:14 AM SPACE AND STORAGE CLERK Rheumatoid arthritis involving multiple sites with positive rheumatoid factor (HCC) CYCLIC CITRUL PEPTIDE ANTIBODY, IGG Routine 05/16/2024 10:14 AM SPACE AND STORAGE CLERK Rheumatoid arthritis involving multiple sites with positive rheumatoid factor (HCC) CHELSEY QUALITATIVE WITH REFLEX TO CHELSEY QUANTITATIVE Routine 05/16/2024 10:14 AM SPACE AND STORAGE CLERK Rheumatoid arthritis involving multiple sites with positive rheumatoid factor (HCC) HEPATITIS B SURFACE ANTIBODY (IMMUNE STATUS) Routine 05/16/2024 10:14 AM SPACE AND STORAGE CLERK High risk medication use HEPATITIS B CORE ANTIBODY, TOTAL Routine 05/16/2024 10:14 AM SPACE AND STORAGE CLERK High risk medication use HEPATITIS B SURFACE ANTIGEN Routine 05/16/2024 10:14 AM SPACE AND STORAGE CLERK High risk medication use HEPATITIS C ANTIBODY Routine 05/16/2024 10:14 AM SPACE AND STORAGE CLERK High risk medication use T-SPOT.TB Routine 05/16/2024 10:14 AM SPACE AND STORAGE CLERK High risk medication use FL ESOPHAGRAM, DOUBLE CONTRAST Schedule Routine, Read Routine (OP Routine) 03/30/2024 8:30 AM SPACE AND STORAGE CLERK Esophageal diverticulum from Last 3 Months Results * XR Foot Bilateral 3 or More Views of Each (05/16/2024 11:54 AM SPACE AND STORAGE CLERK) Anatomical Region Laterality Modality Lower Extremities, Foot Computed Radiography 05/16/2024 9:36 PM SPACE AND STORAGE CLERK Narrative 05/16/2024 9:49 PM SPACE AND STORAGE CLERK EXAM DESCRIPTION: XR HAND BILATERAL 3 OR [...] swelling. Cervical kyphosis is present. 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 IMPRESSION: Kzki-bk-wwfktdbt C3-C7 degenerative disc disease, most severe at [...] Prem Teran M.D. MF: RA Report ID: [id number] Reading Location: [id number] Procedure Note Prem Teran MD - 05/16/2024 [...] tissue swelling. Cervicalkyphosis is present. There is toxi-kn-aivarcoj C3-C7 degenerative disc disease,most severe at C6-C7. 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 IMPRESSION: Mdxm-gq-fequvdtl C3-C7 degenerative disc disease, most severe at [...] Prem Teran M.D. MF: RA Report ID: [id number] Reading Location: [place] [address] [place] Jayne Gibbons MD IMG XR PROCEDURES Fin al Result * XR Hand Bilateral 3 or More Views of Each (05/16/2024 11:54 AM SPACE AND STORAGE CLERK) Anatomical Region Laterality Modality Upper Extremities, Hand Computed Radiography 05/16/2024 9:36 PM SPACE AND STORAGE CLERK Narrative 05/16/2024 9:49 PM SPACE AND STORAGE CLERK EXAM DESCRIPTION: XR HAND BILATERAL 3 OR [...] swelling. Cervical kyphosis is present. 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 IMPRESSION: Khzm-me-rzccojza C3-C7 degenerative disc disease, most severe at [...] Prem Teran M.D. MF: RA Report ID: [id number] Reading Location: [id number] Procedure Note Prem Teran MD - 05/16/2024 [...] tissue swelling. Cervicalkyphosis is present. There is ekwo-hb-qqhrbdym C3-C7 degenerative disc disease,most severe at C6-C7. 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 IMPRESSION: Wltl-sy-pqealehz C3-C7 degenerative disc disease, most severe at [...] Prem Teran M.D. MF: RA Report ID: [id number] Reading Location: [place] [address] [place] Jayne Gibbons MD IMG XR PROCEDURES Fin al Result * XR Spine Cervical W Flexion And Extension 4 or 5 Views (05/16/2024 11:54 AM SPACE AND STORAGE CLERK) Anatomical Region Laterality Modality Spine N/A Computed Radiogr aphy 05/16/2024 9:36 PM SPACE AND STORAGE CLERK Narrative 05/16/2024 9:49 PM SPACE AND STORAGE CLERK EXAM DESCRIPTION: XR HAND BILATERAL 3 OR [...] swelling. Cervical kyphosis is present. 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 IMPRESSION: Htyz-ld-bzxsdpxn C3-C7 degenerative disc disease, most severe at [...] Prem Teran M.D. MF: RA Report ID: [id number] Reading Location: [id number] Procedure Note Prem Teran MD - 05/16/2024 [...] tissue swelling. Cervicalkyphosis is present. There is kzyv-mf-mfiwwpyj C3-C7 degenerative disc disease,most severe at C6-C7. 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 IMPRESSION: Sfbp-ps-gukwzjwh C3-C7 degenerative disc disease, most severe at [...] Prem Teran M.D. MF: RA Report ID: [id number] Reading Location: [id number] [place] Jayne Gibbons MD IMG XR PROCEDURES Fin al Result * XR Knee Right 3 Views (05/16/2024 11:54 AM SPACE AND STORAGE CLERK) Anatomical Region Laterality Modality Lower Extremities, Knee Right Computed Radiography 05/16/2024 9:36 PM SPACE AND STORAGE CLERK Narrative 05/16/2024 9:49 PM SPACE AND STORAGE CLERK EXAM DESCRIPTION: XR HAND BILATERAL 3 OR [...] swelling. Cervical kyphosis is present. 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 IMPRESSION: Fbew-yt-etisatel C3-C7 degenerative disc disease, most severe at [...] Prem Teran M.D. MF: RA Report ID: [id number] Reading Location: [id number] Procedure Note Prem Teran MD - 05/16/2024 [...] tissue swelling. Cervicalkyphosis is present. There is ioev-xu-czictpgg C3-C7 degenerative disc disease,most severe at C6-C7. 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 IMPRESSION: Nkzw-mq-qcofakxw C3-C7 degenerative disc disease, most severe at [...] Prem Teran M.D. MF: RA Report ID: [id number] Reading Location: [id number] [place] Jayne Gibbons MD IMG XR PROCEDURES Fin al Result * XR Hip Right 2 or 3 Views (05/16/2024 11:54 AM SPACE AND STORAGE CLERK) Anatomical Region Laterality Modality Lower Extremities, Hip, Pelvis Right C omputed Radiography 05/16/2024 9:36 PM SPACE AND STORAGE CLERK Narrative 05/16/2024 9:49 PM SPACE AND STORAGE CLERK EXAM DESCRIPTION: XR HAND BILATERAL 3 OR [...] swelling. Cervical kyphosis is present. 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 IMPRESSION: Ibph-fn-wjxhlvct C3-C7 degenerative disc disease, most severe at [...] Prem Teran M.D. MF: RA Report ID: [id number] Reading Location: [id number] Procedure Note Prem Teran MD - 05/16/2024 [...] tissue swelling. Cervicalkyphosis is present. There is uckg-sh-athpeixl C3-C7 degenerative disc disease,most severe at C6-C7. 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 IMPRESSION: Vvut-eq-xqablvhz C3-C7 degenerative disc disease, most severe at [...] Prem Teran M.D. MF: RA Report ID: [id number] Reading Location: [place] [address] [place] Jayne Gibbons MD IMG XR PROCEDURES Fin al Result * XR Hip Left 2 or 3 Views (05/16/2024 11:54 AM SPACE AND STORAGE CLERK) Anatomical Region Laterality Modality Lower Extremities, Hip, Pelvis Left C omputed Radiography 05/16/2024 9:36 PM SPACE AND STORAGE CLERK Narrative 05/16/2024 9:49 PM SPACE AND STORAGE CLERK EXAM DESCRIPTION: XR HAND BILATERAL 3 OR [...] swelling. Cervical kyphosis is present. 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 IMPRESSION: Qetg-fh-utbufjea C3-C7 degenerative disc disease, most severe at [...] Prem Teran M.D. MF: RA Report ID: [id number] Reading Location: [id number] Procedure Note Prem Teran MD - 05/16/2024 [...] tissue swelling. Cervicalkyphosis is present. There is tkui-uo-wkyyluke C3-C7 degenerative disc disease,most severe at C6-C7. 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 IMPRESSION: Dqjh-xj-yzveuypb C3-C7 degenerative disc disease, most severe at [...] Prem Teran M.D. MF: RA Report ID: [id number] Reading Location: [id number] us Jayne Gibbons MD IMG XR PROCEDURES Fin al Result * XR Sacroiliac Joints 3 or More Views (05/16/2024 11:54 AM SPACE AND STORAGE CLERK) Anatomical Region Laterality Modality Pelvis, Body N/A Computed Radiogr aphy 05/16/2024 9:36 PM SPACE AND STORAGE CLERK Narrative 05/16/2024 9:49 PM SPACE AND STORAGE CLERK EXAM DESCRIPTION: XR HAND BILATERAL 3 OR [...] swelling. Cervical kyphosis is present. 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 IMPRESSION: Sisv-bo-ptplwjxy C3-C7 degenerative disc disease, most severe at [...] Prem Teran M.D. MF: RA Report ID: [id number] Reading Location: [id number] Procedure Note Prem Teran MD - 05/16/2024 [...] tissue swelling. Cervicalkyphosis is present. There is bgrc-dj-kdqhcixy C3-C7 degenerative disc disease,most severe at C6-C7. 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 IMPRESSION: Hrfh-zw-ktqokahf C3-C7 degenerative disc disease, most severe at [...] Prem Teran M.D. MF: RA Report ID: [id number] Reading Location: [place] [address] [place] Jayne Gibbons MD IMG XR PROCEDURES Fin al Result * (ABNORMAL) CHELSEY ab ql w/rflx to CHELSEY qn (05/16/2024 10:14 AM SPACE AND STORAGE CLERK) CHELSEY Positive 1:80 Comment: Interpretive Data Normal [...] last revised on 2019. Testing performed by: [facility], [address] [place]., [address] CHELSEY, quant 1:80 titer PORSHA Comment:Testing performed by : [facility], [address] [place]., [address] CHELSEY, interp Homogeneous (A) PORSHA Comment:Testing performed by : [facility], [address] [place]., [address] Blood 05/16/2024 10:1 4 AM SPACE AND STORAGE CLERK 05/17/2024 10:12 AM SPACE AND STORAGE CLERK Jayne Gibbons MD LAB BLOOD ORDERABLES Final Result Performing Organization Address [facility] de Phone Number PORSHA GARSIA [address] [address] [place] [place] [address] * Anti-double stranded DNA abs (05/16/2024 10:14 AM SPACE AND STORAGE CLERK) Pathologist [facility] [place] dsDNA Ab <1.0 <=4.0 IUnits/mL Comment: Interpretive Data Negative: < or = 4 IUnits/mL Indeterminate: 5 - 9 IUnits/mL Positive: > or = 10 IUnits/mL Current interpretive data was last revised on 2016. Testing performed by: [facility], [address] [place] [address]., [address] Blood 05/16/2024 10:1 4 AM SPACE AND STORAGE CLERK 05/17/2024 9:57 AM SPACE AND STORAGE CLERK Jayne Gibbons MD LAB BLOOD ORDERABLES Final Result Performing Organization Address [facility] de Phone Number PORSHA GARSIA [address] [address] [facility] [employer] [place] [address] * T-SPOT.TB Blood (05/16/2024 10:14 AM SPACE AND STORAGE CLERK) [facility] T-SPOT.TB Negative SeeBelow Comment: Normal Value: [...] test. T-SPOT.TB Panel A Spot Count 0 CERNER T-SPOT.TB Panel B Spot Count 0 CERNER CH T-SPOT.TB Negative Control Passed CERNER CH T-SPOT.TB Positive Control Passed CERNER CH Comment: Test Performed at: [employer] [address] [place] [id number] JANAE LAWSON,PHD Blood 05/16/2024 10:1 4 AM SPACE AND STORAGE CLERK 05/16/2024 2:35 PM SPACE AND STORAGE CLERK Jayne Gibbons MD LAB MICROBIOLOGY - NERAL ORDERABLES Final Result Performing Organization Address City/[facility] Co de Phone Number PORSHA [address] [address] [place] [address] * SCL 70 abs (05/16/2024 10:14 AM SPACE AND STORAGE CLERK) Anti-Scl70, IgG <0.2 <=0.9 Ab Index Comment: Interpretive Data Negative: < 1.0 Ab Index Positive: > or = 1.0 Ab Index Current interpretive data was last revised on 2016. Testing performed by: [facility], [address] [place] [address]., [address] Blood 05/16/2024 10:1 4 AM SPACE AND STORAGE CLERK 05/17/2024 10:00 AM SPACE AND STORAGE CLERK Jayne Gibbons MD LAB BLOOD ORDERABLES Final Result Performing Organization Address City/[facility]/ZIP Co de [facility] Number [facility] [address] [address] [place] [employer] [place] [address] * eGFR (05/16/2024 10:14 AM SPACE AND STORAGE CLERK) eGFR >90 >=60 mL/min/1. 73 m2 Comment: [...] reviewed 2021. Blood 05/16/2024 10:1 4 AM SPACE AND STORAGE CLERK 05/16/2024 3:59 PM SPACE AND STORAGE CLERK Jayne Gibbons MD LAB BLOOD ORDERABLES Final Result [facility] [address] [address] Department of Laboratories [place] [id number] * (ABNORMAL) Differential, auto (05/16/2024 10:14 AM SPACE AND STORAGE CLERK) Neutrophil abs 9.1(H) 1.5 - 6.5 K/cumm Imm gran abs 0.0 0.0 - 0.1 K/cumm [facility] Lymphocyte abs 1.9 0.8 - 3.3 K/cumm [facility] Monocyte abs 0.7 0.2 - 0.8 K/cumm [facility] Eosinophil abs 0.1 0.0 - 0.5 K/cumm [facility] Basophil abs 0.1 0.0 - 0.1 K/cumm [facility] Neutrophil pct 76.7 % [facility] Comment: Interpretive Data Percent cell count reference ranges are not reported, since discordance with absolute values may lead to misinterpretation of CBC data. Current Interpretive Data was last revised on 2017. Imm gran pct 0.3 % [facility] Comment: Interpretive Data Percent cell count reference ranges are not reported, since discordance with absolute values may lead to misinterpretation of CBC data. Current Interpretive Data was last revised on 2017. Lymphocyte pct 16.1 % [facility] Comment: Interpretive Data Percent cell count reference ranges are not reported, since discordance with absolute values may lead to misinterpretation of CBC data. Current Interpretive Data was last revised on 2017. Monocyte pct 5.7 % [facility] Comment: Interpretive Data Percent cell count reference ranges are not reported, since discordance with absolute values may lead to misinterpretation of CBC data. Current Interpretive Data was last revised on 2017. Eosinophil pct 0.4 % [facility] Comment: Interpretive Data Percent cell count reference ranges are not reported, since discordance with absolute values may lead to misinterpretation of CBC data. Current Interpretive Data was last revised on 2017. Basophil pct 0.8 % [facility] Comment: Interpretive Data Percent cell count reference ranges are not reported, since discordance with absolute values may lead to misinterpretation of CBC data. Current Interpretive Data was last revised on 2017. Blood 05/16/2024 10:1 4 AM SPACE AND STORAGE CLERK 05/16/2024 3:59 PM SPACE AND STORAGE CLERK Jayne Gibbons MD LAB BLOOD ORDERABLES Final Result PORSHA [address] [place] [address] * Pelon abs (05/16/2024 10:14 AM SPACE AND STORAGE CLERK) Anti-OLIVE, SM <0.2 <=0.9 Ab Index Comment: Interpretive Data Negative: < 1.0 Ab Index Positive: > or = 1.0 Ab Index Current interpretive data was last revised on 2016. Testing performed by: [facility], [address] [place]., [address] Blood 05/16/2024 10:1 4 AM SPACE AND STORAGE CLERK 05/17/2024 10:00 AM SPACE AND STORAGE CLERK Jayne Gibbons MD LAB BLOOD ORDERABLES Final Result Performing Organization Address [facility] Co de Phone Number PORSHA GARSIA [address] [address] [facility] [place] [employer] [place] [address] * (ABNORMAL) INVESTIGATOR VICE abs (05/16/2024 10:14 AM SPACE AND STORAGE CLERK) INVESTIGATOR VICE ab 2.8(H) <=0.9 Ab Index Comment: Interpretive Data Negative: < 1.0 Ab Index Positive: > or = 1.0 Ab Index Current interpretive data was last revised on 2016. Testing performed by: [facility], [address] [place] [address]., [address] Blood 05/16/2024 10:1 4 AM SPACE AND STORAGE CLERK 05/17/2024 10:00 AM SPACE AND STORAGE CLERK Jayne Gibbons MD LAB BLOOD ORDERABLES Final Result Performing Organization Address [facility] Co de Phone Number PORSHA GARSIA [address] [address] Department [place] [place] [address] * C4 complement (05/16/2024 10:14 AM SPACE AND STORAGE CLERK) Pathologist [facility] [place] Complement C4 24 10 - 40 mg/dL Blood 05/16/2024 10:1 4 AM SPACE AND STORAGE CLERK 05/16/2024 3:59 PM SPACE AND STORAGE CLERK Jayne Gibbons MD LAB BLOOD ORDERABLES Final Result Performing Organization Address [facility] [place] [address] [address] [place] [place] [address] * (ABNORMAL) OLIVE ab eval w/reflex (05/16/2024 10:14 AM SPACE AND STORAGE CLERK) Pathologist [facility] [place] OLIVE ab Positive( A) Negative Comment: Interpretive Data Positive Screens will be reflexed to specific testing for Antibodies against the following antigens: Karyn-1 Ab, INVESTIGATOR VICE Ab, Scl-70 Ab, Bird Ab, SS-A/Ro Ab, and SS- B/La Ab. Further testing for dsDNA, Centromere, or Ribosomal P antibodies is suggested in patient with a positive screen and negative specific antibodies. Current interpretive data was last revised on 2022. Testing performed by: [facility], [address] [place]., [address] Blood 05/16/2024 10:1 4 AM SPACE AND STORAGE CLERK 05/17/2024 9:57 AM SPACE AND STORAGE CLERK Jayne Gibbons MD LAB BLOOD ORDERABLES Final Result Performing Organization Address [facility] Co de Phone [facility] [address] [address] [place] [place] [address] * Karyn-1 antibody (05/16/2024 10:14 AM SPACE AND STORAGE CLERK) Pathologist [facility] [place] Karyn 1 Antibody, IgG <0.2 <=0.9 Ab Index Comment: Interpretive Data Negative: < 1.0 Ab Index Positive: > or = 1.0 Ab Index Current interpretive data was last revised on 2016. Testing performed by: [facility], [address] [facility], [place]., [address] Blood 05/16/2024 10:1 4 AM SPACE AND STORAGE CLERK 05/17/2024 10:00 AM SPACE AND STORAGE CLERK Jayne Gibbons MD LAB BLOOD ORDERABLES Final Result Performing Organization Address City/[facility] Co de Phone Number PORSHA [address] [address] [facility] [place] [employer] [place] [address] * (ABNORMAL) CBC with auto differential (05/16/2024 10:14 AM SPACE AND STORAGE CLERK) WBC 11.8(H) 3.8 - 9.9 K/cumm Hgb 14.3 11.9 - 15.5 g/dL [facility] Hct 45.3 35.6 - 45.5 % [facility] Plt 407(H) 150 - 400 K/cumm [facility] MPV 11.0 9.1 - 12.3 fL [facility] RBC 4.88 3.90 - 5.20 M/cumm [facility] MCV 92.8 81.3 - 96.4 fL [facility] MCH 29.3 27.1 - 33.3 pg [facility] MCHC 31.6(L) 32.3 - 35.7 g/dL [facility] RDW CV 16.1(H) 11.1 - 14.9 % [facility] RDW SD 55.0(H) 35.7 - 48.1 fL [facility] NRBC abs 0.00 0.00 - 0.01 K/cumm [facility] Blood 05/16/2024 10:1 4 AM SPACE AND STORAGE CLERK 05/16/2024 3:59 PM SPACE AND STORAGE CLERK Jayne Gibbons MD LAB BLOOD ORDERABLES Final Result Performing Organization Address [facility] de Phone Number [facility] [address] [address] [place] [place] [address] * Hepatitis C antibody Blood (05/16/2024 10:14 AM SPACE AND STORAGE CLERK) Hep C Ab Nonreactive Nonreactive Comment: Interpretive [...] on 2019. Blood 05/16/2024 10:1 4 AM SPACE AND STORAGE CLERK 05/16/2024 3:59 PM SPACE AND STORAGE CLERK Jayne Gibbons MD LAB MICROBIOLOGY - NERAL ORDERABLES Final Result Performing Organization Address City/[facility] Co de Phone Number PORSHA [address] [address] Department [employer] [place], [place] [id number] * (ABNORMAL) Cyclic citrul peptide antibody, IgG (05/16/2024 10:14 AM SPACE AND STORAGE CLERK) CCP Ab 153.8(H) <=2.9 units/mL Comment: Interpretive data Negative: <3 units/mL Positive: > or equal to 3 units/mL Current interpretive data was last revised on 2016. Testing performed by: [facility], [address] [place] [address]., [address] Blood 05/16/2024 10:1 4 AM SPACE AND STORAGE CLERK 05/17/2024 10:12 AM SPACE AND STORAGE CLERK Jayne Gibbons MD LAB BLOOD ORDERABLES Final Result Performing Organization Address City/[facility]/ZIP Co de Phone Number PORSHA [address] [address] [facility] [employer] [place] [address] * Hepatitis B core antibody, total Blood (05/16/2024 10:14 AM SPACE AND STORAGE CLERK) Pathologist [facility] [place] Hep B core IgG/IgM Nonreactive Nonreactive Comment:Testing performed by : [facility], [address] [place] [address], [place]., [address] Blood 05/16/2024 10:1 4 AM SPACE AND STORAGE CLERK 05/17/2024 9:57 AM SPACE AND STORAGE CLERK us Jayne Gibbons MD LAB MICROBIOLOGY - GE NERAL ORDERABLES Final Result Performing Organization Address City/[facility]/ZIP Co de Phone Number PORSHA [address] [address] [facility] [employer] [place] [address] * Vitamin D 25 hydroxy (05/16/2024 10:14 AM SPACE AND STORAGE CLERK) Pathologist [facility] [place] Vitamin D 25-OH 35 30 - 80 ng/mL Blood 05/16/2024 10:1 4 AM SPACE AND STORAGE CLERK 05/16/2024 3:59 PM SPACE AND STORAGE CLERK us Jayne Gibbons MD LAB BLOOD ORDERABLES Final Result Performing Organization Address City/[facility]/ZIP Co de Phone Number PORSHA [address] [address] [facility] [place] [place] [address] * Hepatitis B surface antibody (immune status) Blood (05/16/2024 10:14 AM SPACE AND STORAGE CLERK) [facility] HBsAb (immune status) Nonreactive Comment: Interpretive Data [...] on 19. Blood 05/16/2024 10:1 4 AM SPACE AND STORAGE CLERK 05/16/2024 3:59 PM SPACE AND STORAGE CLERK Jayne Gibbons MD LAB MICROBIOLOGY - GE NERAL ORDERABLES Final Result Performing Organization Address [facility] de Phone Number [facility] [address] [place] [address] * Hepatitis B Surface Antigen Blood (05/16/2024 10:14 AM SPACE AND STORAGE CLERK) [facility] HepBsAg Nonreactive Nonreactive Blood 05/16/2024 10:1 4 AM SPACE AND STORAGE CLERK 05/16/2024 3:59 PM SPACE AND STORAGE CLERK Jayne Gibbons MD LAB MICROBIOLOGY - GE NERAL ORDERABLES Final Result Performing Organization Address [facility] [place] [address] [address] [facility] [place] [place] [address] * Sjogren's syndrome B ab (05/16/2024 10:14 AM SPACE AND STORAGE CLERK) [facility] Anti-OLIVE, SS-B <0.2 <=0.9 Ab Index Comment: Interpretive Data Negative: < 1.0 Ab Index Positive: > or = 1.0 Ab Index Current interpretive data was last revised on 2016. Testing performed by: [facility], [address] [place]., [address] Blood 05/16/2024 10:1 4 AM SPACE AND STORAGE CLERK 05/17/2024 10:00 AM SPACE AND STORAGE CLERK Jayne Gibbons MD LAB BLOOD ORDERABLES Final Result Performing Organization Address [facility] Co de Phone Number ISMALLUVIA [address] [address] [facility] [employer] [place] [address] * Sjogren's syndrome A ab (05/16/2024 10:14 AM SPACE AND STORAGE CLERK) Anti-OLIVE, SS-A <0.2 <=0.9 Ab Index Comment: Interpretive Data Negative: < 1.0 Ab Index Positive: > or = 1.0 Ab Index Current interpretive data was last revised on 2016. Testing performed by: [facility], [address] [place] [address]., [address] Blood 05/16/2024 10:1 4 AM SPACE AND STORAGE CLERK 05/17/2024 10:00 AM SPACE AND STORAGE CLERK Jayne Gibbons MD LAB BLOOD ORDERABLES Final Result Performing Organization Address [facility] Co de Phone Number PORSHA [address] [address] [facility] [employer] [place] [address] * Erythrocyte sedimentation rate (05/16/2024 10:14 AM SPACE AND STORAGE CLERK) Pathologist [facility] [place] Erythrocyte sedimentation rate 11 1 - 30 mm/hr Blood 05/16/2024 10:1 4 AM SPACE AND STORAGE CLERK 05/16/2024 3:59 PM SPACE AND STORAGE CLERK Jayne Gibbons MD LAB BLOOD ORDERABLES Final Result Performing Organization Address [facility]/ZIP Co de Phone Number ISMALLUVIA [address] [address] [facility] [place] [place] [address] * (ABNORMAL) Rheumatoid factor (05/16/2024 10:14 AM SPACE AND STORAGE CLERK) [facility] Rheumatoid factor, quant 46(H) <=15 IUnits/mL Blood 05/16/2024 10:1 4 AM SPACE AND STORAGE CLERK 05/16/2024 3:59 PM SPACE AND STORAGE CLERK Jayne Gibbons MD LAB BLOOD ORDERABLES Final Result Performing Organization Address [facility] Co de Phone Number PORSHA [address] [address] [facility] [place] [place] [address] * C3 complement (05/16/2024 10:14 AM SPACE AND STORAGE CLERK) [facility] Complement C3 152 90 - 180 mg/dL Blood 05/16/2024 10:1 4 AM SPACE AND STORAGE CLERK 05/16/2024 3:59 PM SPACE AND STORAGE CLERK Jayne Gibbons MD LAB BLOOD ORDERABLES Final Result Performing Organization Address [facility] de Phone Number PORSHA [address] [address] [facility] [place] [place] [address] * CRP (acute phase) (05/16/2024 10:14 AM SPACE AND STORAGE CLERK) [facility] CRP 4.6 <=10.0 mg/L Blood 05/16/2024 10:1 4 AM SPACE AND STORAGE CLERK 05/16/2024 3:59 PM SPACE AND STORAGE CLERK Jayne Gibbons MD LAB BLOOD ORDERABLES Final Result Performing Organization Address [facility] de Phone Number ISMALLUVIA [address] [address] [facility] [place] [place] [address] * Comprehensive metabolic panel (05/16/2024 10:14 AM SPACE AND STORAGE CLERK) [facility] Sodium 137 135 - 145 mmol/L Potassium, pl 4.6 3.3 - 4.9 mmol/L [facility] Chloride 101 97 - 110 mmol/L [facility] CO2 22 22 - 32 mmol/L [facility] Anion gap 14 2 - 15 mmol/L [facility] BUN 15 6 - 25 mg/dL [facility] Creatinine 0.60 0.60 - 1.10 mg/dL [facility] Glucose 110 70 - 199 mg/dL [facility] Comment: [...] [facility] CH Blood 05/16/2024 10:1 4 AM SPACE AND STORAGE CLERK 05/16/2024 3:59 PM SPACE AND STORAGE CLERK Jayne Gibbons MD LAB BLOOD ORDERABLES Final Result Performing Organization Address City/State/[facility] Co de Phone Number [facility] [address] [address] [place] [address] * FL Esophagram, Double Contrast (03/30/2024 8:30 AM SPACE AND STORAGE CLERK) Anatomical Region Laterality Modality Body N/A Radio Fluoroscop y 03/30/2024 10:1 2 AM SPACE AND STORAGE CLERK Narrative 03/30/2024 10:26 AM SPACE AND STORAGE CLERK EXAM DESCRIPTION: FL ESOPHAGRAM BARIUM SWALLOW TO STOMACH, DOUBLE CONTRAST REASON FOR STUDY: Esophageal diverticulum Esophageal diverticulum Egd 1 month at [facility] Perforation?1.4 min ft 276.5 mgy RADIATION [...] is small sliding-type hiatal hernia. There is hkhf-hf-qwnysdtk spontaneous gastroesophageal reflux observed during the study. [...] esophageal spasm versus mild early presbyesophagus. 4. Pyrb-qp-reqoybdm spontaneous gastroesophageal reflux. 5. Small sliding-type hiatal hernia. THIS IS AN ELECTRONICALLY VERIFIED FINAL REPORT 03/30/2024 10:26 AM - Electronically signed by Zunilda De Los Santos D.O. PS: PS Report ID: [id number] Reading Location: [place] [address] Procedure Note Zunilda De Los Santos DO - 03/30/2024 EXAM DESCRIPTION: FL ESOPHAGRAM BARIUM SWALLOW TO STOMACH, DOUBLECONTRAST REASON FOR STUDY: Esophageal diverticulum Esophageal diverticulum Egd 1 month at [facility] Perforation?1.4min ft 276.5 mgy RADIATION DOSE: [...] is small sliding-type hiatal hernia. There is nvtz-xr-cjyikgpw spontaneous gastroesophageal reflux observedduring the study. NON-GI [...] foresophageal spasm versus mild early presbyesophagus. 4. Ehmr-zz-fczglpgd spontaneous gastroesophageal reflux. 5. Small sliding-type hiatal hernia. THIS IS AN ELECTRONICALLY VERIFIED FINAL REPORT 03/30/2024 10:26 AM - Electronically signed by Zunilda De Los Santos D.O. PS: PS Report ID: [id number] Reading Location: [place] [address] Yumiko Donaldson NP IMG FLUOROSCOPY PROCEDURES Sabra l Result from Last 3 Months Insurance MEDICARE IDTN Member Subscriber Plan / Payer (Ef fective 2018-Present) Name:Thuy Cooper Relation to Subscriber:Self Name:Thuy Cooper Payer ID:[id number] Group ID:Not on file Type:[place]ICAID [place] Address: [place] [address] MEDICARE IDPA MEDICARE IDPA Advance Directives For more information, please contact: [phone] * Full Code (Latest Code Status on File) Date Activated Date Inactivated Comments 01/18/2024 1:42 PM 01/21/2024 5:17 PM Care Teams Donor Services Coordinator Relationship Specialty Start Date End Date Jose Bryan PA [address] [place] [address] PCP - General Family Practice 10/13/18 Ciaran Mcallister MD [address] [place] [address] General Surgery 04/03/24
--- OUTSIDE RECORDS SUMMARY | 2024-06-22 11:02 | XMS_ITS | Clinical Summary ---
Author Organization [facility] Address [address] [place] [address] Care Team Providers Care Web Site Designer Name Role Phone Jose Bryan Primary Care Provider [phone] Allergies Active Allergy Reactions Criticality Noted Date [...] In the past 12 months has e [employer], gas, oil, or water [employer] threatened to shut off services in your [...] any time in the past 12 m [facility], were you homeless or living in a skilled nursing (including now)? No 07/30/2023 Comments No Sex [...] to complete this topic [place] [address] MEDICARE MEDICAID Advance Directives * Full Code (Latest Code Status on File) Date Activated Date Inactivated Comments 07/30/2023 6:07 PM 08/02/2023 3:11 PM Care Teams Web Site Designer Relationship Specialty Start Date End Date Jose Bryan PA [address] [place] [address] PCP - General PHYSICIAN CELL LINER 11/22/18
--- OUTSIDE RECORDS SUMMARY | 2024-06-22 11:03 | XMS_ITS | Clinical Summary ---
Author Organization [facility] Address [address] [facility] [place] [address] Phone Care Team Providers Care Automotive Machinist Apprentice Name Role Phone Jose Bryan Primary Care Provider [phone] Ron Batista MD Unavailable Jomar Kiran MD Unavailable [phone] Macy Alarcon APRN, MARRIAGE AND FAMILY THERAPIST Unavailable Kingston Peoples MD Unavailable Allergies Active Allergy Reactions Criticality Noted Date Comments Morphine Other (see Comments) 07/08/2021 AMPS HER UP Medications FLUoxetine (PROzac) 20 MG Capsule Take 40 mg by mouth daily. Active gabapentin (NEURONTIN) 300 MG Capsule Take 1,200 mg by mouth nightly. Active LISINOPRIL PO Take 5 mg by mouth every morning. Active traZODone (DESYREL) 50 MG Tablet Take 50 mg by mouth 2 times daily. 07/13/19 24 Active amitriptyline (ELAVIL) 25 MG Tablet Take 25 mg by mouth daily. Active Benzonatate 200 MG Capsule 02/16/20 24 Active busPIRone (BUSPAR) 15 MG Tablet take one tablet by mouth three times a day as needed 02/16/20 24 Active diazePAM (VALIUM) 2 MG Tablet take 1 tablet by mouth three times daily as needed 02/16/20 24 Active Docusate Sodium (DSS) 250 MG Capsule Take 250 mg by mouth. 01/21/20 24 Active pantoprazole (PROTONIX) 40 MG Tablet Delayed Response Take 40 mg by mouth daily. 09/09/19 Active traMADol (ULTRAM) 50 MG Tablet TAKE 1 TABLET BY MOUTH THREE TIMES A DAY FOR PAIN CONTROL 09/09/19 Active folic acid (FOLVITE) 1 MG Tablet Take 1 mg by mouth. 09/09/19 Active Clindamycin HCl (CLEOCIN) 300 MG CapsuleIndicat ions:Skin and Soft Tissue Infection Take 1 Capsule by mouth every 8 hours for 10 days. Indications: Infection of the Skin and/or Soft Tissue 30 Capsule 06/16/19 25 Active HYDROcodone-ac etaminophen (NORCO) 5-325 MG TabletIndicati ons:Infected sebaceous cyst of skin Take 1 Tablet by mouth every 8 hours as needed for Moderate or more severe pain. 12 Tablet 06/16/19 Active Additional Information Patient not taking.Reported on 06/21/2024 Adalimumab-aat y 40 MG/0.4ML Auto-injector Kit 40 mg by Subcutaneous route every 14 days. 06/20/19 Active meloxicam (MOBIC) 7.5 MG Tablet take 1 tablet (7.5 mg total) by mouth daily Active sulfaSALAzine (AZULFIDINE) 500 MG Tablet Delayed Response Take 1,000 mg by mouth 2 times daily. 05/16/19 25 Active cyclobenzaprin e (FLEXERIL) 10 MG Tablet Take 10 mg by mouth 3 times daily as needed. Discontinu ed(Med List Clean Up) naloxone HCl (Narcan) 4 MG/0.1ML Liquid 1 [place] by Nasal route as needed for Opioid Reversal. Administer in one nostril for symptoms of overdose (severe sleepiness, breathing problems, not responsive). Call 911. May repeat 1 spray in alternate nostril in 2-3 minutes if needed. 2 Each 07/06/19 24 025 Discontinu ed(Med List Clean Up) HYDROcodone-ac etaminophen (NORCO) 5-325 MG TabletIndicati ons:Lymphadeno [place]ak[place] Take 1-2 Tablets by mouth every 4 hours as needed for Moderate or more severe pain. 20 Tablet 07/11/19 24 025 Discontinu ed(Med List Clean Up) tamsulosin (FLOMAX) 0.4 MG Capsule Take 1 Capsule by mouth daily. 30 Capsule 5 08/19/19 24 025 Discontinu ed(Med List Clean Up) predniSONE (DELTASONE) 5 MG Tablet Take 1 Tablet by mouth every other day. 30 Tablet 09/06/19 24 025 Discontinu ed(Med List Clean Up) Humira, 2 Pen, 40 MG/0.4ML Auto-injector Kit 01/19/20 24 025 Discontinu ed(Discont inued by another clinician) diclofenac (VOLTAREN) 75 MG Tablet Delayed Response take 1 tablet (75 mg) by oral route 2 times per day 025 Discontinu ed(Med List Clean Up) methotrexate 2.5 MG Tablet 10 tablets once weekly 12/21/19 24 025 Discontinu ed(Discont inued by another clinician) Active Problems Problem Noted Date Diagnosed Date Rheumatoid arthritis involvi ng both ankles with positive rheumatoid factor 08/04/2023 Joint stiffness 07/20/2023 Lymphadenopathy 07/24/2021 Encounters Date Type Department Care Team Description 06/22/2024 Travel 06/21/2024 8:30 AM CDT Office Visit [facility] - General Surgery - [place] [address] [phone] Kingston Peoples MD Sebaceous cyst (Primary Dx) Discharge Disposition: Discharged to home or Selfcare 06/21/2024 Travel 06/15/2024 1:34 PM CDT - 06/15/2024 3:40 PM CDT [facility] [address] [place] [address] Fazal Barker PAC Infected sebaceous cyst of skin Discharge Disposition: Discharged to home or Selfcare 06/15/2024 Travel 04/05/2024 Telephone [facility] - Gastroenterology [facility] [address] [place] [address] Ciaran Mcallister MD Appointment from Last 3 Months Immunizations Immunization Administration Dates Next Due Influenza, Injectable, Mdck, Preservative Free 1 04/03/2023 Pneumococcal conjugate PCV20 , polysaccharide [id number] conjugate, adjuvant, PF 02/16/2024 Family History Medical History Relation Name Comments [...] Daughter 1 Alive Daughter 2 Alive Father Half-Sister Alive Maternal Grandfather Maternal Grandmother Mother Alive Paternal Grandfather Paternal Grandmother Son 1 Kyler Alive Son 2 Aniceto Alive Son 3 Alive Social History Tobacco Use Types Packs/Day Years Used Date Smoking Tobacco: Former Cigarettes 1 40 1 2023 Smokeless Tobacco: Never Alcohol Use Standard [...] CDT Inhaled Oxygen Concentration - - Weight 88.5 kg (195 lb) 06/22/2024 9:00 AM CDT Height 160 cm (5' 3 ) 06/22/2024 9:00 AM CDT Body Mass Index 34.54 06/22/2024 9:00 AM CDT Plan of Treatment Upcoming Encounters Date Type Department Care Team (Latest Contact Info) Description 07/03/2024 12:40 PM CDT Hospital Encounter [facility] Periop [address] [place] [phone] Kingston Peoples MD #[address] [address] 07/03/2024 12:40 PM CDT - 07/03/2024 1:40 PM CDT [facility] [address] [place] [address] Kingston Peoples MD #[address] [address] EXCISION OF RIGHT POSTERIOR NECK SEBACEOUS CYST 07/12/2024 9:15 AM CDT Office Visit [facility] - General Surgery - [place] [address] [phone] Kingston Peoples MD #[address] [address] Scheduled Procedures Name Priority Associated Diagnoses Date/Ti me EXCISION CYST SEBACEOUS CYST 07/03/2024 12:40 PM CDT Health Maintenance Due Date Last Done Comments Hepatitis C Virus (HCV) Screening 1969 Hepatitis B Immunization (1 of 3 - 19+ 3-dose series) 1988 Zoster Immunization (1 of 2) 1988 Cologuard 06/17/2019 Immunochemical Fecal Occult Blood 06/17/2019 Lung Cancer Screening 06/17/2019 SARS-COV-2 Immunization (2 - Moderna risk series) 06/13/2024 05/16/2024 Mammogram 02/14/2025 02/15/2024, 07/26/2023 Colonoscopy 07/31/2026 07/31/2021, 07/31/2021 Colorectal Cancer Screening 07/31/2026 Respiratory Syncytial Virus (RSV) Immunization (Adult) (1 - 1-dose 75+ series) 2044 07/31/2021 DTaP/Tdap/Td Immunization Discontinued 03/31/2013 TdaP Immunization Completed 03/31/2013 Influenza Immunization Completed , 12/20/2018, 02/27/2016 Pneumococcal Immunization (5 0+ years) Completed 02/16/2024 Pneumococcal Immunization Combined Discontinued 02/16/2024 Meningococcal Immunization (ACWY) Aged Out No longer eligible based on patient's age to complete this topic Rotavirus Immunization Aged Out No lo nger eligible based on patient's age to complete this topic Procedures Procedure Name Priority Date/Time Associated Diagnosis Comments CULTURE, AEROBIC ONLY STAT 06/15/2024 3:23 PM CDT INCISION AND DRAINAGE Routine 06/15/2024 2:57 PM CDT MARAH DIAG BILATERAL DIGITAL W CAD W SANDRA Routine 02/15/2024 2:53 PM SILVER BRAZER Abnormal mammogram from Last 3 Months or Most Recently Relevant to Health Maintenance Results * CULTURE, AEROBIC (06/15/2024 3:23 PM CDT) CULTURE RESULTS CUTIBACTERIUM AVIDUM 06/18/2024 1:32 PM CDT [facility] Comment:SENSITIVITY NOT PERF ORMED CULTURE RESULTS DERMABACTER HOMINIS 06/18/2024 1:32 PM CDT [facility] Comment:SENSITIVITY NOT PERF ORMED Culture ABSCESS MORPHOLOGY / Unknown Non-Phlebotomy Collection / Unknown 06/15/2024 3:23 PM CDT 06/15/2024 3:32 PM CDT us Fazal Barker PAC MICROBIOLOGY - GENER AL ORDERABLES Final Result Performing Organization Address City/State/[facility] Co de Phone Number [facility] [address] [place] [address], * Incision and Drainage (06/15/2024 2:57 PM CDT) Narrative Quan Coulter MD - 06/15/2024 2:57 PM CDT Quan Coulter MD 06/15/2024 4:23 PM Incision and Drainage Performed by: Fazal Barker PAC Authorized by: Fazal Barker, PAC Consent: Consent obtained: Verbal and written Consent given by: Patient Risks, benefits, and alternatives were discussed: yes Risks discussed: Bleeding, incomplete drainage, pain, infection and damage to other organs [place] protocol: Procedure explained and questions answered to patient or proxy's satisfaction: yes Relevant documents present and verified: yes Test results available : yes Required blood products, implants, devices, and special equipment available: yes Site/side marked: yes Immediately prior to procedure, a time out was called: yes Patient identity confirmed: Hospital-assigned identification number, verbally with patient and arm band Location: Type: Cyst Size: 3cm Location: Neck Neck location: R posterior Pre-procedure details: Skin preparation: Chlorhexidine with alcohol Sedation: Sedation type: None Anesthesia: Anesthesia method: Local infiltration Local anesthetic: Lidocaine 1% w/o epi Procedure type: Complexity: Simple Procedure details: Ultrasound guidance: no Needle aspiration: no Incision types: Single straight Incision depth: Dermal Wound management: Probed and deloculated Drainage: Bloody and purulent Drainage amount: Moderate Wound treatment: Wound left open Packing materials: None Post-procedure details: Procedure completion: Tolerated well, no immediate complications Fazal Barker PAC PROCEDURE/MINOR SURG ICAL ORDERABLES Final Result * MARAH DIAG BILATERAL DIGITAL W CAD W SANDRA (02/15/2024 2:53 PM SILVER BRAZER) Anatomical Region Laterality Modality breast Bilateral Mammography 02/15/2024 2:24 PM SILVER BRAZER Narrative 02/15/2024 4:13 PM SILVER BRAZER - MARAH DIAG BILATERAL DIGITAL W CAD [...] exams dated: 07/26/2023 and 07/26/2023 [facility]. BREAST TISSUE:There are scattered areas of [...] signed by: Lindsey Dick M.D. ab/:02/15/2024 15:20:23 Correspondence Analyst(s): RT Judy(R)(M), [facility]; Coty Clayton, [facility] letter sent: Birad 3 Followup Reading location: [facility] STUDY BIRADS: Category 3: Probably Benign [...] made to exams dated: 07/26/2023 and 07/26/2023 [facility]. BREAST TISSUE:There are scattered areas of [...] signed by: Lindsey Dick M.D. ab/:02/15/2024 15:20:23 Correspondence Analyst(s): RT Judy(R)(M), [facility]; Coty Clayton, [facility] letter sent: Birad 3 Followup Reading location: [facility] OVERALL STUDY BIRADS: Category 3: Probably Benign Jomar Kiran MD IMG MAMMO ORDERABLES Fin al Result from Last 3 Months or Most Recently Relevant to Health Maintenance Insurance MEDICAID [place] MEDICARE Care Teams Automotive Machinist Apprentice Relationship Specialty Start Date End Date Jose Bryan, [facility] [address] [place] [id number] PCP - General Physician Gaming Manager 09/27/19 Ron Batista MD #[address] [address] Consulting Physician Urology 08/19/23 Jomar Kiran MD [address] [place] [address] Consulting Physician Medical Oncology 07/20/23 Macy Alarcon APRN, MARRIAGE AND FAMILY THERAPIST [address] [place] [address] Nurse Practitioner Advanced Practice Nurse 02/23/24 Kingston Peoples MD [address] [place] [address] Consulting Physician Colon and Rectal Surgery 06/20/24
--- OUTSIDE RECORDS SUMMARY | 2024-06-22 11:03 | XMS_ITS | Continuity of Care Document ---
Author Organization [facility] Address [address] [place] [address] Care Team Providers Care Program Officer Name Role Phone LATOYA BRYAN Primary Care Provider Assessment No assessment recorded. Plan of Treatment Reminders Order Date Submit Date Provider Last Modified By Organization Details Last Modified Time Details Appointments ANY 15 2024 09:00A M Latoya Bryan PA-C Not available Not available Not available Lab None recorded. Referral None recorded. Procedures None recorded. Surgeries None recorded. Imaging XR, knee [address] [facility] (Registration ), [address] [place] [address], [id number], 06/22/2024 11:44:05 Medication Orders meloxicam 15 mg tablet 2024 025 [facility], [address] [place] [address], [address], 06/22/2024 10:26:39 lisinopri l 10 mg tablet 2024 025 [facility], [address] [place] [address], [address], 06/22/2024 10:24:25 terbinafi ne HCl 250 mg tablet 2024 025 [facility], [address] [place] [address], [id number], 06/22/2024 10:26:40 Patient TargetsNo targets recorded. Patient Instructions Encounter Date Encounter Id Patient Instructions Last Modified By Organization Details Last Modified Time 06/22/2024 [id number] learning about high blood pressure jnanney Not available 06/22/2024 10:18:28 Reason for Referral None Reported. Results Created Date Observation Date Name Description Value Unit Range Abnormal Flag Note LastModifiedBy Organization Detail LastModifiedTime 06/23/1906/22/2024 XR, knee No observ ation record ed. [facility] [address] [place], [address], 06/22/2024 11:44:05 Result Notes None recorded. Problems Name Problem SNOMED Code Status Onset Date Resolution Date Notes Provider Name and Address Organization Details Recorded Time Pneumonia 099265905 Active Not Available [facility] 2 07:33:31 Essential hypertension 40321005 Active Not Available [facility] 2 07:33:31 Hyperglycemia 05888185 Active Not Available [facility] 2 07:33:31 Mixed hyperlipidemi a 225884546 Active Not Available [facility] 2 07:33:31 Chronic depression 052971940 Active Not Available [facility] 2 07:33:31 Strain of trapezius muscle 637834508 Active Not Available [facility] 2 07:33:31 Chronic cough 70838706 Active Not Available [facility] 2 07:33:31 Problem Notes None recorded. Procedures Surgical History Date Name Laterality Status Provider Name and Address Organization Details Recorded Time 03/22/19 15 Date of Last Mammogram completed Lakeshia Ramirez MA [facility] 05/13/2020 15:46:28 03/22/19 15 Total hysterectomy completed ASPEN Wallis [facility] 05/13/2020 15:50:46 Tonsillectomy completed ASPEN Wallis [facility] 02/18/2021 18:36:00 Imaging Results None recorded. Procedure Notes None recorded. Medical Equipment None Reported. Allergies No known drug allergies Medications Name Sig Start Date Stop Date Status Note LastModified by Organization Details LastModified Time fluoxetin e 40 mg capsule Take one capsule by mouth every day active Not Available Not Available No t Available cyclobenz aprine 10 mg tablet TAKE 1 TABLET BY MOUTH THREE TIMES DAILY NEEDED FOR MUSCLE SPASM 05/16 completed Not Available Not Available Not Available amoxicill in 500 mg capsule active [...] in HCl 300 mg capsule Take 1 Capsule by mouth every 8 hours for 10 days. Indicati ons Infectio n of the Skin and/or Soft Tissue active Not Available Not Available No t Available trazodone 50 mg tablet TAKE ONE [...] ne 5 mg-acetam inophen 325 mg tablet Take 1 Tablet by mouth every 8 hours as needed for Moderate or more severe pain. 06/22 completed Not Available Not Available Not Available fluconazo le 200 mg tablet Take 1 tablet by oral route as directed . 07/09 completed Not Available Not Available Not Available meloxicam 15 mg tablet Take 1 tablet every day by oral route for 90 days. 2024 active Not Available Not Available Not Avai lable ondansetr on HCl 4 mg tablet TAKE [...] Not Available prednison e 5 mg tablet Take 4 tablets (20 mg) by mouth daily for 7 days, THEN 3 tablets (15 mg) daily for 7 days, THEN 2 tablets (10 mg) daily for 7 days, THEN 1 tablet (5 mg) daily for 7 days. 06/15 completed Not Available Not Available Not Available sulfasala zine 500 mg tablet,de layed release Take 2 tablets (1,000 mg total) by mouth 2 (two) times a day active Not Available Not Available No [...] hours by oral route for 10 days. active Not Available Not Available No t Available hydrocodo ne 10 mg-acetam inophen 325 mg tablet TAKE 1 tablet orally every 12 hours As Needed for severe pain (scale score 7-10) 10/22 completed Not Available Not Available Not Available tramadol 50 mg tablet take 1 tablet with Tylenol BY MOUTH THREE TIMES A DAY pain control (use only Tylenol for mild pain) 05/16 completed Not Available Not Available Not Available triamtere ne 37.5 mg-hydroc hlorothia zide 25 mg capsule 1 po qd 02/13 completed Not Available Not Available Not Available fenofibra te micronize d 134 mg capsule TAKE ONE CAPSULE BY MOUTH EVERY DAY 07/09 completed Not Available Not Available Not Available ketorolac 10 mg tablet 02/13 completed Not Available Not Available Not Available meloxicam 7.5 mg tablet Take 1 tablet (7.5 mg total) by mouth daily active Not Available Not Available No t Available oxycodone -acetamin ophen 5 mg-325 mg tablet TAKE 1 TABLET BY MOUTH EVERY 6 HOURS NEEDED FOR PAIN 04/26 completed Not Available Not Available Not Available terbinafi ne HCl 250 mg tablet Take 1 tablet every day by oral route for 84 days. 2024 active Not Available Not Available Not Avai lable alprazola m 0.5 mg tablet TAKE ONE [...] TAKE 8 TABLETS BY MOUTH ONCE WEEKLY 06/15 completed Not Available Not Available Not Available [...] pantopraz ole 40 mg tablet,de layed release TAKE 1 TABLET BY MOUTH DAILY active [...] completed Not Available Not Available Not Available lisinopri l 10 mg tablet Take 1 tablet every day by oral route for 90 days. 2024 active Not Available Not Available Not Avai lable prednison e 50 mg tablet 05/13 completed [...] c sodium 75 mg tablet,de layed release TAKE 1 TABLET BY MOUTH TWICE DAILY NEEDED FOR PAIN 05/16 completed Not Available Not Available Not Available folic acid 1 mg tablet take 1 tablet (1 mg) by oral route once daily 05/16 completed Not Available Not Available Not Available hydroxyzi ne HCl 25 mg tablet [...] e 50 mcg/actua tion nasal spray,maranda pension Stewart 1 spray every day by intranas al [...] Not Available azithromy mark 500 mg tablet TAKE 1 TABLET BY MOUTH DAILY FOR 3 DAYS 05/16 completed Not Available Not Available Not Available [...] Arterial blood by Pulse oximetry Heart rate Respiratory rate Systolic blood pressure Diastolic blood pressure Provider Name and Address Organization Details Last Updated DateTime 5 162.56 cm 34 kg/m2 45678.5 7 g 98 % 98 % 80 /min 16 /min 142 mm[Hg] 84 mm[Hg] Delfina Hernandez MA [facility] 5 09:49:56 Social History Question Answer Notes LastModified by Organizat ion Details LastModified Time Tobacco Smoking Status Former Smoker Thania Leyva MA [facility], [facility] 07/13/2023 10:54:09 What Is Your Level Of Alcohol Consumption? None Information not available 06/15/2024 Are You Blind Or Do You Have Difficulty Seeing? No Information not available 07/23/2020 What Is Your Level Of Caffeine Consumption? Moderate Information not available 02/14/2020 How Much Tobacco Do You Chew? None Information not available 02/14/2020 In The 14 Days Before Symptom Onset, Have You Had Close Contact [facility] While That Case Was Ill? No [...] Date Of Your Most Recent Tobacco Screening? 06/22/2024 Information not available 06/22/2024 What Is Your Relationship Status? Single Information [...] Anxious, Or Unable To Sleep At Night)? [id number] Information not available 12/11/2021 Do You Use Any Illicit Or Recreational Drugs? Yes Dominik Gonzales Information not available 12/11/2021 Has Tobacco Cessation Counseling Been Provided? Yes [email or web address] Information not available 10/10/2018 On What Date Was Tobacco Cessation Counseling Provided? 06/22/2024 Information not available 06/22/2024 Do You Or Have You Ever Used [...] Response Coronary Artery Disease N Other N High Blood Pressure N Atrial Fibrillation N Thyroid Problems N Kidney or Bladder Problems N GI Problems N Depression N COPD N Blood Clots N Skin Problems N Eating Disorder N Anemia N Heart Attack (MD) N Anxiety Disorder N Diabetes N Muscle, [...] virus, quadrivalent, preservative 6 completed Not Available [facility] 04[facility] 02:48:36 Pneumococcal conjugate PCV20, polysaccharide EVT274 conjugate, adjuvant, PF 4 completed ASPEN [place], [place] - [facility] 02/16/2024 11:23:37 COVID-19, mRNA, LNP-S, PF, 50 mcg/0.5 mL 5 completed Lakeshia Ramirez MA null, [place] - [facility] 05/16/2024 19:38:18 Past Encounters Encounter ID Performer Location Encounter Start Date Encounter Closed Date Diagnosis/Indication Diagnosis SNOMED-CT Code Diagnosis ICD10 Code Diagnosis Note [id number] Latoya Bryan PA-C [facility] [address] [place] [address] 06/15/2024 11:04:44 06/19/2024 11:20:52 Infection of sebaceous cyst 910672310 L72.3 Seropositi ve rheumatoid arthritis 864242217 M05.711 [facility] [id number] E66 .3 [id number] Latoya Bryan PA-C [facility] [address] [place] [address] 06/22/2024 09:39:08 06/22/2024 10:19:54 Essential hypertension 18463466 I10 will increase lisinopril to 10 mg for 3 months..re check then Pain of ri ght knee joint 1815538581 00884 M25.561 increase meloxicam to 15 mg Onychomyco sis of toenails 639543491 B35.1 treat with lamisil Health Concerns Section Related Observation LastModified by Organization Detai ls LastModified Time None Recorded Concern Status LastModified by Organization Details LastModified Time None Recorded Payers Encounter Date Sequence Insurance Name Policy Number Policy Mack Covered Member ID Mack Member ID Guarantor Name 06/22/2024 1 [place] Thuy Cooper [id number] Thuy Malcolm Cooper 06/22/2024 2 [place]CON[place] WHEN MEDICARE OR MEDICARE REPLACEMENT PRIMARY) Thuy Cooper [id number] Thuycristian Cooper Notes Date Note Type Note Provider Name and Address Organization Details Recorded Time 06/22/2024 text/html rt great toenail with fungus ...also rt knee is painful and locking up...rheumatolo gist says it is not RA...blood pressure still elevated a little Latoya Bryan PA-C Attn: Accounting,[address] [place], [address], [place] - [facility] 06/22/2024 10:19:51 OBGyn Episode No OBEpisode recorded.
--- OUTSIDE RECORDS SUMMARY | 2024-06-22 11:03 | XMS_ITS | Clinical Summary ---
Author Organization [facility] Administrative Offices Address [address] [place] [address] Care Team Providers Care Broadcast Operations Technician Name Role Phone Unavailable Primary Care [...] of 3 - 19+ 3-dose series) 05/21 HPV/Cotest (21-29) 1990 CERVICAL CANCER SCREENING 06/17/1999 HPV/Cotest (30-65) 06/17/1999 PAP SMEAR 06/17/1999 BREAST CANCER SCREENING 2009 COLORECTAL SCREENING 2014 Colorectal Cancer Screening 2014 FIT-DNA Q 3 years 2014 FIT/FOBT Q 1 year 2014 Flex Sig/CT Colonography Q 5 years 2014 ZOSTER VACCINE (1 of 2) 06/17/2019 INFLUENZA VACCINE (#1) 2023 Insurance MEDICARE PART A AND B MEDICAID [id number]
== END 2024-06-22 10:11 | disposition home or self-care (01) ==
LOC: CHSIMG 10:16
PROVIDERS: PCP Physician Assistant; Visit Provider Physician Assistant
DX: M25.561 Pain in right knee (principal)
CPT/HCPCS: 73562

== ENCOUNTER 2024-08-23 12:23 | Outpatient (CLI) | payer MEDICARE, SELFPAY ==
--- OUTSIDE RECORDS SUMMARY | 2024-08-23 12:29 | XMS_ITS | Clinical Summary ---
Author Organization [facility] Address [address] [place] [address] Phone Care Team Providers Care Vacuum Kettle Cook Name Role Phone Jose Bryan PAC Primary Care Provider [phone] Ron Batista MD Unavailable Jomar Kiran MD Unavailable [phone] Macy Alarcon APRN, [facility] Unavailable Kingston Peoples MD Unavailable Denis Marrufo PAC Unavailable [phone] Allergies Active Allergy Reactions Criticality Noted Date Comments Morphine Other (see Comments) 07/08/2021 AMPS HER UP Medications FLUoxetine (PROzac) 20 MG Capsule Take 40 mg by mouth daily. Active gabapentin (NEURONTIN) 300 MG Capsule Take 1,200 mg by mouth nightly. Active LISINOPRIL PO Take 5 mg by mouth every morning. Active amitriptyline (ELAVIL) 25 MG Tablet Take 25 mg by mouth daily. Active busPIRone (BUSPAR) 15 MG Tablet take one tablet by mouth three times a day as needed 4 Active diazePAM (VALIUM) 2 MG Tablet take 1 tablet by mouth three times daily as needed 4 Active pantoprazole (PROTONIX) 40 MG Tablet Delayed Response Take 40 mg by mouth daily. 4 Active traMADol (ULTRAM) 50 MG Tablet TAKE 1 TABLET BY MOUTH THREE TIMES A DAY FOR PAIN CONTROL 4 Active HYDROcodone-ac etaminophen (NORCO) 5-325 MG TabletIndicati ons:Infected sebaceous cyst of skin Take 1 Tablet by mouth every 8 hours as needed for Moderate or more severe pain. 12 Tablet 5 Active Additional Information Patient not taking.Reported on 07/12/2024 Adalimumab-aat y 40 MG/0.4ML Auto-injector Kit 40 mg by Subcutaneous route every 14 days. 5 Active meloxicam (MOBIC) 7.5 MG Tablet take 1 tablet (7.5 mg total) by mouth daily Active acetaminophen (TYLENOL) 325 MG Tablet Take 1 Tablet by mouth every 6 hours as needed for Mild or more severe pain. Do not exceed 4000 mg of acetaminophen in 24 hour from all sources. 5 Active sulfaSALAzine (AZULFIDINE) 500 MG Tablet Delayed Response Take 1,000 mg by mouth 2 times daily. 5 025 Active Problems Problem Noted Date Diagnosed Date Rheumatoid arthritis involvi ng both ankles with positive rheumatoid factor 08/04/2023 Joint stiffness 07/20/2023 Lymphadenopathy 07/24/2021 Encounters Date Type Department Care Team Description 07/12/2024 9:15 AM CDT Office Visit [facility] - General Surgery [facility] [address] [address] Kingston Peoples MD S/P skin and subcutaneous tissue surgery (Primary Dx); Sebaceous cyst Discharge Disposition: Discharged to home or Selfcare 07/11/2024 9:30 AM CDT Office Visit [facility] - Orthopedic Surgery [facility] [address] [place] [address] Denis Marrufo PAC Primary osteoarthritis of right knee (Primary Dx) Discharge Disposition: Discharged to home or Selfcare 07/11/2024 8:26 AM CDT - 07/11/2024 11:59 PM CDT Hospital Encounter [facility] Diagnostic Radiology [address] [place] [address] Denis Marrufo PAC Discharge Disposition: Discharged to home or Selfcare 07/11/2024 Travel 07/03/2024 2:17 PM CDT Anesthesia Event [facility] Periop [address] [place] [address] Cornelio Zuleta, AUTOMOBILE SPRING REPAIRER, C SOFTWARE DEVELOPER 07/03/2024 12:40 PM CDT - 07/03/2024 1:40 PM CDT Surgery [facility] Periop [address] [place] [address] Kingston Peoples MD EXCISION OF RIGHT POSTERIOR NECK SEBACEOUS CYST 07/03/2024 10:33 AM CDT - 07/03/2024 4:30 PM CDT Hospital Encounter [facility] Preop/Pacu II [address] [place] [address] Kingston Peoples MD Discharge Disposition: Discharged to home or Selfcare 07/03/2024 Travel 06/30/2024 Telephone [facility] - General Surgery - [place] [address] [address] Denis Marrufo PAC 06/26/2024 Transcribe Orders [facility] Mammography [address] [place] [address] Jomar Kiran MD Abnormal mammogram (Primary Dx) 06/22/2024 Travel 06/21/2024 8:30 AM CDT Office Visit [facility] - General Surgery - [place] #[address] [address] Kingston Peoples MD Sebaceous cyst (Primary Dx) Discharge Disposition: Discharged to home or Selfcare 06/21/2024 Travel 06/15/2024 1:34 PM CDT - 06/15/2024 3:40 PM CDT Emergency [facility] Emergency [address] [place] [address] Fazal Barker, LEWIS Infected sebaceous cyst of skin Discharge Disposition: Discharged to home or Selfcare 06/15/2024 Travel from Last 3 Months Immunizations Immunization Administration Dates Next Due Influenza, Injectable, Mdck, Preservative Free 1 04/03/2023 Pneumococcal conjugate PCV20 , polysaccharide RXE252 conjugate, adjuvant, PF 02/16/2024 Family History Medical [...] Sign Reading Time Taken Comments Blood Pressure 139/74 07/12/2024 9:10 AM CDT Pulse 90 07/12/2024 9:10 AM CDT Temperature 36.7 C (98.1 F) 07/11/2024 9:11 AM CDT Respiratory Rate 16 07/03/2024 4:00 PM CDT Oxygen Saturation 95% 07/12/2024 9:10 AM CDT Inhaled Oxygen Concentration - - Weight 85.7 kg (189 lb) 07/12/2024 9:10 AM CDT Height 160 cm (5' 3) 07/12/2024 9:10 AM CDT Body Mass Index 33.48 07/12/2024 9:10 AM CDT Plan of Treatment Upcoming Encounters Date Type Department Care Team (Late st Contact Info) Description 10/06/2024 2:00 PM CDT Appointment [facility] Mammography [address] [place] [address] Jomar Kiran MD [address] [place] [address] 10/06/2024 3:00 PM CDT Appointment [facility] Ultrasound [address] [place] [address] Jomar Kiran MD [address] [place] [address] Health Maintenance Due Date Last Done Comments [...] Completed 02/16/2024 Pneumococcal Immunization Combined Discontinued 02/16/2024 Human Papillomavirus (HPV) Immunization Aged Out No longer eligible based on patient's age to complete this topic Meningococcal Immunization (ACWY) Aged Out No longer eligible based on patient's age to complete this topic Rotavirus Immunization Aged Out No lo nger eligible based on patient's age to complete this topic Procedures Procedure Name Priority Date/Time Associated Diagnosis Comments XR KNEE MINIMUM 4 VIEWS RIGHT Routine 07/11/2024 8:46 AM CDT Right knee pain, unspecified chronicity PATHOLOGY SURGICAL Routine 07/03/2024 2:36 PM CDT EXCISION CYST 07/03/2024 1:56 PM CDT SEBACEOUS CYST Special Needs 5'3 195LB, ANXIETY, RHEUMATOID ARTHRITIS, CHRONIC BACK PAIN, HYSTERECTOMY-NO PREG TEST, HTN CULTURE, AEROBIC ONLY STAT 06/15/2024 3:23 PM CDT INCISION AND DRAINAGE Routine 06/15/2024 2:57 PM CDT MARAH DIAG BILATERAL DIGITAL W CAD W SANDRA Routine 02/15/2024 2:53 PM PROGRAM THERAPIST Abnormal mammogram from Last 3 Months or Most Recently Relevant to Health Maintenance Results * XR KNEE MINIMUM 4 VIEWS RIGHT (07/11/2024 8:46 AM CDT) Anatomical Region Laterality Modality LOWER EXTREMITY, knee Right Digital Ra diography 07/11/2024 9:20 AM CDT Impressions 07/11/2024 9:22 AM CDT IMPRESSION: No acute osseous abnormality of the right knee. Severe arthritic change most pronounced lateral compartment. Moderate joint effusion. Narrative 07/11/2024 9:22 AM CDT EXAM DESCRIPTION: XR KNEE MINIMUM 4 VIEWS RIGHT REASON FOR STUDY: chronic right knee pain for 1 year. pain radiates up to hip. burning sensation and limited mobility. no injury. no surgery. TECHNIQUE: Four views right knee. COMPARISON: 07/14/2024 from [facility]. FINDINGS: Severe arthritic change of the right knee most pronounced lateral compartment with joint space loss and subchondral sclerosis. Moderate joint space loss medial compartment with osteophytic spurring. No erosion or aggressive osseous lesion. There is a moderate joint effusion. Patella positioned normally in the trochlea. No aggressive osseous lesion. THIS IS AN ELECTRONICALLY VERIFIED FINAL REPORT 07/11/2024 9:20 AM - Electronically signed by Ray Rain M.D. CH: SUN Report ID: [id number] Reading Location: [id number] Procedure Note Ray Rain Jr., MD - 07/11/2024 EXAM DESCRIPTION: XR KNEE MINIMUM 4 VIEWS RIGHT REASON FOR STUDY: chronic right knee pain for 1 year. pain radiates up to hip. burning sensation and limited mobility. no injury. no surgery. TECHNIQUE: Four views right knee. COMPARISON: 07/14/2024 from [facility]. FINDINGS: Severe arthritic change of the right knee most pronounced lateral compartment with joint space loss and subchondral sclerosis. Moderate joint space loss medial compartment with osteophytic spurring. No erosion or aggressive osseous lesion. There is a moderate joint effusion. Patella positioned normally in the trochlea. No aggressive osseous lesion. THIS IS AN ELECTRONICALLY VERIFIED FINAL REPORT 07/11/2024 9:20 AM - Electronically signed by Ray Rain M.D. CH: Report ID: [id number] Reading Location: [id number] IMPRESSION: No acute osseous abnormality of the right knee. Severe arthritic change most pronounced lateral compartment. Moderate joint effusion. [facility] DIAGNOSTIC ORDERABLES Final Result * Pathology Surgical (07/03/2024 2:36 PM CDT) Case Report Surgical Pathology Report Case: [id number] Authorizing Provider: Kingston Peoples MD Collected: 07/03/2024 02:36 PM Ordering Location: [facility] Received: 07/04/2024 08:[address] [facility] Main OR Pathologist: Pedro Harris MD PhD Specimen: Neck, SEBACEOUS CYST RIGHT POSTERIOR NECK 07/05/2024 9:38 AM CDT [facility] FINAL DIAGNOSIS Soft tissue, right posterior neck, excision: - Skin with focal chronic inflammation - Negative for malignancy 07/05/2024 9:38 AM CDT [facility] at 0938 CDT Pre-Operative Diagnosis SEBACEOUS CYST 07/05/2024 9:38 AM CDT [facility] Gross Description A. SEBACEOUS CYST RIGHT POSTERIOR NECK The specimen presents in a single formalin container for gross and microscopic examination, labeled with the patient's name, Thuy Cooper, and designated sebaceous cyst right posterior neck. The specimen consists of a 1.3 x 0.6 cn unoriented skin ellipse excised to a depth of 1 cm. The surface of the specimen is a light cortez skin ellipse. The excisional margin is sectioned at narrow intervals. On cut section the tissue is solid. The entire specimen is submitted in cassette A1. Total time of fixation is 31 hours, 10 minutes. KS/sb 07/05/2024 9:38 AM CDT [facility] Microscopic Description Microscopic examination was performed which supports the final diagnosis. All control tissues stained appropriately. 07/05/2024 9:38 AM CDT [facility] Tissue NECK STRUCTURE / Unknown 07/03/2024 2:36 PM CDT 07/04/2024 8:40 AM CDT us Kingston Peoples MD PATHOLOGY/CYTOLOGY ORDERABLES Fi nal Result [facility] [address] [place] [address] * CULTURE, AEROBIC (06/15/2024 3:23 PM CDT) CULTURE RESULTS CUTIBACTERIUM AVIDUM 06/18/2024 1:32 PM CDT [facility] Comment:SENSITIVITY NOT PERF ORMED CULTURE RESULTS DERMABACTER HOMINIS 06/18/2024 1:32 PM CDT [facility] Comment:SENSITIVITY NOT PERF ORMED Culture ABSCESS MORPHOLOGY / Unknown Non-Phlebotomy Collection / Unknown 06/15/2024 3:23 PM CDT 06/15/2024 3:32 PM CDT us Fazal SAUCEDO MICROBIOLOGY - GENER AL ORDERABLES Final Result [facility] [address] [place] [address], [place] * Incision and Drainage (06/15/2024 2:57 PM CDT) Narrative Quan Coulter MD - 06/15/2024 2:57 PM CDT Quan Coulter MD 06/15/2024 4:23 PM Incision and Drainage Performed by: Fazal Barker, PAC Authorized by: Fazal Barker, PAC Consent: Consent obtained: Verbal and written Consent given by: Patient Risks, benefits, and alternatives were discussed: yes Risks discussed: Bleeding, incomplete drainage, pain, infection and damage to other organs [place] protocol: Procedure explained and questions answered to [...] W CAD W SANDRA (02/15/2024 2:53 PM PROGRAM THERAPIST) Anatomical Region Laterality Modality breast Bilateral Mammography 02/15/2024 2:24 PM PROGRAM THERAPIST Narrative 02/15/2024 4:13 PM PROGRAM THERAPIST - MARAH DIAG BILATERAL DIGITAL W CAD [...] made to exams dated: 07/26/2023 and 07/26/2023 [facility]. BREAST TISSUE:There are scattered areas [...] signed by: Lindsey Dick M.D. ab/:02/15/2024 15:20:23 Sustainable Products Marketing Manager(s): RT Judy(R)(M), [facility]; Coty Clayton, [facility] letter sent: Birad 3 Followup Reading location: [facility] BIRADS: Category 3: Probably Benign Procedure Note [...] to exams dated: 07/26/2023 and 07/26/2023 [facility]. BREAST TISSUE:There are scattered areas of [...] signed by: Lindsey Dick M.D. ab/:02/15/2024 15:20:23 Sustainable Products Marketing Manager(s): RT Judy(R)(M), [facility]; Coty Clayton, [facility] letter sent: Birad 3 Followup Reading location: [facility] STUDY BIRADS: Category 3: Probably Benign [facility] Linda Kiran MD IMG MAMMO ORDERABLES Fin al Result from Last 3 Months or Most Recently Relevant to Health Maintenance [place] [address] MEDICAID [place] MEDICARE Care Teams Vacuum Kettle Cook Relationship Specialty Start Date End Date Jose Bryan PAC [address] [place] [address] PCP - General Physician Acoustical Tile Drill Press Operator 09/27/19 Ron Batista MD [address] [address] Consulting Physician Urology 08/19/23 Jomar Kiran MD [address] [place] [address] Consulting Physician Medical Oncology 07/20/23 Macy Alarcon APRN, TRAUMA REGISTRAR [address] [place] [address] Nurse Practitioner Advanced Practice Nurse 02/23/24 Kingston Peoples MD [address] [address] Consulting Physician Colon and Rectal Surgery 06/20/24 Denis Marrufo PAC [address] [address] Physician Acoustical Tile Drill Press Operator Physician Acoustical Tile Drill Press Operator 07/06/24
--- OUTSIDE RECORDS SUMMARY | 2024-08-23 12:29 | XMS_ITS | Encounter Summary ---
Author Organization [facility] Address [address] [place] [address] Phone Care Team Providers Care Ceiling Cleaner Name Role Phone Jose Bryan Primary Care Provider [phone] Ron Batista MD Unavailable Jomar Kiran MD Unavailable [phone] Macy Alarcon APRN PROPERTY INSPECTOR Unavailable Kingston Peoples MD Unavailable Denis Marrufo PAC Unavailable [phone] Reason for Referral * Radiology Services (Routine) - Authorized Specialty Diagnoses / Procedures Referred By Roula pak Referred To Contact Radiology Diagnoses Abnormal mammogram Procedures MARAH DIAG BILATERAL DIGITAL W CAD W Jomar Mereidth MD [address] [place] [address] Phone: tel: fax: Referral ID Status Reason Start Date Expiration Date V isits Requested Visits Authorized [id number] Authorized 06/26/2024 1 1 * Radiology Services (Routine) - Authorized Specialty Diagnoses / Procedures Referred By Roula pak Referred To Contact Radiology Diagnoses Abnormal mammogram Procedures [facility] US BREAST LIMITED [place] Jomar Kiran MD [address] [place] [address] Phone: tel: fax: Referral ID Status Reason Start Date Expiration Date V isits Requested Visits Authorized [id number] Authorized 06/26/2024 1 1 Encounter Details Date Type Department Care Team (Late Contact Info) Description 06/26/2024 [facility]cribe [facility] [address] [place] [address] Jomar Kiran MD [address] [place] [address] Abnormal mammogram (Primary Dx) Social History Tobacco Use Types Packs/Day Years [...] Encounters Date Type Department Care Team (Late Contact Info) Description 10/06/2024 2:00 PM CDT [facility] [address] [place] [address] Jomar Kiran MD [address] [place] [address] 10/06/2024 3:00 PM CDT [facility] Ul[facility] [address] [place] [address] Jomar Kiran MD [address] [place] [address] Scheduled Orders Name Type Priority Associated Diagnoses Orde r Schedule MARAH US BREAST LIMITED GARFIELD Imaging Routine Abnormal mammogram Expected: 07/26/2024, Expires: 12/26/2024 MARAH DIAG BILATERAL DIGITAL W CAD W SANDRA Imaging Routine Abnormal mammogram Expected: 07/26/2024, Expires: 12/26/2024 documented as of this encounter Visit Diagnoses Diagnosis Abnormal mammogram- Primary Abnormal mammogram, unspecified documented in this encounter Care Teams Ceiling Cleaner Relationship Specialty Start Date End Date Jose Bryan PAC [address] [place] [address] PCP - General Physician Scrap Metal Burner 09/27/19 Ron Batista MD [address] [address] Consulting Physician Urology 08/19/23 Jomar Kiran MD [address] [place] [address] Consulting Physician Medical Oncology 07/20/23 Macy Alarcon APRN, PROPERTY INSPECTOR [address] [place] [address] Nurse Practitioner Advanced Practice Nurse 02/23/24 Kingston Peoples MD #[address] [address] Consulting Physician Colon and Rectal Surgery 06/20/24 Denis Marrufo, PAC #[address] [address] Physician Scrap Metal Burner Physician Scrap Metal Burner 07/06/24 documented as of this encounter
--- OUTSIDE RECORDS SUMMARY | 2024-08-23 12:29 | XMS_ITS | Clinical Summary ---
Author Organization [facility] Address [address] [place] [address] Care Team Providers Care Tube Sizer And Cutter Operator Name Role Phone Unavailable Primary Care Provider Unavailabl e Source Comments [facility],non-owned Affiliates and Associated Physician Practices is amultiple site organization consisting of ambulatory clinics and hospital sitesin [place], [place], [place] and [place]. This disclosure is being madepursuant to the Care Everywhere program and may not contain all information available regarding this patient. Last updated 17.[facility] Zounds Active Problems Problem Noted Date Diagnosed Date Syncope, unspecified syncope type 07/30/2023 Social History Tobacco Use Types Packs/Day Years Used Date Smoking Tobacco: Never Assessed Comments Unknown Sex and Gender Information Value Date Recorded Sex Assigned at Not on file Legal Sex Female 6:12 AM PHONE TRIAGE SPECIALIST Gender Identity Not on file Sexual Orientation [...] VACCINE (1 - 2023-2 5 season) 2023 DEPRESSION SCREENING [...] age to complete this topic Insurance MEDICARE [facility] MEDICAID - OUT OF [facility] MEDICARE [place] [address]
--- OUTSIDE RECORDS SUMMARY | 2024-08-23 12:29 | XMS_ITS | Data Portability ---
Author Organization [facility] Address [address] [place] [address] Care Team Providers Care Stunner Animal Name Role Phone LATOYA BRYAN Primary Care Provider Assessment No assessment recorded. Plan of Treatment Reminders Order Date Submit Date Provider Last Modified By Organization Details Last Modified Time Details Appointments ANY 15 2024 05:30P M Latoya Bryan PA-C Not available Not available Not available Lab rsv (respirat ory syncytial virus), rapid, nasophary ngeal 2024 025 GRACE In-Office Order, Internal Use Only DO Not Attach Compendium DO Not Attach Compendium, Do Not Delete/merge, [id number] 04/26/2024 13:10:41 Referral general surgeon referral 2024 025 GRACE Peoples MD, [address] [place] [address], [id number], 06/21/2024 12:46:31 Procedures None recorded. Surgeries None recorded. Imaging XR, knee 2024 025 [facility] (Registration ), [address] [place], [address], 06/22/2024 11:44:05 Medication Orders diclofena c sodium 75 mg tablet,de layed release 2024 025 GRACE [facility], [address] [place] [address], [address], 08/22/2024 19:11:28 lisinopri l 20 mg tablet 2024 025 GRACE [facility], [address] [place], [address], 08/22/2024 19:11:28 Caplyta 21 mg capsule 2024 025 GRACE [facility], [address] [place], [address], 08/23/2024 09:47:45 meloxicam 15 mg tablet 2024 025 RGACE [facility], [address] [place], [address], 08/22/2024 19:01:42 lisinopri l 10 mg tablet 2024 025 GRACE [facility], [address] [place], [address], 06/22/2024 12:44:20 terbinafi ne HCl 250 mg tablet 2024 025 GRACE [facility], [address] [place], [address], 08/22/2024 18:41:34 sulfameth oxazole 800 mg-trimet hoprim 160 mg tablet 2024 025 GRACE [facility], [address] [place], [address], 08/22/2024 18:41:34 pantopraz ole 40 mg tablet,de layed release 2024 025 GRACE [facility], [address] [place], [address], 05/19/2024 11:10:40 azithromy mark 500 mg tablet 2024 025 GRACE [facility], [address] [place], [address], 05/16/2024 18:51:29 Patient TargetsNo targets recorded. Patient Instructions Encounter Date Encounter Id Patient Instructions Last Modified By Organization Details Last Modified Time 04/26/2024 [id number] A healthy lifestyle: care instructions jnanney Not available 04/26/2024 11:48:00 shortness of breath: care instructions jnanney Not available 04/26/2024 11:27:44 05/16/2024 [id number] A healthy lifestyle: care instructions jnanney Not available 05/16/2024 19:10:17 learning about high blood pressure jnanney Not available 05/16/2024 19:10:17 Rheumatoid Arthritis (RA): Care Instructions jnanney Not available 05/16/2024 19:10:17 06/15/2024 [id number] A healthy lifestyle: care instructions jnanney Not available 06/15/2024 11:37:55 06/22/2024 [id number] learning about high blood pressure jnanney Not available 06/22/2024 10:18:28 08/22/2024 [id number] A healthy lifestyle: care instructions jnanney Not available 08/22/2024 19:04:04 Reason for Referral General Surgeon Referral for Infection of sebaceous cyst Referring Physician: Latoya Bryan, Family Medicine, Encounter Date: 06/15/2024 Results Created Date Observation Date Name Description Value Unit Range Abnormal Flag Note LastModifiedBy Organization Detail LastModifiedTime 04/26/1904/26/2024 rsv (resp irato ry syncy tial virus ), rapid , nasop haryn geal RSV negati ve Not Available In-Office Order Internal Use Only DO Not Attach Compendium DO Not Attach Compendium, Do Not Delete/merge, [id number] 04/26/2024 11:26:45 06/16/1906/18/2024 Bacte monica ident ified in Speci men by Aerob e cultu re bacteria identified in specimen by aerobe culture CUTIBA CTERIU M AVIDUM CULTU RE RESUL TS CUTIB ACTER IUM AVIDU M 06/18 1:32 PM CDT [facility] Not Available Not Available 06/21/2024 13:00:17 06/16/19 25 06/18/2024 Bacte monica ident ified in Speci men by Aerob e cultu re bacteria identified in specimen by aerobe culture DERMAB ACTER HOMINI S CULTU RE RESUL TS DERMA BACTE R HOMIN IS 06/18 1:32 PM CDT [facility] Not Available Not Available 06/21/2024 13:00:17 04/20/19 25 04/20/2024 XR, chest No observ ation record ed. [facility] [address] [place], [address], 04/20/2024 11:45:04 05/05/19 25 05/05/2024 XR, hip, unila teral No observ ation record ed. [facility] [address] [place], [address], 05/08/2024 08:48:06 05/05/19 25 05/05/2024 XR, lumba r spine No observ ation record ed. [facility] [address] [place], [address], 05/08/2024 08:48:57 05/05/19 25 05/05/2024 CT, lumba r spine , w/o contr ast No observ ation record ed. [facility] [address] [place], [address], 05/08/2024 08:49:20 06/23/19 25 06/22/2024 XR, knee No observ ation record ed. [facility] [address] [place], [address], 06/22/2024 12:45:02 Result Notes None recorded. Problems Name Problem SNOMED Code Status Onset Date Resolution Date Notes Provider Name and Address Organization Details Recorded Time Pneumonia 265522007 Active Not Available [facility] 2 07:33:31 Essential hypertension 52185140 Active Not Available [facility] 2 07:33:31 Hyperglycemia 24908096 Active Not Available [facility] 2 07:33:31 Mixed hyperlipidemi a 025546853 Active Not Available [facility] 2 07:33:31 Chronic depression 120826375 Active Not Available [facility] 2 07:33:31 Strain of trapezius muscle 475320162 Active Not Available [facility] 2 07:33:31 Chronic cough 65739051 Active Not Available [facility] 2 07:33:31 Problem Notes None recorded. Procedures Surgical History Date Name Laterality Status Provider Name and Address Organization Details Recorded Time 03/22/19 15 Date of Last Mammogram completed ASPEN Wallis [facility] 05/13/2020 15:46:28 03/22/19 15 Total hysterectomy completed ASPEN Wallis [facility] 05/13/2020 15:50:46 Tonsillectomy completed ASPEN Wallis [facility] 02/18/2021 18:36:00 Imaging Results None recorded. Procedure [...] n of the Skin and/or Soft Tissue 08/22 completed Not Available Not Available Not Available [...] day by oral route for 90 days. 08/22 completed Not Available Not Available Not Available lisinopri l 20 mg tablet Take 1 tablet every day [...] hours by oral route for 10 days. 08/22 completed Not Available Not Available Not Available [...] tablet (7.5 mg total) by mouth daily 08/22 completed Not Available Not Available Not Available oxycodone -acetamin ophen 5 mg-325 mg tablet TAKE 1 TABLET BY MOUTH EVERY 6 HOURS NEEDED FOR PAIN 04/26 completed Not Available Not Available Not Available terbinafi ne HCl 250 mg tablet Take 1 tablet every day by oral route for 84 days. 08/22 completed Not Available Not Available Not Available [...] TABLET BY MOUTH THREE TIMES DAILY NEEDED 08/22 completed Not Available Not Available Not Available baclofen 10 mg tablet active Not [...] day by oral route for 90 days. active Not Available Not Available No [...] c sodium 75 mg tablet,de layed release Take 1 tablet twice a day by oral route for 90 days. 2024 active Not Available Not Available Not Avai lable folic acid 1 mg tablet take 1 [...] tablet TAKE 1 TABLET BY MOUTH DAILY 08/22 completed Not Available Not Available Not Available zolpidem 5 mg tablet TAKE ONE [...] e 50 mcg/actua tion nasal spray,maranda pension [place] 1 spray every day by intranas al [...] Not Available buspirone 15 mg tablet TAKE 1 TABLET BY MOUTH THREE TIMES A DAY NEEDED 08/22 completed needs changed to 4x a day Not Available Not Available Not Available oxycodone 5 mg tablet TAKE 1 [...] Pen 40 mg/0.4 mL subcutane ous kit 08/22 completed Not Available Not Available Not Available Caplyta 21 mg capsule Take 1 capsule every day by oral route for 30 days. 2024 active Not Available Not Available Not Avai lable Vitals Date Recorded Body height Body mass index (BMI) Body weight Oxygen saturation Oxygen saturation in Arterial blood by Pulse oximetry Heart rate Systolic blood pressure Diastolic blood pressure Provider Name and Address Organization Details Last Updated DateTime 5 162.56 cm 34.8 kg/m2 45281.2 5 g 97 % 97 % 73 /min 140 mm[Hg] 96 mm[Hg] Lakeshia Ramirez MA [facility] 5 11:26:31 Date Recorded Body height Body mass index (BMI) Body weight Oxygen saturation Oxygen saturation in Arterial blood by Pulse oximetry Heart rate Systolic blood pressure Diastolic blood pressure Provider Name and Address Organization Details Last Updated DateTime 5 162.56 cm 33.6 kg/m2 14322.1 g 96 % 96 % 72 /min 120 mm[Hg] 70 mm[Hg] Lakeshia Ramirez MA [facility] 5 18:54:00 Date Recorded Body height Body mass index (BMI) Body weight Respiratory rate Oxygen saturation Oxygen saturation in Arterial blood by Pulse oximetry Heart rate Systolic blood pressure Diastolic blood pressure Provider Name and Address Organization Details Last Updated DateTime 5 162.56 cm 32.8 kg/m2 85063.1 4 g 18 /min 98 % 98 % 114 /min 144 mm[Hg] 88 mm[Hg] Delfina Hernandez MA [facility] 5 11:16:10 Date Recorded Body height Body mass index (BMI) Body weight Oxygen saturation Oxygen saturation in Arterial blood by Pulse oximetry Heart rate Respiratory rate Systolic blood pressure Diastolic blood pressure Provider Name and Address Organization Details Last Updated DateTime 5 162.56 cm 34 kg/m2 42781.5 7 g 98 % 98 % 80 /min 16 /min 142 mm[Hg] 84 mm[Hg] ASPEN Michelle [facility] 5 09:49:56 Date Recorded Body height Body mass index (BMI) Body weight Respiratory rate Oxygen saturation Oxygen saturation in Arterial blood by Pulse oximetry Heart rate Systolic blood pressure Diastolic blood pressure Provider Name and Address Organization Details Last Updated DateTime 5 162.56 cm 32.5 kg/m2 47451.6 6 g 18 /min 96 % 96 % 97 /min 144 mm[Hg] 84 mm[Hg] Delfina Hernandez MA [facility] 5 18:39:56 Social History Question Answer Notes LastModified by Organizat ion Details LastModified Time Tobacco Smoking Status Former Smoker Thania Leyva MA null, [place] - [facility] 07/13/2023 10:54:09 Are You Blind Or Do You Have Difficulty Seeing? No Information n ot available 07/23/2020 What Is Your Level Of Caffeine Consumption? Moderate Information not available 02/14/2020 How Much Tobacco Do You Chew? None Information not available 02/14/2020 In The 14 Days Before Symptom Onset, Have You Had Close Contact With A Laboratory-confirm ed COVID-19 While That Case Was Ill? No Information n ot available 05/13/2020 In The 14 Days Before [...] Of Diet Are You Following? REGULAR Information n ot available 02/14/2020 Are There Any Guns Present In Your Home? No Information not available 07/23/2020 Marital Status Single [email or web address] Informati on not available 02/14/2020 What Was The Date Of Your Most Recent Tobacco Screening? 08/22/2024 Information not available 08/22/2024 What Is Your Relationship Status? Single Information not available 05/13/2020 Do You Use Your Seat Belt Or Car Seat Routinely? Yes Information not available 07/23/2020 Do You Have Smoke And Carbon Monoxide Detectors In Your Home? Yes Information not available 07/23/2020 Are You Passively Exposed To Smoke? Yes Information no t available 07/23/2020 How Much Tobacco Do You Smoke? 0.5 PPD Information not available 05/06/2021 General Stress Level Low Information not available 02/14/2020 Has Tobacco Cessation Counseling Been Provided? Yes [email or web address] Information not available 10/10/2018 On What Date Was Tobacco Cessation Counseling Provided? 08/22/2024 Information not available 08/22/2024 Sex: Female Functional Status Question Answer Note LastModified by Organizat ion Details LastModified Time Do you use any illicit or recreational drugs? Yes [email or web address] [email or web address] Information not available 12/11/2021 Do you or have you ever used any other forms of tobacco or nicotine? No Information not available 05/13/2020 What is your level of alcohol consumption? Occasional Information not available 08/22/2024 Do you or have you ever used smokeless tobacco? Never used smokeless tobacco Information not available 02/14/2020 Are you able to care for yourself? Yes Information not available 05/13/2020 What is your occupation? Disability Information not available 02/14/2020 Do you or have you ever used e-cigarettes or vape? Never used electronic cigarettes Information not available 02/14/2020 Mental Status Question Answer Note LastModified by Organization D etails LastModified Time Do you feel stressed (tense, restless, nervous, or anxious, or unable to sleep at night)? [id number] Information not available 12/11/2021 Family History Nothing Reported. Medical History Condition Response Coronary Artery Disease N Other N Atrial Fibrillation N High Blood Pressure N Depression N COPD N Blood Clots N Anxiety Disorder N Muscle, Joint, or Bone Problems N Acid Reflux (GERD) N Cancer N Stroke N ADHD N High Cholesterol N Liver Disease N Schizophrenia N Headaches N Thyroid Problems N Kidney or Bladder Problems N GI Problems N Eating Disorder N Skin Problems N Anemia N Heart Attack (IA) N Diabetes N Seizures/Epilepsy N Asthma N Allergies N Substance Abuse N Hepatitis N Heart Failure N Osteoporosis N Gynecological History Statement/Question Response Date of Last Pap Smear Date of Last Mammogram 03/22/2014 Date of LMP Obstetrics History GPAL:G 0 P 0 0 0 0 Immunizations Vaccine Type Date Status Note Provider Nam e and Address Organization Details Recorded Time Tdap 4 completed Not Available [facility] 07/15/2022 12:15:59 Influenza, split virus, quadrivalent, preservative 6 completed Not Available [facility] 04/08/2019 02:48:36 influenza, unspecified formulation 9 completed Not Available [facility] 08/22/2024 18:31:33 Pneumococcal conjugate PCV20, polysaccharide [id number] conjugate, adjuvant, PF 4 completed Thania Leyva MA null, [place] - [facility] 02/16/2024 11:23:37 COVID-19, mRNA, LNP-S, PF, 50 mcg/0.5 mL 5 completed Lakeshia Ramirez MA null, [place] - [facility] 05/16/2024 19:38:18 Past Encounters Encounter ID Performer Location Encounter Start Date Encounter Closed Date Diagnosis/Indication Diagnosis SNOMED-CT Code Diagnosis ICD10 Code Diagnosis Note [id number] [facility] [address] [place] [address] 11/20/2015 11:53:46 11/20/2015 12:28:50 Pneumonia 772462619 J18.9 [id number] [facility] [address] [place] [address] 11/27/2015 11:33:52 11/27/2015 12:47:12 Essential hypertension 13936794 I10 Hyperglycemia 91360268 R 73.9 Mixed hyperlipidemia 267 530400 E78.2 Chronic depression 43914 0009 F34.1 [id number] [facility] [address] [place] [address] 12/09/2015 16:54:44 12/09/2015 17:38:48 Chronic depression 343182058 F34.1 Essential hypertension 23957521 I10 Strain of trapezius muscle 998054921 S46.812A Chronic cough 97121662 R 05 [id number] Latoya Bryan PA-C [facility] [address] [place] [address] 02/04/2016 11:23:43 02/04/2016 14:12:13 Community acquired pneumonia 606053897 J18.9 Lumbar radiculopathy 128 048948 M54.16 [id number] Latoya Bryan PA-C [facility] [address] [place] [address] 02/14/2016 10:54:36 02/14/2016 13:50:39 Upper respiratory infection 24320938 J06.9 Insomnia 885271636 G47.0 0 [id number] David Strauss MD [facility] [address] [place] [address] 02/20/2016 10:26:16 02/20/2016 12:58:58 Community acquired pneumonia 911525236 J18.9 [id number] David Strauss MD [facility] [address] [place] [address] 02/27/2016 10:35:04 02/27/2016 11:48:44 Administration of influenza vaccine 21914342 Z23 Pneumonitis 299004139 J1 8.9 [id number] Latoya Bryan PA-C [facility] [address] [place] [address] 03/13/2016 11:26:44 03/13/2016 12:22:10 Acute bronchitis 03250081 J20.0 Generalize d anxiety disorder 06345730 F41.1 Chronic depression 30974 0009 F34.1 [id number] David Strauss MD [facility] [address] [place] [address] 08/13/2016 09:56:33 08/13/2016 11:27:51 Lumbosacral radiculopathy 3008264 M54.16 [id number] David Strauss MD [facility] [address] [place] [address] 10/19/2016 17:31:02 10/19/2016 19:04:45 Lumbar radiculopathy 340919721 M54.16 Cervical radiculopathy 65374238 M54.12 [id number] Latoya Bryan PA-C [facility] [address] [place] [address] 10/10/2018 10:19:53 10/10/2018 11:28:45 Strain of trapezius muscle 692091278 S46.812A Essential hypertension 49920117 I10 Chronic depression 87218 8 F34.1 Cervical radiculopathy 28271598 M54.12 [id number] Latoya Bryan PA-C [facility] [address] [place] [address] 10/18/2018 14:17:59 10/18/2018 16:10:47 Lumbar radiculopathy 489162112 M54.16 Chronic depression 8 F34.1 [id number] Latoya Bryan PA-C [facility] [address] [place] [address] 07/10/2019 12:00:32 07/12/2019 12:51:19 Lumbar radiculopathy 973482967 M54.16 Primary insomnia 1252481 F51.01 [id number] David Strauss MD [facility] [address] [place] [address] 02/14/2020 09:38:35 02/14/2020 15:32:57 Primary insomnia 5081402 F51.01 Cervical radiculopathy 50507780 M54.12 [id number] David Strauss MD [facility] [address] [place] [address] 04/16/2020 11:04:06 04/16/2020 16:37:29 Long-term drug therapy 484517176 Z79.767 [id number] Latoya Bryan PA-C [facility] [address] [place] [address] 05/13/2020 12:06:35 05/17/2020 07:45:59 Cervical radiculopathy 82683790 M54.12 Lumbar radiculopathy 128 869598 M54.16 Essential hypertension 12421598 I10 [id number] David Strauss MD [facility] [address] [place] [address] 07/23/2020 09:29:19 07/23/2020 17:59:45 Furuncle of neck 36829216 L02.12 [id number] David Strauss MD [facility] [address] [place] [address] 08/01/2020 18:22:39 08/03/2020 11:58:36 Pain of right shoulder joint 5173071068 3225063 M25.511 Essential hypertension 59676287 I10 [id number] Latoya Bryan PA-C [facility] [address] [place] [address] 02/18/2021 18:29:17 02/18/2021 19:47:55 Long-term drug therapy 343684673 Z79.899 Chronic low back pain 27 2155179 M54.51 Cervical radiculopathy 47845474 M54.12 Essential hypertension 19083674 I10 Lumbar radiculopathy 128 745000 M54.16 Degenerati on of cervical intervertebral disc 28772572 M50.30 Tobacco de pendence syndrome 64098785 F17.586 [id number] Latoya Bryan PA-C [facility] [address] [place] [address] 05/06/2021 09:44:01 05/06/2021 17:20:55 Painless rectal bleeding 050698581 K62.5 History of colitis 85960 9006 Z87.19 Cervical radiculopathy 26253871 M54.12 [id number] David Strauss MD [facility] [address] [place] [address] 05/09/2021 10:27:47 05/09/2021 11:41:32 Essential hypertension 99174704 I10 Mixed hyperlipidemia 267 073580 E78.2 Chronic id iopathic constipation 61628250 K59.04 [id number] David Strauss MD [facility] [address] [place] [address] 05/27/2021 18:07:20 05/27/2021 19:05:58 Irritable bowel syndrome characterized by constipation 935676878 K58.1 Chronic depression 35490 0009 F34.1 Lumbar radiculopathy 128 992349 M54.16 Body mass index 25-29 - overweight 172859632 Z68.29 [id number] David Strauss MD [facility] [address] [place] [address] 06/24/2021 10:52:42 06/24/2021 11:58:07 Pelvic lymphadenopathy 735209290 R59.0 Lumbar radiculopathy 128 710987 M54.16 [id number] Latoya Bryan PA-C [facility] [address] [place] [address] 12/11/2021 16:27:58 12/11/2021 17:10:40 Overweight 617001667 E66.3 Chronic depression 8 F34.1 Screening mammography 24 995607 Z12.31 Cervical radiculopathy 20047906 M54.12 [id number] Latoya Bryan PA-C [facility] [address] [place] [address] 04/20/2022 16:50:55 04/22/2022 12:34:03 Cervical radiculopathy 25763018 M54.12 Overweight 376886866 E66 .3 [id number] Latoya Bryan PA-C [facility] [address] [place] [address] 07/13/2022 15:34:14 07/16/2022 14:55:27 Cervical radiculopathy 24553847 M54.12 Overweight 368492301 E66 .3 [id number] David Strauss MD [facility] [address] [place] [address] 10/22/2022 10:59:19 10/23/2022 12:30:17 Long-term drug therapy 095287312 Z79.899 Essential hypertension 66811076 I10 Cervical radiculopathy 38240266 M54.12 Overweight 113289044 E66 .3 [id number] David Strauss MD [facility] [address] [place] [address] 11/20/2022 10:34:32 11/24/2022 10:30:47 Abdominal bloating 204225454 R14.0 Retroperit glez lymphadenopathy 321112984 R59.0 Cervical radiculopathy 08988260 M54.12 Overweight 966398607 E66 .3 [id number] Latoya Bryan PA-C [facility] [address] [place] [address] 03/10/2023 15:18:52 03/12/2023 14:43:10 Chronic depression 358019754 F34.1 Essential hypertension 39780672 I10 Mixed anxi ety and depressive disorder 559664162 F41.8 Overweight 111797446 E66 .3 [id number] Latoya Bryan PA-C [facility] [address] [place] [address] 03/12/2023 16:13:34 03/16/2023 12:20:44 Cervical radiculopathy 67669503 M54.12 [id number] David Strauss MD [facility] [address] [place] [address] 07/13/2023 10:34:20 07/22/2023 10:31:34 Generalized enlarged lymph nodes 371599473 R59.1 Acute urin ankit tract infection 094688328 N10 Female str ess incontinence 54865258 N39.3 Mixed anxi ety and depressive disorder 069473820 F41.8 [id number] David Strauss MD [facility] [address] [place] [address] 07/26/2023 14:44:30 07/28/2023 13:12:36 Axillary lymphadenopathy 762090415 R59.0 Urinary incontinence 165 556934 N39.41 Generalize d anxiety disorder 27666140 F41.1 Primary fi bromyalgia syndrome 37178498 M79.7 [id number] David Strauss MD [facility] [address] [place] [address] 08/24/2023 10:16:48 08/25/2023 14:21:35 Dental abscess 380327360 K04.7 Urinary incontinence 165 572103 N39.41 Overweight 581131314 E66 .3 Mixed anxi ety and depressive disorder 226434956 F41.8 [id number] David Strauss MD [facility] [address] [place] [address] 02/02/2024 09:49:26 02/11/2024 08:38:12 Acute pancreatitis 309608994 K85.80 Rheumatoid arthritis 698 22705 M05.09 Mixed anxi ety and depressive disorder 050461330 F41.8 Overweight 560729608 E66 .3 [id number] David Strauss MD [facility] [address] [place] [address] 02/16/2024 10:22:48 02/22/2024 13:56:48 Seropositive rheumatoid arthritis 686607927 M05.711 Mixed anxi ety and depressive disorder 048850371 F41.8 Overweight 234565497 E66 .3 Persistent cough 0409941 02 R05.3 Administra tion of pneumococcal vaccine 14143365 Z23 Long-term drug therapy 980444374 Z79.979 [id number] David Strauss MD [facility] [address] [place] [address] 04/26/2024 10:45:41 04/28/2024 11:39:20 Dyspnea 021527071 R06.00 Acute bron chitis with bronchospasm 41425460 J20.8 Overweight 756203796 E66 .3 [id number] David Strauss MD [facility] [address] [place] [address] 05/16/2024 18:34:06 05/17/2024 09:25:06 Essential hypertension 96468342 I10 Mixed anxi ety and depressive disorder 071418323 F41.8 Rheumatoid arthritis 698 40356 M05.09 Overweight 122413265 E66 .3 Administra tion of SARS-CoV-2 recombinant spike protein antigen vaccine 7170981130 Z23 Gastroesop hageal reflux disease without esophagitis 275088651 K21.9 [id number] David Strauss MD [facility] [address] [place] [address] 06/15/2024 11:04:44 06/19/2024 11:20:52 Infection of sebaceous cyst 948730206 L72.3 Seropositi ve rheumatoid arthritis 039159632 M05.711 Overweight 858680193 E66 .3 [id number] David Strauss MD [facility] [address] [place] [address] 06/22/2024 09:39:08 06/23/2024 10:28:10 Essential hypertension 96072560 I10 will increase lisinopril to 10 mg for 3 months..re check then Pain of ri ght knee joint [id number] 66768 M25.561 increase meloxicam to 15 mg Onychomyco sis of toenails 262810347 B35.1 treat with lamisil [id number] MD Elvin Atwood [facility] [address] [place] [address] 08/22/2024 18:31:11 08/23/2024 13:16:44 Bipolar I disorder 057056615 F31.9 Essential hypertension 33064791 I10 not well controlled on lisinopril 10 mg...will increase to 20 mg Pain of knee region 1003 639029 M25.561 G89.29 disc meloxicam and start diclofenac Obese class I [id number] 05995 E66.811 Health Concerns Section Related Observation LastModified by Organization Detai ls LastModified Time None Recorded Concern Status LastModified by Organization Details LastModified Time None Recorded Advance Directives Directive None Recorded Payers Encounter Date Sequence Insurance Name Policy Number Policy Mack Covered Member ID Mack Member ID Guarantor Name 04/26/2024 1 [place] Thuy A Cooper [id number] Thuy A Cooper 04/26/2024 2 [place] WHEN MEDICARE OR MEDICARE REPLACEMENT PRIMARY) Thuy A Cooper [id number] Thuy A Cooper 05/16/2024 1 [place] Th[place] A Cooper [id number] Thuy A Cooper 05/16/2024 2 [place] WHEN [place] OR MEDIC[place] REPLACEMENT PRIMARY) Thuy A Cooper [id number] Thuy A Cooper 06/15/2024 1 [place] Thuy A Cooper [id number] Thuy A Cooper 06/15/2024 2 [place] WHEN [place] OR MEDIC[place] REPLACEMENT PRIMARY) Thuy A Cooper [id number] Thuy A Cooper 06/22/2024 1 [place] Thuy A Cooper [id number] Thuy Fowler Cooper 06/22/2024 2 [place] WHEN [place] OR MEDICARE REPLACEMENT PRIMARY) Thuy Fowler Cooper [id number] Thuy Fowler Cooper 08/22/2024 1 [place] Thuy Fowler Cooper [id number] Thuy Cooper 08/22/2024 2 [place] OR MEDICARE REPLACEMENT PRIMARY) Thuy Cooper [id number] Thuy Cooper Notes Date Note Type Note Provider Name and Address Organization Details Recorded Time 04/26/2024 text/html went to ER for lungs and sob and also back...feels like pneumonia now.. Latoya Bryan PA-C Attn: Accounting,[address] [place], [address], [facility] 04/26/2024 11:51:17 05/16/2024 text/html 3 mopnth vs controls...made the rounds with her RA doctor today.. Latoya Bryan PA-C Attn: [address] [place], [address], [facility] 05/16/2024 19:15:38 06/15/2024 text/html rt side of neck has worsened..very painful and red..also feels like her lymph nodes in her groin are swollen...says her anxiety is worse because of this...abdomen seems swollen today.. Latoya Bryan PA-C Attn: Accounting,[address] [place], [address], [place] [facility] 06/15/2024 11:39:49 06/22/2024 text/html rt great toenail with fungus ...also rt knee is painful and locking up...rheumatolog ist says it is not RA...blood pressure still elevated a little Latoya Bryan PA-C Attn: Accounting,[address] [place], [address], [place] [facility] 06/22/2024 10:19:51 08/22/2024 text/html has decided not to pursue the knee surgery...anxiet y still not working wants to try a different anti inflammatory.... is trading in lorazepam for Tylenol 3 at next refill...hx of RA..wants a second opinion on knee surgery at [facility]..also says she is bipolar by diagnosis per psyche years ago but seroquel was horrible Latoya Bryan PA-C Attn: Accounting[address] [place], [address], [facility] 08/22/2024 19:05:16 OBGyn Episode No OBEpisode recorded.
--- OUTSIDE RECORDS SUMMARY | 2024-08-23 12:29 | XMS_ITS | Continuity of Care Document ---
Author Organization [facility] Address [address] [place] [address] Care Team Providers Care Nutrition Services Manager Name Role Phone LATOYA BRYAN Primary Care Provider Assessment No assessment recorded. Plan of Treatment Reminders Order Date Submit Date Provider Last Modified By Organization Details Last Modified Time Details Appointments ANY 15 2024 05:30P M Latoya Bryan PA-C Not available Not available Not available Lab None recorded. Referral None recorded. Procedures None recorded. Surgeries None recorded. Imaging None recorded. Medication Orders diclofena c sodium 75 mg tablet,de layed release 2024 025 [facility], [address] [place] [address], [address], 08/22/2024 19:11:28 lisinopri l 20 mg tablet 2024 025 [facility], [address] [place] [address], [address], 08/22/2024 19:11:28 Caplyta 21 mg capsule 2024 025 [facility], [address] [place] [address], [address], 08/23/2024 09:47:45 Patient TargetsNo targets recorded. Patient Instructions Encounter Date Encounter Id Patient Instructions Last Modified By Organization Details Last Modified Time 08/22/2024 [id number] A healthy lifestyle: care instructions cas Not available 08/22/2024 19:04:04 Reason for Referral None Reported. Problems Name Problem SNOMED Code Status Onset Date Resolution Date Notes Provider Name and Address Organization Details Recorded Time Pneumonia 085024072 Active Not Available [facility] 2 07:33:31 Essential hypertension 51354367 Active Not Available [facility] 2 07:33:31 Hyperglycemia 30035046 Active Not Available [facility] 2 07:33:31 Mixed hyperlipidemi a 438069437 Active Not Available [facility] 2 07:33:31 Chronic depression 165485350 Active Not Available [facility] 2 07:33:31 Strain of trapezius muscle 124091283 Active Not Available [facility] 2 07:33:31 Chronic cough 76694222 Active Not Available [facility] 2 07:33:31 Problem Notes None recorded. Procedures Surgical History Date Name Laterality Status Provider Name and Address Organization Details Recorded Time 03/22/19 15 Date of Last Mammogram completed Lakeshia Ramirez MA [facility] 05/13/2020 15:46:28 03/22/19 15 Total hysterectomy completed Lakeshia Ramirez MA [facility] 05/13/2020 15:50:46 Tonsillectomy completed Lakeshia Ramirez MA [facility] 02/18/2021 18:36:00 Imaging Results None recorded. Procedure [...] e 50 mcg/actua tion nasal spray,maranda pension [place] 1 spray every day by intranas al [...] Updated DateTime 5 162.56 cm 32.5 kg/m2 54425.6 6 g 18 /min 96 % 96 % 97 /min 144 mm[Hg] 84 mm[Hg] Delfina Hernandez MA [place] [facility] 5 18:39:56 Social History Question Answer Notes LastModified by Organizat ion Details LastModified Time Tobacco Smoking Status Former Smoker Thania Leyva [place] null, [place] [facility] 07/13/2023 10:54:09 Are You Blind Or Do [...] illicit or recreational drugs? Yes kristen fuller [facility] Information not available 12/11/2021 Do you or [...] anxious, or unable to sleep at night)? [id number] [facility] Information not available 12/11/2021 Family History Nothing Reported. Medical History Condition Response Coronary Artery Disease N Other N High Blood Pressure N Atrial Fibrillation N Thyroid Problems N Kidney or Bladder Problems N GI Problems N Depression N COPD N Blood Clots N Skin Problems N Eating Disorder N Anemia N Heart Attack (SD) N Anxiety Disorder N Diabetes N Muscle, [...] Recorded Time Tdap 4 completed Not Available [facility] 07/15/2022 12:15:59 Influenza, split virus, quadrivalent, preservative 6 completed Not Available [facility] 04/08/2019 02:48:36 influenza, unspecified formulation 9 completed Not Available [facility] 08/22/2024 18:31:33 Pneumococcal conjugate PCV20, polysaccharide [id number] conjugate, adjuvant, PF 4 completed Thania Leyva [place], [place] [facility] 02/16/2024 11:23:37 COVID-19, mRNA, LNP-S, PF, 50 mcg/0.5 mL 5 completed Lakeshia Ramirez [place], [place] [facility] 05/16/2024 19:38:18 Past Encounters Encounter ID Performer Location Encounter Start Date Encounter Closed Date Diagnosis/Indication Diagnosis SNOMED-CT Code Diagnosis ICD10 Code Diagnosis Note [id number] David Strauss MD [facility] [address] [place] [address] 08/22/2024 18:31:11 08/23/2024 13:16:44 Bipolar I disorder 439801217 F31.9 Essential hypertension 96206241 I10 not well controlled on lisinopril 10 mg...will increase to 20 mg Pain of knee region 1003 070264 M25.561 G89.29 disc meloxicam and start diclofenac Obese class I 6407517816 43974 E66.811 Health Concerns Section Related Observation LastModified by Organization Detai ls LastModified Time None Recorded Concern Status LastModified by Organization Details LastModified Time None Recorded Payers Encounter Date Sequence Insurance Name Policy Number Policy Mack Covered Member ID Makc Member ID Guarantor Name 08/22/2024 1 [place] Thuy Cooper [id number] Thuy Cooper 08/22/2024 2 [place] WHEN MEDICARE OR MEDICARE REPLACEMENT PRIMARY) Thuy Cooper [id number] Thuy Cooper Notes Date Note Type Note Provider Name and Address Organization Details Recorded Time 08/22/2024 text/html has decided not to pursue the knee surgery...anxiet y still not working wants to try a different anti inflammatory.... is trading in lorazepam for Tylenol 3 at next refill...hx of RA..wants a second opinion on knee surgery at [facility]..also says she is bipolar by diagnosis per psyche years ago but seroquel was horrible Latoya Bryan PA-C Attn: Accounting,[address] [place], [address], [facility] 08/22/2024 19:05:16 OBGyn Episode No OBEpisode recorded.
--- OUTSIDE RECORDS SUMMARY | 2024-08-23 12:29 | XMS_ITS | Clinical Summary ---
Author Organization [facility] Address [address] [place] [address] Care Team Providers Care Handle Sander Operator Name Role Phone Unavailable Primary Care [...]
--- OUTSIDE RECORDS SUMMARY | 2024-08-23 12:29 | XMS_ITS | Clinical Summary ---
Author Organization [facility] Address [address] [place] [address] Care Team Providers Care Paint Stripper Name Role Phone Jose Bryan Primary Care Provider [phone] Ciaran Mcallister MD Unavailable [phone] Allergies Active Allergy Reactions Criticality Noted Date Comments Morphine Agitation Low Medications gabapentin (NEURONTIN) 300 mg capsule Take 4 capsules (1,200 mg total) by mouth nightly Active lisinopriL (PRINIVIL,ZESTR [place]) 5 mg tablet Take 1 tablet (5 [...] daily Active docusate sodium (COLACE) 250 mg capsuleIndicati ons:constipatio n Take 1 capsule (250 mg total) by [...] 02/16/20 24 Active naloxone (NARCAN) 4 mg/actuation spray,non-aeros ol Administer 1 spray (4 mg total) into affected nostril(s) as needed 07/06/19 24 Active meloxicam (MOBIC) 7.5 mg tabletIndicatio ns:Rheumatoid Arthritis Take 1 tablet (7.5 mg total) by mouth daily 90 tablet 1 05/16/19 25 2024 Active Yuflyma,CF, Autoinjector 40 mg/0.4 mL auto-injector, kitIndications: Rheumatoid arthritis involving multiple sites with positive rheumatoid factor (HCC) INJECT 40MG UNDER THE SKIN EVERY 14 DAYS 1 each 3 07/28/19 25 Active sulfaSALAzine EN (AZULFIDINE EN) 500 mg EC tabletIndicatio ns:Rheumatoid Arthritis Take 2 tablets (1,000 mg total) by mouth 2 (two) times a day 120 tablet 08/22/19 25 2024 Active sulfaSALAzine EN (AZULFIDINE EN) 500 mg EC tabletIndicatio ns:Rheumatoid Arthritis Take 2 tablets (1,000 mg total) by mouth 2 (two) times a day 360 tablet 05/16/19 25 2024 Discontinued(R eorder) adalimumab-aaty (Yuflyma,CF, Autoinjector) 40 mg/0.4 mL auto-injector, kitIndications: Rheumatoid Arthritis Inject 40 mg under the skin every 14 (fourteen) days 1 each 06/20/19 25 2024 Discontinued sulfaSALAzine EN (AZULFIDINE EN) 500 mg EC tabletIndicatio ns:Rheumatoid Arthritis Take 2 tablets (1,000 mg total) by mouth 2 (two) times a day 120 tablet 08/22/19 25 2024 Discontinued(R eorder) Active Problems Patient Care Coordination No te [...] for esophageal spasm versus mild early presbyesophagus. Hfwk-rp-apdeuade spontaneous gastroesophageal reflux. Small sliding-type hiatal hernia. [...] Telephone [facility] [address] [place] [address] Juanita Lemus RPh 06/08/2024 Telephone [facility] Rheumatology [address] 5th [place] [address] [place] [address] Jayne Gibbons MD from Last 3 Months Immunizations Immunization Administration [...] drink = 0.6 oz pur e alcohol) [facility] Utilities Answer Date Recorded In [...] often do you attend chur ch or restoration services? Never 01/18/2024 Do you belong to any clubs o r organizations such as jainism groups, unions, fraternal or athletic groups, or [...] any time in the past 12 m [facility], were you homeless or living in a senior care (including now)? No 01/18/2024 Personal Safety Answer Date Recorded Have you ever been in or are you currently in a harmful physical or emotional relationship or is someone making you feel afraid or unsafe? Denies 01/18/2024 Comments No Sex and Gender Information Value Date Recorded Sex Assigned at Not on file Legal Sex Female 9:45 AM MACHINE SIGN WRITER Gender Identity Not on file Sexual Orientation Not on file Occupation Industry Job Start Date Job End Date disability Not on file Not on file Not on file Obstetrics History Last Filed Vital Signs Vital Sign Reading Time Taken Comments Blood Pressure 134/82 05/16/2024 8:33 AM MACHINE SIGN WRITER Pulse 91 05/16/2024 8:33 AM MACHINE SIGN WRITER Temperature 36.7 C (98 F) 05/16/2024 8:33 AM MACHINE SIGN WRITER Respiratory Rate 16 04/03/2024 8:40 AM MACHINE SIGN WRITER Oxygen Saturation 98% 05/16/2024 8:33 AM MACHINE SIGN WRITER Inhaled Oxygen Concentration - - Weight 88.7 kg (195 lb 9.6 oz) 05/16/2024 8:33 A M MACHINE SIGN WRITER Height 162.6 cm (5' 4) 05/16/2024 8:33 AM MACHINE SIGN WRITER Body Mass Index 33.57 05/16/2024 8:33 AM MACHINE SIGN WRITER Plan of Treatment Health Maintenance Due Date [...] Procedure Name Priority Date/Time Associated Diagnosis Comments HEPATITIS C ANTIBODY Routine 05/16/2024 10:14 AM MACHINE SIGN WRITER High risk medication use from Last 3 Months or Most Recently Relevant to Health Maintenance Results * Hepatitis C antibody Blood (05/16/2024 10:14 AM MACHINE SIGN WRITER) Hep C Ab Nonreactive Nonreactive Comment: Interpretive [...] on 2019. Blood 05/16/2024 10:1 4 AM MACHINE SIGN WRITER 05/16/2024 3:59 PM MACHINE SIGN WRITER Jayne Gibbons MD LAB MICROBIOLOGY - NERAL ORDERABLES Final Result [facility] [id number] [address] Department [place] [address] from Last 3 Months or Most Recently Relevant to Health Maintenance Insurance MEDICARE [facility] MEDICARE [facility] MEDICARE IDPA Advance Directives For more information, please contact: [phone] * Full Code (Latest Code Status on File) Date Activated Date Inactivated Comments 01/18/2024 1:42 PM 01/21/2024 5:17 PM Care Teams Paint Stripper Relationship Specialty Start Date End Date Jose Bryan PA [address] [place] [address] PCP - General Family Practice 10/13/18 Ciaran Mcallister MD [address] [place] [address] General Surgery 04/03/24
--- OUTSIDE RECORDS SUMMARY | 2024-08-23 12:30 | XMS_ITS | Continuity of Care Document ---
Author Organization [facility] Address [address] [address] Phone Care Team Providers Care Advertising Executive Name Role Phone Slim Grier MD Unavailable [...] Diagnoses Date Provider Providers Copied on Encounter [facility], [address] [place], [place], [id number], tel:[phone] [facility] No Information 4 Marvel Soler [address], [place], [place], [address] , [place]. tel:[phone] Referring Provider: Mateo Desai [address], [place], [place], [address]. tel:[phone] OFFICE/OUTPA TIENT VISIT, [facility], [address], [place], [place], [address], [place] tel:[phone] [facility] HTN (chief complaint) HLP (chief complaint) COPD (chief complaint) Dietary surveillance and counselingHypertens ion, UnspecifiedHypothyr oidismOther and unspecified hyperlipidemiaCOPD 4 Marvel Soler [address], [place], [place], [address] , [place]. tel:[phone] Referring Provider: Mateo Desai [address], [place], [place], [address]. tel:[phone] OFFICE/OUTPA TIENT VISIT, [facility], [address], [place], [place], [address], [place] tel:[phone] [facility] COPD (chief complaint) anxiety (chief complaint) HLP (chief complaint) Dietary surveillance and counselingLEUKOCYTO SIS NOSCOPDOther and unspecified hyperlipidemiaHypot hyroidism 4 Marvel [address], [place], [place], [address] , [place]. tel:[phone] Referring Provider: Mateo Desai [address], [place], [place], [address]. tel:[phone] OFFICE/OUTPA TIENT VISIT, [facility], [address], [place], [place], [address], [place] tel:[phone] [facility] anxiety (chief complaint) back pain (chief complaint) COPD (chief complaint) Dietary surveillance and counselingOther and unspecified hyperlipidemiaCOPDL umbago 4 Grier Slim. [address], [place], [place], [address] , [place]. tel:[phone] Referring Provider: Mateo Desai [address], [place], [place], [address]. tel:[phone] OFFICE/OUTPA TIENT VISIT, [facility], [address], [place], [place], [address], [place] tel:[phone] [facility] HLP (chief complaint) metabolic (chief complaint) leukocytos is (chief complaint) hypothyroi dism (chief complaint) anxiety (chief complaint) bronchitis (chief complaint) Dietary surveillance and counselingOther and unspecified hyperlipidemiaMetab olic SyndromeLEUKOCYTOSI S NOSHypothyroidism Apr-2 4 4 Marvel Smalls. [address], [place], [place], [address] , [place]. tel:[phone] Referring Provider: Mateo Desai [address], [place], [place], [address]. tel:[phone] OFFICE/OUTPA TIENT VISIT, [facility], [address], [place], [place], [address], [place] tel:[phone] [facility] HTN (chief complaint) anxiety (chief complaint) back pain (chief complaint) cough (chief complaint) Dietary surveillance and counselingHypertens ion, UnspecifiedLumbagoB ronchitis, Acute Apr-0 3201 4 Marvel Smalls. [address], [place], [place], [address] , [place]. tel:[phone] Referring Provider: Mateo Desai [address], [place], [place], [address]. tel:[phone] OFFICE/OUTPA TIENT VISIT, [facility], [address], [place], [place], [address], [place] tel:[phone] [facility] Dietary surveillance and counselingLumbagoHy pertension, UnspecifiedHypergly cemia Mar-0 6201 4 Marvel Smalls. [address], [place], [place], [address] , . tel:[phone] Family History Family Member Type Diagnosis Age [...]
--- OUTSIDE RECORDS SUMMARY | 2024-08-23 12:30 | XMS_ITS | Referral Summary ---
Author Organization [facility] Address [address] [place] [address] Care Team Providers Care Business Reporting Developer Name Role Phone Jose Bryan Primary Care Provider [phone] Ciaran Mcallister MD Unavailable [phone] Encounters Date Type Department Care Team Description 06/08/2024 Telephone [facility] [address] [place] [address] Juanita Lemus RPh 06/08/2024 Telephone [facility] Rheumatology [address] [facility] [address]th [place] [address] [place] [address] Jayne Gibbons MD from Last 3 Months Allergies Active Allergy [...] mouth 3 (three) times a day 02/16/20 Active naloxone (NARCAN) 4 mg/actuation spray,non-aeros ol Administer 1 spray (4 mg total) into affected nostril(s) as needed 07/06/19 Active meloxicam (MOBIC) 7.5 mg tabletIndicatio ns:Rheumatoid Arthritis Take 1 tablet (7.5 mg total) by mouth daily 90 tablet 1 05/16/19 25 2024 Active GEETA Layton, Autoinjector 40 mg/0.4 mL auto-injector, kitIndications: Rheumatoid [...] tablet 05/16/19 25 2024 Discontinued(R eorder) adalimumab-aaty (Kinjal,CF, Autoinjector) 40 mg/0.4 mL auto-injector, kitIndications: Rheumatoid [...] for esophageal spasm versus mild early presbyesophagus. Houq-im-rwlottuf spontaneous gastroesophageal reflux. Small sliding-type hiatal hernia. [...] drink = 0.6 oz pur e alcohol) [employer] Utilities Answer Date Recorded In the past 12 months has [employer], gas, oil, or water [employer] threatened to shut off services in your [...] often do you attend chur ch or zoroastrian services? Never 01/18/2024 Do you belong to any clubs o r organizations such as uatsdin groups, unions, fraternal or athletic groups, or [...] were you homeless or living in a usp (including now)? No 01/18/2024 Personal Safety Answer Date Recorded Have you ever been in or are you currently in a harmful physical or emotional relationship or is someone making you feel afraid or unsafe? Denies 01/18/2024 Comments No Sex and Gender Information Value Date Recorded Sex Assigned at Not on file Legal Sex Female 9:45 AM BLASTING MINER Gender Identity Not on file Sexual Orientation Not on file Occupation Industry Job Start Date Job End Date disability Not on file Not on file Not on file Last Filed Vital Signs Vital Sign Reading Time Taken Comments Blood Pressure 134/82 05/16/2024 8:33 AM BLASTING MINER Pulse 91 05/16/2024 8:33 AM BLASTING MINER Temperature 36.7 C (98 F) 05/16/2024 8:33 AM BLASTING MINER Respiratory Rate 16 04/03/2024 8:40 AM BLASTING MINER Oxygen Saturation 98% 05/16/2024 8:33 AM BLASTING MINER Inhaled Oxygen Concentration - - Weight 88.7 kg (195 lb 9.6 oz) 05/16/2024 8:33 A M BLASTING MINER Height 162.6 cm (5' 4) 05/16/2024 8:33 AM BLASTING MINER Body Mass Index 33.57 05/16/2024 8:33 AM BLASTING MINER Plan of Treatment Not on file Procedures Procedure Name Priority Date/Time Associated Diagnosis Comments HEPATITIS C ANTIBODY Routine 05/16/2024 10:14 AM BLASTING MINER High risk medication use from Last 3 Months or Most Recently Relevant to Health Maintenance Results * Hepatitis C antibody Blood (05/16/2024 10:14 AM BLASTING MINER) Hep C Ab Nonreactive Nonreactive Comment: Interpretive [...] on 2019. Blood 05/16/2024 10:1 4 AM BLASTING MINER 05/16/2024 3:59 PM BLASTING MINER Jayne Gibbons MD LAB MICROBIOLOGY - NERAL ORDERABLES Final Result Performing Organization Address City/State/[place]IP [place] Phone Number [facility] [address] [address] Department [place] [address] from Last 3 Months or Most Recently Relevant to Health Maintenance Insurance MEDICARE IDPA MEDICARE [place]PA MEDICARE IDPA Advance Directives For more information, please contact: [phone] * Full Code (Latest Code Status on File) Date Activated Date Inactivated Comments 01/18/2024 1:42 PM 01/21/2024 5:17 PM Care Teams Business Reporting Developer Relationship Specialty Start Date End Date Jose Bryan PA [address] [place] [address] PCP - General Family Practice 10/13/18 Ciaran Mcallister MD [address] [place] [address] General Surgery 04/03/24
--- OUTSIDE RECORDS SUMMARY | 2024-08-23 12:30 | XMS_ITS | CONTINUITY OF CARE DOCUMENT ---
Author Name brandie diego Address Unknown Organization [facility] Address [address] [place] [address] Phone [phone] Care Team Providers Care Supervisor Print Line Name Role Phone brandie diego Unavailable Unavailable
[2024-08-23 12:41] LABS: Basophils Absolute Auto 0.07 K/mm3 (0.00-0.10); Basophils Percent Auto 0.6 % (0.0-1.0); Eosinophils Absolute Auto 0.12 K/mm3 (0.02-0.50); Hemoglobin 12.5 g/dL (12.0-15.0); Immature Granulocyte Absolute 0.05 K/mm3 (0.00-0.00); Immature Granulocyte Percent A 0.4 % (0.0-0.0); Lymphocytes Absolute Auto 1.59 K/mm3 (1.10-4.50); Lymphocytes Percent Auto 13.4 % (18.0-42.0); Mean Corpuscular HGB Conc 32.1 g/dL (32-36); Mean Corpuscular Volume 90.5 fL (78.0-102.0); Mean Platelet Volume 10.2 fl (9.2-11.8); Monocytes Absolute Auto 0.81 K/mm3 (0.10-0.90); Monocytes Percent Auto 6.8 % (2.0-11.0); Neutrophils Absolute Auto 9.22 K/mm3 (1.70-7.20); Neutrophils Percent Auto 77.8 % (50.0-70.0); Platelet Count Result 386 K/mm3 (150-420); Red Blood Count 4.31 M/mm3 (4.20-5.40); White Blood Count 11.9 K/mm3 (4.8-10.8)
[2024-08-23 13:08] LABS: Alanine Aminotransferase 21 U/L (6-35); Albumin Level 4.2 g/dL (3.5-5.1); Alkaline Phosphatase 73 U/L (38-126); Anion Gap 6 mmol/L (4-12); Aspartate Amino Transferase 27 U/L (14-36); Bilirubin,Total 0.5 mg/dL (0.2-1.3); Blood Urea Nitrogen 15 mg/dL (7-17); CRP 4.7 mg/dL (<1.0); Calcium 9.5 mg/dL (8.4-10.2); Carbon Dioxide 26 mmol/L (22-30); Chloride 109 mmol/L (98-107); Estimated Glomerular Filt Rate > 60; Glucose 121 mg/dL (65-110); Osmolality Calculated 293 mOsm/kg (285-295); Potassium 4.3 mmol/L (3.4-5.0); Sodium 141 mmol/L (137-145); Total Protein 6.9 g/dL (6.3-8.2)
[2024-08-23 14:17] LABS: Erythrocyte Sedimentation Rate 31 mm/hr (0-20)
== END 2024-08-23 12:24 | disposition home or self-care (01) ==
LOC: CHSLAB 12:26
PROVIDERS: PCP Physician Assistant
DX: M05.771 Rheumatoid arthritis with rheumatoid factor of right ankle and foot without organ or systems involvement (principal); M05.772 Rheumatoid arthritis with rheumatoid factor of left ankle and foot without organ or systems involvement
CPT/HCPCS: 36415; 80053; 85025; 85652; 86140